=== PATIENT | female | born 1945 | race Caucasian/White ===

== ENCOUNTER 2023-06-18 11:23 | Outpatient (OUT) | payer MEDICARE, SELFPAY ==
--- NOTE | 2023-06-18 11:27 | MM_ITS ---
Patient Name: DORYS PAN MR#: [id number] : 1945 Exam Date: 06/18/2023 Ordering Doctor: DR MARIO DOUGLASS M.D. RADIOLOGY REPORT PROCEDURE: MM TOMOSYNTHESIS SCREENING BI COMPARISON: MG MAMM SCREEN 3D MIRNA CAD, 04/10/2022. MG MAMM SCREEN MIRNA W CAD, 05/05/2019. MG MAMM SCREEN MIRNA W CAD, 02/26/2018. MG MAMM MIRNA SCRN W CAD DIG, 06/15/2013. INDICATIONS: Screening Calculator Name NCI Breast Cancer Risk Assessment Tool 5 Year Breast Cancer Risk 1.90% Lifetime Breast Cancer Risk 3.90% Personal Breast Cancer No Personal Ovarian Cancer No Treatments None Family Cancers Father with lung cancer at age 71. LOCATION: [facility] BREAST COMPOSITION: Heterogeneously dense,which may obscure small masses. FINDINGS: DIAGNOSTIC CATEGORY 2--BENIGN FINDING: RIGHT BREAST: No significant suspicious finding. Scattered benign-appearing calcifications are present. No significant change has occurred. LEFT BREAST: No significant suspicious finding. Scattered benign-appearing calcifications are present. No significant change has occurred. RECOMMENDATIONS: ROUTINE MAMMOGRAM AND CLINICAL EVALUATION IN 12 MONTHS. PLEASE NOTE: A NORMAL MAMMOGRAM DOES NOT EXCLUDE THE POSSIBILITY OF BREAST CANCER. A CLINICALLY SUSPICIOUS PALPABLE LUMP SHOULD BE BIOPSIED. Dictated by: David Reynolds M.D. on 06/18/2023 at 14:39 Approved by: David Reynolds M.D. on 06/18/2023 at 14:42
== END 2023-06-18 11:24 | disposition home or self-care (01) ==
PROVIDERS: PCP Internal Medicine; Visit Provider Internal Medicine
DX: Z12.31 Encounter for screening mammogram for malignant neoplasm of breast (principal); Z80.1 Family history of malignant neoplasm of trachea, bronchus and lung
CPT/HCPCS: 77063; 77067

== ENCOUNTER 2023-11-10 13:59 | Outpatient (REF) | payer MEDICARE, SELFPAY ==
[2023-11-12 21:09] LABS: Ova + Parasite Exam Final report (.)
== END 2023-11-10 14:00 | disposition home or self-care (01) ==
LOC: LAB 13:59
PROVIDERS: PCP Internal Medicine; Visit Provider Internal Medicine
DX: R19.5 Other fecal abnormalities (principal)
CPT/HCPCS: 87177; 87209

== ENCOUNTER 2025-05-17 13:30 | Outpatient (OUT) | payer MEDICARE, SELFPAY ==
--- OUTSIDE RECORDS SUMMARY | 2025-05-12 15:10 | XMS_ITS | Encounter Summary ---
Author Organization [facility] Address [address] [place] [address] Care Team Providers Care Slide Fastener Chain Assembler Name Role Phone Prasanth Craig MD Primary Care Provider [phone] Lizzette Middleton DO Unavailable [phone] Reason for Visit * ReasonCommentsFollow-uplesions Encounter Details DateTypeDepartmentCare Team (Latest Contact Info)Murcpsmlmrz47/06/2025 3:10 PM ESTOffice Visit [facility] [address] [facility] [address] [place] [address] Justino Dooley, DPFred [address] [facility] [address] [place] [address] Verruca plantaris (Primary Dx); Foot pain, left; Diabetes mellitus due to underlying condition with diabetic polyneuropathy, unspecified whether exterminator helper insulin use (HCC) Social History Tobacco UseTypesPacks/DayYears UsedDateSmoking Tobacco: NeverSmokeless Tobacco: Never Tobacco Cessation:Counseling Given: Yes Alcohol UseStandard Drinks/WeekCommentsNever0 (1 standard drink = 0.6 oz pure alcohol)caffeine: coffee/teaAUDIT-CAnswerDate RecordedQ1: How often do you have a drink containing alcohol?Never04/15/2023Q2: How many drinks containing alcohol do you have on a typical day when you are drinking?Patient does not drink 04/15/2023Q3: How often do you have six or more drinks on one occasion?Never 10/10/2023PHQ-2AnswerDate RecordedPatient Health Questionnaire-2 Score0 03/11/2025CommentsUnknownSex and Gender InformationValueDate RecordedSex Assigned at BirthNot on fileLegal HqrKobjxp37/15/2023 6:45 PM EDTGender Identity Not on fileSexual OrientationNot on filedocumented as of this encounter Last Filed Vital Signs Vital SignReadingTime TakenCommentsBlood Pressure--Pulse--Temperature-- Respiratory Uxrm729807/12/2024 3:06 PM ESTOxygen Saturation--Inhaled Oxygen Concentration--Nabgxd26.9 kg (174 lb)05/12/2025 3:06 PM YFFTiivez255.6 cm (5' 6 )05/12/2025 3:06 PM ESTBody Mass Index28.0805/12/2025 3:06 PM ESTdocumented in this encounter Progress Notes * Justino Dooley, DPM - 05/12/2025 3:10 PM EST Patient: Laquita Dailey : 1945 PCP: Prasanth Craig MD SUBJECTIVE Patient presents today for follow up of skin lesion/neoplasm of unknown origin to the left foot Pt states that previous treatment of acid tx with some improvement Pt rates pain the pain on a 1-10 scale an intensity of 5 Pt presents today for followup. Pt is dm2 Allergies: Allergies Allergen Reactions Donald Inhibitors Other Reaction(s): Unknown Phenothiazines Swelling Other Reaction(s): Unknown, Unknown Shellfish Allergy Other Reaction(s): Unknown Sulfamethoxazole Unknown Trimethoprim Unknown Penicillins Rash Other Reaction(s): Hives / Skin Rash, Other (See Comments), Unknown Past Medical History: Past Medical History: Diagnosis Date A-fib (HCC) Angina pectoris Anxiety Anxiety state [place] esophagus BCC (basal cell carcinoma) CAD (coronary artery disease) Chest pain 10/18/2020 Depression Depressive disorder Diabetes mellitus (HCC) Edema Esophageal reflux Essential hypertension GERD (gastroesophageal reflux disease) GI bleed History of coronary artery bypass graft Hx of coronary artery bypass graft Hx of echocardiogram Hypercholesteremia Hyperlipemia Hypertension IBS (irritable bowel syndrome) LBBB (left bundle branch block) Migraine Migraine headache Osteopenia Osteoporosis (HHS-HCC) x2 Prolonged Q-T interval on ECG 06/2019 PUD (peptic ulcer disease) Pure hypercholesterolemia Medications: Current Outpatient Medications: atorvastatin (Lipitor) 10 MG tablet, Take 10 mg by mouth in the morning., Disp: , Rfl: biotin 5 MG capsule, Take 10,000 mg by mouth Daily, Disp: , Rfl: Xxjerxb-Wauqyexjxz-Jagzfsu D (CITRACAL +D3 PO), Daily., Disp: , Rfl: cholecalciferol (Vitamin D-3) 50 MCG (2000 UT) tablet, Take by mouth., Disp: , Rfl: Clobetasol Propionate E 0.05 % emollient cream, APPLY A THIN LAYER TO AFFECTED AREA TWICE DAILY FOR2 MONTHS, Disp: , Rfl: doxylamine (Sleep Aid) 25 MG tablet, Take 25 mg by mouth as needed at bedtime., Disp: , Rfl: ferrous sulfate 325 (65 Fe) MG tablet, Take 325 mg by mouth in the morning. Take with meals., Disp:, Rfl: furosemide (Lasix) 20 MG tablet, Take 1 tablet (20 mg) by mouth in the morning., Disp: 100 tablet, Rfl: 3 glucose blood (Contour Next Test) test strip, Checking bg levels 3 times a day, Disp: 100 each, Rfl: 3 Insulin Infusion Pump (T:slim X2 Ins Pump/Control-IQ) device, Basal: 12A 0.0, 5A 0.5, 11A 0.3, 5P 0.15, 10P 0.0, ICR: 12A 4, 5A 3, 11A 5., 5P 4.5, ISF: 12A 100, 5A 50, 10P 100, Target: 100-150, Disp:1 each, Rfl: 0 Insulin Lispro (HumaLOG) 100 UNIT/ML solution, Inject 1 Dose under the skin See administration instructions INJECT UP TO 100 UNITS VIA PUMP DIRECTED ONCE DAILY, Disp: 90 mL, Rfl: 3 insulin pen needle (Novofine Pen Needle) 32G x 6 mm mis, 1 (one) time each day at the same time., Disp: , Rfl: magnesium oxide (Mag-Ox) 400 MG tablet, Take 400 mg by mouth in the morning and 400 mg before bedtime., Disp: , Rfl: metoprolol succinate XL (Toprol-XL) 50 MG 24 hr tablet, Take 50 mg by mouth in the morning., Disp: , Rfl: nitroglycerin (Nitrodur) 0.2 MG/HR patch, 1 PATCH TRANSDERMALLY DAILY NEEDED FOR CHEST PAIN FOR 30 DAYS, Disp: , Rfl: nitroglycerin (Nitrostat) 0.4 MG SL tablet, Place 0.4 mg under the tongue every 5 (five) minutes ifneeded for chest pain., Disp: , Rfl: nystatin (Mycostatin) 538357 UNIT/GM powder, Apply to the affected area (underneath breasts), once daily, 30 day supply, Disp: 60 g, Rfl: 11 pantoprazole (ProtoNix) 40 MG EC tablet, TAKE 1 TABLET BY MOUTH EVERY DAY IN THE MORNING, Disp: 100tablet, Rfl: 3 potassium chloride CR (Klor-Con) 10 MEQ ER tablet, Take 1 tablet (10 mEq) by mouth Daily, Disp: 100tablet, Rfl: 3 rivaroxaban (Xarelto) 20 MG tablet, Take 1 tablet (20 mg) by mouth in the evening. Take with meals,Disp: 100 tablet, Rfl: 3 Social History: Social History Socioeconomic History Marital status: Spouse name: Not on file Number of children: Not on file Years of education: Not on file Highest education level: Not on file Occupational History Not on file Tobacco Use Smoking status: Never Smokeless tobacco: Never Vaping Use Vaping status: Never Used Substance and Sexual Activity Alcohol use: Never Comment: caffeine: coffee/tea Drug use: Never Sexual activity: Not Currently Other Topics Concern Not on file Social History Narrative Not on file Social Drivers of Health Financial Resource Strain: Not on file Food Insecurity: Not on file Transportation Needs: Not on file Physical Activity: Not on file Stress: Not on file Social Connections: Not on file Intimate Partner Violence: Not on file Housing Stability: Not on file ROS: General: denies fever, chills, fatigue, malaise Musculoskeletal: Positive history of generalized osteo arthritis, denies loss of strength, pain to hip, knees, back Cardiovascular: denies CP, palpitations, positive history of atrial fibrillation and coronary artery disease OBJECTIVE LE EXAM: DERM: Elongated thick yellow crumbly nails digits 1 through 10. Diminished hair growth with thin shiny atrophic skin bilaterally Nummular lesion measuring at the left sub 4th metatarsal measuring 0.1cm x 0.1cm. Right ankle has healed lesion VASC: Negative DP and positive PT pedal pulses NEURO: 5.07 [place] Leandro monofilament test intact to digits and forefoot bilaterally 125Hz tuning fork diminished to 1st MPJ bilaterally ORTHO: Positive pain on palpation to toenails of the left 1,2,3,4,5 toes and right 1,2,3,4,5 toes Positive pain on palpation left foot lesion ASSESSMENT 1. Verruca plantaris 2. Foot pain, left 3. Diabetes mellitus due to underlying condition with diabetic polyneuropathy, unspecified whether custodial insulin use (HCC) PLAN Application of salinocaine acid medication to lesion/lesions located at left foot Informed pt of risks and benefits of procedure including high reoccurence rate, infection, pain andconsent given. Application of DSD post procedure. Justino Dooley DPM documented in this encounter Plan of Treatment DateTypeDepartmentCare Team (Latest Contact Info)Bjbttaivjmo69/20/2025 3:20 PM ESTOffice Visit [facility] [address] [facility] [address] [place] [phone] Justino Dooley DPM [address] [facility] [address] [place] [address] 05/30/2025 1:30 PM ESTOffice Visit [facility] [address] [facility] [address] [place] [phone] Prasanth Craig MD [address] [facility] [address] [place] [address] 06/10/2025 1:30 PM ESTOffice Visit [facility] [address] [place] [address] Lizzette Middleton, [address] [place] [address] 06/23/2025 3:50 PM ESTOffice Visit [facility] [address] [place] [address] [place] [phone] Justino Dooley DPM [address] [facility] [address] [place] [address] 11/23/2025 1:00 PM EDTOffice Visit [facility] [address] [place] [address] Patito Serrano PA [address] [place] [address] documented as of this encounter Visit Diagnoses Diagnosis Verruca plantaris- Primary Plantar wart Foot pain, left Pain in soft tissues of limb Diabetes mellitus due to underlying condition with diabetic polyneuropathy, unspecified whether exterminator helper insulin use (HCC) documented in this encounter Care Teams Team MemberRelationshipSpecialtyStart DateEnd Date Prasanth Craig MD [address] [facility] [address] [place] [address] PCP - GeneralInternal Medicine12/09/22 Lizzette Middleton DO [address] [facility] [address] [place] [address] PCP - ACO Reach08/13/24documented as of this encounter
--- OUTSIDE RECORDS SUMMARY | 2025-05-17 13:35 | XMS_ITS | Clinical Summary ---
Author Organization [facility] Address [address] [place] [address] Care Team Providers Care Edi Developer Name Role Phone Unavailable Primary Care Provider Unavailabl e Social History Tobacco UseTypesPacks/DayYears UsedDateSmoking Tobacco: Never Assessed CommentsUnknownSex and Gender InformationValueDate RecordedSex Assigned at Not on fileLegal ZjrEskcuf63/02/2012 8:49 AM ESTGender IdentityNot on fileSexual OrientationNot on file Plan of Treatment Not on file Insurance
--- OUTSIDE RECORDS SUMMARY | 2025-05-17 13:35 | XMS_ITS | Encounter Summary ---
Author Organization [facility] tem Address [id number] [address] [place] [address] Care Team Providers Care Academic Computing Director Name Role Phone Prasanth Craig MD Primary Care Provider [phone] Encounter Details DateTypeDepartmentCare Team (Latest Contact Info)Mexinpsijig18/30/2025Orders Only [facility] Adult [facility], A Department of [facility] [address] [phone] External, Scanning Provider Social History Tobacco UseTypesPacks/DayYears UsedDateSmoking Tobacco: NeverSmokeless Tobacco: NeverAlcohol UseStandard Drinks/WeekCommentsNot Currently0 (1 standard drink = 0.6 oz pure alcohol)ChildcareAnswerDate RosudpxcLuoczorzbTnegwta13/12/2019 EmploymentAnswerDate AwonybrnGugvzkagdrDbrpqvs28/12/2019Purpose - LifeAnswerDate RecordedPurpose and direction in cmcmVjchbdk71/11/2021CommentsUnknownSex and Gender InformationValueDate RecordedSex Assigned at BirthNot on fileLegal TebDpjsif93/06/2015 12:01 PM EDTGender IdentityNot on fileSexual OrientationNot on filedocumented as of this encounter Plan of Treatment Not on file documented as of this encounter Procedures Procedure NamePriorityDate/TimeAssociated DiagnosisCommentsEYE EXAMRoutine 05/04/2025 9:54 AM EDTdocumented in this encounter Results * Eye exam (05/04/2025 9:54 AM EDT) Narrative Authorizing ProviderResult TypeResult StatusScanning Provider ExternalNURSING ASSESSMENTSFinal Result documented in this encounter Visit Diagnoses Not on filedocumented in this encounter Care Teams Team MemberRelationshipSpecialtyStart DateEnd Date Prasanth Craig MD [address] [facility] [address] [place] [phone] PCP - GeneralInternal Medicine03/26/22documented as of this encounter
--- OUTSIDE RECORDS SUMMARY | 2025-05-17 13:35 | XMS_ITS | Clinical Summary ---
Author Organization [facility] [facility] Address [id number] [address] [place] [address] Care Team Providers Care Land Classifier Name Role Phone Prasanth Craig MD Primary Care Provider [phone] Allergies Active AllergyReactionsCriticalityNoted DateCommentsPenicillinOther (See Comments)12/14/2020hellfish Trulkuq9604/23/2022ulfamethoxazoleOther (See Comments)12/14/2020TrimethoprimOther (See Comments)12/14/2020 Medications MedicationSigDispense QuantityRefillsLast FilledStart DateEnd DateStatus atorvastatin (LIPITOR) 10 mg tablet Take 1 tablet by mouth every evening once a dayActive biotin 5 mg tablet 1 capsule.Active metoprolol succinate XL (TOPROL XL) 50 mg 24 hr tablet Take 50 mg by mouth in the morning.01/04/2022ctive XARELTO 20 mg tablet tablet Take 20 mg by mouth daily.01/08/2022ctive furosemide (LASIX) 20 mg tablet Take 20 mg by mouth daily as needed.03/04/2022ctive potassium chloride (K-TAB,KLOR-CON) 10 MEQ CR tablet Take 10 mEq by mouth in the morning.01/05/2022ctive pantoprazole (PROTONIX) 40 mg EC tablet TAKE 1 TABLET BY MOUTH EVERY DAY FOR 90 DAYS03/06/2022ctive magnesium oxide (MAGOX) 400 mg tablet 1 tabletActive insulin lispro (HumaLOG MAX) 100 unit/mL insulin pen, half-unit per pump (max daily 60 units)Active nitroglycerin (NITROSTAT) 0.4 MG SL tablet one tablet every 5 minutes X3 if chest pain continues go directly to ERActive diphenhydrAMINE (BENADRYL) 25 mg capsule 1 tablet at bedtime as neededActive calcium carbonate-vitamin D3 (OSCAL 500 + D) 500 mg(1,250mg) -200 units per tablet Take 1 tablet by mouth in the morning and 1 tablet in the evening. Take with meals.Active aspirin 81 mg Take 81 mg by mouth in the morning.Active cholecalciferol, vitamin D3, (VITAMIN D3 ORAL) Take by mouth.Active insulin aspart U-100 (NovoLOG) 100 unit/mL injection INJECT UP TO 100 UNITS UNDER THE SKIN ONCE DAILY PER INSULIN PUMP Strength: 100 Units/mL DX:E10.69 90 mL ctive blood sugar diagnostic (CONTOUR NEXT TEST STRIPS) strip Use one strip to check blood sugar once a day in case of pump failure. DX:E10.69 100 strip ctive insulin lispro (HumaLOG U-100 Insulin) 100 unit/mL injection Indications:Type 1 diabetes mellitus with other specified complication ([facility]-H[facility]) INJECT UP TO 100 UNITS VIA PUMP DIRECTED ONCE DAILY 90 mL ctive Active Problems ProblemNoted DateDiagnosed NoliEsttuibjl85/13/2022 Overview (04/23/2022): 03/19/22: Persistent micro hematuria. Plan for CT urogram and cysto further workup. At the time of cysto will evaluate the mass she is feeling with wiping 04/23/22: CT urogram with hiatal hernia and gallbladder sludge, normal upper tract. Cysto with small rectocele. Findings all reviewed with patient Encounters DateTypeDepartmentCare AsejRiqdvhtvsng33/30/2025Orders Only [facility], A Department of [facility] [address] [address] External, Scanning Provider from Last 3 Months Family History Medical HistoryRelationNameCommentsCancerFatherlung cancerCirrhosisMother RelationNameStatusCommentsFatherDeceasedMotherDeceased Social History Tobacco UseTypesPacks/DayYears UsedDateSmoking Tobacco: NeverSmokeless Tobacco: Never Tobacco Cessation:Counseling Given: Not Answered Alcohol UseStandard Drinks/WeekCommentsNot Currently0 (1 standard drink = 0.6 oz pure alcohol)ChildcareAnswerDate CfnlwwfmDlmaqihakSvgszpk34/12/2019Employment AnswerDate QwsjrcchVqmchpntolVgfikgi99/12/2019Purpose - LifeAnswerDate Recorded Purpose and direction in wufaMxmlcqy92/11/2021CommentsUnknownSex and Gender InformationValueDate RecordedSex Assigned at BirthNot on fileLegal Sex Ongkro9502/09/2015 12:01 PM EDTGender IdentityNot on fileSexual OrientationNot on file Last Filed Vital Signs Vital SignReadingTime TakenCommentsBlood Afmfgkqn057/6009/ 2:40 PM EDT Pulse--Temperature--Respiratory Rate--Oxygen Saturation--Inhaled Oxygen Concentration--Oiyhku64.9 kg (185 lb)03/19/2022 2:40 PM MNYInmalg035.1 cm (5' 5 )03/19/2022 2:40 PM EDTBody Mass Index30.7903/19/2022 2:40 PM EDT Plan of Treatment Health MaintenanceDue DateLast DoneCommentsDepression Mmyebakqz24/15/1959Tobacco Hkxayzhtn97/15/1959Fall Risk Mdpzbpgug77/15/2012Zoster (Shingles) Vaccine (2 of 3), 06/19/2012RSV ( or age 60+ yrs) (1 - 1-dose 75+ series)2COVID-19 Vaccine ( - 2024- season)/, 08/29/2020, 08/08/2020Influenza Fhnfhjv87/07/2021, 04/06/2021, 04/06/2020, Additional history existsDTaP,Tdap and Td Vaccines (3 - Td or Tdap) , 03/03/2014 Medical Devices Not on file Procedures Procedure NamePriorityDate/TimeAssociated DiagnosisCommentsEYE EXAMRoutine 05/04/2025 9:54 AM EDTfrom Last 3 Months Results * Eye exam (05/04/2025 9:54 AM EDT) Narrative Authorizing ProviderResult TypeResult StatusScanning Provider ExternalNURSING ASSESSMENTSFinal Result from Last 3 Months Insurance MemberSubscriberPlan / Payer (Effective 2021-Present)Name:LAQUITA GOODMAN Relation to Subscriber:SelfName:Laquita Dailey Payer ID:Not on file Type:Not on file Address: [address] [facility] [address] [place] [address] Care Teams Team MemberRelationshipSpecialtyStart DateEnd Prasanth Craig MD [address] [facility] [address] [place] [phone] PCP - GeneralInternal Medicine03/26/22
--- OUTSIDE RECORDS SUMMARY | 2025-05-17 13:36 | XMS_ITS | CCD ---
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 Name Role Phone UNKNOWN, PROVIDER Unavailable Unavailable PRASANTH CRAIG Unavailable Unavailable Prasanth Craig Primary Care Provider Romain Everett Attending Provider Unavailable Unavailable Sybil Zamudio Unavailable GABY, DR MEYER Admitting Unavailable KARASIMathew, DR MEYER Attending Unavailable RAFA, DR MARTIN Primary Care Unavailable GABY, DR MEYER Consulting Unavailable GABY, DR MEYER Admitting Unavailable KARASIMathew, DR MEYER Attending Unavailable RAFA, DR MARTIN Primary Care Unavailable KARGOGO, DR MEYER Consulting Unavailable WEST, DR MARIAM Reis Consulting Unavailable ZIEBWES, DR DAYTON Mayo Consulting Unavailable RAUL, DR GARCES Admitting Unavailable RAUL, DR GARCES Attending Unavailable RAFA, DR MARTIN Primary Care Unavailable RAUL, DR GARCES Consulting Unavailable Prasanth Craig Unavailable Prasanth Craig MD Primary Care Provider PRASANTH CRAIG Primary Care Unavailable JOSHUA Craig Primary Care Provider JOSUE Pearson Emergency Provider MD Santiago Camarillo Admit Provider [phone] MD Santiago Camarillo Attending Provider [phone] MD Mercy Martin Other Provider Prasanth Craig MD Primary Care Provider [phone] Juan José Juarez MD Unavailable Eder Everett DO Unavailable Sha Bernabe Jr, MD Unavailable Unavailable MD Mitch Elder Attending Provider Mitch Elder Attending Unavailable Mitch Elder Admitting Unavailable Rafa Prasanth Primary Care Unavailable Santiago Camarillo Attending Unavailable Santiago Camarillo Admitting Unavailable Mercy Martin Consulting Unavailable Prasanth Craig MD Unavailable Prasanth Craig MD Primary Care Provider [phone] Juan José Juarez MD Unavailable [phone] Lizzette Monk DO Unavailable Juan José Juarez MD Unavailable [phone] Karlos DO Eder S Unavailable Prasanth Craig MD Primary Care Provider Juan José Juarez MD Unavailable [phone] Karlos DO Eder S Unavailable [phone] JUAN JOSÉ JUAREZ N Attending Unavailable RAFA PRASANTH B Primary Care Unavailable KARLOS, EDER S Attending Unavailable PRASANTH CRAIG B Primary Care Unavailable KARLOS, EDER S Referring Unavailable KARLOS EDER S Attending Unavailable KARLOS, EDER S Referring Unavailable RAFA PRASANTH B Primary Care Unavailable JUAREZ, JUAN JOSÉ N Attending Unavailable UJAREZ, JUAN JOSÉ N Referring Unavailable RAFA, PRASANTH B Primary Care Unavailable JUAREZ, JUAN JOSÉ N Attending Unavailable RAFA PRASANTH B Primary Care Unavailable JUAREZ, JUAN JOSÉ N Referring Unavailable ROSEMARY SILVERMAN Referring Unavailable CRAIG, PRASANTH B Primary Care Unavailable URIAH HAMILTON Referring Unavailable RAFA PRASANTH B Primary Care Unavailable JUAREZ, JUAN JOSÉ N Attending Unavailable JUAREZ, JUAN JOSÉ N Referring Unavailable PRASANTH CRAIG B Primary Care Unavailable Prasanth Craig MD Unavailable Shanna Umanzor LPN Unavailable KRYSTINA SERRANO Attending Unavailable JUSTINO POWERS Attending Unavailable LIZZETTE MONK Attending Unavailable ED SANABRIA Attending Unavailable ED SANABRIA Referring Unavailable RAFA PRASANTH B Attending Unavailable RAFA PRASANTH B Referring Unavailable JUSTINO POWERS Attending Unavailable JUSTINO POWERS Attending Unavailable LIZZETTE MONK Attending Unavailable JUSTINO POWERS Attending Unavailable JUSTINO POWERS Attending Unavailable JUSTINO POWERS Attending Unavailable LIZZETTE MONK Attending Unavailable JUSTINO POWERS Attending Unavailable KRYSTINA SERRANO Attending Unavailable PRASANTH CRAIG Attending Unavailable Corporate, Doctor Attending Unavailable Sha Bernabe Jr Attending Unavailable Sha Bernabe Jr Referring Unavailable Sha Bernabe Jr Attending Unavailable Sha Bernabe Jr Referring Unavailable Unavailable Unavailable Unavailable Allergies Allergy ClassificationReported Allergen(s)Allergy TypeDate of OnsetReaction(s) Facility (5 sources)Fish derivative; Translations: [fish derived]Propensity to adverse kfuccyujv43-74-5174KdgbhmwfCkmvwabucPremier [facility] (20 sources)Penicillins; Translations: [Penicillins]Allergy to substance 88-10-4398jkchLasgxtrylBet[facility] (20 sources)Phenothiazine; Translations: [Phenothiazines]Allergy to substance 68-38-4433VbvyckipZuzWright[facility] (5 sources)Shellfish; Translations: [shellfish derived]Propensity to adverse rbwaymdvz18-74-4992QzlgwbzcKqphschfsLake County [facility] (19 sources)Angiotensin Converting Enzyme (Ira) Inhibitors; Translations: [IRA Inhibitors]Allergy to drug (finding)05-04-2662ZPSt[facility] (16 sources)shellfish, unspecifiedAllergy to substance (finding)[facility] DO Work Phone: (20 sources)Sulfamethoxazole; Translations: [sulfamethoxazole]Drug Allergy 81-64-2243GgcqjduKeebuedkoAdena [facility]ayette [facility] (2 sources)Sulfamethoxazole / Trimethoprim; Translations: [Bactrim]Drug Allergy 08-21-7490lgnwr't rememberDayton [facility]opathic [facility] (20 sources)Trimethoprim; Translations: [TRIMETHOPRIM]Drug Nfiahoz57-97-6453 anaphylaxis, [facility] (1 source)Angiotensin Converting Enzyme (Ira) InhibitorsDrug allergy (disorder) [facility] (1 source)PenicillinDrug Fmgkjfc98-58-3244RneDayton Osteopathic Hospital [facility] (15 sources)Angiotensin-converting enzyme inhibitor agentDrug Udtjvia96-16-8182 [facility] (18 sources)Shellfish; Translations: [SHELLFISH CONTAINING PRODUCTS]Drug Allergy 39-43-9347AodebtmAihgkxgcspCincinnati VA Medical Center Work Phone: (1 source)Promazine; Translations: [PROMAZINE HCL]Drug Jffvmfu90-30-1674[facility] (1 source)TrimethoprimDrug Jupomzr52-81-6074RxiuosrioSelect Medical [facility] (20 sources)Angiotensin-converting enzyme inhibitor agentDrug Xonxycm83-40-5174 [facility] (20 sources)ShellfishAllergy to lfsrqubxk31-22-3624[facility] Medications Current Medications MedicationDrug Class(es)DatesSig (Normalized)Sig (Original)aspirin 81 mg delayed release oral tablet (20 sources)Platelet Aggregation Inhibitor, Nonsteroidal Anti-inflammatory Drug Start: 11-25-2022 End: 1946zhxt 1 tablet by mouth once dailyaspirin 81 mg EC tablet Indications: Palpitations TAKE 1 TABLET BY MOUTH EVERY DAY 90 tablet 3 12/0906/01/2024 Discontinued (Discontinued by another clinician)Start: 06-04-2019 End: 45-27-2600Uytaxiu (Farhana Low Dose Aspirin) 81 mg Tablet,Delayed Release (Dr/Ec) Discontinued 81 MG PO MOFR June 04, 2019 1:00am October 18, 2020 4:10pm friday and fridays onlyStart: 04-16-2019 End: 66-92-1074nhwz 81 mg by mouth once dailyAspirin Discontinued 81 MG PO Daily April 16, 2019 12:00am June 04, 2019 9:09amAspirin 81 Active atorvastatin 10 mg oral tablet (20 sources)HMG-CoA Reductase InhibitorStart: 04-16-2019 End: 08-08-9133xyxm 1 tablet by mouth once daily at bedtimeatorvastatin (Lipitor) 10 mg tablet Indications: Mixed hyperlipidemia Take 1 tablet (10 mg) by mouth once daily at bedtime. 90 tablet 3 11/17/2024 11/17/2025 Active Atorvastatin Calcium Activebiotin 5 mg oral tablet (20 sources)Start: 27-13-6144uesk 5000 ug by mouth once dailyBiotin Active 5000 MCG PO Daily June 04, 2019 1:00amStart: 04-16-2019 End: 01-07-0785qiku 5000 ug by mouth once dailyBiotin Discontinued 5000 MCG PO Daily April 16, 2019 12:00am June 04, 2019 9:12ambiotin 5 MG capsule Take 10,000 mg by mouth Daily Activetake 1 capsule by mouth once dailybiotin 5 mg capsule Take 1 capsule (5 mg) by mouth once daily. Activetake 1 capsule by mouth once dailyBiotin 5000 MCG Oral Capsule TAKE 1 CAPSULE Daily Quantity: 0 Refills: 0 Ordered: 03-Jun-2021 DO Activecalcium carbonate 1250 mg / cholecalciferol 200 unt oral tablet (1 source)Vitamin DStart: 01-65-5124Yzwnleq Carbonate-Vitamin D3 (Calcium 500 + D) 500 mg(1,250mg) -200 unit Tablet Active 1 TAB PO Daily April 16, 2019 5:09pmCalcium Carbonate-Vitamin D3 (Calcium 500 + D) 500 mg(1,250mg) -200 unit Tablet (3 sources)Start: 36-65-7469Suuawpx Carbonate-Vitamin D3 (Calcium 500 + D) 500 mg(1,250mg) -200 unit Tablet Active 1 TAB PO Daily April 16, 2019 12:00am calcium citrate/vitamin D3 (CALCIUM CITRATE + D ORAL) (12 sources)take 1 tablet by mouth once dailycalcium citrate/vitamin D3 (CALCIUM CITRATE + D ORAL) Take 1 tablet by mouth once daily. Activetake 1 tablet by mouth once dailycalcium citrate/vitamin D3 (CALCIUM CITRATE + D ORAL) Take 1 tablet by mouth once daily. 0 AfwpciGwgealm-Gwlgrjfjgs-Fkxdqxg D (CITRACAL +D3 PO) (20 sources)Guonlgl-Zclzfpjzai-Hkgbhbp D (CITRACAL +D3 PO) Daily. Active cholecalciferol 0.05 mg oral tablet (20 sources)Vitamin D End: 58-42-6416ltcilwkprlgproq (Vitamin D-3) 50 MCG (2000 UT) tablet Take by mouth. Activetake 1 capsule by mouth once dailyVitamin D3 50 mcg (2,000 unit) capsule take 1 capsule by oral route every day 1 capsule - ActiveVitamin D 50 MCG (2000 UT) Oral Tablet Take as directed Quantity: 0 Refills: 0 Ordered: 23-Ran-2656VL Activeemollient clobetasol propionate 0.5 mg/ml topical cream (20 sources)CorticosteroidStart: 29-36-5747Nfpymyclrh Propionate E 0.05 % emollient cream APPLY A THIN LAYER TO AFFECTED AREA TWICE DAILY FOR 2 MONTHS 01/15/2022 ActiveContinuous Blood Gluc Sensor (Dexcom G7 Sensor) misc (3 sources)Start: 03-11-2023 End: 82-20-1592Atlhzuakir Blood Gluc Sensor (Dexcom G7 Sensor) [facility] [place] Indications: 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 9 each 3 03/11/2023 03/10/2024 ActiveCoral Calcium 250 mg-200 unit-125 mg capsule (1 source)take 1 capsule by mouth once dailyCoral Calcium 250 mg-200 unit-125 mg capsule take 1 capsule daily by mouth - Activedoxylamine succinate 25 mg oral tablet (20 sources)doxylamine (Sleep Aid) 25 MG tablet Take 25 mg by mouth as needed at bedtime. Activetake 1 capsule by mouth once daily at bedtimedoxylamine succinate (NITETIME SLEEP-AID ORAL) Take 1 capsule by mouth once daily at bedtime. Active take 1 capsule by mouth once daily at bedtimedoxylamine succinate (NITETIME SLEEP-AID ORAL) Take 1 capsule by mouth once daily at bedtime. 0 Active doxylamine succinate (NITETIME SLEEP-AID ORAL) Take by mouth once daily at bedtime. 0 Activeferrous sulfate 325 mg oral tablet (20 sources)take 1 tablet by mouth at mealtimeferrous sulfate 325 (65 Fe) MG tablet Take 325 mg by mouth in the morning. Take with meals. Activetake 1 tablet by mouth once daily at mealtimeferrous sulfate 325 (65 Fe) MG EC tablet Take 65 mg by mouth once daily with a meal. Do not crush, chew, or split. Active End: 05-39-3918opsx 1 tablet by mouth once dailyferrous sulfate 325 (65 Fe) MG tablet Take 1 tablet (325 mg) by mouth once daily. 0 06/03/2023 Discontinued (Therapy completed)furosemide 20 mg oral tablet (20 sources)Loop DiureticStart: 04-16-2019 End: 21-38-9120rabg 1 tablet by mouth in the morningfurosemide (Lasix) 20 MG tablet Indications: Edema, unspecified type Take 1 tablet (20 mg) by mouthin the morning. 100 tablet 3 06/27/2023 ActiveFurosemide ActiveInsulin Infusion Pump (T:slim X2 Ins Pump/Control-IQ) device (20 sources)Start: 56-46-7177Nqmkzqh Infusion Pump (T:slim X2 Ins Pump/Control- IQ) device Basal: 12A 0.0, 5A 0.5, 11A 0.3, 5P 0.15, 10P 0.0, ICR: 12A 4, 5A 3, 11A 5., 5P 4.5, ISF: 12A 100, 5A 50, 10P 100, Target: 100-150 1 each 03/14/2025 ActiveStart: 12-27-2024 End: 80-96-5647Nangbcs Infusion Pump (T:slim X2 Ins Pump/Control-IQ) device Basal: 12A 0.0, 5A 0.5, 11A 0.3, 5P 0.15, 10P 0.0, ICR: 12A 4, 5A 3, 11A 5., 5P 4.5, ISF: 12A 25, 8A 15, Target: 100-150 1 each Discontinued (Dose adjustment)Start: 19-11-6430Islnsyc Infusion Pump (T:slim X2 Ins Pump/Control-IQ) device Basal: 12A 0.0, 5A 0.5, 11A 0.3, 5P 0.15, 10P 0.0, ICR: 12A 4, 5A 3, 11A 5., 5P 4.5, ISF: 12A 25, 8A 15, Target: 100-150 1 each 12/27/2024tiveStart: 67-25-3489Cblfpmc Infusion Pump (T:slim X2 Ins Pump/Control-IQ) device Basal: 12A 0.0, 5A 0.5, 11A 0.3, 5P 0.15, ICR: 12A 4, 5A 3, 11A 5., 5P 4.5, ISF: 12A 25, 8A 15, Target: 100-150 1 each 12/06/2024 Active End: 05-28-8820Cafnceg Infusion Pump (T:slim X2 Ins Pump/Control-IQ) device Basal: 12A 0.0, 5A 0.45, 12P 0.25, ICR: 12A 3, 11A 5.5, 5P 4.5, ISF: 12A 25, 8A 15, Target: 100-150 12/06/2024 Discontinued (Dose adjustment)Insulin Infusion Pump (T:slim X2 Ins Pump/Control-IQ) device Basal: 12A 0.0, 5A 0.45, 12P 0.25, ICR: 12A 3, 11A 5.5, 5P 4.5, ISF: 12A 25, 8A 15, Target: 100-150 Activeinsulin lispro 100 unt/ml injectable solution (20 sources)Insulin AnalogStart: 02-22-2024 End: 81-21-3701gwdzka 1 dose by subcutaneous injection once dailyInsulin Lispro (HumaLOG) 100 UNIT/ML solution Indications: 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 Insulin dosing requires individualization. 0.00 - Active End: 60-91-6952CWEUTPH LISPRO SUBQ Inject under the skin. 0 04/10/2023 Discontinued (Duplicate order)HumaLOG ActiveHumaLOG SOLN USE DIRECTED. Quantity: 0 Refills: 0 Ordered: 03-Jun-2021 DO ActiveInsulin Lispro (Humalog U- 100 Insulin) 100 unit/mL Solution (3 sources)Start: 85-81-0461Fttefat Lispro (Humalog U-100 Insulin) 100 unit/mL Solution Active 1 sliding scale dose SUBCUT Use as Directed June 08, 2019 1:00am insulin pumpmagnesium oxide 400 mg oral tablet (20 sources)Start: 60-54-8766etxu 1 tablet by mouth twice dailymagnesium oxide (Mag-Ox) 400 mg (241.3 mg elemental) tablet Indications: Paroxysmal atrial fibrillation (Multi) TAKE 1 TABLET BY MOUTH TWICE A DAY 180 tablet 3 11/22/2024 ActiveStart: 85-25-0188yzvh 800 mg by mouth twice dailyMagnesium Oxide Active 800 MG PO Twice daily June 04, 2019 8:11amStart: 06-04-2019 End: 67-85-4806dnrn 1 tablet by mouth twice dailymagnesium oxide (Mag-Ox) 400 mg (241.3 mg magnesium) tablet Indications: Paroxysmal atrial fibrillation (Multi) Take 1 tablet (400 mg) by mouth 2 times a day. 180 tablet 3 11/18/2023 11/17/2024 Activetake 1 capsule by mouth once dailymagnesium 400 mg (as magnesium oxide) capsule take 1 capsule daily by mouth - ActiveMagnesium Oxide Jtgfqa48 hr metoprolol succinate 50 mg extended release oral tablet (20 sources)beta-Adrenergic BlockerStart: 12-16-2024 End: 28-65-6333uwpb 1 tablet by mouth once dailymetoprolol succinate XL (Toprol- XL) 50 mg 24 hr tablet Indications: Paroxysmal atrial fibrillation (Multi) , Essential hypertension Take 1 tablet (50 mg) by mouth once daily. 90 tablet 3 12/16/2024 12/16/2025 ActiveStart: 19-95-5318opdr 1 tablet by mouth every twenty-four hours in the morningmetoprolol succinate XL (Toprol-XL) 50 MG 24 hr tablet Take 50 mg by mouth in the morning. 09/24/2022 ActiveStart: 12-05-2021 End: 91-49-6392qmby 1 tablet by mouth once dailymetoprolol succinate XL (Toprol- XL) 50 mg 24 hr tablet Indications: Paroxysmal atrial fibrillation (Multi) , Essential hypertension TAKE 1 TABLET BY MOUTH EVERY DAY 90 tablet 3 04/19/2024 ActiveStart: 29-23-7759fmzj 1 tablet by mouth once daily in the evening Metoprolol Succinate ER 25 MG Oral Tablet Extended Release 24 Hour TAKE 1 TABLET BY MOUTH EVERY DAYIN THE EVENING Quantity: 90 Refills: 3 Ordered: 05-Dec-2021 Juan José Juarez MD Start : 05-Dec-2021 ActiveStart: 08-11-2020 End: 06-77-3946qvjd 12.5 mg by mouth once daily at bedtimeMetoprolol Succinate Discontinued 12.5 MG PO Daily at bedtime August 11, 2020 1:00am April 21, 2023 11:00pmStart: 07-08-2019 End: 16-63-9518goqx 50 mg by mouth once dailyMetoprolol Succinate Discontinued 50 MG PO Daily July 08, 2019 1:00am August 11, 2020 12:46pmStart: 04-16-2019 End: 55-49-7506emek 100 mg by mouth twice dailyMetoprolol Succinate Discontinued 100 MG PO Twice daily April 16, 2019 12:00am June 26, 2019 10:00pm Metoprolol Succinate Rdouwr38 hr nitroglycerin 0.2 mg/hr transdermal system (20 sources)Nitrate VasodilatorStart: 55-29-3266wseou 0.2 mg transdermal route every hour as needednitroglycerin (Nitrodur) 0.2 MG/HR patch 1 PATCH TRANSDERMALLY DAILY NEEDED FOR CHEST PAIN FOR 30 DAYS 04/23/2023 ActiveStart: 06-08-2019 End: 23-76-0075rcsuixipmxfik (Nitrostat) 0.4 mg SL tablet Indications: 3-vessel coronary artery disease , Angina, class II Place 1 tablet (0.4 mg) under the tongue every 5 minutes if needed for chest pain. 90 tablet 1 06/03/2023 Active Start: 06-08-2019 End: 02-99-8012aqjcu 1 dose transdermal route once dailyNitroglycerin Active 1 PATCH TRANSDERML Daily April 22, 2023 11:25amNitroglycerin Active nystatin 100 unt/mg topical powder (20 sources)Polyene AntifungalStart: 01-38-9539yulcgivv (Mycostatin) 202240 UNIT/GM powder Indications: Intertrigo Apply to the affected area (underneath breasts), once daily, 30 day supply 60 g 11 11/22/2024 Activeondansetron 4 mg disintegrating oral tablet (1 source)Serotonin-3 Receptor AntagonistStart: 09-01-2024 End: 08-97-8435oano 1 tablet by mouth every eight hours as needed for nausea and vomiting and nausea and nauseaondansetron ODT (Zofran-ODT) 4 MG disintegrating tablet Indications: Nausea Take 1 tablet (4 mg) bymouth every 8 (eight) hours if needed for nausea or vomiting for up to 7 days 21 tablet 09/01/2024 09/01/2024 Discontinued (Patient refused)pantoprazole 40 mg delayed release oral tablet (20 sources)Proton Pump InhibitorStart: 63-86-3067ssbi 1 tablet by mouth once daily in the morningpantoprazole (ProtoNix) 40 MG EC tablet Indications: Gastroesophageal reflux disease without esophagitis TAKE 1 TABLET BY MOUTH EVERY DAY IN THE MORNING 100 tablet 3 11/16/2024 ActivePantoprazole Sodium Active potassium chloride 10 meq extended release oral tablet (20 sources)Start: 08-07-2023 End: 19-94-3426naxv 1 tablet by mouth once dailypotassium chloride CR (Klor-Con) 10 MEQ ER tablet Indications: Age-related osteoporosis without current pathological fracture Take 1 tablet (10 mEq) by mouth Daily 100 tablet 3 12/13/2024 ActiveStart: 89-35-2377dehl 1 tablet by mouth once dailyPotassium Chloride ER 10 MEQ Oral Tablet Extended Release TAKE 1 TABLET BY MOUTH EVERY DAY Quantity: 90 Refills: 3 Ordered: 12-Feb-2023 Juan José Juarez MD Start : 06-Dec-2021 ActiveStart: 07-10-2019 End: 40-75-1789ltsy 10 mEq by mouth once dailyPotassium Chloride Active 10 MEQ PO Daily July 10, 2019 1:00am Further refills per PCP. Takewith lasix. Start: 07-10-2019 End: 42-34-5374Bnobnpszv Chloride (Klor-Con M20) 20 mEq Tablet,Er Particles/Crystals Discontinued 20 MEQ PO Daily 0 July 10, 2019 1:00am August 11, 2020 12:48pmStart: 07-09-2019 End: 59-12-6031ebbm 20 mEq by mouth once dailyPotassium Chloride Discontinued 20 MEQ PO Daily July 09, 2019 1:00am July 10, 2019 3:19pmtake 1 tablet by mouth twice daily at mealtimepotassium chloride ER 10 mEq tablet,extended release take 1 tablet by oral route 2 times every day with food 10 MEQ - Active Potassium Chloride Activerivaroxaban 20 mg oral tablet (20 sources)Factor Xa InhibitorStart: 06-08-2019 End: 87-77-5912duqc 1 tablet by mouth at mealtimerivaroxaban (Xarelto) 20 MG tablet Indications: Longstanding persistent atrial fibrillation (HCC) Take 1 tablet (20 mg) by mouth in the evening. Take with meals 100 tablet 3 02/16/2025 Active Completed/Discontinued Medications MedicationDrug Class(es)DatesSig (Normalized)Sig (Original)amiodarone hydrochloride 200 mg oral tablet (4 sources)AntiarrhythmicStart: 06-26-2019 End: 53-81-8000jndw 200 mg by mouth once dailyAmiodarone Discontinued 200 MG PO Daily June 26, 2019 1:00am August 11, 2020 12:42pmCalcium (17 sources)Phosphate Binder, CalciumCalcium + D ActiveCalcium + D3 TABS one tab daily Quantity: 0 Refills: 0 Ordered: 03-Jun-2021 DO ActiveCALCIUM CARBONATE- VITAMIN D3 ORAL (4 sources) End: 30-80-3245jwjd 1 tablet by mouth once dailyCALCIUM CARBONATE-VITAMIN D3 ORAL Take 1 tablet by mouth once daily. 0 06/03/2023 Discontinued (Entered in Error)take 1 tablet by mouth once dailyCALCIUM CARBONATE-VITAMIN D3 ORAL Take 1 tablet by mouth once daily. 0 Activechondroitin sulfates 600 mg / glucosamine hydrochloride 750 mg chewable tablet (4 sources)Start: 06-04-2019 End: 64-49-4460atti 1 tablet by mouth once dailyGlucosamine-Chondroitin Discontinued 1 TAB PO Daily June 04, 2019 1:00am June 23, 2019 9 :26amclopidogrel 75 mg oral tablet (3 sources)P2Y12 Platelet InhibitorStart: 08-16-2020 End: 72-74-7478olnw 1 tablet by mouth once dailyClopidogrel (Plavix) 75 mg tablet Discontinued 75 MG PO Daily August 16, 2020 1:00am April 21, 2023 2:48pm start after completion of 1 month of Brilinta.diphenhydrAMINE hydrochloride 25 mg oral capsule (20 sources)Histamine-1 Receptor Antagonist End: 24-32-6025vcfl 1 capsule by mouth once daily at bedtimediphenhydrAMINE (BENADryl) 25 mg capsule Take 1 capsule (25 mg) by mouth once daily at bedtime. 0 06/03/2023 Discontinued (Therapy completed)Bshp-Cdoujj-Vsi#0-M-Bwqe-Buxton (Glucosamine-Chondr (Boswellia)) 771-728-67-1-3 mg Tablet (4 sources)Start: 04-16-2019 End: 77-70-1386ixjf 1 tablet by mouth once zceghHrzu-Tmmtyj-Yit#8-J-Ijuo-Buxton (Glucosamine-Chondr (Boswellia)) 028-158-03-1-3 mg Tablet Discontinued 1 TAB PO Daily April 16, 2019 5:09pm June 04, 2019 8:10amStart: 04-16-2019 End: 36-85-0640wwof 1 tablet by mouth once noiobPmmq-Ejextd-Pox#7-Z-Qayh-Buxton (Glucosamine-Chondr (Boswellia)) 222-267-97-1-3 mg Tablet Discontinued 1 TAB PO Daily April 16, 2019 12:00am June 04, 2019 9:10aminsulin aspart, human 100 unt/ml injectable solution (2 sources)Insulin AnalogStart: 04-22-2022 End: 09-62-2111oxxnji 100 [IU] by subcutaneous injection once dailyinsulin aspart (NovoLOG) 100 unit/mL injection Inject 100 Units under the skin once daily. 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 (HCC) Basal: 12A 0.0, 5A 0.45, 12P 0.25, ICR: 12A 3, 11A 5.5, 5P 4.5, ISF: 12A 25, 8A 15, Target: 100-150 1 each 05/17/2024 11/30/2024 Discontinued (Therapy completed)Start: 31-91-3457Idhxuec Infusion Pump (MINIMED INSULIN PUMP) device Indications: 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 Basal: 12A 0.0, 5A 0.45, 12P 0.25, ICR: 12A 3, 11A 5.5, 5P 4.5, ISF: 12A 25, 8A 15, Target: 100-150 1 each 05/17/2024 ActiveStart: 82-96-1636Emboxei Infusion Pump (MINIMED INSULIN PUMP) device Indications: 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) Basal: 12A 0.0, 5A 0.45, 12P 0.25, ICR: 12A 3, 11A 5.5, 5P 4.5,ISF: 12A 25, 8A 15, Target: 100-150 1 each 05/17/2024 ActiveStart: 02-22-2024 End: 45-95-7397Bmkcezd Infusion Pump (MINIMED INSULIN PUMP) device Indications: 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) Basal: 12A 0.0, 4A 0.4, 12P 0.3, 10P 0.35, ICR: 12A 3.5, 11A 5.5, 5P 4.5, ISF: 12A 25, 8A 15, Target: 100-150 1 each 02/22/2024 05/17/2024 Discontinued (Dose adjust ment)Start: 63-55-3319Oqlrrlo Infusion Pump (MINIMED INSULIN PUMP) device Indications: 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 Take asdirected per insulin instructions. 0 06/03/2023 Discontinued (Duplicate order)irbesartan 75 mg oral tablet (5 sources)Angiotensin 2 Receptor BlockerStart: 04-16-2019 End: 43-48-0268fspg 75 mg by mouth once daily in the morningIrbesartan Discontinued 75 MG PO Daily April 16, 2019 12:00am June 26, 2019 10:00pm in AMIrbesartan ActiveMagnesium (4 sources)Start: 04-16-2019 End: 81-62-8223uiyp 400 mg by mouth twice dailyMagnesium Discontinued 400 MG PO Twice daily April 16, 2019 5:09pm June 04, 2019 8:10amStart: 04-16-2019 End: 67-26-7584lpai 400 mg by mouth twice dailyMagnesium Discontinued 400 MG PO Twice daily April 16, 2019 12:00am June 04, 2019 9:10am methylPREDNISolone (1 source)CorticosteroidStart: 33-26-6314Lngz-Medrol 80 mg Feb, 120 mg methylsulfonylmethane 1000 mg oral capsule (4 sources)Start: 04-16-2019 End: 81-17-7958liaq 1 capsule by mouth once dailyMethylsulfonylmethane (Msm) 1,000 mg Capsule Discontinued 1000 MG PO Daily April 16, 2019 12:00am June 23, 2019 9:28amOmega 7-Dkq-Qss-Fish Oil ([place]-3) 350 mg-235 mg- 90 mg-597 mg Capsule,Delayed Release(Dr/Ec) (4 sources)Start: 04-16-2019 End: 11-43-3783twqp 1 tablet by mouth once dailyOmega 2-Rrz-Ibz-Fish Oil ([place]- 3) 350 mg-235 mg- 90 mg-597 mg Capsule,Delayed Release(Dr/Ec) Discontinued 1 TAB PO Daily April 16, 2019 5:09pm April 16, 2019 8:56pmStart: 04-16-2019 End: 13-50-1860ojhs 1 tablet by mouth once dailyOmega 3-Lqk-Iku-Fish Oil ([place]- 3) 350 mg-235 mg- 90 mg-597 mg Capsule,Delayed Release(Dr/Ec) Discontinued 1 TAB PO Daily April 16, 2019 12:00am April 16, 2019 9:56pmOmega-3 Fatty Acids (4 sources)Start: 06-04-2019 End: 96-39-7004ijld 1000 mg by mouth once dailyOmega-3 Fatty Acids Discontinued 1000 MG PO Daily June 04, 2019 8:11am August 11, 2020 11:47amStart: 06-04-2019 End: 16-31-5401eayh 1000 mg by mouth once dailyOmega-3 Fatty Acids Discontinued 1000 MG PO Daily June 04, 2019 1:00am August 11, 2020 12:47pmomeprazole 40 mg delayed release oral capsule (5 sources)Proton Pump InhibitorStart: 04-16-2019 End: 98-42-3641eqll 40 mg by mouth twice dailyOmeprazole Discontinued 40 MG PO Twice daily April 16, 2019 12:00am October 18, 2020 4:12pmtake 1 capsule by mouth once dailyOmeprazole 40 MG 1 capsule 30 minutes before morning meal Orally Once a day Activeregadenoson (Lexiscan) injection 0.4 mg (2 sources)Start: 04-28-2023 End: 27-25-5814bptapnhpddm (Lexiscan) injection 0.4 mgSub-Q Infusion Pump Accessory (Paradigm Infusion Set) Misc (4 sources)Start: 06-08-2019 End: 54-98-3310Jkj-Q Infusion Pump Accessory (Paradigm Infusion Set) Misc Discontinued June 08, 2019 10:33am August 11, 2020 11:50amStart: 06-08-2019 End: 78-63-8570Xan-Q Infusion Pump Accessory (Paradigm Infusion Set) Misc Discontinued June 08, 2019 1:00am August 11, 2020 12:50pmsucralfate 1000 mg oral tablet (4 sources)Aluminum ComplexStart: 07-10-2019 End: 44-41-8903twmb 1 g by mouth once before mealtimeSucralfate Discontinued 1 GM PO 3x/Day before meals & bedtime 120 30 July 10, 2019 1:00am August 11, 2020 12:51pmticagrelor 90 mg oral tablet (4 sources)Start: 08-16-2020 End: 88-12-7100xqfl 1 tablet by mouth twice dailyTicagrelor (Brilinta) 90 mg Tablet Discontinued 90 MG PO Twice daily 0 August 16, 2020 1:00am October 18, 2020 4:12pmBrilinta Active Problems Active Problems Problem ClassificationProblemDateDocumented DateEpisodic/ChronicAbdominal hernia (4 sources)Hiatal hernia; Translations: [Diaphragmatic hernia without obstruction or gangrene]08-51-6381OdueeheaJvxaioq disorders (20 sources)Anxiety state; Translations: [Generalized anxiety disorder]Onset: 095522-76-2677YdjiizqDlxgnxb dysrhythmias (20 sources)Paroxysmal atrial fibrillation; Translations: [Atrial premature complex ]Onset: 12-10-2022 Resolved: 826711-10-9422AmdbywxUpsxjkuv (11 sources)Pseudophakia; Translations: [Presence of intraocular lens]Onset: 30-07-7443DcrzlxoGgxtkfh ulcer of skin (2 sources)Ulcer of lower extremity; Translations: [Non-pressure chronic ulcer of unspecified part of right lower leg with fat layer exposed]04-12-3493Ahnfijz Conditions associated with dizziness or vertigo (4 sources)Lightheadedness; Translations: [Dizziness and giddiness]04-16-2019 EpisodicConduction disorders (20 sources)Long QT syndrome; Translations: [Left bundle branch block]Onset: 55-04-985936474837-92-4688NfdvhmaGgbcqylp atherosclerosis and other heart disease (20 sources)Atherosclerotic heart disease of [place] coronary artery without angina pectoris; Translations: [Triple vessel disease of the heart ]Onset: 624122-10-2218SecojysAotcvcop atherosclerosis and other heart disease (7 sources)History of coronary artery bypass grafting; Translations: [Presence of aortocoronary bypass graft]Onset: 435034-29-4255NildqbazFqybvojfph and other anemia (20 sources)Iron deficiency anemia due to blood loss; Translations: [Iron deficiency anemia secondary to blood loss (chronic)]Onset: ChronicDeficiency and other anemia (4 sources)Anemia; Translations: [Anemia, unspecified]15-68-5671OqznqjmfXgmfcpfk mellitus with complications (20 sources)Hyperglycemia due to type 1 diabetes mellitus; Translations: [Type 1 diabetes mellitus with hyperglycemia]Onset: 01-13-2013 Resolved: 575260-08-1265DwbwosoKbuazstjy of lipid metabolism (20 sources)Hyperlipidemia; Translations: [Other and unspecified hyperlipidemia] Onset: 472541-13-7248KjhwffuYftabunelr disorders (20 sources)[place]'s esophagus; Translations: [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]Onset: 313734-12-2339HwbsgcvScmpfmzuw hypertension (20 sources)Hypertensive disorder; Translations: [Essential hypertension]Onset: 362833-30-9335HyjhzwcSknxdzjxwdhdak ulcer (except hemorrhage) (20 sources)Gastric ulcer; Translations: [Gastric ulcer, unspecified as acute or chronic, without mention of hemorrhage or perforation, without mention of obstruction]Onset: 693592-51-7529ErtwxwnPboaqfwkmwqrvbfi hemorrhage (20 sources)Gastrointestinal hemorrhage; Translations: [Chronic or unspecified gastric ulcer with hemorrhage]Onset: 467110-94-3392YwedhqoCgspttau; including migraine (20 sources)Migraine with aura; Translations: [Migraine with aura, not intractable, without status migrainosus]Onset: hronic Hemorrhoids (1 source)Hemorrhoids; Translations: [Unspecified hemorrhoids]EpisodicMenopausal disorders (20 sources)Decreased estrogen level; Translations: [Other primary ovarian failure]Onset: 419421-44-0243FajmnurKtrn disorders (20 sources)Depressive disorder; Translations: [Depressive disorder]Onset: 922438-72-3137HcilwwiNeugscx (8 sources)Pain in toe; Translations: [Tinea unguium]00-72-0495JvcfptzkQgoqco and vomiting (1 source)Nausea; Translations: [Nausea]48-24-1099KhwbagflJetteefdpioj (20 sources)Age-related osteoporosis without current pathological fracture; Translations: [Senile osteoporosis]Onset: 760431-49-8795OmmklkqFqcgr aftercare (2 sources)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; 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)]Onset: 87-43-3868VfvxstatPbecp aftercare (2 sources)Other half-way (current) drug therapy; Translations: [Other half-way (current) drug therapy]Onset: 27-10-8970LvcbvstoVaauw circulatory disease (20 sources)Raynaud's phenomenon; Translations: [Raynaud's syndrome]Onset: 629160-12-0550AejsmkoDirqi connective tissue disease (14 sources)Pain in left foot; Translations: [Pain in left foot]05-16-2024 EpisodicOther ear and sense organ disorders (20 sources)Hearing loss; Translations: [Unspecified hearing loss, unspecified ear]Onset: 250282-33-5470GuqvnxoQkaco eye disorders (1 source)Vitreous degeneration, left eyeChronicOther gastrointestinal disorders (1 source)Constipation; Translations: [Constipation, unspecified]EpisodicOther hereditary and degenerative nervous system conditions (20 sources)Essential tremor; Translations: [Essential and other specified forms of tremor]Onset: 237205-22-2999SacpmscFxncg inflammatory condition of skin (2 sources)Intertrigo; Translations: [Erythema intertrigo]30-50-5223Ccwycycp Other lower respiratory disease (1 source)Cough; Translations: [Cough]EpisodicOther non-epithelial cancer of skin (3 sources)Basal cell carcinoma of skin of right lower limb, including hip; Translations: [History of malignant basal cell neoplasm of skin]Onset: 282509-89-5683FrudjqvjRujmi nutritional; endocrine; and metabolic disorders (8 sources)Body mass index 30+ - obesity; Translations: [Body Mass Index 30.0- 30.9, adult]71-01-6783JwatygzXirxn nutritional; endocrine; and metabolic disorders (16 sources)Obesity; Translations: [Obesity, unspecified]ChronicOther nutritional; endocrine; and metabolic disorders (20 sources)Obesity caused by energy imbalance; Translations: [Other obesity due to excess calories]Onset: 026563-65-2215BywthhiOielw nutritional; endocrine; and metabolic disorders (16 sources)H/O: endocrine disorder; Translations: [Personal history of other endocrine, metabolic, and immunity disorders]EpisodicOther nutritional; endocrine; and metabolic disorders (20 sources)H/O: obesity; Translations: [Personal history of other endocrine, metabolic, and immunity disorders] Resolved: 60-45-9644EzkospecRpxfr nutritional; endocrine; and metabolic disorders (14 sources)Overweight in adulthood with body mass index of 25 or more but less than 30; Translations: [Body mass index (BMI) 29.0-29.9, adult]Onset: 06-01-2024 00-03-2244GaxljgytUlawl nutritional; endocrine; and metabolic disorders (2 sources)Body mass index (BMI) 28.0-28.9, adult; Translations: [Body mass index (BMI) 28.0-28.9, adult]Onset: 96-96-5650EpsvhvxoFgfxw nutritional; endocrine; and metabolic disorders (2 sources)Body mass index (BMI) 29.0-29.9, adult; Translations: [Body mass index (BMI) 29.0-29.9, adult]Onset: 85-15-2262JipdhqkfIrqjy skin disorders (4 sources)Inflamed seborrheic keratosis; Translations: [Inflamed seborrheic keratosis]57-32-7377VnpbsniyQvjom skin disorders (2 sources)Seborrheic keratosis; Translations: [Other seborrheic keratosis] 81-31-7866KfxsfzaeOylbo skin disorders (2 sources)Lentigo simplex; Translations: [Other melanin hyperpigmentation] 11-07-9170VjiomsfvBggmn skin disorders (2 sources)Localized swelling of right hand; Translations: [Localized swelling, mass and lump, right upper limb]33-85-7947UnybkhvkNsunf upper respiratory disease (20 sources)Allergic rhinitis; Translations: [Allergic rhinitis, unspecified] Onset: 591681-46-6367MrjttlqVtizswvq codes; unclassified (9 sources)Non-smoker; Translations: [Other specified conditions influencing health status]EpisodicResidual codes; unclassified (16 sources)History of clinical finding in subject; Translations: [Personal history of other specified diseases]EpisodicResidual codes; unclassified (16 sources)History of syncope; Translations: [Other specified personal history presenting hazards to health]EpisodicResidual codes; unclassified (6 sources)History of palpitations; Translations: [Personal history of other diseases of circulatory system]EpisodicResidual codes; unclassified (16 sources)H/O: respiratory disease; Translations: [Other specified personal history presenting hazards to health]EpisodicResidual codes; unclassified (1 source)Asymptomatic menopausal state; Translations: [ASYMPTOMATIC MENOPAUSAL STATE]Onset: 83-96-5722BjkgvosiTqaiehre codes; unclassified (1 source)Family history of malignant neoplasm of trachea, bronchus and lung; Translations: [FAM HX MALIG NEOPLSM TRACH BRON LNG]Onset: 42-93-4883Sjkpxfmz Residual codes; unclassified (7 sources)Other specified health status; Translations: [Other drug allergy] Onset: 142696-82-4391ZgtcjvyzGpubhym detachments; defects; vascular occlusion; and retinopathy (20 sources)Epiretinal membrane; Translations: [Age related macular degeneration]Onset: 57-06-9637TnfeexbWkjiyfmdaol injury; contusion (4 sources)Contusion of right hand; Translations: [Contusion of right hand, initial encounter]42-68-3895MvpknwskOveifiw disorders (20 sources)Hyperthyroidism; Translations: [Thyrotoxicosis, unspecified without thyrotoxic crisis or storm]Onset: 622489-00-7189YppautfClhfslkhrnuy (2 sources)Athscl heart disease of [place] coronary artery w/o ang pctrs / I25.10(ICD-9)Onset: 75-32-9263Kxlfqunyychu (1 source)Other chest pain / R07.89(ICD-9)Onset: 82-53-6955Pzwla infection (14 sources)Verruca plantaris; Translations: [Plantar wart]89-03-9558Klaoaffe Past or Other Problems Problem ClassificationProblemDateDocumented DateEpisodic/ChronicCardiac dysrhythmias (20 sources)Palpitations; Translations: [Palpitations]Onset: 04-08-2023 90-23-2169AakmhnitQaxpdrqywv and other anemia (20 sources)Iron deficiency anemia; Translations: [Iron deficiency anemia, unspecified]Onset: 520667-24-6607OxjcyrhbHbvcfmweft and other anemia (20 sources)Acquired iron deficiency anemia due to decreased absorption; Translations: [Other iron deficiency anemias]Onset: 584824-91-3915Ddrvazme Diabetes mellitus without complication (20 sources)Diabetes mellitus; Translations: [Diabetes mellitus without mention of complication, type II or unspecified type, not stated as uncontrolled]Onset: 01-13-2013 Resolved: 444242-69-9671YvksiqgZcxhluwhdvhbifvf hemorrhage (20 sources)Acute gastrointestinal hemorrhage; Translations: [Gastrointestinal hemorrhage, unspecified]Onset: 330784-06-2711LitvntpuSipxohvvoivrk symptoms and ill-defined conditions (20 sources)Blood in urine; Translations: [Hematuria, unspecified]Onset: 718489-92-6136RixufbksRaemsevrcrpro and screening for infectious disease (1 source)Encounter for screening for human papillomavirus (HPV); Translations: [ENC SCREENING HUMAN PAPILLOMAVIRUS]Onset: 90-18-4371SvfrzxjnOmkgcmnjhtd chest pain (20 sources)Atypical chest pain; Translations: [Chest pain]Onset: 04-21-2023 86-13-9318KuvfgztzUemne aftercare (20 sources)Drug therapy finding; Translations: [Long-term (current) use of other medications]Onset: 07-19-2019 Resolved: 305375-72-0960AamqykxkTqlgw aftercare (20 sources)Taking high risk medication; Translations: [Other half-way (current) drug therapy]Onset: 240011-46-6529DhtvpqepFmmpf aftercare (20 sources)Long-term current use of anticoagulant; 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]Onset: 245856-53-5298GvjfhaoxTqhmr bone disease and musculoskeletal deformities (20 sources)Arrest of bone development AND/OR growth; Translations: [Other disorders of bone development and growth, unspecified site]Onset: 12-10-2022 89-75-9147YibgvcyzJbhun connective tissue disease (2 sources)Pain of toes of bilateral feet; Translations: [Pain in right toe(s)] 92-32-2523JbzugcytDqldy eye disorders (6 sources)Dry eye syndrome of bilateral lacrimal glands; Translations: [Dry Eye Syndrome OU]Onset: 02-43-2225YqqbifefLwfgf female genital disorders (20 sources)Stricture and atresia of vagina; Translations: [Stricture or atresia of vagina]Onset: 931613-76-9047WvjuzmvwEhlbw screening for suspected conditions (not mental disorders or infectious disease) (20 sources)Imaging of liver abnormal; Translations: [Nonspecific (abnormal) findings on radiological and otherexamination of gastrointestinal tract]Onset: 00-97-7689CayapoolUupnq upper respiratory infections (1 source)Acute upper respiratory infection, unspecifiedOnset: 03-18-2022 Resolved: 15-50-6068DvsxfsgeAwgznhly codes; unclassified (20 sources)Never smoked any substance; Translations: [Other specified health status]Onset: 344411-88-5086ZbmxwthtJtrjynun codes; unclassified (20 sources)Edema; Translations: [Edema, unspecified]Onset: EpisodicResidual codes; unclassified (20 sources)H/O: high risk medication; Translations: [Personal history of other drug therapy]Onset: 570276-14-6710UrwtvbxeQtimibxhkpo; intervertebral disc disorders; other back problems (5 sources)Backache; Translations: [Dorsalgia, unspecified]Onset: 04-21-2023 58-03-1717JgplqwpaFyrudmpwjqjn (7 sources)Never smoked tobacco; Translations: [Never a smoker]Unclassified (1 source)Cough R05.9Onset: 03-18-2022 Resolved: 85-69-1039Drnssoivqwad (15 sources)Onset: 04-10-2023 Resolved: 683924-07-6508Vewjmmxmaugg (2 sources)diabetic eye exam (chief complaint)Onset: 12-21-2021 Resolved: 10-71-4555Qcjbinlztclw (1 source)diabetic eye exam (chief complaint) decreased vision (chief complaint) Onset: 09-04-2010Bhzmhurkomlo (1 source)diabetic eye exam (chief complaint) denies new vision change (chief complaint)Onset: 96-39-3291Exfordujvlsi (1 source)diabetic retinopathy (chief complaint) Decreased vision (chief complaint)Onset: 68-54-4248Stqhlzrsyvse (1 source)diabetic retinopathy (chief complaint) denies new vision change (chief complaint)Onset: 62-57-2220Pfktffbddoih (1 source)diabetic retinopathy (chief complaint) mild fluctuating vision (chief complaint)Onset: 51-36-9853Kpdyfpslypua (1 source)macular degeneration (chief complaint) flucuations in vision (chief complaint)Onset: 83-00-2709Yjdpavoooepm (1 source)diabetic retinopathy (chief complaint) mild vision loss (chief complaint)Onset: 63-76-7813Sqpkqgsmucfn (1 source)diabetic retinopathy (chief complaint) floaters (chief complaint) Onset: 01-19-2014 Results Test NameValueInterpretationReference RangeFacilityECG 12 lead (Clinic Performed)on 66-44-9970QSX performed today shows sinus bradycardia left on the branch block at a rate of 47 bpm QRS ration 140 ms QT corrected 420 ms. Rhythm strip shows the same pattern.[facility] Work Phone: Un[facility] Work Phone: HbA1c (Bld) [Mass fraction]on 30-94-6595Riqevkiaayahfl and review of laboratory resultsNormalNOMS [facility] Medical CenterNOUT HealthcareLaboratory - Hematology and Cell countson 34-24-8570PaN8m (Bld) [Mass fraction]7.3 %[facility] metabolic 2000 panelon 24-19-7663Auirz gap [Moles/Vol]13 mmol/L 10 - 20 mmol/TriHealthCalcium [Mass/Vol]9.3 mg/dL8.6 - 10.3 mg/dLUnMercy Health St. Rita's Medical CenterChloride [Moles/Vol]101 mmol/L98 - 107 mmol/TriHealthCO2 [Moles/Vol]29 mmol/L21 - 32 mmol/TriHealthCreatinine [Mass/Vol]1.10 mg/dLHigh0.50 - 1.05 mg/dLUnMercy Health St. Rita's Medical CenterGFR/1.73 sq M.predicted among non- blacks MDRD (S/P/Bld) [Vol rate/Area]52 mL/min/{1.73_m2}Low- PINFUniOhioHealth Southeastern Medical Center on above:Calculations of estimated GFR are performed using the 2020 CKD-EPI Study Refit equation without therace variable for the IDMS-Traceable creatinine methods. https://jasn.asnjournals.org/content//ASN.1781796772 Glucose [Mass/Vol]242 mg/gEMolo69 - 99 mg/dLUnMercy Health St. Rita's Medical Center Interpretation and review of laboratory resultsAbnormalUHolzer HospitalPotassium [Moles/Vol]4.8 mmol/L3.5 - 5.3 mmol/[facility] on above:MILD HEMOLYSIS DETECTED. The result may be falsely elevated due to hemolysis or other interferents.Clinical correlation is recommended. Repeat testing may be considered.Sodium [Moles/Vol]138 mmol/L136 - 145 mmol/TriHealthUrea nitrogen [Mass/Vol]19 mg/dL6 - 23 mg/dLJoint Township District Memorial HospitalUnMercy Health St. Rita's Medical CenterAnion gap [Moles/Vol]13 mmol/EMmtahs23-18IqpxkwjwplMemorial Health System Comment on above:Performed By: #### [id number] #### SELVIN THOMAS (45579) [facility] (EMC) [address] [place] [address] 27312Werhwhw [Mass/Vol]9.3 mg/dLNormal8.6-10.3[facility] HospitalComment on above:Performed By: #### 13565-8 #### SELVIN THOMAS (19951) [facility] ([facility]C) [address] [place] [address] 78929Oemkokrr [Moles/Vol]101 mmol/JOjukfn47-540OhrwsludyvMemorial Health SystemComment on above:Performed By: #### 30938-8 #### LISSIBMEHDI THOMAS (19240) [facility] ([facility]) [address] [place] [address] 74907XK9 [Moles/Vol]29 mmol/TEtnlqy01-53VtslmevzjpMemorial Health SystemComment on above:Performed By: #### 55723-7 #### SELVIN THOMAS (34334) [facility] ([facility]) [address] [place] [address] 63909Hoqzjftqrq [Mass/Vol]1.10 mg/dLHigh0.50-1.05UnMemorial Health SystemComment on above:Performed By: #### 78841-4 #### SELVIN PENA RIO SELENA (72497) [facility] ([facility]C) [address] [place] [address] 03608Ebksdzsdix filtration rate52 mL/min/1.73m*2Low>60UnMemorial Health SystemComment on above:Result Comment: Calculations of estimated GFR are performed using the 2020 CKD-EPI Study Refit equation without the race variable for the IDMS-Traceable creatinine methods. https://jasn.asnjournals.org/content//ASN.4956722151Uxetaymhf By: #### 67561-1 #### LISSIBMEHDI THOMAS (45134) [facility] ([facility]) [address] [place] [address] 85941Jpniagl [Mass/Vol]242 mg/wSWuas63-82YtilwfjqawMemorial Health SystemComment on above:Performed By: #### 86844-3 #### SELVIN THOMAS (85242) [facility] (EM) [address] [place] [address] 76720Plwhzucxo [Moles/Vol]4.8 mmol/LNormal3.5-5.3[facility] Community HospitalComment on above:Result Comment: MILD HEMOLYSIS DETECTED. The result may be falsely elevated due to hemolysis or other interferents. Clinical correlation is recommended. Repeat testing may be considered.Performed By: #### 11924-8 #### SELVIN THOMAS (15245) [facility] ([facility]) [address] [place] [address] 51465Hpbstr [Moles/Vol]138 mmol/AUofzij802-318KxpozpnuubMemorial Health SystemComment on above:Performed By: #### 50765-4 #### SELVIN THOMAS (72583) [facility] ([facility]) [address] [place] [address] 88263Mrpg nitrogen [Mass/Vol]19 mg/dLNormal6-23[facility] HospitalComment on above:Performed By: #### 82804-1 #### SELVIN THOMAS (29800) [facility] ([facility]) [address] [place] [address] 26803Ywrltgqoipyox Externalon 93-18-4272Lodk surface area Derived from formula1.[address] [facility] [facility] Center Work Phone: Un[facility] Work Phone: ECG 12-LEADon 10-52-1996YEA 12-LEADVentricular Rate 68 Atrial Rate 68 P-R Interval 226 QRS Duration 142 Q-T Interval 462 QTC Calculation(Bazett) 491 P [place] 69 R [place] 16 T [place] 156 QRS Count 11 Q Onset 208 P Onset 95 P Offset 165 T Offset 439 QTC Fredericia 482 Diagnosis Sinus rhythm with 1st degree AV block Left bundle branch block Abnormal ECG When compared with ECG of 11-FEB-2025 08:37, (unconfirmed) Sinus rhythm has replaced Atrial fibrillation Confirmed by Juan José Juarez ([id number]) on 02/11/2025 3:14:47 PMNHendricks Community HospitalECG 12-LEADVentricular Rate 65 QRS Duration 144 Q-T Interval 446 QTC Calculation(Bazett) 463 R [place] 22 T [place] 175 QRS Count 11 Q Onset 208 T Offset 431 QTC Fredericia 457 Diagnosis Atrial fibrillation Left bundle branch block Abnormal ECG When compared with ECG of 14-FEB-2000 16:56, Atrial fibrillation has replaced Sinus rhythm Left bundle branch block is now Present Confirmed by Juan José Juarez ([id number]) on 02/11/2025 3:17:12 PMNHendricks Community HospitalNo Panel Informationon 02-11-2025Q Nrwlv634 [facility] Work Phone: QRS Lirpd08gcefvPrwiglysbmSelect Medical [facility] Work Phone: QRS Usqerzah837 [facility] Work Phone: QT Uujkstfs575 [facility] Work Phone: QTC Calculation(Bazett)463 [facility] Work Phone: QTC Tdutjrbxbn314 [facility] Work Phone: R Phso74hikspicVfxydxgymySelect Medical [facility] Work Phone: T Xizr755ctgvjenAowwgzrmapSelect Medical Special[facility] Work Phone: T Twroci429 [facility] Work Phone: Ventricular Pwbh95AFXGwhyzlhmjiGrant Hospital Work Phone: [phone] fibrillation Left bundle branch block Abnormal ECG When compared with ECG of 14-FEB-2000 16:56, Atrial fibrillation has replaced Sinus rhythm Left bundle branch block is now Present Confirmed by Juan José Juarez ([id number]) on 02/11/2025 3:17:12 PMJuan José Ferris MD - 02/11/2025 Atrial fibrillation Left bundle branch block Abnormal ECG When compared with ECG of 14-FEB-2000 16:56, Atrial fibrillation has replaced Sinus rhythm Left bundle branch block is now Present Confirmed by Juan José Juarez ([id number]) on 02/11/2025 3:17:12 PM [facility] Work Phone: [phone] Work Phone: [phone] Pxpa79IZRJhepsrnozqGrant Hospital Work Phone: P Mxrg91uskuqaqLvmhrlgjzzPark[facility] Work Phone: P Bgzlbx631 [facility] Work Phone: P Onset95 [facility] Work Phone: PR Dwveesqg540 [facility] [facility] Work Phone: Q [id number] [facility] Work Phone: QRS Fctiw29yetfkHrbjlqdgptIndiana University [facility] Work Phone: QRS [id number] [facility] Work Phone: QT [id number] [facility] Work Phone: QTC Calculation(Bazett)491 [facility] Work Phone: QTC Nvuxiejogg181 [facility] Work Phone: R Xpbo32qjygqmqOvlbnfaonzSelect Medical Specialty [facility] Work Phone: [phone] Txsc398vrufpleDvbitpzkdySelect Medical Specialty Hospital [facility] Work Phone: T Rkrdcu929 [facility] Work Phone: Ventricular Tjwt57LBVUqyudouizlGrant Hospital Work Phone: [phone] rhythm with 1st degree AV block Left bundle branch block Abnormal ECG When compared with ECG of 11-FEB-2025 08:37, (unconfirmed) Sinus rhythm has replaced Atrial fibrillation Confirmed by Juan José Juarez ([id number]) on 02/11/2025 3:14:47 PMJuan José Ferris MD - 02/11/2025 Sinus rhythm with 1st degree AV block Left bundle branch block Abnormal ECG When compared with ECG of 11-FEB-2025 08:37, (unconfirmed) Sinus rhythm has replaced Atrial fibrillation Confirmed by Juan José Juarez ([id number]) on 02/11/2025 3:14:47 PM [facility] Work Phone: [facility] Work Phone: PT and aPTT panel Coag (PPP)on 42-85-2086hIBK Coag (PPP) [Time]32 [facility] JacksonINR Coag (PPP) [Relative time] 1.8 {INR}High0.9 - 1.1[facility] HospitalInterpretation and review of laboratory resultsAbnoProMedica Flower HospitalPT Coag (PPP) [Time]19.9 [facility] CenterThe APTT is no longer used for monitoring Unfractionated Heparin Therapy. For monitoring Heparin Therapy, use the Heparin Assay.[facility] HospitalUnMercy Health St. Rita's Medical CenteraPTT Coag (PPP) [Time]32 aZeqcsj56-23MvbyifrrfcHarrison Community HospitalComment on above:Order Comment: The APTT is no longer used for monitoring Unfractionated Heparin Therapy. For monitoring Heparin Therapy, use the Heparin Assay.Performed By: #### [id number] #### SELVIN THOMAS ([id number]) [facility] ([facility]) [address] [place] [address] [id number] Coag (PPP) [Relative time]1.8High0.9-1.1Harrison Community HospitalComment on above:Order Comment: The APTT is no longer used for monitoring Unfractionated Heparin Therapy. For monitoring Heparin Therapy, use the Heparin Assay.Performed By: #### 68037-4 #### SELVIN THOMAS ([id number]) [facility] (EM) [address] [place] [address] [id number] Coag (PPP) [Time]19.9 sHigh9.8-12.4[facility]ulleoka Medical CenterComment on above:Order Comment: The APTT is no longer used for monitoring Unfractionated Heparin Therapy. For monitoring Heparin Therapy, use the Heparin Assay.Performed By: #### 63772-3 #### SELVIN THOMAS ([id number]) [facility] (EMC) [address] [place] [address] [id number] 12 Leadon 03-45-6979Jvdkzw fibrillation with bradycardia, left bundle branch block, abnormal ECGCPACSJoint Township District Memorial Hospital Work Phone: bASIC METABOLIC PANEL WITH ANION GAPon 02-01-2025 BUN/CREATININE RATIOSEE NOTE:Normal6-22Quest DiagnosticsComment on above:Result Comment: Not Reported: BUN and Creatinine are within reference range.Performed By: #### 69Kira, 175Yolanda, 93038 #### [facility] [place] [address] Lmsw: Norm Vanegas MDCalcium [Mass/Vol]9.1 mg/dLNormal8.6-10.4Quest DiagnosticsComment on above:Performed By: #### Randall, Em, [address] #### [facility] [place] [address] Lmsw: Norm Vanegas MDChloride [Moles/Vol]102 mmol/WLohfai11-220 Quest DiagnosticsComment on above:Performed By: #### 43Kira, 1759, 73017 #### [facility] [place] [address] Lmsw: Norm Vanegas MDCO2 [Moles/Vol]25 mmol/SNousxg86-94Eehfz DiagnosticsComment on above:Performed By: #### 47Kira, 1759, 82971 #### [facility] [place] [address] Lmsw: Norm Vanegas MDCreatinine [Mass/Vol]0.99 mg/dLNormal0.60-1.00 Quest DiagnosticsComment on above:Performed By: #### 36Kira, Ivet9, 89217 #### [facility] [place] [address] Lmsw: Norm Vanegas MDELECTROLYTE QXTMAVN69 mmol/L (calc)Normal7-17 Quest DiagnosticsComment on above:Performed By: #### 3980, 175, 14095 #### [facility] [place] [address] Lmsw: Norm Vanegas MDGFR/1.73 sq M.predicted among non-blacks MDRD (S/P/Bld) [Vol rate/Area]58 mL/min/{1.73_m2}Low> OR = 60Quest DiagnosticsComment on above:Performed By: #### Randall, 175, 42151 #### [facility] [place] [address] Lmsw: Norm Vanegas MDGlucose [Mass/Vol]161 mg/sRLzdb13-18Wgctu DiagnosticsComment on above:Result Comment: Fasting reference interval For someone without known diabetes, a glucose value >125 mg/dL indicates that they may have diabetes and this should be confirmed with a follow-up test.Performed By: #### 22Kira, 1752, 86076 #### [facility] [place] [address] Lmsw: Norm Vanegas MDPotassium [Moles/Vol]4.3 mmol/LNormal3.5-5.3 Quest DiagnosticsComment on above:Performed By: #### 37Kira, 175, 46787 #### [facility] [place] [address] Lmsw: Norm Vanegas MDSodium [Moles/Vol]139 mmol/HAzzqgh497-253Jasny DiagnosticsComment on above:Performed By: #### 77Kira, 175, 46143 #### [facility] [place] [address] Lmsw: Norm Vanegas MDUrea nitrogen [Mass/Vol]17 mg/dLNormal7-25 [facility] DiagnosticsComment on above:Performed By: #### 8847, 175, 42815 #### [facility] [place] [address] Lmsw: Norm Vanegas MDCBC (H/H, RBC, INDICES, WBC, PLT)on 02-01-2025 Erythrocyte distribution width (RBC) [Ratio]12.3 %Qcogvl49.0-15.0Quest DiagnosticsComment on above:Performed By: #### 88Kira, 175, 88167 #### [facility] [address], [address] [place] [address] Lmsw: Norm Vanegas MDHematocrit (Bld) [Volume fraction]41.7 %Normal 35.0-45.0Quest DiagnosticsComment on above:Performed By: #### 88Kira, 175, 84635 #### [facility] [address], [address] [place] [address] Lmsw: Norm Vanegas MDHemoglobin (Bld) [Mass/Vol]12.9 g/dLNormal 11.7-15.5Quest DiagnosticsComment on above:Performed By: #### 8847, 175, 09497 #### [facility] [place] [address] Lmsw: Norm Vanegas MDMCH (RBC) [Entitic mass]28.0 hqXjohhv37.0-33.0 Quest DiagnosticsComment on above:Performed By: #### 8847, 175, 65037 #### [facility] [place] [address] Lmsw: Norm Vanegas MDMCHC (RBC) [Mass/Vol]30.9 g/dLLow32.0-36.0 Quest DiagnosticsComment on above:Result Comment: For adults, a slight decrease in the calculated MCHC value (in the range of 30 to 32 g/dL) is most likely not clinically significant; however, it should be interpreted with caution in correlation with other red cell parameters and the patient's clinical condition.Performed By: #### 88Kira, 1759, 26120 #### [facility] [place] [address], [address] [place] [address] Lmsw: Norm Vanegas MDMCV (RBC) [Entitic vol]90.5 qSGiwhrp53.0-100.0 Quest DiagnosticsComment on above:Performed By: #### Randall, Ivet, 20142 #### [facility] [place] [address], [address] [place] [address] Lmsw: Norm Vanegas MDPlatelet mean volume (Bld) [Entitic vol]10.9 fLNormal7.5-12.5Quest DiagnosticsComment on above:Performed By: #### Randall, 175, 34038 #### [facility] [place] [address], [address] [place] [address] Lmsw: Norm Vanegas MDPlatelets (Bld) [#/Vol]186 10*3/uLNormal 140-400Quest DiagnosticsComment on above:Performed By: #### Randall, 175, 34855 #### [facility] [place] [address], [address] [place] [address] Lmsw: Norm Vanegas MDRBC (Bld) [#/Vol]4.61 10*6/uLNormal3.80-5.10 Quest DiagnosticsComment on above:Performed By: #### 8847, 175, 22838 #### [facility] [place] [address], [address] [place] [address] Lmsw: Norm Vanegas MDWBC (Bld) [#/Vol]6.4 10*3/uLNormal3.8-10.8 Quest DiagnosticsComment on above:Performed By: #### 88Kira, 175, 52733 #### [facility] [place] [address], [address] [place] [address] Lmsw: Norm PARSONROTHROMBIN TIME-INRon 12-79-7091COO Coag (PPP) [Relative time]1.6 {INR}HighQuest DiagnosticsComment on above:Result Comment: Reference Range 0.9-1.1 Moderate-intensity Warfarin Therapy 2.0-3.0 Higher-intensity Warfarin Therapy 3.0-4.0Performed By: #### 8847, 1759, 80366 #### [facility] [address], [address] [place] [address] Lmsw: Norm PARSONT Coag (PPP) [Time]16.4 sHigh9.0-11.5Quest DiagnosticsComment on above:Result Comment: For additional information, please refer to http://education.Frogmetrics/faq/WAQ011 (This link is being provided for informational/ educational purposes only.)Performed By: #### 8847, 1759, 92084 #### [facility] [address], [address] [place], [place] [id number] Lmsw: Norm Vanegas MDECG 12 lead (Clinic Performed)on 79-31-6310TVG performed today shows atrial fibrillation at a rate of 59 bpm QRS duration 130 ms QT corrected 427 ms. Rhythm strip shows the same pattern. [facility] Work Phone: Un[facility] Work Phone: DEXA BONE DENSITYon 87-37-5968RAOS BONE DENSITY Examination: DEXA BONE DENSITY Clinical History: Screening Technique: Bone density study was performed. T score values for the lumbar spine, right femoral neck and left femoral neck were obtained. Comparison: None Findings: Value for the lumbar spine from L1-L4 is -1.5. Value for the right femoral neck is -2.6. Value for the left femoral neck is -2.9. Findings are compatible with osteoporosis with high increased fracture risk. IMPRESSION: Impression: Findings compatible with osteoporosis with high increased fracture risk. ELECTRONICALLY SIGNED BY: Sam Nieto M.D.NormalNot AvailableXR HAND 3+ VIEWS RIGHTon 58-83-8018DX HAND 3+ VIEWS RIGHTExam: XR HAND 3+ VIEWS RIGHT Clinical History: Right third metetarcarpal joint swelling/bruising Reference Exam: No comparison FINDINGS: Soft tissue swelling of the right hand extending into the fingers. Carpal bone alignment is anatomic; no intercarpal diastases. No carpal fracture or osteonecrosis. Interphalangeal joint space narrowing. Minor joint space narrowing of the metacarpal phalangeal joints. Preservation of the right ulnar styloid. Extensive soft tissue swelling along the dorsum of the distal right hand, relative to themetacarpal heads. Background osteopenia. IMPRESSION: Swelling. Osteoarthrosis. No acute fracture or underlying bone lesion identified. Dictated on: 11/30/2024 4:40 PM This report has been electronically signed and approved by the interpreting Radiologist.NormalNot AvailableXR Hand - right 3 Viewson 35-03-3626Lhrg: XR HAND 3+ VIEWS RIGHT Clinical History: Right third metetarcarpal joint swelling/bruising Reference Exam: No comparison FINDINGS: Soft tissue swelling of the right hand extending into the fingers. Carpal bone alignment is anatomic; no intercarpal diastases. No carpal fracture or osteonecrosis. Interphalangeal joint space narrowing. Minor joint space narrowing of the metacarpal phalangeal joints. Preservation of the right ulnar styloid. Extensive soft tissue swelling along the dorsum of the distal right hand, relative to themetacarpal heads. Background osteopenia. IMPRESSION: Swelling. Osteoarthrosis. No acute fracture or underlying bone lesion identified. Dictated on: 11/30/2024 4:40 PM This report has been electronically signed and approved by the interpreting Radiologist. Ann Moran MD - 11/30/2024 Exam: XR HAND 3+ VIEWS RIGHT Clinical History: Right third metetarcarpal joint swelling/bruising Reference Exam: No comparison FINDINGS: Soft tissue swelling of the right hand extending into the fingers. Carpal bone alignment is anatomic; no intercarpal diastases. No carpal fracture or osteonecrosis. Interphalangeal joint space narrowing. Minor joint space narrowing of the metacarpal phalangeal joints. Preservation of the right ulnar styloid. Extensive soft tissue swelling along the dorsum of the distal right hand, relative to themetacarpal heads. Background osteopenia. IMPRESSION: Swelling. Osteoarthrosis. No acute fracture or underlying bone lesion identified. Dictated on: 11/30/2024 4:40 PM This report has been electronically signed and approved by the interpreting Radiologist. [facility]villeRadiology Study observation (narrative)[facility] HealthcareXR Hand - right 3 ViewsOrdered By: Ann Kruse on 63-26-9794ISHOSaint Luke's North Hospital–Smithville Work Phone: no Panel Informationon 08-34-9227WXFV HealthcareECG 12 lead (Clinic Performed)on 21-36-9144FGU performed today shows sinus bradycardia left bundle branch block at a rate of 47 bpm QRS 138 ms QT corrected 412 ms. Rhythm strip shows the same pattern.[facility] Work Phone: [facility] Work Phone: no Panel Informationon 42-58-3185INAFSaint Luke's North Hospital–SmithvilleHbA1c (Bld) [Mass fraction]on 20-29-9575Oycbjhgviqbstm and review of laboratory resultsNormalECU Health North HospitalLaboratory - Hematology and Cell countson 00-92-3281RcS0k (Bld) [Mass fraction]7.1 %[facility]–SmithvilleLon 03-31-2024 LSpecimen: [id number] Received: 03/31/24 Status: SOHAIL Toure Num: [id number] Spec Type: Surgical Subm Dr: Mitch Elder MD Tissues: A Skin-Other than Cyst, tag, debridement or plastic repair (RIGHT ANKLE) Procedures: HE/5, Gross/Micro L4 Age/ Patient Sex Location Account Attending Physician Laquita Dailey 78/F [place] [id number] Mitch Elder MD SPEC NUM: [id number] RECD: 03/31/24 STATUS: SOHAIL TOURE NUM: [id number] RIA: 03/31/[address]: Mitch Elder MD ENTERED: 03/31/[address] [facility] [address]: SPEC TYPE: Surgical DEPT: S ENTERED BY: [id number] RECV BY: [id number] ORDERED: HE/5, Gross/Micro L4 ORDERED: HE/5, Gross/Micro L4 Pathological Diagnosis Skin lesion, re-excision: - Residual basal cell carcinoma. - Dermal fibrosis and neovascular proliferation consistent with prior excision site site changes. - Resection margins negative for tumor. Clinical Information Basal cell carcinoma right lower leg nonhealing lesion reexcision biopsy Gross Description The specimen is received in formalin with the patient's name and right ankle and consists of a oriented oval-shaped skin excision measuring 2.2 cm from 12:00 to 6:00, 2.3 cm from 3:00 to 9:00 and excised to a depth of 0.2 cm. The specimen is oriented with a metallic staple designated as 12:00 per requisition. The specimen is inked 12:00 to 3:00 blue, 3:00 to 6:00 orange, 6:00 to 9:00 green, 9:00 to 12:00 red, and the deep is inked black. The skin surface is cornell-mccrary with a centrally located lesion measuring 1.3 x 1.2 cm. The lesion measures 0.4 cm to the 12:00 aspect, 0.4 cm to the 3:00 aspect, 0.5 cm to the 6:00 aspect, and 0.5 cm to the 9:00 aspect. The specimen is serially sectioned from the 12:00 to the 6:00 into 7 sections. Cut surfaces reveal cornell-brown fibrous soft tissue. The lesion measures 0.2 cm to the deep margin. The specimen is sequentially and entirely submitted from the 12:00 to the 6:00 into cassettes A1-A4. A1: 12:00 tip perpendicularly sectioned Specimen: [id number] Received: 03/31/24 Status: SOHAIL Toure Num: [id number] Spec Type: Surgical Subm Dr: Mitch Elder MD Tissues: A Skin-Other than Cyst, tag, debridement or plastic repair (RIGHT ANKLE) Procedures: HE/5, Gross/Micro L4 Patient: Laquita Dailey [id number] (Continued) Specimen: [id number] Received: 03/31/24 (Continued) Gross Description (Continued) Signed (signature on file) Joey Sellers MD 04/05/24 1556 Specimen: [id number] Received: 03/31/24 Status: SOHAIL Toure Num: [id number] Spec Type: Surgical Subm Dr: Mitch Elder MD Tissues: A Skin-Other than Cyst, tag, debridement or plastic repair (RIGHT ANKLE) Procedures: DONNIE/5, Gross/Micro L4 Patient: Laquita Dailey [id number] (Continued) Specimen: [id number] Received: 03/31/24 (Continued) Gross Description (Continued) A2-A3: mid sections A4: 6:00 tip perpendicularly sectioned Microscopic Description Microscopic examination is performed. CPT Codes 43993 Specimen: [id number] Received: 03/31/24 Status: SOHAIL Toure Num: [id number] Spec Type: Surgical Subm Dr: Mitch Elder MD Tissues: A Skin-Other than Cyst, tag, debridement or plastic repair (RIGHT ANKLE) Procedures: HE/5, Gross/Micro L4 Patient: Laquita Dailey [id number] (Continued) Signed (signature on file) Joey Sellers MD 04/05/24 1556NoFormerly [facility] TOMOSYNTHESIS SCREENING BIon 94-68-5673[place]qG[place], [place] [address] Mammography Report Signed Patient: LAQUITA DAILEY MR#: [id number] : 1945 Acct:[id number] Age/Sex: 77 / F ADM Date: 06/18/23 Loc: MAMMO Attending Dr: PRASANTH CRAIG Ordering Physician: PRASANTH CRAIG Results: Date of Service: 06/18/23 Follow Up: Procedure(s): MM tomosynthesis screening BI Accession Number(s): [id number] cc: PRASANTH CRAIG Patient Name: LAQUITA DAILEY MR#: [id number] : 1945 Exam Date: 06/18/2023 Ordering Doctor: DR PRASANTH CRAIG M.D. RADIOLOGY REPORT PROCEDURE: MM TOMOSYNTHESIS SCREENING BI COMPARISON: MG MAMM SCREEN 3D MIRNA CAD, 04/10/2022. MG MAMM SCREEN MIRNA W CAD, 05/05/2019. MG MAMM SCREEN MIRNA W CAD, 02/26/2018. MG MAMM MIRNA SCRN W CAD DIG, 06/15/2013. INDICATIONS: Screening Calculator Name NCI Breast Cancer Risk Assessment Tool 5 Year Breast Cancer Risk 1.90% Lifetime Breast Cancer Risk 3.90% Personal Breast Cancer No Personal Ovarian Cancer No Treatments None Family Cancers Father with lung cancer at age 71. LOCATION: [facility] BREAST COMPOSITION: Heterogeneously dense,which may obscure small masses. FINDINGS: DIAGNOSTIC CATEGORY 2--BENIGN FINDING: RIGHT BREAST: No significant suspicious finding. Scattered benign-appearing calcifications are present. No significant change has occurred. LEFT BREAST: No significant suspicious finding. Scattered benign-appearing calcifications are present. No significant change has occurred. RECOMMENDATIONS: ROUTINE MAMMOGRAM AND CLINICAL EVALUATION IN 12 MONTHS. PLEASE NOTE: A NORMAL MAMMOGRAM DOES NOT EXCLUDE THE POSSIBILITY OF BREAST CANCER. A CLINICALLY SUSPICIOUS PALPABLE LUMP SHOULD BE BIOPSIED. Dictated by: Dayton Edwards M.D. on 06/18/2023 at 14:39 Approved by: Dayton Edwards M.D. on 06/18/2023 at 14:42 Dictated By: Dayton Edwards M.D. Signed By: 06/18/231442 DD/ 41 TD/TT: Extension Worker:TBHRadiology, Radiologist, MD - 06/18/2023 [place] [address] Mammography Report Signed Patient: LAQUITA DAILEY MR#: [id number] : 1945 Acct:[id number] Age/Sex: 77 / F ADM Date: 06/18/23 Loc: MAMMO Attending Dr: PRASANTH CRAIG Ordering Physician: PRASANTH CRAIG Results: Date of Service: 06/18/23 Follow Up: Procedure(s): MM tomosynthesis screening BI Accession Number(s): [id number] cc: PRASANTH CRAIG Patient Name: LAQUITA DAILEY MR#: [id number] : 1945 Exam Date: 06/18/2023 Ordering Doctor: DR PRASANTH CRAIG M.D. RADIOLOGY REPORT PROCEDURE: MM TOMOSYNTHESIS SCREENING BI COMPARISON: MG MAMM SCREEN 3D MIRNA CAD, 04/10/2022. MG MAMM SCREEN MIRNA W CAD, 05/05/2019. MG MAMM SCREEN MIRNA W CAD, 02/26/2018. MG MAMM MIRNA SCRN W CAD DIG, 06/15/2013. INDICATIONS: Screening Calculator Name NCI Breast Cancer Risk Assessment Tool 5 Year Breast Cancer Risk 1.90% Lifetime Breast Cancer Risk 3.90% Personal Breast Cancer No Personal Ovarian Cancer No Treatments None Family Cancers Father with lung cancer at age 71. LOCATION: [facility] BREAST COMPOSITION: Heterogeneously dense,which may obscure small masses. FINDINGS: DIAGNOSTIC CATEGORY 2--BENIGN FINDING: RIGHT BREAST: No significant suspicious finding. Scattered benign-appearing calcifications are present. No significant change has occurred. LEFT BREAST: No significant suspicious finding. Scattered benign-appearing calcifications are present. No significant change has occurred. RECOMMENDATIONS: ROUTINE MAMMOGRAM AND CLINICAL EVALUATION IN 12 MONTHS. PLEASE NOTE: A NORMAL MAMMOGRAM DOES NOT EXCLUDE THE POSSIBILITY OF BREAST CANCER. A CLINICALLY SUSPICIOUS PALPABLE LUMP SHOULD BE BIOPSIED. Dictated by: Dayton Edwards M.D. on 06/18/2023 at 14:39 Approved by: Dayton Edwards M.D. on 06/18/2023 at 14:42 Dictated By: Dayton Edwards M.D. Signed By: 06/18/231442 DD/ 41 TD/TT: Extension Worker: TIM [facility] CenterRadiology Study observation (narrative)[facility] TOMOSYNTHESIS SCREENING BIOrdered By: Radiologist Radiology on 09-64-1480DPDVSaint Luke's [facility] Hospital–[facility]ville Work Phone: a1c with Estimated Average Gluon 78-76-5051Tbcwjxi [Mass/Vol]126 mg/dLNoECU Health North Hospital Physician GroupComment on above:Result Comment: PERFORMED BY: [facility] [address] [place] [address] PATHOLOGIST [employer] GAETANO WEINBERG M.D.Performed By: #### A1C [facility] ####[facility] Fkc[address] [facility] Medical CenterhunterNEPTUNE, [place] [address]QVPAamwoyadh blood glucose measurement by glucometer (mass/volume)Ordered By: Santiago Camarillo on 87-24-2956Vvjijfa [Mass/Vol]105 mg/dLNoLima City HospitalComment on above: Random Glucose Reference Range is dependent on time and content of last meal. Glucose of more than 200 mg/dL in a nonstressed, ambulatory subject supports the diagnosis of Diabetes Mellitus.Result Comment: Random Glucose Reference Range is dependent on time and content of last meal. Glucose of more than 200 mg/dL in a nonstressed, ambulatory subject supports the diagnosis of Diabetes Mellitus. PERFORMED BY: [facility] [address] [place] [address] PATHOLOGIST [employer] GAETANO WEINBERG M.D.Performed By: #### GLULS ####Point of Care testing,Cholesterol [Mass/volume] in Serum or PlasmaOrdered By: Kate Huizar on 26-37-7105Stcpkcmtcnt [Mass/Vol]109 mg/gARkv664-587RegvmpclpSelect Medical Ohiohealth Rehabilitation HospitalComment on above: Chol less than 200 mg/dl low riskChol 201-239 mg/dl borderline riskChol 240 mg/dl and greater high riskResult Comment: Chol less than 200 mg/dl low risk Chol 201-239 mg/dl borderline risk Chol 240 mg/dl and greater high riskPerformed By: #### LIPID ####[facility] [address] [place] [address] USACholesterol in LDL Calc [Mass/Vol]Ordered By: Kate Huizar on 58-72-9104Tinbcwrzlow in LDL [Mass/Vol]44 mg/dL0-100[facility] Rehabilitation HospitalComment on above:LDL ATP III CLASSIFICATIONLDL less than 100 mg/dL OptimalLDL 100-129 mg/dL Near or above mkeggfsCYI332-645 mg/dL Borderline highLDL 160-189 mg/dL HighLDL greater than 189 mg/dL Very highCholesterol in VLDL Calc [Mass/Vol]Ordered By: Kate Huizar on 87-16-4985Kzijgefbiiv in VLDL [Mass/Vol]20 mg/dLSelect Medical Ohiohealth Rehabilitation HospitalECG 12 lead ECGon 03-83-6903XZJ 12 lead ECGOHIOHEALTH HARDIN MEMORIAL [facility] Main [address] [address] Electrocardiograph Report Signed Patient: Laquita Dailey MR#: [id number] : 1945 Acct:[id number] Age/Sex: 77 / F ADM Date: 04/21/23 Loc: Room: [address] [place] [address] Type: ADM INOo Attending Dr: Santiago Camarillo MD Ordering Provider: Kate Huizar APRN Date of Service: 04/22/23 ECG/ECG 12 lead ECG: chest pain Copies to: Test Reason : Blood Pressure : / mmHG Vent. Rate : 053 BPM Atrial Rate : 053 BPM P-R Int : 174 ms QRS Dur : 140 ms QT Int : 462 ms P-R-T Axes : 069 001 164 degrees QTc Int : 433 ms Sinus bradycardia Left bundle branch block Abnormal ECG When compared with ECG of 21-APR-2023 15:26, (Unconfirmed) Questionable change in QRS axis T wave inversion less evident in Inferior leads Confirmed by JOSUE KEY MID-VALLEY HOSPITALBERNADETTE Mejia ([id number]) on 04/22/2023 2:43:58 PM Referred By: Electronically Signed By:BERNADETTE MARTINEZ MD [facility] Transcribed By: MUS Signed By Eder Martinez MD 04/22/[address] [place] [address] Physician [facility] CenterECH echo transthoracicon 61-76-0080OVN echo transthoracicOHIOHEALTH HARDIN MEMORIAL HOSPITAL Main [place] [address] [place] [address] Echocardiogram Signed Patient: Laquita Dailey MR#: [id number] : 1945 Acct:[id number] Age/Sex: 77 / F ADM Date: 04/21/23 Loc: Room: [address] [place] [address] Type: ADM INOo Attending Dr: Santiago Camarillo MD Ordering Provider: Kate Huizar APRN Date of Service: 04/21/23 ECH/ECH echo transthoracic: chest pain Copies to: DASH Pulido MD Weight: 183 lb Performed By: Chloe Joiner RDCS BSA: 1.9 m2 BP: 134/67 mmHg HR: 58 Reason For Study: chest pain History: CAD. DM. GERD. HTN. Afib. PCI. CABG. HLD. Family history of CAD. Interpretation Summary Ejection Fraction = 45-50%. There is left ventricular diastolic dysfunction. There is mild global hypokinesis of the left ventricle. There is trace mitral regurgitation. There is trace tricuspid regurgitation. Procedure/Quality: A two-dimensional transthoracic echocardiogram with color flow, Doppler and injection of contrast agent Definity was performed. The study was technically fair in quality. Left Ventricle: The left ventricular size is normal. Upper septal hypertrophy (sigmoid septum), normal variant. Ejection Fraction = 45-50%. There is left ventricular diastolic dysfunction. There is mild global hypokinesis of the left ventricle. No left ventricular thrombus or mass is seen. Left Atrium: The left atrium appears normal in size. The atrial septum appears normal. Right Atrium: The right atrium appears normal in size. Right Ventricle: The right ventricular size, thickness and function are normal. Aortic Valve: The aortic valve is normal in structure and function. Mitral Valve: The mitral valve is mildly sclerotic. There is trace mitral regurgitation. Tricuspid Valve: The tricuspid valve is normal. There is trace tricuspid regurgitation. Pulmonic Valve: The pulmonic valve is not well visualized. Arteries: The aortic root is normal size. The aortic arch was visualized and no abnormalities were seen. Pericardium/Pleura: No pericardial effusion seen. There is no pleural effusion. IVC/Hepatic Viens: The inferior vena cava is normal in size, with a normal collapsibility index. Measurements with Normals IVSd: 1.5 cm (0.7-1.1 cm)LVIDd: 4.4 cm (3.7-5.4 cm) LVPWd: 1.0 cm (0.7-1.1 cm)LVIDs: 3.3 cm (2.3-3.6 cm) LA dimension: 3.8 cm (2.3-4.0 cm)Ao root diam: 3.1 cm(2.0-3.6 cm) asc Aorta Diam: 2.9 cm(2.1-3.4cm) Doppler with Normals RVSP(TR): 35.7 mmHg (18-35mmHg) LV V1 max: 111.0 cm/sec (0.7-1.7m/s)MV E max akhil: 94.6 cm/sec(0.8-1.3m/s) MV A max akhil: 89.2 cm/sec(0.0-0.0m/s) MV E/A: 1.1 (<1.5) MMode/2D Measurements Calculations TAPSE: 1.6 cm FS: 25.0 % Ao root area: LVOT diam: 2.1 cm RV S Akhil: EDV(Teich): 7.5 cm2 LVOT area: 3.5 cm2 10.3 cm/sec 87.7 ml ESV(Teich): 44.1 ml EF(Teich): 49.7 % __ LVLd ap4: 7.8 cm SV(MOD-sp4): LAV(MOD-sp4): LA A2 area: 15.2 cm2 EDV(MOD-sp4): 38.9 ml 22.3 ml 80.1 ml LAV(MOD-sp2): LA A4 area: 12.0 cm2 LVLs ap4: 6.7 cm 34.9 ml LA length (vol): ESV(MOD-sp4): 5.2 cm 41.2 ml LA vol: 29.8 ml EF(MOD-sp4): 48.6 % LA vol index: 15.7 ml/m2 Doppler Measurements Calculations MV dec time: MV max PG: E/E' lat: 9.8 MV dec slope: 0.24 sec 60.0 mmHg E/E' med: 15.8 403.0 cm/sec2 __ Ao V2 max: LV V1 max PG: MR max akhil: TV max P.0 mmHg 129.0 cm/sec 4.9 mmHg 386.5 cm/sec Ao max P.7 mmHgLV V1 mean PG: MR max PG: Ao mean P.0 mmHg 60.1 mmHg 5.0 mmHg LV V1 mean: Ao V2 mean: 77.5 cm/sec 103.0 cm/sec LV V1 VTI: 24.3 cm Ao V2 VTI: 27.2 cm JOE(I,D): 3.1 cm2 JOE(V,D): 3.0 cm2 __ TR max akhil: 286.0 cm/sec TR max P.7 mmHg RAP systole: 3.0 mmHg Transcribed By: SCV Performed At: 04/22/23 0928 Signed By: Eder Martinez MD 04/22/23 1448[facility] Medical CenterGlucose Poct Glucometerson 21-10-6860Cxqzjfw6Mwo8: Cleaned MeterNormOrlando VA Medical Center Physician GroupComment on above:Result Comment: PERFORMED BY: [facility] [address] [place] [address] PATHOLOGIST [employer] GAETANO WEINBERG M.D.Performed By: #### GLULS ####Point of Care testing,Glucose [Mass/Vol]216 mg/dLNoECU Health [facility] Physician [facility] CenterComment on above:Result Comment: Random Glucose Reference Range is dependent on time and content of last meal. Glucose of more than 200 mg/dL in a nonstressed, ambulatory subject supports the diagnosis of Diabetes Mellitus.Performed By: #### GLULS ####Point of Care testing,Glucose mean value [Mass/volume] in Blood Estimated from glycated hemoglobinOrdered By: Kate Huizar on 73-59-6438Yowjbmy glucose Estimated from glycated hemoglobin (Bld) [Mass/Vol]126 mg/dLSelect Medical Ohiohealth Rehabilitation HospitalHemoglobin A1c percentageOrdered By: Kate Huizar on 02-82-3824TxE0e (Bld) [Mass fraction]6.0 % High4.3-5.6FHolzer HospitalComment on above:Increased risk for diabetes: 5.7 - 6.4diabetes: >6.4glycemic control for adults with diabetes: &l t;7.0Result Comment: Increased risk for diabetes: 5.7 - 6.4 diabetes: >6.4 glycemic control for adults with diabetes: <7.0Performed By: #### A1C WTH eA ####[address] [address]FVTUqebf Panelon 06-69-2225LHR Cholesterol,Fkdbqjohhd22 mg/dLNormal0-100The [facility] Physician GroupComment on above:Result Comment: LDL ATP III CLASSIFICATION LDL less than 100 mg/dL Optimal LDL 100-129 mg/dL Near or above optimal LDL 130-159 mg/dL Borderline high LDL 160-189 mg/dL High LDL greater than 189 mg/dL Very highPerformed By: #### LIPID ####[address] [address] USATriglyceride w/Reflex 100 mg/dLNormal0-149[facility] Physician GroupComment on above:Result Comment: TRIG ATP III CLASSIFICATION TRIG less than 150 mg/dL Normal TRIG 150-199 mg/dL Borderline high TRIG 200-500 mg/dL High TRIG greater than 500 mg/dL Very high Standard traceable to the Center for Disease Conrtrol and Prevention (CDC) test method.Performed By: #### LIPID ####[address] [place] [address] USAVLDL NAWMUBPDUZF02 mg/dLNormal [facility] Physician GroupComment on above:Performed By: #### LIPID ####[address] [address] USANo Panel InformationOrdered By: Santiago Camarillo on 65-41-1032Yrrbgll Glucose Comment Glu2: cleaned Providence Hospitalerum or plasma high density lipoprotein (HDL) cholesterol measurementOrdered By: Kate Huizar on 04-22-2023 Cholesterol in HDL [Mass/Vol]45 mg/bCRljqsd14-62XjkkdllpzSelect Medical Ohiohealth Rehabilitation HospitalComment on above:HDL CHOL ATP-III CLASSIFICATION Cardiovascular RiskHDL > or equal to 60 mg/dL LOWHDL < 40 mg/dL HIGHResult Comment: HDL CHOL ATP-III CLASSIFICATION Cardiovascular Risk HDL > or equal to 60 mg/dL LOW HDL < 40 mg/dL HIGHPerformed By: #### LIPID ####[address] [address] USASerum or plasma total cholesterol/high density lipoprotein (HDL) cholesterol mass ratOrdered By: Kate Huizar on 23-03-6947Ucfoeopdxko.total/Cholesterol in HDL [Mass ratio]2.4 {ratio}Normal<5.0 [facility] HospitalComment on above:Result Comment: PERFORMED BY: [facility] [address] [place] [address] PATHOLOGIST [employer] GAETANO WEINBERG M.D.Performed By: #### LIPID ####[address] [place] [address] USAThyrotropin [Units/volume] in Serum or Plasma Ordered By: Kate Huizar on 53-96-2265CJD Qn2.24 m[IU]/LNormal0.45-5.33[facility] Rehabilitation HospitalComment on above:Result Comment: PERFORMED BY: [address] [address] PATHOLOGIST [employer] GAETANO WEINBERG M.D.Performed By: #### TSH3 ####[facility] [address] [place] [address] USATriglyceride [Mass/volume] in Serum or Plasma Ordered By: Kate Huizar on 57-19-1614Eliicxtvrqmu [Mass/Vol]100 mg/dL0-149 [facility] HospitalComment on above:TRIG ATP III CLASSIFICATIONTRIG less than 150 mg/dL NormalTRIG 150-199 mg/dL Borderline highTRIG 200-500 mg/dL High TRIG greater than 500 mg/dL Very highStandard traceable to the Center for Disease Conrtrol and Prevention (CDC) test method. Troponin I High Sensitivityon 93-82-0454Adtthsvo I High Edkgvolyxin74.3 pg/mL Normal0.0-15.0[facility] Physician GroupComment on above:Result Comment: PERFORMED BY: [facility] [address] [place] [address] PATHOLOGIST [employer] GAETANO WEINBERG M.D.Performed By: #### HS TROP ####[facility] [address] [place] [address] USATroponin I High Roncfksjplp50.8 pg/mL Normal0.0-15.0[facility] Physician GroupComment on above:Result Comment: PERFORMED BY: [facility] [address] [place] [address] PATHOLOGIST [employer] GAETANO WEINBERG M.D.Performed By: #### HS TROP #### [facility] [address] [place] [address] USATroponin I.cardiac [Mass/volume] in Serum or Plasma by Detection limit <= 0.01 ng/Ordered By: Kate Huizar on 49-66-0748Kbjcaxhp I.cardiac DL <= 0.01 ng/mL [Mass/Vol]11.3 pg/mL0.0-15.0[facility] Rehabilitation HospitalAlanine aminotransferase [Enzymatic activity/volume] in Serum or PlasmaOrdered By: Abhi Pearson on 32-42-3739ULL [Catalytic activity/Vol]13 U/L Normal7-52[facility] HospitalComment on above:Performed By: #### CMP, HS TROP, CK, CBC, BNP, CKMB #### [facility] [address] [place] [address] USAAlbumin [Mass/volume] in Serum or Plasma by Bromocresol green (BCG) dye binding methoOrdered By: Abhi Pearson on 98-68-3703Nuijmll BCG dye [Mass/Vol]4.0 g/dL3.5-5.7FHolzer HospitalAlkaline phosphatase [Enzymatic activity/volume] in Serum or PlasmaOrdered By: Abhi Pearson on 37-66-6435PHL [Catalytic activity/Vol]71 U/MTsblgv87-606QlkwttpnaSelect Medical Ohiohealth Rehabilitation HospitalComment on above:Performed By: #### CMP, HS TROP, CK, CBC, BNP, CKMB #### [facility] [address] [place] [address] USAAspartate aminotransferase [Enzymatic activity/volume] in Serum or PlasmaOrdered By: Abhi Pearson on 59-10-8012BGH [Catalytic activity/Vol]23 U/ZJtlown44-80OzslzrarxSelect Medical Ohiohealth Rehabilitation HospitalComment on above: Performed By: #### CMP, HS TROP, CK, CBC, BNP, CKMB #### [place] [address] USAAutomated basophil %Ordered By: Abhi Pearson on 04-21-2023 Basophils/100 WBC (Bld)1.0 %Normal.[facility] HospitalComment on above:Performed By: #### CMP, HS TROP, CK, CBC, BNP, CKMB #### [facility] [address] [place] [address] USAAutomated basophil countOrdered By: Abhi Pearson on 47-68-1124Ugcmrazsd (Bld) [#/Vol]0.1 10*3/uLNormal0.0-0.2FHolzer HospitalComment on above:Result Comment: PERFORMED BY: [place] [address] PATHOLOGIST [employer] GAETANO WEINBERG M.D.Performed By: #### CMP, HS TROP, CK, CBC, BNP, CKMB #### [place] [address] USAAutomated blood monocyte countOrdered By: Abhi Pearson on 00-61-1390Tvsukczod (Bld) [#/Vol]0.6 10*3/uLNormal0.0-0.8[facility] HospitalComment on above:Performed By: #### CMP, HS TROP, CK, CBC, BNP, CKMB #### [place] [address] USAAutomated eosinophil %Ordered By: Abhi Pearson on 41-13-6952Wlczfygmtiz/100 WBC (Bld)4.2 %Normal.[facility] Comment on above:Performed By: #### CMP, HS TROP, CK, CBC, BNP, CKMB #### [place] [address] USAAutomated eosinophil countOrdered By: Abhi Pearson on 96-74-1077Gdpggfnbmme (Bld) [#/Vol]0.2 10*3/uLNormal0.0-0.45[facility] HospitalComment on above:Performed By: #### CMP, HS TROP, CK, CBC, BNP, CKMB #### [place] [address] USAAutomated monocyte %Ordered By: Abhi Pearson on 04-21-2023 Monocytes/100 WBC (Bld)10.1 %Normal.[facility] HospitalComment on above:Performed By: #### CMP, HS TROP, CK, CBC, BNP, CKMB #### [place] [address] USAAutomated neutrophil %Ordered By: Abhi Pearson on 45-27-3237Wlghxbaqgdm/100 WBC (Bld)55.8 %Normal.[facility] HospitalComment on above:Performed By: #### CMP, HS TROP, CK, CBC, BNP, CKMB #### [facility] [address] [place] [address] USABNP ser/plasOrdered By: Abhi Pearson on 04-21-2023 Natriuretic peptide B (Bld) [Mass/Vol]302.0 pg/mLHigh5-100[facility] HospitalComment on above:Result Comment: PERFORMED BY: [place] [address] PATHOLOGIST [employer] GAETANO WEINBERG M.D.Performed By: #### CMP, HS TROP, CK, CBC, BNP, CKMB #### [place] [address] USABilirubin.total [Mass/volume] in Serum or PlasmaOrdered By: Abhi Pearson on 53-44-5367Cquvzugiu [Mass/Vol]0.4 mg/dLNormal0.3-1.0 [facility] HospitalComment on above:Performed By: #### CMP, HS TROP, CK, CBC, BNP, CKMB #### [place] [address] USACalcium [Mass/volume] in Serum or PlasmaOrdered By: Abhi Pearson on 34-45-5652Wvankla [Mass/Vol]9.4 mg/dLNormal8.6-10.3FHolzer HospitalComment on above:Performed By: #### CMP, HS TROP, CK, CBC, BNP, CKMB #### [facility] [address] [place] [address] USACarbon dioxide, total [Moles/volume] in Serum or Plasma Ordered By: Abhi Pearson on 01-19-8770DA5 [Moles/Vol]31.4 mmol/LHigh21.0-31.0 [facility] HospitalComment on above:Performed By: #### CMP, HS TROP, CK, CBC, BNP, CKMB #### [facility] [address] [place] [address] USAChloride [Moles/volume] in Serum or PlasmaOrdered By: Abhi Pearson on 72-33-8779Qswthcfx [Moles/Vol]102 mmol/UYhuhgh14-509VkrkfulldSelect Medical Ohiohealth Rehabilitation HospitalComment on above:Performed By: #### CMP, HS TROP, CK, CBC, BNP, CKMB #### [place] [address] USAComplete Blood Count Auto Diffon 03-73-9311Neyy Corpuscular HGB Conc32.1 g/xICrvntd49.0-35.0[facility] Physician GroupComment on above:Performed By: #### CMP, HS TROP, CK, CBC, BNP, CKMB #### [place] [address] USAMonocytes/100 WBC (Bld)17.96 %Normal0.00-20.00[facility] Physician [facility] CenterComment on above:Performed By: #### CMP, HS TROP, CK, CBC, BNP, CKMB #### [place] [address] USANRBC%0.1 /100{WBC}Normal0-0.5[facility] Physician Group Comment on above:Performed By: #### CMP, HS TROP, CK, CBC, BNP, CKMB #### [place] [address] USAComprehensive Metabolic Panelon 59-68-4615Rywiesq [Mass/Vol]4.0 g/dLNormal3.5-5.7[facility] Physician [facility] CenterComment on above: Performed By: #### CMP, HS TROP, CK, CBC, BNP, CKMB #### [place] [address] USACreatinine Clr Calc Ygzymhik43.91NormalThe [facility], [facility] Physician GroupComment on above:Result Comment: PERFORMED BY: [place] [address] PATHOLOGIST [employer] GAETANO WEINBERG M.D.Performed By: #### CMP, HS TROP, CK, CBC, BNP, CKMB #### [place] [address] USAGFR/1.73 sq M.predicted MDRD (S/P/Bld) [Vol rate/Area] 54.444 mL/min/{1.73_m2}NormalThe [facility], [facility] Physician GroupComment on above: Performed By: #### CMP, HS TROP, CK, CBC, BNP, CKMB #### [facility] [address] [place] [address] USACreatine kinase [Enzymatic activity/volume] in Serum or PlasmaOrdered By: Abhi Pearson on 57-07-1165OH [Catalytic activity/Vol]139 U/L Aqgvjz87-440NkhhejnljSelect Medical Ohiohealth Rehabilitation HospitalComment on above:Performed By: #### CMP, HS TROP, CK, CBC, BNP, CKMB #### [facility] [address] [place] [id number] USACreatine kinase.MB [Mass/volume] in Serum or PlasmaOrdered By: Abhi Pearson on 17-15-8448CH.MB [Mass/Vol]3.0 ng/mLNormal0.6-6.3FHolzer HospitalComment on above:Performed By: #### CMP, HS TROP, CK, CBC, BNP, CKMB #### [facility] [address] [place] [address] USACreatinine Kinase MBon 98-87-4843KRAI Relative Index2.1 % Normal0.00-2.50[facility] Physician GroupComment on above:Performed By: #### CMP, HS TROP, CK, CBC, BNP, CKMB #### [facility] [address] [place] [address] USACreatinine [Mass/volume] in Serum or PlasmaOrdered By: Abhi Pearson on 14-41-1577Byibrznxid [Mass/Vol]1.06 mg/dLNormal0.60-1.20 [facility] HospitalComment on above:Performed By: #### CMP, HS TROP, CK, CBC, BNP, CKMB #### [facility] [address] [place] [id number] USAECG 12 lead ECGon 01-03-8238QGM 12 lead ECGOHIOHEALTH [facility] Main [place] [address] [place] [address] Electrocardiograph Report Signed Patient: Laquita Dailey MR#: [id number] : 1945 Acct:[id number] Age/Sex: 77 / F ADM Date: 04/21/23 Loc: Room: [address] [place] [address] Type: ADM INOo Attending Dr: Santiago Camarillo MD Ordering Provider: Abhi Pearson PA-C Date of Service: 04/21/23 ECG/ECG 12 lead ECG: Chest Pain Copies to: Test Reason : Blood Pressure : 148/065 mmHG Vent. Rate : 055 BPM Atrial Rate : 055 BPM P-R Int : 186 ms QRS Dur : 138 ms QT Int : 462 ms P-R-T Axes : 068 091 196 degrees QTc Int : 441 ms Sinus bradycardia Rightward axis Nonspecific intraventricular block T wave abnormality, consider inferolateral ischemia Abnormal ECG When compared with ECG of 21-APR-2023 13:58, No significant change was found Confirmed by EASTON ZAMAN MD ([id number]) on 04/22/2023 3:01:19 PM Referred By: Electronically Signed By:EASTON ZAMAN MD Transcribed By: MUS Signed By Easton Zaman MD 04/22/[address] [place] [address] Physician GroupEC 12 lead [facility] Main [place] [address] [place] [address] Electrocardiograph Report Signed Patient: Laquita Dailey MR#: [id number] : 1945 Acct:[id number] Age/Sex: 77 / F ADM Date: 04/21/23 Loc: ER Room: Type: [facility] ER Attending Dr: Ordering Provider: Abhi Pearson PA-C Date of Service: 04/21/23 ECG/ECG 12 lead ECG: Chest Pain Copies to: Test Reason : Blood Pressure : 196/078 mmHG Vent. Rate : 060 BPM Atrial Rate : 060 BPM P-R Int : 182 ms QRS Dur : 132 ms QT Int : 436 ms P-R-T Axes : 054 110 221 degrees QTc Int : 436 ms Normal sinus rhythm Right axis deviation Nonspecific intraventricular block T wave abnormality, consider inferolateral ischemia Abnormal ECG When compared with ECG of 18-OCT-2020 17:03, QT has shortened Confirmed by EASTON ZAMAN MD ([id number]) on 04/21/2023 3:32:54 PM Referred By: Electronically Signed By:EASTON ZAMAN MD Transcribed By: MUS Signed By Easton Zaman MD 04/21/[address] [place] [address] Physician [facility] CenterErythrocyte distribution width [Ratio] by Automated countOrdered By: Abhi Pearson on 27-96-9277Eexudfvfjhp distribution width (RBC) [Ratio]14.8 %Yxbike23.9-15.3FHolzer HospitalComment on above:Performed By: #### CMP, HS TROP, CK, CBC, BNP, CKMB #### [facility] [address] [place] [address] USAErythrocytes [#/volume] in Blood by Automated countOrdered By: Abhi Pearson on 90-00-1731MGJ (Bld) [#/Vol]3.87 10*6/uLNormal3.60-5.00 [facility] HospitalComment on above:Performed By: #### CMP, HS TROP, CK, CBC, BNP, CKMB #### [facility] [address] [place], [place] [address] USAGlucose Poct Glucometerson 43-97-3061Futwzyz [Mass/Vol]120 mg/dLJackson Memorial Hospital Physician [facility] CenterComment on above:Result Comment: Random Glucose Reference Range is dependent on time and content of last meal. Glucose of more than 200 mg/dL in a nonstressed, ambulatory subject supports the diagnosis of Diabetes Mellitus. PERFORMED BY: [place] [address] PATHOLOGIST [employer] GAETANO WEINBERG M.D.Performed By: #### GLULS #### Point of Care testing ,Glucose [Mass/volume] in Serum or PlasmaOrdered By: Abhi Pearson on 04-21-2023 Glucose [Mass/Vol]164 mg/dLPhtw42-050GrgfwhtakSelect Medical Ohiohealth Rehabilitation HospitalComment on above:ADA recommended reference rangeRandom Glucose Reference Range is dependent on time and content of last meal. Glucose of more than 200 mg/dL in a nonstressed, ambulatory subject supports the diagnosisof Diabetes Mellitus. Result Comment: Random Glucose Reference Range is dependent on time and content of last meal. Glucose of more than 200 mg/dL in a nonstressed, ambulatory subject supports the diagnosis of Diabetes Mellitus. ADA recommended reference rangePerformed By: #### CMP, HS TROP, CK, CBC, BNP, CKMB #### [facility] [address] [place] [address] USAHematocrit [Volume Fraction] of Blood by Automated count Ordered By: Abhi Pearson on 12-03-9083Gjplstnlao (Bld) [Volume fraction]34.5 % Zkvogc99.0-46.4FHolzer HospitalComment on above:Performed By: #### CMP, HS TROP, CK, CBC, BNP, CKMB #### [place] [address] USAHemoglobin [Mass/volume] in BloodOrdered By: Abhi Paerson on 29-95-0320Wdzgejepeu (Bld) [Mass/Vol]11.1 g/dLLow11.8-15.4FHolzer HospitalComment on above:Performed By: #### CMP, HS TROP, CK, CBC, BNP, CKMB #### [place] [address] USALeukocytes [#/volume] corrected for nucleated erythrocytes in Blood by Automated counOrdered By: Abhi Pearson on 41-96-7659MGR corrected for nucl RBC Auto (Bld) [#/Vol]5.5 10*3/uL3.8-11.6FHolzer HospitalLeukocytes [#/volume] in Blood by Automated countOrdered By: Abhi Pearson on 84-72-9490QZZ (Bld) [#/Vol]5.5 10*3/uLNormal3.8-11.6FHolzer HospitalComment on above:Performed By: #### CMP, HS TROP, CK, CBC, BNP, CKMB #### [place] [address] USALymphocytes [#/volume] in Blood by Automated countOrdered By: Abhi Pearson on 82-65-9305Baeldbfrspx (Bld) [#/Vol]1.6 10*3/uLNormal1.00-4.8 [facility] HospitalComment on above:Performed By: #### CMP, HS TROP, CK, CBC, BNP, CKMB #### [facility] [address] [place] [id number] USALymphocytes/100 leukocytes in Blood by Automated count Ordered By: Abhi Pearson on 79-77-7253Odshnheeoog/100 WBC (Bld)28.9 %Normal. [facility] HospitalComment on above:Performed By: #### CMP, HS TROP, CK, CBC, BNP, CKMB #### [facility] [address] [Entitic mass] by Automated countOrdered By: Abhi Pearson on 80-05-0358ZTJ (RBC) [Entitic mass]28.5 skYndnvp37.7-34.3FHolzer HospitalComment on above:Performed By: #### CMP, HS TROP, CK, CBC, BNP, CKMB #### [facility] [address]HC Auto (RBC) [Mass/Vol]Ordered By: Abhi Pearson on 05-42-5024VYHJ (RBC) [Mass/Vol]32.1 g/dL32.0-35.0[facility] HospitalMCV [Entitic volume] by Automated countOrdered By: Abhi Pearson on 43-62-6628ZVE (RBC) [Entitic vol]89.0 gVVyoqho39-857DiiutisvvSelect Medical [facility] Rehabilitation HospitalComment on above:Performed By: #### CMP, HS TROP, CK, CBC, BNP, CKMB #### [facility] [address] [place] [address] USAMonocyte distribution width [Entitic volume] in Blood by AutomatedOrdered By: Abhi Pearson on 98-77-9067Bnldcxhy distribution width Auto (Bld) [Entitic vol]17.96 %0.00-20.00[facility] HospitalNeutrophils [#/volume] in Blood by Automated countOrdered By: Abhi Pearson on 04-21-2023 Neutrophils (Bld) [#/Vol]3.1 10*3/uLNormal1.8-7.7FHolzer HospitalComment on above:Performed By: #### CMP, HS TROP, CK, CBC, BNP, CKMB #### [facility] [address] [place] [address] USANo Panel InformationOrdered By: Abhi Pearson on 04-21-2023 Estimated GFR (CKD-EPI)54.444 mL/MinSelect Medical Ohiohealth Rehabilitation HospitalPharmacy Creatinine Clearance (Chem47.91[facility] HospitalNucleated erythrocytes [Presence] in Blood by Automated countOrdered By: Abhi Pearson on 24-07-7227Hyibxedkc RBC Auto Ql (Bld)0.1 /100{WBC}0-0.5FHolzer HospitalPlatelet mean volume [Entitic volume] in Blood by Automated count Ordered By: Abhi Pearson on 49-52-0294Wnowabob mean volume (Bld) [Entitic vol] 8.6 fLNormal6.3-10.7FHolzer HospitalComment on above:Performed By: #### CMP, HS TROP, CK, CBC, BNP, CKMB #### [facility] [address] [place] [address] USAPlatelets [#/volume] in Blood by Automated countOrdered By: Abhi Pearson on 85-37-3593Yojpvmcxh (Bld) [#/Vol]224 10*3/fPOnijnp384-478 [facility] HospitalComment on above:Performed By: #### CMP, HS TROP, CK, CBC, BNP, CKMB #### [facility] [address] [place] [address] USAPotassium [Moles/volume] in Serum or PlasmaOrdered By: Abhi Pearson on 34-19-9861Xtvpbmjkp [Moles/Vol]4.3 mmol/LNormal3.5-5.1FHolzer HospitalComment on above:Performed By: #### CMP, HS TROP, CK, CBC, BNP, CKMB #### [facility] [address] [place] [address] USAProtein [Mass/volume] in Serum or PlasmaOrdered By: Abhi Pearson on 69-78-9988Jsibirk [Mass/Vol]6.7 g/dLNormal6.4-8.9[facility] HospitalComment on above:Performed By: #### CMP, HS TROP, CK, CBC, BNP, CKMB #### [facility] [address] [place] [address] USASerum globulin measurement by calculation (mass/volume) Ordered By: Abhi Pearson on 42-16-1196Iatuzcxc (S) [Mass/Vol]2.7 g/dLNormal [facility] HospitalComment on above:Performed By: #### CMP, HS TROP, CK, CBC, BNP, CKMB #### [facility] [address] [place] [address] USASerum or plasma albumin/globulin mass ratioOrdered By: Abhi Pearson on 92-14-1495Ahtogiq/Globulin [Mass ratio]1.5 {ratio}Normal [facility] HospitalComment on above:Performed By: #### CMP, HS TROP, CK, CBC, BNP, CKMB #### [place] [address] USASerum or plasma anion gap determinationOrdered By: Abhi Pearson on 27-12-6214Xyyqd gap [Moles/Vol]10.9 mmol/LNormal6.0-15.0[facility] HospitalComment on above:Performed By: #### CMP, HS TROP, CK, CBC, BNP, CKMB #### [facility] [address] [place] [address] USASerum or plasma creatine kinase MB (CKMB)/total creatine kinase (CK) ratio by calculaOrdered By: Abhi Pearson on 77-44-3529QW.MB Calc [Catalytic fraction]2.1 %0.00-2.50[facility] Hospitalodium [Moles/volume] in Serum or PlasmaOrdered By: Abhi Pearson on 90-03-1541Ytcwcx [Moles/Vol]140 mmol/EWjnbbf481-274PirguhvtaSelect Medical Ohiohealth Rehabilitation HospitalComment on above:Performed By: #### CMP, HS TROP, CK, CBC, BNP, CKMB #### [address] [place] [address] USATroponin I High Sensitivityon 72-11-3322Nvptvmds I High Sensitivity9.4 pg/mLNormal0.0-15.0The [facility], [facility] Physician [facility] Medical CenterComment on above: Result Comment: PERFORMED BY: [address] [address] PATHOLOGIST [employer] GAETANO WEINBERG M.D.Performed By: #### HS TROP ####[facility] [place] [address] USATroponin I High Sensitivity8.7 pg/mL Normal0.0-15.0The [facility] Physician GroupComment on above:Result Comment: PERFORMED BY: [place] [id number] PATHOLOGIST [employer] GAETANO WEINBERG M.D.Performed By: #### CMP, HS TROP, CK, CBC, BNP, CKMB #### [place] [id number] USATroponin I.cardiac [Mass/volume] in Serum or Plasma by Detection limit <= 0.01 ng/Ordered By: Kate Huizar on 77-80-5229Eeyhpbnb I.cardiac DL <= 0.01 ng/mL [Mass/Vol]9.4 pg/mL0.0-15.0[facility] HospitalUrea nitrogen [Mass/volume] in Serum or PlasmaOrdered By: Abhi Pearson on 15-73-2428Bpii nitrogen [Mass/Vol]16 mg/dLNormal7-25[facility] HospitalComment on above:Performed By: #### CMP, HS TROP, CK, CBC, BNP, CKMB #### [facility] [address] [place] [address] USAXR chest 2V*on 31-91-5901VS chest 2V*[facility] Main [place] [address] [place] [address] XRay Report Signed Patient: Laqiuta Dailey MR#: [id number] : 1945 Acct:[id number] Age/Sex: 77 / F ADM Date: 04/21/23 Loc: ER Room: Type: [facility] Attending Dr: Copies to: Abhi Pearson PA-C Ordering Provider: Abhi Pearson PA-C Date of Service: 04/21/23 XR/XR chest 2V*: Chest Pain PA AND LATERAL CHEST: CLINICAL HISTORY: intermittent stabbing chest pain COMPARISON: 10/18/2020 Median sternotomy wires are present. There is no developing consolidation, effusion or pneumothorax. The heart is slightly prominent. A large hiatal hernia is again seen. There is no vascular congestion. The visualized bony structures are osteopenic. XR/XR chest 2V* IMPRESSION: MILD CARDIOMEGALY AND LARGE HIATAL HERNIA. NO ACUTE PULMONARY FINDINGS. Impression dictated by: Corine Horner M.D.04/21/2023 3:41 PM Dictation Location: [place] [address] Transcribed By: [facility] 04/21/23 1541 Dictated By: Corine Horner MD 04/21/23 1538 Signed By: 04/21/23 1541[facility] Physician GroupCBC panel Auto (Bld)on 37-11-3855Xmykdslkvsh distribution width (RBC) [Ratio]15.1 %High11.5-14.5 [facility] HealthComment on above:Performed By: #### 16655-5 #### ANN Manning ([id number]) [facility] ([facility]) [address] [place] [address] 58470Hjhmtozvts (Bld) [Volume fraction]36.2 %Kvcoxr66.0-46.0 [facility] HealthComment on above:Performed By: #### 36257-1 #### ANN Manning ([id number]) [facility] ([facility]) [address] [place] [address] 00693Gevuzbxerz (Bld) [Mass/Vol]10.7 g/dLLow12.0-16.0Summa HealthComment on above:Performed By: #### 14907-2 #### ANN Manning ([id number]) [facility] ([facility]) [address] [place] [address] 94127UAB (RBC) [Entitic mass]27.9 qsKqiiuu10.0-34.0UnGreen Cross HospitalComment on above:Performed By: #### 36365-1 #### ANN Manning ([id number]) [facility] ([facility]) [address] [place] [address] 78065MAOA (RBC) [Mass/Vol]29.6 g/dLLow32.0-36.0UnGreen Cross HospitalComment on above:Performed By: #### 51320-8 #### ANN Manning ([id number]) [facility] ([facility]) [address] [place] [address] 47230BCV (RBC) [Entitic vol]94 xWJsefxa30-106ZzavvqdnjgGreen Cross HospitalComment on above:Performed By: #### 85868-3 #### ANN Manning ([id number]) [facility] ([facility]) [address] [place] [address] 26670Ifdkqtslt RBC/100 WBC (Bld) [Ratio]0.0 /100 WBCsNormal0.0-0.0 [facility]ma HealthComment on above:Performed By: #### 76147-1 #### ANN Manning ([id number]) [facility] ([facility]) [address] [place] [address] 86225Pijpahnt mean volume (Bld) [Entitic vol]10.4 fLNormal7.5-11.5 [facility] HealthComment on above:Performed By: #### 38244-6 #### ANN Manning ([id number]) [facility] ([facility]) [address] [place] [address] 73239Thjfbfxdo (Bld) [#/Vol]280 x10*3/hKGtbnvs260-102DadnmotgzzGreen Cross HospitalComment on above:Performed By: #### 64614-9 #### ANN Manning ([id number]) [facility] ([facility]) [address] [place] [address] 33763COS (Bld) [#/Vol]3.84 x10*6/uLLow4.00-5.20Summa HealthComment on above:Performed By: #### 14531-9 #### ANN Manning ([id number]) [facility] ([facility]) [address] [place] [address] 16181YGT (Bld) [#/Vol]6.6 x10*3/uLNormal4.4-11.3UnGreen Cross HospitalComment on above:Performed By: #### 01479-3 #### ANN Manning ([id number]) [facility] ([facility]) [address] [place] [address] 28133Kbsuekmuhrtkj metabolic 2000 panelon 55-12-9014Yskswwq BCP dye [Mass/Vol]4.2 g/dLNormal3.4-5.0[facility] Comment on above:Performed By: #### 79651-9 #### ANN Manning ([id number]) [facility] ([facility]) [address] [place] [address] 91281KHJ [Catalytic activity/Vol]64 U/KOblrzi73-782FlcyuudgwgSumma HealthComment on above:Performed By: #### 03954-3 #### ANN Manning ([id number]) [facility] ([facility]) [address] [place] [address] 33316QIS With P-5'-P [Catalytic activity/Vol]13 U/LNormal7-45 [facility] HealthComment on above:Result Comment: Patients treated with Sulfasalazine may generate falsely decreased results for ALT.Performed By: #### 64510-1 #### ANN Manning ([id number]) [facility] ([facility]) [address] [place] [address] 97463Pswsq gap [Moles/Vol]12 mmol/TJelipm60-88TjybaoaphtSumma HealthComment on above:Performed By: #### 03947-3 #### ANN Manning ([id number]) [facility] ([facility]) [address] [place] [address] 86846HPB With P-5'-P [Catalytic activity/Vol]23 U/LNormal9-39 [facility] HealthComment on above:Performed By: #### 36694-1 #### ANN Manning ([id number]) [facility] ([facility]) [address] [place] [address] 56058Gqonrcfnm [Mass/Vol]0.4 mg/dLNormal0.0-1.2UnGreen Cross HospitalComment on above:Performed By: #### 48642-2 #### ANN Manning ([id number]) [facility] ([facility]) [address] [place] [address] 35832Dsahogc [Mass/Vol]9.7 mg/dLNormal8.6-10.3UnGreen Cross HospitalComment on above:Performed By: #### 26984-5 #### ANN Manning ([id number]) [facility] ([facility]) [address] [place] [address] 26421Kmkcjcwe [Moles/Vol]108 mmol/KVqwd49-158QvwlhrztspGreen Cross HospitalComment on above:Performed By: #### 64931-4 #### ANN Manning ([id number]) [facility] ([facility]) [address] [place] [address] 01994GL5 [Moles/Vol]33 mmol/IUvkz42-80CgnvrsblpvGreen Cross HospitalComment on above:Performed By: #### 05744-3 #### ANN Manning ([id number]) [facility] ([facility]) [address] [place] [address] 15425Jcmmhnrnys [Mass/Vol]1.06 mg/dLHigh0.50-1.05UnGreen Cross HospitalComment on above:Performed By: #### 62368-2 #### ANN Manning ([id number]) [facility] ([facility]) [address] [place] [address] 63404AQH/1.73 sq M.predicted MDRD (S/P/Bld) [Vol rate/Area]55 mL/min/1.73m*2Low>60UnGreen Cross HospitalComment on above:Result Comment: Calculations of estimated GFR are performed using the 2020 CKD-EPI Study Refit equation without the race variable for the IDMS-Traceable creatinine methods. https://jasn.asnjournals.org/content/early//ASN.4025792824Fgoqzqfzv By: #### 87957-0 #### ANN Manning ([id number]) [facility] ([facility]) [address] [place] [address] 49266Jbeaans [Mass/Vol]119 mg/uFTirr45-62YgshuvnwubGreen Cross HospitalComment on above:Performed By: #### 70539-7 #### ANN Manning ([id number]) [facility] ([facility]) [address] [place] [address] 86955Zybxmpwkb [Moles/Vol]4.4 mmol/LNormal3.5-5.3UnGreen Cross HospitalComment on above:Performed By: #### 95815-3 #### ANN Manning ([id number]) [facility] ([facility]) [address] [place] [address] 09601Bvkboyx [Mass/Vol]7.3 g/dLNormal6.4-8.2UnGreen Cross HospitalComment on above:Performed By: #### 62899-8 #### ANN Manning ([id number]) [facility] ([facility]) [address] [place] [address] 56486Dlsdwx [Moles/Vol]149 mmol/SBhkh317-616KjngysivgrGreen Cross HospitalComment on above:Performed By: #### 87059-2 #### ANN Manning ([id number]) [facility] ([facility]) [address] [place] [address] 35861Ooeb nitrogen [Mass/Vol]16 mg/dLNormal6-23Summa HealthComment on above:Performed By: #### 85071-5 #### ANN Manning ([id number]) [facility] ([facility]) [address] [place], [place] [address]KGD 12 lead (Clinic Performed)on 58-50-0501Kxpad bradycardia left under branch block at a rate of 50 bpm.-144 ms QT corrected 437 ms. Rhythm strip shows the same pattern.[facility] Work Phone: [facility] Work Phone: Thyrotropinon 96-56-3199XQH Qn1.64 m[IU]/LNormal 0.44-3.98UnGreen Cross HospitalComment on above:Order Comment: TSH testing is performed using different testing methodology at [facility] than at other [facility]. Direct result comparisons should only be made within the same method.Performed By: #### 3016-3 #### ANN Manning ([id number]) [facility] ([facility]) [address] [place] [address] [phone] MAMM SCREEN 3D MIRNA CADon 86-44-1766YC MAMM SCREEN 3D MIRNA CAD Patient: LAQUITA DAILEY Exam Date: 04/10/2022 : 1945 Gender:F Ordering : DR MITCH GRIFFIN . Admission #: [id number] Family : Order #: [id number] CLICK HERE TO VIEW EXAM RADIOLOGY REPORT PROCEDURE: MAMMOGRAM SCREENING 3D BILATERAL CAD COMPARISON: MG MAMM SCREEN MIRNA W CAD, 05/05/2019. MG MAMM SCREEN MIRNA W CAD, 02/26/2018. INDICATIONS: Screening mammography Calculator Name NCI Breast Cancer Risk Assessment Tool 5 Year Breast Cancer Risk 1.90% Lifetime Breast Cancer Risk 4.10% Personal Breast Cancer No Personal Ovarian Cancer No Treatments None Family Cancers Father with lung cancer at age 71. LOCATION: [facility] BREAST COMPOSITION: Heterogeneously dense,which may obscure small masses. FINDINGS: DIAGNOSTIC CATEGORY 2--BENIGN FINDING. NO CHANGE FROM COMPARISON. Scattered benign-appearing calcifications are present. Scattered benign-appearing lymph nodes are present. RIGHT BREAST: No significant suspicious finding. LEFT BREAST: No significant suspicious finding. Coarse calcification likely calcified cysts lower outer quadrant anterior breast, stable RECOMMENDATIONS: ROUTINE MAMMOGRAM AND CLINICAL EVALUATION IN 12 MONTHS. PLEASE NOTE: A NORMAL MAMMOGRAM DOES NOT EXCLUDE THE POSSIBILITY OF BREAST CANCER. A CLINICALLY SUSPICIOUS PALPABLE LUMP SHOULD BE BIOPSIED. Dictated by: Maria M Land MD on 04/10/2022 at 12:44 Approved by: Maria M Land MD on 04/10/2022 at 12:49[facility] HospitalXR DEXA BONE DENSITYon 19-38-6750WS DEXA BONE DENSITYEXAMINATION: XR DEXA BONE DENSITY, 04/10/2022 10:53 AM EDT HISTORY: Menopause present COMPARISON: DEXA bone densitometry 02/26/2018 TECHNIQUE: Dual-energy X-ray absorptiometry (DEXA) bone density study performed for the axial skeleton. FINDINGS: SPINE ANALYSIS: Average bone mineral density is 1.049 g/cm2. T-score (standard deviation relative to young adult mean): -1.1 . -3.4% change since prior study. HIP ANALYSIS: Lowest bone mineral density is within the left femoral neck, 0.666 g/cm2. T-score (standard deviation relative to young adult mean): -2.7 . +0.3% change since prior study. IMPRESSION: World [employer] Organization Classification: Osteoporosis - High Fracture Risk Electronically authenticated by: DAYTON EDWARDS Date: 2022-04-10 11:29[facility] HospitalARS-[facility] (COVID-19) RNA LUIS FERNANDO+probe Ql (Resp)on 03-18-2022 SARS-CoV-2 (COVID-19) RNA LUIS FERNANDO+probe Ql (Unsp spec)NegativeNoexcelsior springs medical center [employer] Other Office Visit (Cardiology)on 65-11-2537Temcvj-up visit Diagnoses/Problems Assessed 3-vessel coronary artery disease (414.00) (I25.10) Essential hypertension (401.9) (I10) Hyperlipidemia (272.4) (E78.5) Paroxysmal atrial fibrillation (427.31) (I48.0) Diabetes mellitus (250.00) (E11.9) High risk medication use (V58.69) (Z79.899) Never a smoker Class 1 obesity with body mass index (BMI) of 30.0 to 30.9 in adult (278.00,V85.30) (E66.9,Z68.30) Orders SocHx: Never a smoker Tobacco Use Screening; Status:Complete; Done: 05Tzs3350 Patient Instructions Please bring all medicines, vitamins, and herbal supplements with you when you come to the office. Prescriptions will not be filled unless you are compliant with your follow up appointments or have a follow up appointment scheduled as per instruction of your physician. Refills should be requested at the time of your visit. Follow up in [9 ] months Chief Complaint LAQUITA DAILEY is being seen for a 6 month follow-up of. 76-year-old diabetic female returns for follow-up and is overall doing well she still has complaints of exertional intrascapular back discomfort that resolves with rest. She has no classic anginal discomfort or shortness of breath. She remains ambulatory, she and her continue to go to [place] for 6 months at a time with active lifestyle, bicycling etc. They are about to disembark for [place] after and will be back in November. She does have history of significant three-vessel ASHD, remote CABG, most recently in September 2020 underwent two-vessel PCI of the [place] PLV branch and the radial graft to the obtuse marginal branch with drug-eluting stents. She has underlying paroxysmal A. fib, history of prior ablation, remains onXarelto with no bleeding or thromboembolic events. She has underlying controlled hypertension (126/60 on my eval). She remains on appropriate guideline directed medical therapies. 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2) Raynaud phenomenon (443.0) (I73.00) Ventricular tachycardia (paroxysmal) (427.1) (I47.2) Surgical History Problems History of Cardiac catheterization with stent placement History of Cataract surgery History of Complete colonoscopy 12May2017 History of Corneal lasik History of Eye surgery History of Foot surgery Past Medical History Problems History of Atypical chest pain (786.59) (R07.89) History of fatigue (V13.89) (Z87.898) History of hypoglycemia (V12.29) (Z86.39) History of obesity (V12.29) (Z86.39) History of obesity (V12.29) (Z86.39) Resolved Date: 04 Jun 2021 History of PTCA (V45.82) (Z98.61) History of snoring (V15.89) (Z87.898) History of syncope (V15.89) (Z87.898) History of Pre-procedure lab exam (V72.63) (Z01.812) Current Meds Medication NameInstruction Aspirin EC 81 MG Oral Tablet Delayed ReleaseTAKE 1 TABLET DAILY. Atorvastatin Calcium 10 MG Oral TabletTAKE 1 TABLET Bedtime Biotin 5000 MCG Oral CapsuleTAKE 1 CAPSULE Daily Calcium + D3 TABSone tab daily Furosemide 20 MG Oral TabletTAKE 1 TABLET DAILY. HumaLOG SOLNUSE DIRECTED. Iron 325 (65 Fe) MG Oral TabletTAKE 1 TABLET DAILY. Magnesium Oxide 400 MG Oral TabletTAKE 1 TABLET TWICE DAILY. Metoprolol Succinate ER 50 MG Oral Tablet Extended Release 24 HourTAKE 1 TABLET DAILY. Nitrostat 0.4 MG Sublingual Tablet SublingualPLACE 1 TABLET UNDER THE TONGUE EVERY 5 MINUTES UP TO 3 DOSES NEEDED FOR CHEST PAIN. Pantoprazole Sodium 40 MG Oral Tablet Delayed ReleaseTAKE 1 TABLET Daily Potassium Chloride ER 10 MEQ Oral Tablet Extended ReleaseTAKE 1 TABLET BY MOUTH EVERY DAY Sleep Aid 25 MG CAPSTAKE 1 CAPSULE AT BEDTIME Vitamin D 50 MCG (1999) Oral TabletTake as directed Xarelto 20 MG Oral Tablettake one tab daily Allergies Medication Penicillins Rash; Recorded By: Mitch Lucio; 05/23/2021 9:47:45 AM Phenothiazines Swelling; Recorded By: Mitch Lucio; 05/23/2021 9:47:45 AM IRA Inhibitors Recorded By: Mitch Lucio; 05/23/2021 9:47:45 AM NonMedication Seafood Recorded By: Mitch Lucio; 05/23/2021 9:47:45 AM Family History Sister Family history of ac (more content not included)...NormalUH TouchworksTobacco Screening.on 22-92-9498Tndwr depression screening assessmentNoSt. Michaels Medical Center [employer] DO Work Phone: Fall risk assessmenta) No falls within the last year [facility] [employer] DO Work Phone: Tobacco use status CPHSb) NoMVirginia Mason Health System [employer] DO Work Phone: Office Visit (Cardiology)on 86-59-2610Jlxupk-up visit Diagnoses/Problems Assessed Longstanding persistent atrial fibrillation (427.31) (I48.11) Palpitations (785.1) (R00.2) High risk medication use (V58.69) (Z79.899) Essential hypertension (401.9) (I10) Atrial premature complexes (427.61) (I49.1) Anticoagulated (V58.61) (Z79.01) Class 1 obesity with body mass index (BMI) of 30.0 to 30.9 in adult (278.00,V85.30) (E66.9,Z68.30) Orders Class 1 obesity with body mass index (BMI) of 30.0 to 30.9 in adult Healthy Weight Tips; Status:Complete - Retrospective Authorization; Done: 04Feb2022 Some eating tips that can help you lose weight.; Status:Complete - Retrospective Authorization; Done: 04Feb2022 Health Maintenance Renew: Aspirin EC 81 MG Oral Tablet Delayed Release; TAKE 1 TABLET DAILY Please bring all medicines, vitamins, and herbal supplements with you when you come to the office.; Status:Complete - Retrospective Authorization; Done: 75Lfv1981 Longstanding persistent atrial fibrillation Start: Xarelto 20 MG Oral Tablet; take one tab daily Formulary Override Reason: Drug is not indicated for Patient condition SocHx: Never a smoker Tobacco Use Screening; Status:Complete; Done: 24Biw5447 FOLLOW UP IN SIX MONTHS. Patient Instructions EVENT MONITOR. LOOP RECORDER Contemporary Analysis. Chief Complaint testing results. History of Present Illness 76-year-old female with a past medical history of coronary artery disease with history of coronary artery bypass graft surgery x2 back in 1999. Recent cardiac catheterization in June 2019 showed POZO to LAD patent also radial to obtuse marginal patent with patent stents. Echocardiogram in April 2018 showed left ventricular ejection fraction 45 to 50% with mild mitral vegetation. History of diabetes mellitus and hyperlipidemia. She was diagnosed of atrial fibrillation back in April 2018 and she was placed on beta-blockers, Xarelto and also amiodarone. Amiodarone was discontinued due to significant tremors. She had a cardiac catheterization in August 2020 that ended with PCI of the radial graft to the obtuse marginal and PCI of the PLV B. Since the last office visit, actually she started noticing less amount of palpitations. During the last visit she was complaining of palpitations. A Holter monitor was ordered that shows underlying rhythm was sinus rhythm with a minimum heart rate of 40 bpm maximum heart rate of 83 bpm with averageheart rate of 50 bpm. There was evidence of chronotropic incompetence based on results of the study. Currently she is doing much better. Denies any chest pain. No shortness of breath. Vital signs are stable Patient is alert oriented x3 Head normocephalic HEENT normal Neck no nodules. JVD negative Lungs clear to auscultation and percussion Cardiovascular regular rate and rhythm. No murmurs or gallops. Abdomen soft, bowel sounds present. No tenderness organomegaly Extremities no edema in the lower extremities Patient is alert oriented x3 no motor or sensory deficit Skin no cyanosis no pallor Impression 1. New diagnosis atrial fibrillation since April 2018.?Persistent atrial fibrillation, plan discussed during this office visit 2. Long-term anticoagulation therapy with Xarelto., No evidence of bleeding 3. History of gastric ulcer with bleeding with hemoglobin 7.1 to require blood transfusions. Now she is back on Xarelto. Multiple episodes of bleeding described by patient during this office visit 4. Coronary artery disease, status post percutaneous core interventions and coronary bypass graft surgery in 1999. Recent cardiac catheterization as described above, recent cardiac catheterization ended with PCI of the radial graft to the obtuse marginal and PCI of the PL BV 5. High risk medication (amiodarone). Patient has been off this medication since mid February 2020, stable 6. QT prolongation with low-dose Betapace, resolved 7. Left bundle branch block, stable 8. Normal ventricular function per echocardiogram as described above, no new changes 9. Tremors 10. Fatigue, tiredness, resolved after PCI was performed Plan recommendations I had a lengthy discussion with patient regarding results of the Holter monitor. Patient states that her symptoms are much better on Holter monitor did not show any significant atrial or ventricular arrhythmias. No symptoms reported during event monitor or Holter monitor. We will continue with observation for now. Patient understood that in case palpitations reappear an event monitor for 30 days on loop recorderimplantation will be recommended. Continue with beta-demetrius therapy Continue with Xarelto therapy Follow my office in 6 months or sooner if needed. Risk factor modifications and lifestyle modifications discussed with patient. Diet , exercise and hydration discussed during this office visit, as well as avoid alcohol, smoking and excessive caffeine use. Prescriptions were refilled during this office visit I have personally review with patient (more content not included)...Normal TouchworksTobacco Screening.on [id number] depression screening assessmentNo [facility] 250 DO Work Phone: Fall risk assessmenta) No falls within the last year [facility] 250 DO Work Phone: Tobacco use status CPHSb) [facility] 250 DO Work Phone: PAP ACOG PANEL 2: 30 to 65on 01-17-2022..NormalDayton Osteopathic HospitalComcorewell [facility] on above:Performed By: #### [id number] #### [facility] [address] [place] [address] Dr. Araceli Sanford Gdln ACOG TestingCommentNoEast Ohio Regional HospitalComment on above:Result Comment: <21 or >65 or no age providedPerformed By: #### [id number] #### [place] [address] Dr. Araceli BergerDIAGNOSIS:CommentUniversity Hospitals Elyria Medical Center on above: Result Comment: NEGATIVE FOR INTRAEPITHELIAL LESION OR MALIGNANCY. CELLULAR CHANGES ASSOCIATED WITH ATROPHY ARE PRESENT.Performed By: #### [id number] #### [place] [address] Dr. Araceli BergerMethodology:CommentUniversity Hospitals Elyria Medical Center on above: Result Comment: This liquid based ThinPrep(R) pap test was screened with the use of an image guided system.Performed By: #### [id number] #### [place] [address] Dr. Araceli BergerNote:CommentUniversity Hospitals Elyria Medical Center on above:Result Comment: The Pap smear is a screening test designed to aid in the detection of premalignant and malignant conditions of the uterine cervix. It is not a diagnostic procedure and should not be used as the sole means of detecting cervical cancer. Both false-positive and false-negative reports do occur. .Performed By: #### [id number] #### [place] [address] Dr[address] Araceli BergerPerformed by:CommentUniversity Hospitals Elyria Medical Center on above: Result Comment: Dionicio Jones Restrooms Or Lounges Maid (ASCP)Performed By: #### [id number] #### [place] [address] Dr. Araceli BergerSpecimen adequacy:CommentUniversity Hospitals Elyria Medical Center on above:Result Comment: Satisfactory for evaluation. Endocervical component may not be distinguished in cases of atrophy.Performed By: #### [id number] #### [place] [address] Dr. Araceli BergerCardiovasc Arrhythmia Resultson 04-57-2616Sorxnuytzz Arrhythmia ResultsReason For Visit LAQUITA is here for the application of a 48 hour Holter monitor. Ordering Physician: Dr. Juan José Juarez MD Diagnosis: longstanding paf, palps [facility] equipment agreement signed. LAQUITA seals monitor is to be returned on: 01/10/2022 Monitor number [id number] applied. Above equipment returned today in good condition with diary. Data processed as per protocol. Monitor # [id number] Diagnosis/Problems Assessed Palpitations (785.1) (R00.2) Longstanding persistent atrial fibrillation (427.31) (I48.11) Patient Discussion/Summary This is a Holter monitor for 48 hours. The underlying rhythm was sinus bradycardia with occasional related PVCs at a rate of 51 bpm. Sinusrhythm?sinus bradycardia were the main rhythm during this study. The minimum heart rate was 40 bpm,the maximal heart rate was 83 beats minute with average heart rate of 50 bpm. There was evidence ofchronotropic incompetence based on data from this study. Looking at the rhythm strips, there was 1 episode of idioventricular rhythm around 4 PM during the first day of monitoring. There were occasional junctional rhythm appearing during daytime. Not sure if it was related duringa sleep time. No significant pauses or evidence of high-grade AV block were seen during study. There were occasionally premature ventricular contractions in a pattern of isolated beats, ventricular couplets, ventricular triplets. The morphology of PVCs varies. Patient did not report symptoms during the study Compression Underlying rhythm is sinus rhythm?sinus bradycardia with PVCs. Occasional related PVCs but no sustained atrial or ventricular arrhythmias. 1 episode of idioventricular rhythm 18 beats seen during daytime Occasionally junctional rhythms rates between 50-55 bpm seen during this study. Patient did not report symptoms during this study Future Appointments Date/TimeProviderSpecialtySite 02/04/2022 12:00 Juan José Rawls, REIykjifsr[address] [place] [address] DO 03/05/2022 10:30 Eder Aleman DOCardiology703 [facility] 2 [place] 250 DO Signatures Electronically signed by : Juan José Juarez MD; Jan 23 2022 5:47PM EST (Author) [facility] TouchworksOffice Visit (Cardiology)on 50-58-8492Vkvcbm-up visit Diagnoses/Problems Assessed Palpitations (785.1) (R00.2) Longstanding persistent atrial fibrillation (427.31) (I48.11) High risk medication use (V58.69) (Z79.899) Non-smoker (V49.89) (Z78.9) Essential hypertension (401.9) (I10) Anticoagulated (V58.61) (Z79.01) Class 1 obesity with body mass index (BMI) of 30.0 to 30.9 in adult (278.00,V85.30) (E66.9,Z68.30) Orders Class 1 obesity with body mass index (BMI) of 30.0 to 30.9 in adult Healthy Weight Tips; Status:Complete - Retrospective Authorization; Done: 03Jan2022 Essential hypertension, Longstanding persistent atrial fibrillation Renew: Metoprolol Succinate ER 50 MG Oral Tablet Extended Release 24 Hour; TAKE 1 TABLET DAILY Health Maintenance Please bring all medicines, vitamins, and herbal supplements with you when you come to the office.; Status:Complete - Retrospective Authorization; Done: 03Jan2022 Longstanding persistent atrial fibrillation, Palpitations IO Holter Monitor up to 48 Hrs; Status:Active - Perform Order,Retrospective Authorization; Requested for:03Jan2022; SocHx: Non-smoker Tobacco Use Screening; Status:Complete; Done: 03Jan2022 FOLLOW UP IN TWO TO THREE WEEKS. Patient Instructions TAKE 2 TABLETS DAILY OF THE METOPROLOL SUCCINATE TO EQUAL 50 MG DAILY. ONCE THAT IS GONE CAN TAKE METOPROLOL SUCCINATE 50 MG 1 TABLET DAILY. By signing my name below, Anjel Fairbanks MA, Scribe, attest that this documentation has been prepared under the direction and in the presence of Dr. Juan José Juarez M.D.. Chief Complaint LAQUITA DAILEY is being seen for a cardiovascular evaluation. History of Present Illness 76-year-old female with a past medical history of coronary artery disease with history of coronary artery bypass graft surgery x2 back in 1999. Recent cardiac catheterization in June 2019 showed POZO to LAD patent also radial to obtuse marginal patent with patent stents. Echocardiogram in April 2018 showed left ventricular ejection fraction 45 to 50% with mild mitral vegetation. History of diabetes mellitus and hyperlipidemia. She was diagnosed of atrial fibrillation back in April 2018 and she was placed on beta-blockers, Xarelto and also amiodarone. Amiodarone was discontinued due to significant tremors. She had a cardiac catheterization in August 2020 that ended with PCI of the radial graft to the obtuse marginal and PCI of the PLV B. Since the last office visit, she states that she was doing well but for the last 6 weeks she 1 has been noticing more frequent palpitations. She is under a lot 1 of stress at home. EKG performed today shows sinus bradycardia nonspecific interventricular block at a rate 1 of 56 bpm. QRS 142 ms. QT corrected 140 ms. Rhythm strip shows the same pattern. Vital signs are stable Patient is alert oriented x3 Head normocephalic HEENT normal Neck no nodules. JVD negative Lungs clear to auscultation and percussion Cardiovascular regular rate and rhythm. No murmurs 1 or gallops. Abdomen soft, bowel sounds present. No tenderness organomegaly Extremities no edema 1 in the lower extremities 1 Patient 1 is alert oriented x3 no motor or sensory deficit Skin no cyanosis no pallor 1 Vital signs are stable Patient is alert oriented x3 Head normocephalic HEENT normal Neck no nodules. JVD negative Lungs clear to auscultation and percussion Cardiovascular regular rate and rhythm. No murmurs or gallops. Device in the left prepectoral healing well. No signs of hematoma or infection. Abdomen soft, bowel sounds present. No tenderness organomegaly Extremities no edema in the lower extremities Patient is alert oriented x3 no motor or sensory deficit Skin no cyanosis no pallor Impression 1. New diagnosis atrial fibrillation since April 2018.?Persistent atrial fibrillation, plan discussed during this office visit 2. Long-term anticoagulation therapy with Xarelto., No evidence of bleeding 3. History of gastric ulcer with bleeding with hemoglobin 7.1 to require blood transfusions. Now she is back on Xarelto. Multiple episodes of bleeding described by patient during this office visit 4. Coronary artery disease, status post percutaneous core interventions and coronary bypass graft surgery in 1999. Recent cardiac catheterization as described above, recent cardiac catheterization ended with PCI of the radial graft to the obtuse marginal and PCI of the PL BV 5. High risk medication (amiodarone). Patient has been off this medication since mid February 2020, stable 6. QT prolongation with low-dose Betapace, resolved 7. Left bundle branch block, stable 8. Normal ventricular function per echocardiogram as described above, no new changes 9. Tremors 10. Fatigue, tiredness, resolved after PCI was performed Plan recommendations 1 We will order a Holter monitor for 48 hours. 1 Will increase the dose of metoprolol succinate to 50 mg daily 1 We will see her in our 1 office in the next 2 to 3 weeks for evaluation with (more content not included)...NormalUH TouchworksTobacco Screening.on 01-03-2022 Adult depression screening assessmentNoSt. [facility] 127 DO Work Phone: Fall risk assessmenta) No falls within the last year [facility] 127 DO Work Phone: Tobacco use status CPHSb) [facility] DO Work Phone: Q - CULTURE,URINE,ROUTINEon 25-78-7335SHHABOM, URINE, ROUTINESEE NOTENormalNoUC Medical Center SpecialistComment on above:Order Comment: [facility] Testing performed at: [facility], Host [facility], [address] [place] [address], [address] [place] [address], [id number], Anthropometrist: Norm Vanegas MD [facility] Collection Date/Time: [id number] [facility] Results Received Date/Time: [id number] [facility] Reported Date/Time: [id number] Comment: CULTURE, URINE, ROUTINE Micro Number: [id number] Test Status: Final Specimen Source: Urine Specimen Quality: Adequate Result: Mixed genital cooper isolated. These superficial bacteria are not indicative of a urinary tract infection. No further organism identification is warranted on this specimen. If clinically indicated, recollect clean-catch, mid-stream urine and transfer immediately to Urine Culture Transport Tube.Performed By: #### [id number] #### [facility] Default [address] [place], [place] [address]Xwtvachi Blood Counton 06-75-6892Rzeifhpgjuy distribution width (RBC) [Ratio]14.7 %Tyyafo33.0-15.0Ohio[facility]in Memorial HospitalComment on above:Performed By: #### LIPD, CMP, CBC, FT4, TSH #### [facility] [address] [place], [place] [id number] (Bld) [Volume fraction]39.1 %Whozcz57.0-47.0 [facility] Memorial HospitalComment on above:Performed By: #### LIPD, CMP, CBC, FT4, TSH #### [facility] [address] [place], [place] [id number] (Bld) [Mass/Vol]12.3 g/aOMayxiz62.6-15.5[facility]Ber[facility] SpecialistComment on above:Performed By: #### LIPD, CMP, CBC, FT4, TSH #### [facility] [address] [place], [place] [id number] (RBC) [Entitic mass]27.0 uiTlxuet89.0-33.0[facility] SpecialistComment on above:Performed By: #### LIPD, CMP, CBC, FT4, TSH #### [facility] [address] [place], [place] [id number] (RBC) [Mass/Vol]31.5 g/dLLow32.0-36.0NoUC Medical Center SpecialistComment on above:Performed By: #### LIPD, CMP, CBC, FT4, TSH #### [facility] [address] [place], [place] [id number] (RBC) [Entitic vol]86 sXYdexqw74-600Esgpcrnp [address] SpecialistComment on above:Performed By: #### LIPD, CMP, CBC, FT4, TSH #### [facility] [address] [place], [place] [id number] mean volume (Bld) [Entitic vol]11.50 fLNormal 7.50-12.50[facility] SpecialistComment on above:Performed By: #### LIPD, CMP, CBC, FT4, TSH #### [facility] [address] [place], [place] [id number] (Bld) [#/Vol]221 10*3/cRZyyvzb974-564Esvypvrj [facility] SpecialistComment on above:Performed By: #### LIPD, CMP, CBC, FT4, TSH #### [facility] [address] [place], [place] [id number] (Bld) [#/Vol]4.55 10*6/uLNormal3.90-5.20NoUC Medical Center SpecialistComment on above:Performed By: #### LIPD, CMP, CBC, FT4, TSH #### [facility] [address] [place], [place] [id number]-FQ79.3 wGVlhmfc77.0-50.0NoUC Medical Center Specialist Comment on above:Performed By: #### LIPD, CMP, CBC, FT4, TSH #### [facility] [address] [place], [place] [id number] (Bld) [#/Vol]5.7 10*3/uLNormal3.8-11.0NoUC Medical Center SpecialistComment on above:Performed By: #### LIPD, CMP, CBC, FT4, TSH #### [facility] [address] [place], [place] [id number] Metabolic Panelon 22-07-8139Mewuehc [Mass/Vol] 4.1 g/dLNormal3.6-5.1[facility] SpecialistComment on above:Performed By: #### LIPD, CMP, CBC, FT4, TSH #### [facility] [address] [place], [place] [id number]/Globulin [Mass ratio]1.9 {ratio}Normal1.0-2.5NoOhio Valley Surgical HospitalComment on above:Performed By: #### LIPD, CMP, CBC, FT4, TSH #### [facility] [address] [place], [place] [id number] [Catalytic activity/Vol]80 U/JFyddcs49-622Ponigamf [facility] SpecialistComment on above:Performed By: #### LIPD, CMP, CBC, FT4, TSH #### [facility] [address] [place], [place] [id number] [Catalytic activity/Vol]12 U/LNormal6-33NoUC Medical Center SpecialistComment on above:Result Comment: 06/06/2021 Female reference range changed.Performed By: #### LIPD, CMP, CBC, FT4, TSH #### [facility] [address] [place], [place] [id number] gap [Moles/Vol]15 mmol/GZunrwa67-53Rnlnifaq [facility] SpecialistComment on above:Result Comment: Effective 07/12/2019 reference range changed.Performed By: #### LIPD, CMP, CBC, FT4, TSH #### [facility] [address] [place], [place] [id number] [Catalytic activity/Vol]19 U/LNormal9-34NoUC Medical Center SpecialistComment on above:Performed By: #### LIPD, CMP, CBC, FT4, TSH #### [facility] [address] [place], [place] [id number] [Mass/Vol]0.40 mg/dLNormal0.30-1.20NoUC Medical Center SpecialistComment on above:Performed By: #### LIPD, CMP, CBC, FT4, TSH #### [facility] [address] [place], [place] [id number]/CREA18 RatioNormal6-22No[facility] Specialist Comment on above:Performed By: #### LIPD, CMP, CBC, FT4, TSH #### [facility] [address], [place] [id number] [Mass/Vol]9.5 mg/dLNormal8.6-10.2Northern [facility] SpecialistComment on above:Performed By: #### LIPD, CMP, CBC, FT4, TSH #### [facility] [address] [place], [place] [id number] [Moles/Vol]105 mmol/NSysexr33-725Jhdbrjuy [facility] SpecialistComment on above:Performed By: #### LIPD, CMP, CBC, FT4, TSH #### [facility] [address] [place], [place] [id number] [Moles/Vol]28 mmol/REcsrra71-62Qleupogj [facility] SpecialistComment on above:Performed By: #### LIPD, CMP, CBC, FT4, TSH #### [facility] [address] [place], [place] [id number] [Mass/Vol]1.0 mg/dLNormal0.6-1.4NoUC [facility] Center SpecialistComment on above:Performed By: #### LIPD, CMP, CBC, FT4, TSH #### [facility] [address] [place], [place] [id number] mL/min/1.97d9Rewrgr>60NoUC Medical Center SpecialistComment on above:Performed By: #### LIPD, CMP, CBC, FT4, TSH #### [facility] [address] [place], [place] [id number] mL/min/1.89q9Tlr>60No[facility] Specialist Comment on above:Performed By: #### LIPD, CMP, CBC, FT4, TSH #### [facility] [address] [place], [place] [id number] (S) [Mass/Vol]2.2 g/dLNormal1.9-3.7NoUC [facility] Center SpecialistComment on above:Performed By: #### LIPD, CMP, CBC, FT4, TSH #### [facility] [address] [place], [place] [id number] [Mass/Vol]152 mg/yFHujw12-70Fwycghqy [facility] SpecialistComment on above:Result Comment: For FASTING Glucose --- ADA reference ranges: Normal 65-99 mg/dl Prediabetes 100-125 Diabetes >/= 126Performed By: #### LIPD, CMP, CBC, FT4, TSH #### [facility] [address] [place], [place] [id number] [Moles/Vol]4.8 mmol/LNormal3.5-5.5NoUC Medical Center SpecialistComment on above:Performed By: #### LIPD, CMP, CBC, FT4, TSH #### [facility] [address] [place], [place] [id number] [Mass/Vol]6.3 g/dLNormal6.1-8.1[facility] SpecialistComment on above:Performed By: #### LIPD, CMP, CBC, FT4, TSH #### [facility] [address] [place], [place] [id number] [Moles/Vol]143 mmol/QDqpeoj217-296Qlipexep Dr. [facility] SpecialistComment on above:Performed By: #### LIPD, CMP, CBC, FT4, TSH #### [facility] [address] [place], [place] [id number] nitrogen [Mass/Vol]18 mg/dLNormal7-25Northern [facility] SpecialistComment on above:Performed By: #### LIPD, CMP, CBC, FT4, TSH #### [facility] [address] [place], [place] [id number] T4on 38-27-3401Rrra T4 [Mass/Vol]1.37 ng/dLNormal 0.80-1.80Nortb[facility] rehabilitation [facility]n [facility] SpecialistComment on above:Performed By: #### LIPD, CMP, CBC, FT4, TSH #### [facility] [address] [place], [place] [id number] A1Con 47-72-2855PVW175.33NormalNortBerger Hospital SpecialistComment on above:Performed By: #### A1C #### [facility] [address] [place], [place] [id number] (Bld) [Mass fraction]6.9 %High4.0-6.0Nonovant health / nhrmcn Dr[facility] SpecialistComment on above:Performed By: #### A1C #### [facility] [address] [place], [place] [id number] Panelon 72-35-6451Nnephujncsi [Mass/Vol]133 mg/dLNormal 125-200[facility] SpecialistComment on above:Result Comment: Low risk < 200mg/dL Borderline risk 201-239 mg/dl High risk > or equal to 240Performed By: #### LIPD, CMP, CBC, FT4, TSH #### [facility] [address] [place], [place] [id number] in HDL [Mass/Vol]53 mg/dLNormal>40Nortbanner rehabilitation hospital westn [facility] SpecialistComment on above:Result Comment: High Cardiovascular Risk HDL <40 mg/dL Low Cardiovascular Risk HDL > or equal to 60 mg/dlPerformed By: #### LIPD, CMP, CBC, FT4, TSH #### [facility] [address] [place], [place] [id number] in LDL [Mass/Vol]65 mg/dLNormalNoUC Medical Center SpecialistComment on above:Result Comment: LDL ATP III CLASSIFICATION LDL less than 100 mg/dl Optimal LDL 100-129 mg/dl Near or above optimal LDL 130-159 Borderline high LDL 160-189 High LDL greater than 189 mg/dl Very HighPerformed By: #### LIPD, CMP, CBC, FT4, TSH #### [facility] [address] [place], [place] [id number] in VLDL [Mass/Vol]15 mg/dLNormPomerene Hospital SpecialistComment on above:Performed By: #### LIPD, CMP, CBC, FT4, TSH #### [facility] [address] [place], [place] [id number].total/Cholesterol in HDL [Mass ratio]3 {ratio} NormalNoOhio Valley Surgical HospitalComment on above:Performed By: #### LIPD, CMP, CBC, FT4, TSH #### [facility] [address] [place], [place] [id number] [Mass/Vol]73 mg/eHNmfyhe73-423Myxrnbqs [facility] SpecialistComment on above:Result Comment: TRIG ATPIII CLASSIFICATIONS TRIG less than 150 mg/dl Normal TRIG 150-199 mg/dl Borderline High TRIG 200-500 mg/dl High TRIG greather than 500 mg/dl Very HighPerformed By: #### LIPD, CMP, CBC, FT4, TSH #### [facility] [address] [place], [place] [id number] (with Creat)on 00-47-8040iCDB<1.2LowNorthern Dr. [facility] SpecialistComment on above:Result Comment: Unable to calculate mALB/Crea ratio, mALB is <1.2 mg/dL mALB reference range not established.Performed By: #### mALBC #### [facility] [address] [place], [place] [id number] mg/mNOzdepx50-190Sheqcamn [place] Educational Manager Comment on above:Performed By: #### mALBC #### [facility] [address] [place], [place] [id number] 26-94-1135RPC0.390 uIU/mLNormal0.400-4.500Nortbanner rehabilitation hospital westn [place] [facility] SpecialistComment on above:Performed By: #### LIPD, CMP, CBC, FT4, TSH #### [facility] [address] [place], [place] [id number] Visit (Cardiology)on 65-76-2094Svkfky-up visit Diagnoses/Problems Assessed Longstanding persistent atrial fibrillation (427.31) (I48.11) Ventricular tachycardia (paroxysmal) (427.1) (I47.2) High risk medication use (V58.69) (Z79.899) 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) Anticoagulated (V58.61) (Z79.01) Left bundle branch block (426.3) (I44.7) History of obesity (V12.29) (Z86.39) Obese (278.00) (E66.9) Non-smoker (V49.89) (Z78.9) Orders Essential hypertension, Longstanding persistent atrial fibrillation Renew: Metoprolol Succinate ER 25 MG Oral Tablet Extended Release 24 Hour; TAKE 1 TABLET DAILY IN THE EVENING High risk medication use Follow-up visit in 6 months Outpatient Follow-up second week of December 2021 Status: Hold For - Scheduling,Retrospective Authorization Requested for: 04Jun2021 Please bring all medicines, vitamins, and herbal supplements with you when you come to the office.; Status:Complete - Retrospective Authorization; Done: 04Jun2021 High risk medication use, Longstanding persistent atrial fibrillation Renew: Xarelto 20 MG Oral Tablet; Take one tablet daily SocHx: Non-smoker Tobacco Use Screening; Status:Complete; Done: 04Jun2021 Patient Instructions By signing my name below, Leonel Fairbanks Scribe, attest that this documentation has been prepared under the direction and in the presence of Dr. Juan José Juarez MD, [facility]. [place] for written Xarelto prescription to take to [place], and [place] for samples per Dr. Juan José Juarez MD, [facility] Please call your medication insurance coverage and ask what else could be used/ is covered better than Xarelto. Other options may be Eliquis or Pradaxa. Chief Complaint FU History of Present Illness 75-year-old female with a past medical history of coronary artery disease with history of coronary artery bypass graft surgery x2 back in 1999. Recent cardiac catheterization in June 2019 showed POZO to LAD patent also radial to obtuse marginal patent with patent stents. Echocardiogram in April 2018 showed left ventricular ejection fraction 45 to 50% with mild mitral vegetation. History of diabetes mellitus and hyperlipidemia. She was diagnosed of atrial fibrillation back in April 2018 and she was placed on beta-blockers, Xarelto and also amiodarone. Amiodarone was discontinued due to significant tremors. Since then she has been maintained on beta-blockers. She had a cardiac catheterization in August 2020 that ended with PCI of the radial graft to the obtuse marginal and PCI of the PLV B. Patient states that so far she has been doing well but she has been noticing worsening palpitations. Palpitations almost every day especially during nighttime. She can do most of her activities with no problems. Patient has been off amiodarone therapy for over a year. Vital signs are stable Patient is alert oriented x3 Head normocephalic HEENT normal Neck no nodules. JVD negative Lungs clear to auscultation and percussion Cardiovascular regular rate and rhythm. No murmurs or gallops. Abdomen soft, bowel sounds present. No tenderness organomegaly Extremities no edema in the lower extremities Patient is alert oriented x3 no motor or sensory deficit Skin no cyanosis no pallor Impression 1. New diagnosis atrial fibrillation since April 2018.?Persistent atrial fibrillation, plan discussed during this office visit 2. Long-term anticoagulation therapy with Xarelto., No evidence of bleeding 3. History of gastric ulcer with bleeding with hemoglobin 7.1 to require blood transfusions. Now she is back on Xarelto. Multiple episodes of bleeding described by patient during this office visit 4. Coronary artery disease, status post percutaneous core interventions and coronary bypass graft surgery in 1999. Recent cardiac catheterization as described above, recent cardiac catheterization ended with PCI of the radial graft to the obtuse marginal and PCI of the PL BV 5. High risk medication (amiodarone). Patient has been off this medication since mid February 2020, stable 6. QT prolongation with low-dose Betapace, resolved 7. Left bundle branch block, stable 8. Normal ventricular function per echocardiogram as described above, no new changes 9. Tremors 10. Fatigue, tiredness, resolved after PCI was performed Plan recommendations I had a lengthy discussion with patient regarding management for atrial fibrillation. She cannot tolerate antiarrhythmic therapies. Only medication possible amiodarone but because significant tremors. We will slowly increase the dose of beta-blockers. Follow my office in 3 to 6 months or sooner needed If she has recurrence of palpitations and it is confirmed that is related with atrial fibrillation then amiodarone therapy will be try again or pulmonary isolation will be offered to her. Continue with anticoagulant therapy Patient may benefit of a monitoring at home (Holter monitor versus event monitor) if palpitations continues being present Risk factor modifications and lifes (more content not included)...NormalUH TouchworksTobacco Screening.on 97-32-0359Hekb risk assessmentb) One or more falls in the last year[facility] [employer] 127 DO Work Phone: Tobacco use status CPHSb) [facility] 127 DO Work Phone: Activated partial thromboplastin time (aPTT) in platelet poor plasma by coagulation aon 87-35-0770sJTF Coag (PPP) [Time]34.8 s 25.1-36.5FHolzer Health System CtrAutomated basophil %on 08-11-2020 Basophils/100 WBC (Bld)0.6 %[facility] CtrAutomated basophil counton 43-22-9349Xssgsyyaf (Bld) [#/Vol]0.0 10*3/uL0.0-0.2FHolzer Health System CtrAutomated blood lymphocyte count (number/volume)on 08-11-2020 Lymphocytes (Bld) [#/Vol]1.7 10*3/uL1.00-4.8[facility] Automated blood lymphocyte count as percentage of total leukocyteson 08-11-2020 Lymphocytes/100 WBC (Bld)30.7 %[facility] CtrAutomated blood monocyte counton 89-52-8491Gmqbnskec (Bld) [#/Vol]0.6 10*3/uL0.0-0.8[facility] CtrAutomated blood platelet count (count/volume)on 08-11-2020 Platelets (Bld) [#/Vol]218 10*3/uP337-611SpckrbznqWadsworth-Rittman Hospital CtrAutomated blood platelet mean volume measurementon 31-94-7750Twjtqvwt mean volume (Bld) [Entitic vol]9.0 fL6.3-10.7FHolzer Health System CtrAutomated eosinophil % on 97-02-1014Vrcevrpivpk/100 WBC (Bld)3.9 %[facility] Automated eosinophil counton 28-42-4745Bzvqoaxoubv (Bld) [#/Vol]0.2 10*3/uL 0.0-0.45[facility] CtrAutomated erythrocyte distribution width ratioon 61-59-5548Oapqtptcxzz distribution width (RBC) [Ratio]14.2 %11.9-15.3 [facility] CtrAutomated erythrocyte mean corpuscular hemoglobin (mass per erythrocyte)on 29-12-0177EXN (RBC) [Entitic mass]28.0 pg24.7-34.3 [facility] CtrAutomated erythrocyte mean corpuscular hemoglobin concentration measurement (mass/volon 89-67-2647UXRE (RBC) [Mass/Vol]32.3 g/dL 32.0-35.0[facility] CtrAutomated erythrocyte mean corpuscular volumeon 78-11-2511XOG (RBC) [Entitic vol]86.6 fL61-743QujyljdleWadsworth-Rittman Hospital CtrAutomated monocyte %on 29-79-9003Niqaqkobk/100 WBC (Bld)10.2 % [facility] CtrAutomated neutrophil %on 10-79-9794Ntjngwzaadd/100 WBC (Bld)54.6 %[facility] CtrBlood erythrocytes automated count (number/volume)on 22-95-1435JQK (Bld) [#/Vol]4.13 10*6/uL3.60-5.00[facility] CtrBlood hemoglobin measurement (mass/volume)on 08-11-2020 Hemoglobin (Bld) [Mass/Vol]11.6 g/dL11.8-15.4FHolzer Health System CtrBlood leukocytes automated count (number/volume)on 21-57-3908RKH (Bld) [#/Vol]5.6 10*3/uL3.8-11.6FHolzer Health System CtrBlood neutrophil count by automated method (number/volume)on 97-76-3153Oewyrlyzcxb (Bld) [#/Vol]3.1 10*3/uL1.8-7.7 [facility] CtrCOVID-19 Positive/Negativeon 33-41-0826GHDXM-19 Positive/NegativeNegativeNegativeWadsworth-Rittman Hospital CtrComment on above: Testing for SARS-CoV-2 by RT-PCRThis test was developed and its performance characteristics determined by [employer] and validated at the [facility]. This test has not been FDA cleared or approved. This test has been authorized by FDA under an Emergency Use Authorization (EUA). This test has been validated in accordance with the FDA's Guidance Document (Policy for Diagnostics Testing in Laboratories Certified to Perform High Complexity Testing under CLIA prior to Emergency Use Authorization for Coronavirus Disease-2019 during the Public Health Emergency) issued on October 07, 2019. This test is only authorized for the duration of time the declaration that circumstances exist justifying the authorization of the emergency use of in vitro diagnostic tests for detection of SARS-CoV-2 virus and/or diagnosis of COVID-19 infection under section 564(b)(1) of the Act, 21 U.S.C. 360bbb-3(b)(1), unless the authorization is terminated or revoked sooner.Cholesterol [Mass/volume] in Serum or Plasmaon 53-52-3215Lzvdoetfgzn [Mass/Vol]141 mg/dL 140-200[facility] CtrComment on above:Chol less than 200 mg/dl low riskChol 201-239 mg/dl borderline riskChol 240 mg/dl and greater high risk Cholesterol in LDL [Mass/volume] in Serum or Plasma by calculationon 08-11-2020 Cholesterol in LDL [Mass/Vol]73 mg/dL0-100[facility] CtrComment on above:LDL ATP III CLASSIFICATIONLDL less than 100 mg/dL OptimalLDL 100-129 mg/dL Near or above escbbxcBQC721-595 mg/dL Borderline highLDL 160-189 mg/dL HighLDL greater than 189 mg/dL Very highCholesterol in VLDL [Mass/volume] in Serum or Plasma by calculationon 16-10-3020Jclgdccmioo in VLDL [Mass/Vol]14 mg/dLWadsworth-Rittman Hospital CtrEstimated glomerular filtration rate (GFR) non- Americanon 51-67-6969FBB/1.73 sq M predicted among non-blacks MDRD (S/P/Bld) [Vol rate/Area]49 mL/min/{1.73_m2}[facility] Hematocrit [Volume Fraction] of Blood by Automated counton 83-03-6570Fpyurkzfze (Bld) [Volume fraction]35.8 %34.0-46.4FHolzer Health System CtrHematologyon 11-94-7792EX Coag (PPP) [Time]20.4 s9.0-12.9[facility] CtrOther on 67-52-5910Avezljchbac 2019 PCR Inter/[facility] Ctr GFR/1.73 sq M.predicted MDRD (S/P/Bld) [Vol rate/Area]59 mL/min/{1.73_m2} [facility] CtrComment on above:GFR estimated reference range: According to KDOQI guidelines, <60 ml/min/1.73m2 is sufficient todiagnose a patient with chronic kidney disease.Nucleated RBC/100 WBC (Bld) [Ratio]0.2 % 0-0.5FHolzer Health System CtrPharmacy Creatinine Clearance (ChemN/A [facility] CtrPlatelet poor plasma international normalized ratio (INR) by coagulation assay (relaton 82-66-2794ZOV Coag (PPP) [Relative time]1.8 {INR}[facility] CtrComment on above:INR Therapeutic Range A) Pre- and Peroperative OAT started two weeks before surgery. NOT HIP SURGERY: 1.5 - 2.5 HIP SURGERY: 2 - 3B) Primary and secondary prevention of venous THROMBOSIS: 2 - 3C) Active venous thrombosis, pulmonary embolismand prevention of recurrent venous thrombosis: 2 - 3D) Prevention of arterial thromboembolismincluding patients with mechanical heart valves: 3 - 4.5Serum or plasma chloride measurement (moles/volume)on 53-94-3996Ajfljvau [Moles/Vol]102 mmol/P26-879GojfxnfxiWadsworth-Rittman Hospital CtrSerum or plasma creatinine measurement with calculation of estimated glomerular filtron 41-30-5406Jtbjhtavsn [Mass/Vol]1.09 mg/dL0.44-1.03[facility] CtrSerum or plasma high density lipoprotein (HDL) cholesterol measurementon 62-18-8695Ezefalligit in HDL [Mass/Vol]54 mg/uE91-32FispuwsgdWadsworth-Rittman Hospital CtrComment on above:HDL CHOL ATP-III CLASSIFICATION Cardiovascular RiskHDL > or equal to 60 mg/dL LOWHDL < 40 mg/dL HIGHSerum or plasma potassium measurement (moles/volume)on 08-11-2020 Potassium [Moles/Vol]4.7 mmol/L3.5-5.1FHolzer Health System CtrSerum or plasma sodium measurement (moles/volume)on 52-69-0556Hlpijp [Moles/Vol]141 mmol/J720-707LarvjxgtpWadsworth-Rittman Hospital CtrSerum or plasma total carbon dioxide measurement (moles/volume)on 93-36-0191YG2 [Moles/Vol]29.9 mmol/L22.0-30.0 [facility] CtrSerum or plasma total cholesterol/high density lipoprotein (HDL) cholesterol mass kim 79-73-0731Gwnwissmkax.total/Cholesterol in HDL [Mass ratio]2.6 {ratio}[facility] CtrSerum or plasma urea nitrogen measurement (mass/volume)on 71-45-1661Negs nitrogen [Mass/Vol]15 mg/dL9-23[facility] CtrTriglyceride [Mass/volume] in Serum or Plasmaon 71-44-5686Qdgdxthgqtlv [Mass/Vol]70 mg/iX11-601LwdwluzoeWadsworth-Rittman Hospital CtrComment on above:TRIG ATP III CLASSIFICATIONTRIG less than 150 mg/dL NormalTRIG 150-199 mg/dL Borderline highTRIG 200-500 mg/dL High TRIG greater than 500 mg/dL Very highStandard traceable to the Center for Disease Conrtrol and Prevention (CDC) test method.CBCon 31-87-0744Semrzggbwtq distribution width (RBC) [Ratio]18.8 %High11.5 - 14.5[facility] CelebrationComment on above: Performed By: #### CBC #### [address] [address]Aixatintca (Bld) [Volume fraction]39.9 %Jgxryi13.0 - 46.0[facility] HospitalComment on above:Performed By: #### CBC #### [address] [address]Dyrunttnpe (Bld) [Mass/Vol]12.0 g/fMJkbqal33.0 - 16.0[facility] CelebrationComment on above:Performed By: #### CBC #### [address] [address]QEGI (RBC) [Mass/Vol]30.1 g/dLLow32.0 - 36.0[facility] HospitalComment on above:Performed By: #### CBC #### [address] [address]BIF (RBC) [Entitic vol]88 rTOjjjlo56 - 100UH [facility] CelebrationComment on above:Performed By: #### CBC #### [address] [address]Glpyrjzbi (Bld) [#/Vol]230 10*3/aWDctdhr555 - 450[facility] CelebrationComment on above:Performed By: #### CBC #### [address] [address]XKZ (Bld) [#/Vol]4.51 x10E12/LNormal4.00 - 5.20[facility] CelebrationComment on above:Performed By: #### CBC #### [address] [address]SOC (Bld) [#/Vol]6.7 10*3/uLNormal4.4 - 11.3[facility] CenterComment on above:Performed By: #### CBC #### [address] [address]PNQUMXARKSMVB PANELon 18-60-2248Vwafpen [Mass/Vol]4.4 g/dLNormal 3.4 - 5.0[facility] CelebrationComment on above:Performed By: #### CMP #### [address] [address]OQS [Catalytic activity/Vol]66 U/DJrdhlc17 - 136[facility] CelebrationComment on above:Performed By: #### CMP #### [address] [address]UXM [Catalytic activity/Vol]17 U/LNormal7 - 45UH [facility] CelebrationComment on above:Result Comment: Patients treated with Sulfasalazine may generate falsely decreased results for ALT.Performed By: #### CMP #### [address] [address]Cublf gap [Moles/Vol]12 mmol/AOyzkls96 - 20[facility] CelebrationComment on above:Performed By: #### CMP #### [address] [address]YUB [Catalytic activity/Vol]22 U/LNormal9 - 39[facility] CelebrationComment on above:Performed By: #### CMP #### [address] [address]Kqkattgxq [Mass/Vol]0.4 mg/dLNormal0.0 - 1.2[facility] CelebrationComment on above:Performed By: #### CMP #### [address] [address]Tpqkeel [Mass/Vol]9.7 mg/dLNormal8.6 - 10.3[facility] CelebrationComment on above:Performed By: #### CMP #### [address] [place] [address]Xmexiwqj [Moles/Vol]101 mmol/XFlongd75 - 107[facility] CelebrationComment on above:Performed By: #### CMP #### [address] [address]Zabmxreuff [Mass/Vol]1.33 mg/dLHigh0.50 - 1.05[facility] CelebrationComment on above:Performed By: #### CMP #### [address] [address]LXW-AKZJTQP AM.47 mL/min/1.31p2Kqmtymdt>60[facility] CelebrationComment on above:Result Comment: CALCULATIONS OF ESTIMATED GFR ARE PERFORMED USING THE MDRD STUDY EQUATION FOR THE IDMS-TRACEABLE CREATININE METHODS. CLIN CHEM 2007;53:766-72Performed By: #### CMP #### [address] [address]MKS-DXC AM.39 mL/min/1.29d1Ramhaonk>60[facility] HospitalComment on above:Performed By: #### CMP #### [address] [address]Zjzzrzg [Mass/Vol]59 mg/dLLow74 - 99[facility] Comment on above:Performed By: #### CMP #### [address] [address]LRX3 (Bld) [Moles/Vol]33 mmol/LHigh21 - 32[facility] CelebrationComment on above:Performed By: #### CMP #### [address] [address]Wmwepqjau [Moles/Vol]4.2 mmol/LNormal3.5 - 5.3[facility] CelebrationComment on above:Performed By: #### CMP #### [address] [address]Tcbwsau [Mass/Vol]7.0 g/dLNormal6.4 - 8.2[facility] CelebrationComment on above:Performed By: #### CMP #### [address] [address]Rinylt [Moles/Vol]142 mmol/MLtbafj082 - 145St. [facility] HospitalComment on above:Performed By: #### CMP #### [address] [address]Aoqz nitrogen [Mass/Vol]21 mg/dLNormal6 - 23St. [facility] HospitalComment on above:Performed By: #### CMP #### [address] [address]GYHUT PANEL (CORONARY RISK 2)on 69-59-5957Klabsceshaw [Mass/Vol] 156 mg/dLNormal0 - 199St. [facility] HospitalComment on above:Result Comment: . AGE DESIRABLE BORDERLINE HIGH HIGH 0-19 Y 0 - 169 170 - 199 >/= 200 20-24 Y 0 - 189 190 - 224 >/= 225 >24 Y 0 - 199 200 - 239 >/= 240 All ranges are based on fasting samples. Specific therapeutic targets will vary based on patient-specific cardiac risk. . Pediatric guidelines reference:Pediatrics 2011, 128(S5). Adult guidelines reference: NCEP ATPIII Guidelines, JOHNATHAN 2001, 258:2486-97 . Venipuncture immediately after or during the administration of Metamizole may lead to falsely low results. Testing should be performed immediately prior to Metamizole dosing.Performed By: #### LIPID #### [address] [address]Ndcymebbslr in HDL [Mass/Vol]66.0 mg/dLNormalUHca Florida Jfk North HospitalComment on above:Result Comment: . AGE VERY LOW LOW NORMAL HIGH 0-19 Y < 35 < 40 40-45 ---- 20-24 Y ---- < 40 >45 ---- >24 Y ---- < 40 40-60 >60 .Performed By: #### LIPID #### [address] [address]Ioxacfhkbto in LDL [Mass/Vol]76 mg/dLNormal0 - 99St. [facility] HospitalComment on above:Result Comment: . NEAR BORD AGE DESIRABLE OPTIMAL HIGH HIGH VERY HIGH 0-19 Y 0 - 109 --- 110-129 >/= 130 ---- 20-24 Y 0 - 119 --- 120-159 >/= 160 ---- >24 Y 0 - 99 100-129 130-159 160-189 >/=190 .Performed By: #### LIPID #### [address] [address]Lvmbaviszfy in VLDL [Mass/Vol]14 mg/dLNormal0 - 40St. [facility] HospitalComment on above:Performed By: #### LIPID #### [address] [address]Kdqsoedxuwa.total/Cholesterol in HDL [Mass ratio]2.4 {ratio} NormalSt. Francis HospitalComment on above:Result Comment: REF VALUES DESIRABLE < 3.4 HIGH RISK > 5.0Performed By: #### LIPID #### [address] [address]Ptjooifnfstb [Mass/Vol]68 mg/dLNormal0 - 149St. [facility] HospitalComment on above:Result Comment: . AGE DESIRABLE BORDERLINE HIGH HIGH VERY HIGH 0 D-90 D 19 - 174 ---- ---- ---- 91 D- 9 Y 0 - 74 75 - 99 >/= 100 ---- 10-19 Y 0 - 89 90 - 129 >/= 130 ---- 20-24 Y 0 - 114 115 - 149 >/= 150 ---- >24 Y 0 - 149 150 - 199 200- 499 >/= 500 . Venipuncture immediately after or during the administration of Metamizole may lead to falsely low results. Testing should be performed immediately prior to Metamizole dosing.Performed By: #### LIPID #### [address] [address]ANYdk 05-07-9552XAI Qn3.37 m[IU]/LNormal0.44 - 3.98[facility]. [facility] HospitalComment on above:Result Comment: Note new pediatric reference range as of 09/09/2019. TSH testing is performed using different testing methodology at [facility] than at other [facility]. Direct result comparisons should only be made within the same method.Performed By: #### CREAT #### [address] [address]QIJxx 09-79-5967Vwwqpijiwgw distribution width (RBC) [Ratio]15.6 %High11.5 - 14.5St. [facility] HospitalComment on above:Performed By: #### CBC #### [address] [address]Uhxalsicnk (Bld) [Volume fraction]24.2 %Low36.0 - 46.0[facility] HospitalComment on above:Performed By: #### CBC #### [address] [address]Gwlrttazge (Bld) [Mass/Vol]7.2 g/dLLow12.0 - 16.0[facility] HospitalComment on above:Performed By: #### CBC #### [address] [address]TFEG (RBC) [Mass/Vol]29.8 g/dLLow32.0 - 36.0[facility] HospitalComment on above:Performed By: #### CBC #### [address] [address]KQZ (RBC) [Entitic vol]78 fLLow80 - 100[facility] Comment on above:Performed By: #### CBC #### [address] [address]Bgkdvwapm (Bld) [#/Vol]345 10*3/eARfaxiz180 - 450[facility] CelebrationComment on above:Performed By: #### CBC #### [address] [address]ZIC (Bld) [#/Vol]3.11 x10E12/LLow4.00 - 5.20[facility] CelebrationComment on above:Performed By: #### CBC #### [address] [address]PQM (Bld) [#/Vol]6.1 10*3/uLNormal4.4 - 11.3[facility] CelebrationComment on above:Performed By: #### CBC #### [address] [address]XBNWKCXEWKuv 01-76-1972Qzmlqvgptr [Mass/Vol]47 mL/min/1.73m2 Abnormal>60[facility] HospitalComment on above:Result Comment: CALCULATIONS OF ESTIMATED GFR ARE PERFORMED USING THE MDRD STUDY EQUATION FOR THE IDMS-TRACEABLE CREATININE METHODS. CLIN CHEM 2007;53:766-72Performed By: #### CREAT #### [address] [address]Gtwbvfmycx [Mass/Vol]1.33 mg/dLHigh0.50 - 1.05[facility] CelebrationComment on above:Performed By: #### CREAT #### [address] [address]Ursyjpcjre [Mass/Vol]39 mL/min/1.78w3Iwpktuog>60[facility]. [facility] HospitalComment on above:Performed By: #### CREAT #### [address] [address]UGQPBFGOZCQ PANELon 44-09-5568Bfkfc gap [Moles/Vol]14 mmol/L Shkwaq64 - 20[facility] HospitalComment on above:Performed By: #### ELECT #### [address] [address]Fadcjzgg [Moles/Vol]100 mmol/FSateos41 - 107St[facility] HospitalComment on above:Performed By: #### ELECT #### [address] [address]LSV7 (Bld) [Moles/Vol]29 mmol/CSkvyvc50 - 32St. [facility] HospitalComment on above:Performed By: #### ELECT #### [address] [address]Mjbotxfhj [Moles/Vol]4.0 mmol/LNormal3.5 - 5.3[facility] CelebrationComment on above:Performed By: #### ELECT #### [address] [address]Sqtois [Moles/Vol]139 mmol/YOtvhpf268 - 145St. [facility] HospitalComment on above:Performed By: #### ELECT #### [address] [address]VNTCHFQJPPPTX RATE, ERYTHROCYTEon 72-89-4610GHTHOOEUESLUD RATE, MKWEFSZVLSA68 mm/hHigh0 - 20St. [facility] HospitalComment on above:Performed By: #### ESRWS #### [address] [address]YRJFLORPQfp 22-40-0470T9 [Mass/Vol]12.1 ug/dLHigh4.5 - 11.1[facility] HospitalComment on above:Performed By: #### T4 #### [address] [address]TZYfs 46-25-0995WRY Qn2.12 m[IU]/LNormal0.44 - 3.98St. [facility] HospitalComment on above:Result Comment: TSH testing is performed using different testing methodology at [facility] than at other [facility]. Direct result comparisons should only be made within the same method.Performed By: #### TSH2 #### [address] [address]FXAD NITROGENon 71-59-2089Smta nitrogen [Mass/Vol]22 mg/dLNormal 6 - 23[facility]. [facility] HospitalComment on above:Performed By: #### UREA #### [address] [address] Vital Signs Date TimeVital SignValuePerforming JvlyxwzkqUkvcocjv31-12-8294 15:06-0500Body ybqmgl180.6 cmJustino ROBLEDOM Work Phone: [facility]SmithvilleBqreoxjvhz89-18-0018 15:06-0500Body mass index (BMI) [Ratio]28.08 kg/r3MbxxhyawJustino ROBLEDOM Work Phone: [facility]–SmithvilleQjxwdfggwh59-52-5877 15:06-0500Body yslqrw47.93 kgNicholas Brown DPM Work Phone: [facility]SmithvilleHmcxoepwsq48-36-1750 15:06-0500Respiratory rate18 /minNicholas Brown DPM Work Phone: [facility]villePcmggszpyn81-63-8282 13:53-0400Body rypamb730.4 David Juarez MD Work Phone: [phone]10-16-2025 13:53-0400 Body mass index (BMI) [Ratio]28.38 kg/h3EipwqzuJuan José Juarez MD Work Phone: [phone] [address]10-16-2025 13:53-0400 Body ipawfk54.56 kgJuan José Juarez MD Work Phone: [phone] [address]10-16-2025 13:53-0400 Diastolic blood kzuvmjlx29 mm[Hg]Juan José Juarez MD Work Phone: [phone])42046 [address]10-16-2025 13:53-0400 Heart rate47 /minJuanJ osé Juarez MD Work Phone: [phone] [place], [place] 9223910-16-2025 13:53-0400 Systolic blood vwilnaba825 mm[Hg]Juan José Juarez MD Work Phone: [phone] [address]10-09-2025 15:54-0400 Body iyoqzh963.6 cmNicholas Brown DPM Work Phone: [facility]SmithvilleMjlkksnuip16-84-6736 15:54-0400Body mass index (BMI) [Ratio]28.08 kg/i4Dkvhlgkj Brown DPM Work Phone: [facility]SmithvillePsakvgmoki87-84-3048 15:54-0400Body jwqcou99.93 kgNicholas Brown DPM Work Phone: [facility]–SmithvilleXinahmetun18-53-6550 15:54-0400Respiratory rate18 /minNicholas Brown DPM Work Phone: [facility]SmithvilleSviijthsbh11-44-9526 11:42-0400Body atimvh544.6 cmNicholas Brown DPM Work Phone: [facility]SmithvilleQfbxcrrnyj95-02-1165 11:42-0400Body mass index (BMI) [Ratio]28.08 kg/t8JglzcgcrJustino Powers DPM Work Phone: [facility]villeOjjpvwqugx01-70-3144 11:42-0400Body pmysnw95.93 kgJustino Powers DPM Work Phone: [facility]–SmithvilleGariczklly68-55-8382 11:42-0400Respiratory rate18 /minJustino Powers DPM Work Phone: [facility]villeSzadumdvxu91-83-3817 13:12-0400Body ylorpi474.6 cmAllison Petznick DO Work Phone: [facility]–SmithvilleIpobbaeotv67-11-7778 13:12-0400Body mass index (BMI) [Ratio]28.08 kg/z3Spsvtws Petznick DO Work Phone: [facility]SmithvilleWwpygcfmjl47-86-0098 13:12-0400Body temperature 97.2 [degF]Lizzette Petznick DO Work Phone: [facility]–SmithvilleNtazxezpzi00-03-0718 13:12-0400Body grmwye94.93 kgAllison Petznick DO Work Phone: [facility]SmithvilleOoagqgdpto35-64-2758 13:12-0400Diastolic blood noosxwfc98 mm[Hg]Lizzette Petznick DO Work Phone: [facility]SmithvilleHvskemgkwo30-78-6788 13:12-0400Heart rate58 /min Lizzette Petznick DO Work Phone: [place] [address]Bkdahteorb46-81-4113 13:12-1028IaI0% (BldA) [Mass fraction]96 %Lizzette Petznick DO Work Phone: [place] [address]Scralsdzki28-31-4028 13:12-0400Systolic blood jwgufqyo903 mm[Hg]Lizzette Petznick DO Work Phone: noSaint [facility] SpringsFbehafemwz48-87-4179 14:47-0400Body grilap760.6 cmJustino Powers DPM Work Phone: [facility]SmithvilleXgsvuoijrs11-05-0667 14:47-0400Body mass index (BMI) [Ratio]28.73 kg/o9Fdtzdwqt Brown DPM Work Phone: [facility]SmithvilleBuxbeuhwdr69-64-9588 14:47-0400Body mcyfoi75.74 kgNichollexie Brown DPM Work Phone: [facility]SmithvilleWhrlolcxuy30-89-2749 14:47-0400Respiratory rate18 /minNickatie Powers DPM Work Phone: [phone] [place], [place] [address]Gdjtyeufvw88-60-3498 11:47-0400Body xyjyji584.4 cmWibrandoniajeremiah Karlos DO Work Phone: [address] [place], [place] 3423908-06-2025 11:47-0400 Body mass index (BMI) [Ratio]28.97 kg/d0Xzixzec Karlos DO Work Phone: [address] [place], [place] 3423908-06-2025 11:47-0400 Body kibzbe08.2 kgWilliam Karlos DO Work Phone: [phone] [place], [place] 9553108-06-2025 11:47-0400 Diastolic blood vwuzhobs05 mm[Hg]Eder Everett DO Work Phone: [phone] [place], [place] 9553108-06-2025 11:47-0400 Heart rate58 /minWilarissa Karlos DO Work Phone: [facility]08-06-2025 11:47-0400 Systolic blood uswxmqle915 mm[Hg]Eder Everett DO Work Phone: [phone] [place], [place] 9553107-31-2025 15:25-0400 Body sdgtyx604.6 cmJustino Powers DPM Work Phone: [facility]SmithvilleCnligevaag76-80-8632 15:25-0400Body mass index (BMI) [Ratio]28.73 kg/k3Osmcqdrf Brown DPM Work Phone: [facility]–SmithvilleIsjqgzjsim02-42-2567 15:25-0400Body lnfoyh00.74 kgNickatie Brown DPM Work Phone: [facility]villeHkfhyrtbfv29-71-0288 15:25-0400Respiratory rate18 /minJustino Powers DPM Work Phone: [facility]villeByivdlytoo52-81-1954 12:53-0400Body vilotw181.4 cmAbrian Juarez MD Work Phone: 1(519)847-[address] [place], [place] 9223907-23-2025 12:53-0400 Body mass index (BMI) [Ratio]29.5 kg/k0TyrmhgcJuan José Juarez MD Work Phone: 1(902)391-[address] [place], [place] 9223907-23-2025 12:53-0400 Body eyasjc21.65 kgJuan José Juarez MD Work Phone: 1(485)150-[address] [place], [place] 9223907-23-2025 12:53-0400 Diastolic blood mm[Hg]Juan José Juarez MD Work Phone: 1(751)704-[address] [place], [place] 9223907-23-2025 12:53-0400 Heart rate59 /minJuan José Juarez MD Work Phone: 1(524)041-[address] [place], [place] 9223907-23-2025 12:53-0400 Systolic blood rmoygwwk587 mm[Hg]Juan José Juarez MD Work Phone: 1(404)769-[address] [place], [place] 9223906-09-2025 13:38-0400 Body idnrtu233.6 cmPrasanth Craig MD Work Phone: [facility]villeHmjkjqrfqm69-06-9125 13:38-0400Body mass index (BMI) [Ratio]28.73 kg/y5AaayikPrasanth Craig MD Work Phone: [facility]villeGyicwoltcr17-41-3281 13:38-0400Body vuvkxx27.74 kgPrasanth Craig MD Work Phone: [facility]villeTplhvfnxkw26-41-4114 13:38-0400Diastolic blood kcuzooqz72 mm[Hg]Prasanth Craig MD Work Phone: [facility]villeOycqhgzliz88-10-2982 13:38-0400Heart rate77 /min Prasanth Craig MD Work Phone: [facility]villeDxyfvztdjk46-96-1387 13:38-0400Respiratory rate16 /minDsatya Craig MD Work Phone: [facility]villeFoemghnkcm57-55-2815 13:38-0138FtI4% (BldA) [Mass fraction]97 %Prasanth Craig MD Work Phone: [facility] SpringsBigmkibcbj53-05-8067 13:38-0400Systolic blood rlzjydzr810 mm[Hg]Prasanth Craig MD Work Phone: [facility] SpringsGmdujwbhbs14-26-9439 17:58-0400Body mass index (BMI) [Ratio]28.89 kg/g8YqxaszbEd Sanabria DO Work Phone: [facility]villeBbtigoupet76-78-1948 17:58-0400Body temperature 97.39 [degF]Ed Sanabria DO Work Phone: [facility]villeVpwtmyftbl35-71-8608 17:58-0400Body umxjrz55.19 kgEd Sanabria DO Work Phone: [facility]villeXdugrzuvbn93-98-8356 17:58-0400Diastolic blood pooipwcq36 mm[Hg]Ed Sanabria DO Work Phone: [facility]villeWwkavcfnqx46-14-8375 17:58-0400Heart rate62 /min Ed Sanabria DO Work Phone: [facility]villeFypojkjstp37-96-3748 17:58-2679DoU2% (BldA) [Mass fraction]96 %Ed Sanabria DO Work Phone: [facility]villeAhcbgavwvr78-09-7391 17:58-0400Systolic blood cikhkktn980 mm[Hg]Ed Sanabria DO Work Phone: [facility]villeNftquaelhz87-91-1752 13:05-0400Body ptapiz848.6 cmAlljena Monk DO Work Phone: [facility] SpringsUghhykyxgt03-79-8703 13:05-0400Body mass index (BMI) [Ratio]28.89 kg/u1NmojoavLizzette Monk DO Work Phone: [facility] SpringsXznlswjvzz11-97-0903 13:05-0400Body temperature 98.29 [degF]Lizzette Petznick DO Work Phone: 1(224)[address] [place], [place] 7872805-27-2025 13:05-0400Body gstlog97.19 kgAllison Petznick DO Work Phone: 1(104)[address] [place], [place] 7872805-27-2025 13:05-0400Diastolic blood mm[Hg]Lizzette Petznick DO Work Phone: 1(563)[address] [place], [place] 7872805-27-2025 13:05-0400Heart rate58 /min Lizzette Petznick DO Work Phone: 1(814)[address] [place], [place] 7872805-27-2025 13:05-8078FsJ7% (BldA) [Mass fraction]94 %Lizzette Petznick DO Work Phone: 1(697)[address] [place], [place] 7872805-27-2025 13:05-0400Systolic blood dxzzmiln096 mm[Hg]Lizzette Petznick DO Work Phone: 1(062)[address] [place], [place] 7872812-16-2024 10:43-0500Body crzole379.4 cmAlyong Juarez MD Work Phone: 1(462)[address]12-16-2024 10:43-0500 Body mass index (BMI) [Ratio]28.68 kg/m4EipttezJuan José Juarez MD Work Phone: 1(397)[address]12-16-2024 10:43-0500 Body hgewpz30.38 kgJuan José Juarez MD Work Phone: 1(414)[address] [place], [place] 9223912-16-2024 10:43-0500 Diastolic blood pywqbrke45 mm[Hg]Juan José Juarez MD Work Phone: 1(430)[address] [place], [place] 9223912-16-2024 10:43-0500 Heart rate59 /minJuan José Juarez MD Work Phone: 1(766)926-[address] [place], [place] 9223912-16-2024 10:43-0500 Systolic blood qfmulzep761 mm[Hg]Juan José Juarez MD Work Phone: 1(011)[address]12-09-2024 13:20-0500 Body kcxjaf383.6 cmPrasanth Craig MD Work Phone: [facility]villeNyfwdixmjw09-58-6204 13:20-0500Body mass index (BMI) [Ratio]28.25 kg/h4QzzmdnPrasanth Craig MD Work Phone: [facility]villeTiogwygcqg19-35-9277 13:20-0500Body qhwgip37.38 kgPrasanth Craig MD Work Phone: [facility]villeZarbvzvghy71-23-7907 13:20-0500Diastolic blood xubxoubo87 mm[Hg]Prasanth Craig MD Work Phone: [facility]villeMtcxfwveka52-55-0181 13:20-0500Heart rate58 /min Prasanth Craig MD Work Phone: [facility]villeAzhzhpotsq46-58-3963 13:20-7676WdK4% (BldA) [Mass fraction]99 %Prasanth Craig MD Work Phone: [facility]villeLikkjzxnex92-58-8052 13:20-0500Systolic blood afziiacg021 mm[Hg]Prasanth Craig MD Work Phone: [facility]villeNrhzbcffap94-44-6923 11:48-0500Body aouesw303.4 cmWielisabethjeremiah ResendizKarlos DO Work Phone: [facility]11-26-2024 11:48-0500 Body mass index (BMI) [Ratio]28.68 kg/g5Wxxtnqi Karlos DO Work Phone: [facility]11-26-2024 11:48-0500 Body iotoqq78.38 kgWilarissa Karlos DO Work Phone: [facility]11-26-2024 11:48-0500 Diastolic blood aamckcbw24 mm[Hg]Eder Everett DO Work Phone: [facility]11-26-2024 11:48-0500 Heart rate52 /minEder Everett DO Work Phone: [facility]11-26-2024 11:48-0500 Systolic blood mm[Hg]Eder Everett DO Work Phone: [facility]11-14-2024 15:50-0500 Body ovtknw097.6 cmKeyshalexie Powers DPM Work Phone: [facility]villeSyvgeyqaaq66-57-9760 15:50-0500Body mass index (BMI) [Ratio]28.41 kg/m5Qoxdajnn Brown DPM Work Phone: [facility]villeKwnhhzzidz98-73-0400 15:50-0500Body .83 kgKeyshalexie Powers DPM Work Phone: [facility]villeYgwlunrjtj49-58-5800 15:50-0500Diastolic blood lvhuzlxi11 mm[Hg]Justino Powers DPM Work Phone: [facility]villeZcpqqfpits98-91-6838 15:50-0500Heart rate85 /min Justino Powers DPM Work Phone: [facility]villeJijvbeekqj99-22-9979 15:50-0500Systolic blood otffpewb721 mm[Hg]Justino Powers DPM Work Phone: [facility]villeWfbioxyrkr81-02-6776 14:23-0500Body xerbkt968.6 cmAllison Petznick DO Work Phone: noSaint [facility] SpringsAdgyjbhvpv67-15-1525 14:23-0500Body mass index (BMI) [Ratio]28.41 kg/t9Yaduihc Petznick DO Work Phone: noSaint [facility] SpringsJqjtpdcmnp48-00-6660 14:23-0500Body temperature 97.81 [degF]Lizzette Petznick DO Work Phone: [place] [address]Wpjcenyeqy81-65-0342 14:23-0500Body hodnzw95.83 kgAllison Petznick DO Work Phone: [place] [address]Rdatmszwcl92-88-0520 14:23-0500Diastolic blood cfplheki12 mm[Hg]Lizzette Petznick DO Work Phone: [place] [address]Wwphekihxh84-83-0677 14:23-0500Heart rate55 /min Lizzette Petznick DO Work Phone: [address] StreetTjtzyexuxk90-17-2294 14:23-6396HvV1% (BldA) [Mass fraction]96 %Lizzette Petznick DO Work Phone: [facility]villeBpohatntrt73-11-0174 14:23-0500Systolic blood gvopcnsc545 mm[Hg]Lizzette Gustafsonick DO Work Phone: [facility]villePchjbubiqw69-13-8024 16:52-0400Body yeuknt915.6 cmJustino Powers DPM Work Phone: [facility]villeWljlkekfbt27-70-8068 16:52-0400Body mass index (BMI) [Ratio]29.21 kg/f3IwovzyudJustino Powers DPM Work Phone: [facility]villeStssmdalhf30-20-6387 16:52-0400Body uzhdap32.1 kg Justino Powers DPM Work Phone: [facility]villeVkrulikmhm11-48-2873 16:52-0400Diastolic blood jpekbenv94 mm[Hg]Justino Powers DPM Work Phone: 1(022)060-[address] [place], [place] [address]Pdyzfhvflm34-14-1655 16:52-0400Heart rate81 /min Justino Powers DPM Work Phone: [facility]villeBkomhstsll54-29-3284 16:52-0400Systolic blood izfmsbcr515 mm[Hg]Justino Powers DPM Work Phone: 1(308)899-[address] [place], [place] [address]Ltuqenvika18-59-9897 09:47-0400Diastolic blood szzeniaz53 mm[Hg]Sha Bernabe Jr [facility] CenterEagbroncbx45-30-6572 09:47-0400Heart rate50 /minSha Bernabe Jr [facility] CenterQrfeblteyc84-01-6203 09:47-0400Systolic blood tkhearim162 mm[Hg]Sha Bernabe Jr [facility] Thphscmlwp61-58-7614 11:51-0400Body .4 David Juarez MD Work Phone: [facility]06-03-2024 11:51-0400 Body mass index (BMI) [Ratio]29.2 kg/y8GifxpepJuan José Juarez MD Work Phone: 1(221)[address]06-03-2024 11:51-0400 Body dxuhua57.83 kgJuan José Juarez MD Work Phone: 1(849)[address]06-03-2024 11:51-0400 Diastolic blood mqpbvdib50 mm[Hg]Juan José Juarez MD Work Phone: 1(755)[address]06-03-2024 11:51-0400 Heart rate52 /minJuan José Juarez MD Work Phone: 1(518)[address]06-03-2024 11:51-0400 Systolic blood ewcoggaa982 mm[Hg]Juan José Juarez MD Work Phone: 1(713)[address]05-14-2024 11:37-0400 Body owgume057.4 cmWibrandoncarol Karlos DO Work Phone: 1(580)[address]05-14-2024 11:37-0400 Body mass index (BMI) [Ratio]29.33 kg/q9Cwneyvo Karlos DO Work Phone: 1(553)414[address]05-14-2024 11:37-0400 Body ntjmur18.19 kgWilarissa Karlos DO Work Phone: 1(272)[address]05-14-2024 11:37-0400 Diastolic blood osppjwro77 mm[Hg]Eder Everett DO Work Phone: 1(416)[address] [place], [place] 9553105-14-2024 11:37-0400 Heart rate48 /minGustavocarol Resendizdon DO Work Phone: 1(875)41411 [address]05-14-2024 11:37-0400 Systolic blood qbekohkl958 mm[Hg]Eder Everett DO Work Phone: 1(662)[address]12-18-2023 11:10-0500 Body ifuvup959.1 cmAbrian Juarez MD Work Phone: 1(102)[address]12-18-2023 11:10-0500 Body mass index (BMI) [Ratio]30.62 kg/f3VlyehpfJuan José Juarez MD Work Phone: 1(614)[address] [place], [place] 1059512-18-2023 11:10-0500 Body .46 kgJuan José Juarez MD Work Phone: 1(396)[address] [place], [place] 1059512-18-2023 11:10-0500 Diastolic blood uviysfcb27 mm[Hg]Juan José Juarez MD Work Phone: 1(242)[address] [place], [place] 1059512-18-2023 11:10-0500 Heart rate50 /minJuan José Juarez MD Work Phone: 1(438)[address] [place], [place] 1059512-18-2023 11:10-0500 Systolic blood cvzrwnou891 mm[Hg]Juan José Juarez MD Work Phone: 1(632)[address]11-28-2023 11:50-0500 Body cizlzn024.1 cmWillcarol Karlos DO Work Phone: 1(865)[address] [place], [place] 9553111-28-2023 11:50-0500 Body mass index (BMI) [Ratio]30.62 kg/d2Ptyqxjk Karlos DO Work Phone: 1(694)[address] [place], [place] 9553111-28-2023 11:50-0500 Body .46 kgWillcarol Karlos DO Work Phone: 1(188)[address] [place], [place] 9553111-28-2023 11:50-0500 Diastolic blood myqffucv94 mm[Hg]Eder Everett DO Work Phone: 1(131)[address] [place], [place] 9553111-28-2023 11:50-0500 Heart rate48 /minWilarissa Resendizdon DO Work Phone: 1(611)[address] [place], [place] 9553111-28-2023 11:50-0500 Systolic blood jovhvwcf777 mm[Hg]Eder Everett DO Work Phone: 1(046)[address] [place], [place] 9553110-23-2023 12:04-0400 Body enkxko555.[address] [place], [place] 0649810-23-2023 12:04-0400 Body mass index (BMI) [Ratio]30.29 kg/m2Ely [address] [place] [address] 04-28-2023 12:04-0400Body guhixa32.[address] [place] [address] 04-28-2023 12:04-0400Diastolic blood ihzgdvby39 mm[Hg]Marcella [address] [place], [place] 0649810-23-2023 12:04-0400Heart rate55 /minEly [address] [place], [place] 0649810-23-2023 12:04-0400Systolic blood zgpuqjhc433 mm[Hg]Marcella [address] [place], [place] 0649810-17-2023 16:29-0400Body muxpkcyhgcc22.8 [degF]II Prasanth Craig Work Phone: 1(879)[address]10-17-2023 16:29-0400 Diastolic blood mm[Hg]II Prasanth Craig Work Phone: 1(112)[address]10 [address]10-17-2023 16:29-0400 Heart rate62 /DebbieI Prasanth Craig Work Phone: 1(731)[address]110 [address]10-17-2023 16:29-0400 Respiratory rate16 /Oscar Craig Work Phone: 1(527)[address]310 [address]10-17-2023 16:29-0400 SaO2% (BldA) [Mass fraction]96 %II Prasanth Rafa Work Phone: 1(414)[address]10-17-2023 16:29-0400 Systolic blood yiunmwgf165 mm[Hg]II Prasanth Craig Work Phone: 1(693)963-[address] [place], [place] 2916810-17-2023 06:00-0400 Body eejbla79.8 kgII Prasanth Craig Work Phone: 1(927)[address]10-16-2023 20:30-0400 Diastolic blood mwlzztiy74 mm[Hg]II Prasanth Craig Work Phone: 1(343)[address]10-16-2023 20:30-0400 Heart rate53 /DebbieI Prasanth Craig Work Phone: 1(857)9[address]10 [address]10-16-2023 20:30-0400 Respiratory rate18 /minII Prasanth Craig Work Phone: [facility]10-16-2023 20:30-0400 SaO2% (BldA) [Mass fraction]96 %II Prasanth Craig Work Phone: [facility]10-16-2023 20:30-0400 Systolic blood wwlokpto399 mm[Hg]II Prasanth Craig Work Phone: 1(470)869-[address] [place], [place] 5280210-16-2023 18:30-0400 Body jjgpac166.1 cmII Prasanth Craig Work Phone: 1(661)039-[address] [place], [place] 5280210-16-2023 18:30-0400 Body aicyiyshxpv82 [degF]II Prasanth Craig Work Phone: 1(394)195-[address] [place], [place] 5280210-16-2023 18:30-0400 Body .5 kgII Prasanth Craig Work Phone: 1(615)408-[address] [place], [place] 2916810-05-2023 12:53-0400 Body mass index (BMI) [Ratio]30.45 kg/z9JyyohtvJuan José Juarez MD Work Phone: 1(251)239-[address] [place], [place] 1059510-05-2023 12:53-0400 Body .01 kgJuan José Juarez MD Work Phone: 1(420)551-[address] [place], [place] 1059510-05-2023 12:53-0400 Diastolic blood igvzlxcc41 mm[Hg]Juan José Juarez MD Work Phone: 1(163)680-[address] [place], [place] 1059510-05-2023 12:53-0400 Heart rate50 /minJuan José Juarez MD Work Phone: 1(657)308-[address] [place], [place] 1059510-05-2023 12:53-0400 Systolic blood osdlyfjn079 mm[Hg]Juan José Juarez MD Work Phone: 1(137)762-[address] [place], [place] 1059509-12-2022 12:45-0400 Body urweyx757.1 Viviana Zamudio Other [employer] Other 09-12-2022 12:45-0400Body mass index (BMI) [Ratio] 29.95 kg/s3NzprslSybil Zamudio Other [employer] Other 09-12-2022 12:45-0400Body tlcnmnesaob54.1 [degF]Sybil Zamudio Other [employer] Other 09-12-2022 12:45-0400Body .65 kgSybil Zamudio Other [employer] Other 09-12-2022 12:45-0400Respiratory rate18 /minSybil Zamudio Other [employer] Other 09-12-2022 12:45-9493FeO7% (BldA) [Mass fraction]97 % Sybil Zamudio Other [employer] Other 08-30-2022 11:18-0400Diastolic blood mm[Hg] Eder Everett DO Work Phone: [phone]-Fkstu [employer] 250 DO Work Phone: 1(455) 505-912208-30-2022 11:18-0400Systolic blood ewcttojg965 mm[Hg] Eder Everett DO Work Phone: mp686-5230SU-Gkmpn [employer] 250 DO Work Phone: 1(785) 899-445708-30-2022 10:31-0400Body eszvoe315.1 cmWielisabethjeremiah Everett DO Work Phone: mp-[facility] [employer] 250 DO Work Phone: 1(748) 913-223908-30-2022 10:31-0400Body mass index (BMI) [Ratio] 30.62 kg/s6Tcasiibcarol Everett DO Work Phone: mp188-7979GG-Eavxe [employer] 250 DO Work Phone: 1(440) 10:31-0400Body surface area Derived from formula1.91 z2Ooyxaxrlarissa Everett DO Work Phone: 1(943)392-648[address]-0488AU-Phzfj [facility] 250 DO Work Phone: 1(671)006-456-224233-77 10:31-0400Body uqmriq59.46 kgWilarissa Everett DO Work Phone: VA-Jsznf [facility] 250 DO Work Phone: 1(187)191-308-222186-14 10:31-0400Diastolic blood jqbnjtov10 mm[Hg] Eder Everett DO Work Phone: TJ-Sxywg [facility] 250 DO Work Phone: 1(321)609-780-571183-08 10:31-0400Heart rate56 /minWilarissa Everett DO Work Phone: 1(684)241-010-7681MN-Tspsx [facility] 250 DO Work Phone: 1(539)973-800-017472-83 10:31-0400Systolic blood jfagnkzo878 mm[Hg] Eder Everett DO Work Phone: 1(373)008-833-4936NQ-Vzxad [facility] DO Work Phone: 1(894)805-534-731080-04 14:01-0400Diastolic blood qpepskcd56 mm[Hg] Eder Everett DO Work Phone: 1(604)[phone]-Xkvzq [facility] 250 DO Work Phone: 1(509)517-543-587512-53 14:01-0400Systolic blood grjekomh759 mm[Hg] Eder Everett DO Work Phone: YQ-Ygjqf [facility] 250 DO Work Phone: 1(436)553-71717-466586-02402417-96-6500 11:59-0400Body rhyjrq506.1 cmWilarissa Everett DO Work Phone: MK-Elpgf [facility] 250 DO Work Phone: 1(839)555-41023-168470-63235781-02-4987 11:59-0400Body mass index (BMI) [Ratio] 30.29 kg/k7KfighdyEder Everett DO Work Phone: CV-Noyzb [facility] 250 DO Work Phone: 1(710) 262-621008-01-2022 11:59-0400Body surface area Derived from formula1.9 q5YhahrukEder Everett DO Work Phone: VY-Ohrcy [facility] 250 DO Work Phone: 1(758) 162-823708-01-2022 11:59-0400Body dwlomo75.56 kgWilarissa Everett DO Work Phone: DP-Rksxi [facility] 250 DO Work Phone: 1(558) 557-669308-01-2022 11:59-0400Diastolic blood zsdykqbx28 mm[Hg] Eder Everett DO Work Phone: CG-Dwaxm [facility] 250 DO Work Phone: 1(786) 359-803408-01-2022 11:59-0400Heart rate55 /minWilarissa Everett DO Work Phone: ED-Xsnlz [facility] 250 DO Work Phone: 1(788) 752-339808-01-2022 11:59-0400Systolic blood mm[Hg] Eder Everett DO Work Phone: XB-Eawyf [facility] 250 DO Work Phone: 1(304)922-37693-875703-03675138-88-3079 17:15-0400Diastolic blood mpgbtefb18 mm[Hg] Juan José Juarez MD Work Phone: mp482-9526JZ-Ndrie [facility] DO Work Phone: 1(060)104-52551-209278-88803739-64-1028 17:15-0400Systolic blood qvkfeolx160 mm[Hg] Juan José Juarez MD Work Phone: 1(469)131-27447-8133AS-Snksm [facility] DO Work Phone: 1(330) 739-713206-30-2022 14:21-0400Body quyyop051.1 David Juarez MD Work Phone: 1(219) 294-8018608-4920SG-Etwcz [facility] DO Work Phone: 1(999) 508-557806-30-2022 14:21-0400Body mass index (BMI) [Ratio] 30.12 kg/h3LjzffhjJuan José Juarez MD Work Phone: mp090-7481YJ-Hbwuz [facility] DO Work Phone: 1(096)864-052-725513-17 14:21-0400Body surface area Derived from formula1.9 l8XhjcrmhJuan José Juarez MD Work Phone: 1(727)806-44578-0746DK-Tjiku [facility] DO Work Phone: 1(732)672-678-424408-77 14:21-0400Body syxtpl82.1 kgJuan José Juarez MD Work Phone: 1(476)521-50198-0328WP-Ekxni [facility] DO Work Phone: 1(101)692-390-463407-45 14:21-0400Diastolic blood xyntubfn48 mm[Hg] Juan José Juarez MD Work Phone: 1(714)329-21054-3054PW-Jhjuc [facility] DO Work Phone: 1(787)080-122-328806-02 14:21-0400Heart rate61 /minJuan José Juarez MD Work Phone: 1(487)848-91657-7788VH-Gsumn [facility] DO Work Phone: 1(996)278-300-922141-41 14:21-0400Systolic blood ltaiidpw823 mm[Hg] Juan José Juarez MD Work Phone: mp888-3365ND-Wjmwk [facility] DO Work Phone: 1(136)558-887-665681-48 13:41-0500Body yykomi553.1 cmAlyong Juarez MD Work Phone: mp624-0627ZU-Iijqw [facility] DO Work Phone: 1(883)[phone] 13:41-0500Body mass index (BMI) [Ratio] 30.12 kg/g9YfynncjJuan José Juarez MD Work Phone: mp612-3294CO-Vyobh [facility] DO Work Phone: 1(453)[phone]-6101 13:41-0500Body surface area Derived from formula1.9 Kandi Juarez MD Work Phone: mp030-3356EO-Zxgfc [facility] DO Work Phone: 1(642) 259-525611-29-2021 13:41-0500Body iauoby72.1 kgJuan José Juarez MD Work Phone: mp823-6195CQ-Mqrcc [facility] DO Work Phone: 1(864) 444-267511-29-2021 13:41-0500Diastolic blood xyjzzqfm39 mm[Hg] Juan José Juarez MD Work Phone: mp434-5869MN-Jtnwt [facility] DO Work Phone: 1(438) 419-351611-29-2021 13:41-0500Heart rate60 /minJuan José Juarez MD Work Phone: mp553-8957MY-Ghzcy [facility] DO Work Phone: 1(300) 677-838811-29-2021 13:41-0500Systolic blood espibbcq980 mm[Hg] Juan José Juarez MD Work Phone: mp429-6814AK-Camun [facility] DO Work Phone: Encounters Encounter DateEncounter TypeCare ProviderFacilityStart: 05-12-2025 End: 95-91-6544Qdcwaec encounter procedureNickatie Powers DPM Work Phone: noMS CI PODIATRYComment on above:Verruca plantaris (Primary Dx); Foot pain, left; Diabetes mellitus due to underlying condition with diabetic polyneuropathy, 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 (HCC)Start: 05-12-2025 End: 01-07-5423ityvyixndpXQLQQSIA A BROWNNot AvailableStart: 05-12-2025 End: 62-85-0981Cssuzh flowsheetJustino Powers DPM Work Phone: noms CI PODIATRYStart: 05-12-2025 End: 19-34-3784Ofhadk Mirella Powers DPM Work Phone: noms CI PODIATRYStart: 43-57-8611Bzbihd outpatient visit 25 minutesDoctSt. Luke's Hospitaltart: 05-04-2025 ambulatoryPhilip Jayla Bernabe [facility] Eye InstituteStart: 79-48-9859qgcaugeyzl Doctor [facility]Lu[facility] Eye InstituteStart: 04-21-2025 End: 10-36-7274mxajbsrmfiKLSERAJ N DIAZDelaware County Hospital AmbulatoryStart: 04-21-2025 End: 30-64-2648Nxueyp outpatient visit 40 minutesJuan José Juarez MD Work Phone: [facility] CenterComment on above:Paroxysmal atrial fibrillation (Multi) (Primary Dx); Palpitations; High risk medication use; History of coronary artery bypass graft; Type 2 diabetes mellitus without complication, with long-term current use of insulin (Multi); Never smoked any substance; BMI 28.0-28.9,adultStart: 04-14-2025 End: 66-53-2608ekfroaoetiOEVZVTUK A BROWNNot AvailableStart: 04-14-2025 End: 21-92-7414Cjwvnws encounter procedureJustino Powers DPM Work Phone: [facility] PODIATRYComment on above:Verruca plantaris (Primary Dx); Foot pain, left; Diabetes mellitus due to underlying condition with diabetic polyneuropathy, unspecified whether half-way insulin use (HCC); Pain due to onychomycosis of toenails of both feetStart: 04-14-2025 End: 95-61-3036Ferulv Mirella Powers DPM Work Phone: [facility] PODIATRYStart: 04-14-2025 End: 37-17-1968Qacryc Mirella Powers DPM Work Phone: [facility] PODIATRYStart: 03-31-2025 End: 76-79-9836Bzcxel Mirella Powers DPM Work Phone: [facility] PODIATRYStart: 03-31-2025 End: 30-64-2569Tzpcgg Mirella Powers DPM Work Phone: [facility] PODIATRYStart: 03-31-2025 End: 19-95-6254Zojneyr encounter procedureJustino Powers DPM Work Phone: no[facility] CI PODIATRYComment on above:Verruca plantaris (Primary Dx); Foot pain, left; Diabetes mellitus due to underlying condition with diabetic polyneuropathy, 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 (HCC)Start: 03-31-2025 End: 47-01-7416loyuolsijaYAAMXVWO A BROWNNot AvailableStart: 03-11-2025 End: 78-60-5318Unkmsw outpatient visit 25 minutesAlljena Monk DO Work Phone: no[facility] 230Comment on above: Hypoglycemia due to type 1 diabetes mellitus (HCC) (Primary Dx); 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 (HCC); 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 (HCC); 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)Start: 03-11-2025 End: 46-69-8574qcsdwyjzqsKVPSJIV M PETZNICKNot AvailableStart: 03-10-2025 End: 51-25-3109Inyexav encounter procedureJustino Powers DPM Work Phone: [facility] CI PODIATRYComment on above:Verruca plantaris (Primary Dx); Foot pain, left; Diabetes mellitus due to underlying condition with diabetic polyneuropathy, unspecified whether half-way insulin use (HCC)Start: 03-10-2025 End: 42-71-0486zvgxqixspsLOGEUAKN A BROWNNot AvailableStart: 03-10-2025 End: 30-36-1444Sahedc flowsheetJustino Powers DPM Work Phone: NOMS CI PODIATRYStart: 03-10-2025 End: 88-95-6125Nwvtuh flowsDonovan Powers DPM Work Phone: noMS CI PODIATRYStart: 02-11-2025 End: 91-31-5567Lnawnhsbqr hospital visit by physicianMarcella Fuller [facility]: 02-11-2025 End: 98-47-6311qtwuxuieenKEBGrand Lake [facility] Start: 02-11-2025 End: 59-60-8501Ggjjlknwzz hospital visit by physicianMarcella Neal Non1 Ecg [facility] HospitalComment on above:Paroxysmal atrial fibrillation (Multi) Start: 02-11-2025 End: 78-09-2824rwwxhlztjcLAOP [facility] Start: 02-09-2025 End: 94-07-1525Sneydo outpatient visit 25 [facility]La[facility] Alma Everett Work Phone: uh [facility] Orthopedic HospitalComment on above:ASHD (arteriosclerotic heart disease); High risk medication use; History of coronary artery bypass graft; History of PTCA; Type 2 diabetes mellitus without complication, with long-term current use of insulin; Paroxysmal atrial fibrillation (Multi); Mixed hyperlipidemia; BMI 28.0-28.9,adult; Never smoked any substanceStart: 02-09-2025 End: 55-32-1806jhvdzevgmfFLVKQRPHabersham Medical Center AmbulatoryStart: 02-03-2025 End: 87-39-3708Vrwyzer encounter procedureJustino ROBLEDOM Work Phone: noms PODIATRYComment on above:Verruca plantaris (Primary Dx); Foot pain, left; Diabetes mellitus due to underlying condition with diabetic polyneuropathy, 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 (HCC); Pain due to onychomycosis of toenails of both feetStart: 02-03-2025 End: 44-77-8038rkhpabavozQXQSONZC A BROWNNot AvailableStart: 01-26-2025 End: 31-63-3406sqnmdxhsoeXRSIUHT N [facility] AmbulatoryStart: 01-26-2025 End: 43-65-0171Haqfat outpatient visit 40 minutesJuan José Juarez MD Work Phone: uh [facility] HospitalComment on above:Paroxysmal atrial fibrillation (Multi) (Primary Dx); Palpitations; Never smoked any substance; High risk medication use; Left bundle branch block; BMI 29.0-29.9,adultStart: 12-27-2024 End: 65-94-8365eecadbzqiyGPUWZY B BERRYNot AvailableStart: 12-13-2024 End: 63-36-1735Fsckwe flowsBarbi Craig MD Work Phone: NOMS CI FMStart: 12-13-2024 End: 33-90-9892Dnqjjp flowsBarbi Craig MD Work Phone: NOMS CI FMStart: 12-13-2024 End: 91-22-1176Qfcsy of hemosiderin, quantPrasanth Craig MD Work Phone: [facility] Work Phone: Start: 12-13-2024 End: 69-58-2197Opiljzp encounter procedurePrasanth Craig MD Work Phone: NOMS CI FMComment on above:Routine general medical examination at health care facility (Primary Dx); Essential hypertension (CMS/HCC); 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; Coronary artery disease involving [place] coronary artery of [place] heart without angina pectoris (CMS/HCC); Longstanding persistent atrial fibrillation (CMS/HCC); 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; Gastroesophageal reflux disease without esophagitis; Age-related osteoporosis without current pathological fracture (CMS/HCC); 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 (CMS/HCC); Mixed hyperlipidemia (CMS/HCC); Estrogen deficiencyStart: 12-13-2024 End: 77-55-5880ulklooaxauLIWCOE B BERRYNot AvailableStart: 12-06-2024 End: 93-28-2616Wpodoupbq encounterAlljena Monk DO Work Phone: NOMS SWS FM 230Comment on above:Blood Sugar Problem Start: 11-30-2024 End: 69-37-5480muxgkpbrplBVLCVGD G TESMONDNot AvailableStart: 11-30-2024 End: 21-92-7602Sderwv outpatient visit 25 minutesEd Sanabria DO Work Phone: NOMS SWS UCComment on above:Contusion of right hand, initial encounter; Hematoma of right hand; Localized swelling on right handStart: 11-30-2024 End: 66-62-4783Kxoemf outpatient visit 25 minutesAllison M Petznick DO Work Phone: NOUD SWS FM 230Comment on above: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 (HCC) (Primary Dx); 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 (HCC); 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)Start: 11-30-2024 End: 77-00-0523hbyetqisfvJCWHVKD Jeremiah MONKNot AvailableStart: 11-25-2024 End: 69-94-8941wzkzwjtwenDCRVJWFS Zohreh POWERSNot AvailableStart: 11-22-2024 End: 23-14-8219Eetssh [facility] PA Work Phone: NOMS SWS DERMStart: 11-22-2024 End: 94-90-5789Nsxrys [facility] PA Work Phone: NOMS SWS DERMStart: 11-22-2024 End: 68-12-6884Nhufbh outpatient visit 25 minutes[facility] Work Phone: NOMS [facility] DERMComment on above:Intertrigo (Primary Dx); Seborrheic keratosis; Lentigo simplex; Inflamed seborrheic keratosis; History of basal cell carcinoma (BCC)Start: 11-22-2024 End: 32-58-7412anytqlhmkjADMLG NORTHEIMNot AvailableStart: 08-30-2024 End: 61-76-0305Vadsmcgfa Zandra Craig MD Work Phone: noms FMStart: 06-21-2024 End: 55-91-4005Jkmbzi outpatient visit 25 minutesJuan José Juarez MD Work Phone: uh [facility] BuildingComment on above:BMI 28.0-28.9,adult (Primary Dx); Palpitations; Paroxysmal atrial fibrillation (Multi); Essential hypertension; Left bundle branch block; High risk medication use; Never smoked any substanceStart: 06-21-2024 End: 65-50-3299igwztvgbfmYYMPJCD N DIAZDelaware [facility] Hospital AmbulatoryStart: 06-14-2024 End: 69-96-5367Yxtesa Rodrigo Craig MD Work Phone: noms CI FMStart: 06-14-2024 End: 32-51-9670Qicspwhowie Craig MD Work Phone: NOMS CI FMStart: 06-14-2024 End: 93-39-6412Wcpnxi outpatient visit 25 minutesPrasanth Craig MD Work Phone: NOTX CI FMComment on above:Paroxysmal atrial fibrillation (CMS/HCC) (Primary Dx); Coronary artery disease involving [place] coronary artery of [place] heart without angina pectoris (CMS/HCC); Hx of CABG; Essential hypertension (CMS/HCC); Mixed hyperlipidemia (CMS/HCC)Start: 06-14-2024 End: 96-38-8367ninyigkoeuYGRPKD B BERRYNot AvailableStart: 11-70-8419Rtobgi outpatient visit 15 minutesLos [facility] Eye InstituteStart: 75-46-0961gpqyqjppjfGdfbro Jayla Bernabe [facility] Eye InstituteStart: 06-01-2024 End: 02-18-0469Ivounr outpatient visit 15 minutesW[facility] Work Phone: uh [place]landsComment on above:ASHD (arteriosclerotic heart disease); Paroxysmal atrial fibrillation (Multi); History of coronary artery bypass graft; Type 2 diabetes mellitus without complication, with long-term current use of insulin (Multi); Never smoked any substance; Body mass index (BMI) 28.0-28.9, adult; High risk medication useStart: 06-01-2024 End: 92-38-2775pbzvtovqdmIJUOTPSHabersham Medical Center AmbulatoryStart: 05-26-2024 End: 55-46-6080Tbtcpe flowsAdventHealth [facility] Work Phone: NOMS [facility] DERMStart: 05-26-2024 End: 09-56-2865Mmgryc flowsAdventHealth Water[facility] PA Work Phone: noms [facility] DERMStart: 05-26-2024 End: 09-93-6959Tpeqxof encounter procedureSouth Pittsburg Hospital PA Work Phone: noms SWS DERMComment on above:Inflamed seborrheic keratosisStart: 05-26-2024 End: 23-97-9519iebjmtquxpGIPRX HERMESJenaro AvailableStart: 05-20-2024 End: 11-07-2168Msmrlhr encounter procedureJustino Powers DPM Work Phone: noMS CI PODIATRYComment on above:Verruca plantaris (Primary Dx); Foot pain, left; Diabetes mellitus due to underlying condition with diabetic polyneuropathy, unspecified whether half-way insulin use ([facility]); Pain due to onychomycosis of toenails of both feet; Ulcer of lower limb, right, with fat layer exposed ([facility])Start: 05-20-2024 End: 46-86-7540evskohaadtYIWZLFQG A BROWNNot AvailableStart: 05-20-2024 End: 84-07-7712Opmahs flowsDonovan Powers DPM Work Phone: noms CI PODIATRYStart: 05-20-2024 End: 84-56-0161Hfoylp Mirella Powers DPM Work Phone: noms CI PODIATRYStart: 05-17-2024 End: 04-97-6005Dsrpfv outpatient visit 25 minutesAlljena Monk DO Work Phone: noms SWS FM 230Comment on above: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 ([facility]); 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 ([facility]); 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 Work Phone: [facility] [place] Work Phone: Start: 03-04-2024 End: 63-18-9420Nnytgja encounter procedureKeyshalexie Bruner Miah DPM Work Phone: noms CI PODIATRYComment on above:Verruca plantaris (Primary Dx); Foot pain, left; Diabetes mellitus due to underlying condition with diabetic polyneuropathy, 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 ([facility]); Onychomycosis; Toe pain, bilateralStart: 03-04-2024 End: 47-53-3042Morewb flowsnaderJustino Zohreh Miah DPM Work Phone: noms CI PODIATRYStart: 03-04-2024 End: 22-19-1721Pycfas gracielaJustino Zohreh Miah DPM Work Phone: noms CI PODIATRYStart: 02-06-2024 End: 99-02-0580Frzjvn T Nelsen Jr Work Phone: [facility] [place]layStart: 12-08-2023 End: 95-82-3636Mhyfme outpatient visit 25 minutesJuan José Juarez MD Work Phone: [facility] HospitalComment on above:BMI 29.0- 29.9,adult (Primary Dx); Palpitations; Paroxysmal atrial fibrillation (Multi); Essential hypertension; Left bundle branch block; High risk medication use; Never smoked any substanceStart: 11-18-2023 End: 06-93-3390Mmerot outpatient visit 25 minutesEder Everett DO Work Phone: [facility] HospitalComment on above:3-vessel coronary artery disease; Paroxysmal atrial fibrillation (Multi); ASHD (arteriosclerotic heart disease); History of coronary artery bypass graft; Type 2 diabetes mellitus without complication, with long-term current use of insulin (Multi); High risk medication use; History of PTCA; Class 1 obesity due to excess calories with body mass index (BMI) of 30.0 to 30.9 in adult, unspecified whether serious comorbidity present; Never smoked any substance; Mixed hyperlipidemia; Essential hypertensionStart: 06-23-2023 End: 85-65-8400Kcpqnc outpatient visit 40 minutesJuan José Juarez MD Work Phone: uh [facility] CenterComment on above:Palpitations (Primary Dx); Paroxysmal atrial fibrillation (CMS/HCC); High risk medication use; Left bundle branch block; BMI 30.0-30.9,adult; Never smoked any substanceStart: 06-18-2023 End: 52-10-2358Vrrbbreac Result EncounterPrasanth Craig MD Work Phone: noms External Department UnsolicitedStart: 06-18-2023 End: 70-23-6825Ilnkfzuum Result EncounterDadanny Craig MD Work Phone: noms External Department UnsolicitedStart: 06-03-2023 End: 99-09-2063Qokopt outpatient visit 25 minutesEder Everett DO Work Phone: uh [facility] HospitalComment on above:3-vessel coronary artery disease; Paroxysmal atrial fibrillation (CMS/HCC); High risk medication use; History of coronary artery bypass graft; History of PTCA; Mixed hyperlipidemia; Essential hypertension; Angina, class II (CMS/HCC); Type 2 diabetes mellitus without complication, with long-term current use of insulin (CMS/HCC)Start: 04-28-2023 End: 78-67-7717Ftrwqtmeus hospital visit by Marion Luna [facility] 1 [facility] HospitalStart: 04-21-2023 End: 88-61-8988rtmltddkvdYdmwjk BerryFacility:[facility] Start: 04-21-2023 End: 31-60-0152Gfobqeuoeb and management of inpatientII Prasanth Craig Work Phone: [facility] [place] [facility] Work Phone: Start: 04-21-2023 End: 24-78-4426asktpswqrir encounterII Prasanth Craig Work Phone: [facility] Work Phone: Start: 04-10-2023 End: 65-47-7065yqnflisvqoXKEUXO B BERRYRiverview Health Institutetart: 04-10-2023 End: 46-07-5004Jvoftc outpatient visit 40 minutesJuan José Juarez MD Work Phone: [facility] CenterComment on above:Palpitations (Primary Dx); Paroxysmal atrial fibrillation (CMS/HCC); Essential hypertension; Left bundle branch blockStart: 60-56-6405Rc RenewalPrasanth Craig Work Phone: [phone]-Gkasy [facility] DO Work Phone: Start: 01-17-2023 End: 27-85-1164Lmthjd T Nelsen Jr Work Phone: [facility] [place]layStart: 05-40-6966Xalnjiyag Rebecca Juarez MD Work Phone: [phone]-Vninm [facility] [place] Work Phone: Start: 10-07-5192Ns Power Juarez MD Work Phone: [phone]-Leitj [facility] DO Work Phone: Start: 54-56-8906Xc RenewalEder Everett DO Work Phone: [phone]-Qtbuk [facility] DO Work Phone: Start: 05-08-2022 End: 00-97-1982dloblnnvngQX MILI CARTERFacility:U4Dldgi: 04-10-2022 End: 50-54-7097nmzzmerxglOD MITCH GRIFFINFacility:B8Idfkq: 03-18-2022 End: 92-25-4960hiejrtvvcfDzaoxc Dymond Other [employer] Other Start: 29-14-5960Phmane outpatient visit 15 minutes [facility] ClydeStart: 89-23-2053Rvbqpj outpatient visit 15 minutesEder Everett DO Work Phone: mp-[facility] [address] DO Work Phone: Start: 01-14-2022 End: 00-02-0629oaygogsgntUV MITCH GRIFFINFacility:M1Qpfxh: 16-48-8293Gpgnayx encounter procedureJuan José Juarez MD Work Phone: [phone]-Iozrz [facility] [place] Work Phone: Start: 63-83-4620Hixycx outpatient visit 40 minutes Juan José Juarez MD Work Phone: [phone]-Rsqjy [facility] DO Work Phone: Start: 12-21-2021 End: 49-68-1657Exdrmf T Nelsen Jr Work Phone: [facility] [place]layStart: 14-88-3235UPYEVKngft [place] RUBBER BLOCK LAYER-DIRECTOR OF HEALTH CARE MARKETING Work Phone: [phone]-Vdrbq [facility] DO Work Phone: Start: 37-05-1281Gb Power Juarez MD Work Phone: [phone]-Bdfay [facility] DO Work Phone: Start: 02-08-7940Cx Power Juarez MD Work Phone: [phone]-Dkmbv [facility] DO Work Phone: Start: 47-47-9532Vm RenewalEder Everett DO Work Phone: CK-Ugark [facility] DO Work Phone: Start: 78-38-1087Ht Kilo Zaman RUBBER BLOCK LAYER-DIRECTOR OF HEALTH CARE MARKETING Work Phone: [phone]-Ghqmf [facility] DO Work Phone: Start: 86-88-3763Vlzxar outpatient visit 25 minutes Juan José Juarez MD Work Phone: [phone]-Hjals [facility] DO Work Phone: Start: 03-09-2021 End: 68-82-7451Iylgke T Nelsen Jr Work Phone: [facility] [place]Start: 08-11-2020 End: 85-58-0965Ymgvqtm encounter procedureDablaynealexandr Slesb-Bvn-Eguojlzg Testing Start: 01-12-2020 End: 18-63-2723IkpuqnSha Bernabe Jr Work Phone: [facility] [place]Start: 01-27-2019 End: 02-77-6070LoxouwSha Bernabe Jr Work Phone: [facility] [place]ontStart: 01-28-2018 End: 18-15-6019TjfsqzSha Bernabe Jr Work Phone: [facility] [place]ontStart: 83-78-4239MziifymhvoJZKNOZMK UNKNOWN Facility:1532Start: 01-29-2017 End: 62-20-2628Eeogkq T Nelsen Jr Work Phone: [facility] [place]ontStart: 01-31-2016 End: 67-64-1467Acibgx T Nelsen Jr Work Phone: [facility] [place]ontStart: 01-25-2015 End: 83-08-1236IzwguuSha Bernabe Jr Work Phone: [facility] [place]ontStart: 01-19-2014 End: 78-12-4011EudvljSha Bernabe Jr Work Phone: [facility] [place]ontStart: 01-13-2013 End: 56-66-2021SdduefSha Bernabe Jr Work Phone: [facility] [place]ontStart: 01-12-2013 End: 85-67-4137HbpqxnSha Bernabe Jr Work Phone: [facility] Hillary ShresthaPatient encounter Itzel Juarez MD Work Phone: [phone]-Cfixa [facility] DO Work Phone: Procedures DateProcedureProcedure DetailPerforming ClinicianStart: 35-00-8120Luccjkfkkim injectionDoctor CorporateStart: 10-23-1586Rufgcozzrqwr ophthalmic imaging retina Doctor CorporateStart: 91-12-1541Ooydlvpnpemg njx pharmacologic agt spxDoctor CorporateStart: 54-51-7564Ewp routine ecg w/least 12 lds w/i&rAlyong Juarez MD Work Phone: Start: 37-33-2600Ohnmfkbihc glycosylated s6eGfizhjz Jeremiah Monk DO Work Phone: Start: 02-43-5622Oqw routine ecg w/least 12 lds trcg only w/o i&Eros M [facility] CENTERCollegeBrainBELLEVUE HOSPITAL Work Phone: Start: 07-28-1661Ryxtdcobcgfsm elective arrhythmia externalAlyong Juarez MD Work Phone: Start: 70-39-3566Xbhrn metabolic panel calcium total Rosemary Jeremiah Jasbir [facility] CENTERCollegeBrainBELLEVUE HOSPITAL Work Phone: Start: 72-47-2591Hyq routine ecg w/least 12 lds trcg only w/o i&rLisa Jeremiah Hamilton RUBBER BLOCK LAYERBRIGHAM AND W[facility] Work Phone: Start: 66-81-6600Wtw routine ecg w/least 12 lds w/i&r Eder Everett DO Work Phone: Start: 66-07-1545Uda routine ecg w/least 12 lds w/i&r Juan José Juarez MD Work Phone: Start: 72-63-7345Mdmoh hand minimum 3 viewsAnthony Darío Sanabria DO Work Phone: Start: 38-15-4029WMWUWRRLKXO SKIN LESIONRye [facility] MELANIE Work Phone: Start: 52-34-7739Ibh routine ecg w/least 12 lds w/i&r Juan José Juarez MD Work Phone: Start: 69-40-5166Bqciswfywhqo ophthalmic imaging retinaDoctor CorporateStart: 48-60-1430STYIYIFQTGO SKIN LESIONRye [facility] Work Phone: Start: 38-14-6800Vboekxdvwr glycosylated s3cUvjykxpLizzette Monk DO Work Phone: Start: 02-06-2024 End: 54-23-0907Cscibkokceme ophthalmic imaging retinaPhilip Florecita Neumann MDStart: 88-09-9586Celag 1996 panel - Serum or PlasmaWilliam Karlos DO Work Phone: Start: 08-93-9869LT TOMOSYNTHESIS SCREENING Tammy Craig MD Work Phone: Start: 70-08-3281Ax strs tst xers&/or rx cont ecg trcg onlyWilliam S Karlos DO Work Phone: Start: 80-72-2630Geroc chest X-rayII Prasanth Craig Work Phone: Start: 86-92-1339QFR panel - Blood by Automated count PRASANTH CRAIGStart: 23-43-8946Szznbhpctsaet metabolic 2000 panel - Serum or PlasmaDANIEL RAFAStart: 49-60-0097Vlr routine ecg w/least 12 lds w/i&Gladis Juarez MD Work Phone: Start: 21-87-6451Lfpessdcnix [Units/volume] in Serum or PlasmaDANIEL RAFAStart: 30-71-5313Dqovsai of coronary artery bypass grafting History of coronary artery bypass graftJuanJ osé Juarez MD Work Phone: Start: 04-24-6232Tazpcvf of percutaneous transluminal coronary angioplastyHistory of PTCAAlyong Juarez MD Work Phone: Start: 01-17-2023 End: 36-81-3232Vijgzwvhtgzr ophthalmic imaging retinaPhilip Florecita Neumann MDStart: 44-79-9559Agfmjiv of coronary artery bypass graftingHx of Melo Powers DPM Work Phone: Start: 12-21-2021 End: 70-50-8228Zklyxfrlkfxc ophthalmic imaging retinaPhilip Florecita Neumann MDStart: 03-09-2021 End: 83-13-5451Rjsuvphlfezt ophthalmic imaging retinaPhilip Florecita Neumann MDStart: 01-12-2020 End: 42-24-8903Fkjnqqvnxgdh ophthalmic imaging retinaPhilip Florecita Neumann MDStart: 23-97-7842Wfvgr 1996 panel - Serum or PlasmaJuan José Juarez MD Work Phone: Start: 01-27-2019 End: 62-56-5603Jgvpu medical xm&eval comprhnsv estab pt 1/>Sha Bernabe Jr, MD Start: 01-28-2018 End: 37-75-0327Ebyfqmmhtdzt ophthalmic imaging retinaPhilip Florecita Neumann MDStart: 01-29-2017 End: 26-58-4957Ykopsplqrokv ophthalmic imaging retinaPhilip Florecita Neumann MDStart: 23-45-1542Zrnjzlc of coronary artery bypass graftingHistory of coronary artery bypass surgeryJustino ROBLEDO Work Phone: Start: 01-31-2016 End: 78-15-7770Uxbktnyhgjhg ophthalmic imaging retinaPhilip Florecita Neumann MDStart: 01-25-2015 End: 09-78-8988Oqvka medical xm&eval comprhnsv estab pt 1/>Sha Bernabe Jr, MD Start: 01-19-2014 End: 00-12-7417Ywwnnecj Dilated ExamPhilip Florecita Neumann MDStart: 01-19-2014 End: 87-33-3445Mwpqfeji Ret, SeverityPhilip Florecita Neumann MDStart: 01-19-2014 End: 61-01-6731Xbyzj medical xm&eval comprhnsv estab pt 1/>Sha Bernabe Jr, MD Start: 01-13-2013 End: 06-04-5595Pvuduewx Dilated ExamPhilip Florecita Neumann MDStart: 01-13-2013 End: 54-58-1681Mhxhnjfu Ret, SeverityPhilip Florecita Neumann MDStart: 01-13-2013 End: 90-27-9951Nggqh medical xm&eval intermediate estab ptPhironen Bernabe Jr, MD Cardiac catheterizationJuan José Juarez MD Work Phone: Cataract surgeryJuan José Juarez MD Work Phone: History of coronary artery bypass graftingHistory of coronary artery bypass graftJuan José Juarez MD Work Phone: [phone] of coronary artery bypass graftingHistory of four vessel coronary artery bypass graftII Prasanth Craig Work Phone: History of coronary artery bypass graftingHistory of coronary artery bypass graftWilliam S Karlos DO Work Phone: History of coronary artery bypass graftingHistory of coronary artery bypass graftWilliam S Karlos DO Work Phone: [phone] of coronary artery bypass graftingHistory of coronary artery bypass graftWilliam S Karlos DO Work Phone: [phone] of coronary artery bypass graftingHx of CABG Prasanth Craig MD Work Phone: History of coronary artery bypass graftingHistory of coronary artery bypass graftWilliam S Karlos DO Work Phone: [phone] of coronary artery bypass graftingHistory of coronary artery bypass graftJuan José Juarez MD Work Phone: [phone] of percutaneous transluminal coronary angioplastyHistory of PTCLaila Juarez MD Work Phone: [phone] of percutaneous transluminal coronary angioplastyHistory of PTCAWilliam S Karlos DO Work Phone: [phone] of percutaneous transluminal coronary angioplastyHistory of PTCAWilliam S Karlos DO Work Phone: [phone] of percutaneous transluminal coronary angioplastyHistory of PTCAWilliam S Karlos DO Work Phone: [phone] assisted in situ keratomileusisAlyong Juarez MD Work Phone: [phone] procedure on footJuan José Juarez MD Work Phone: [phone] procedure on eye properJuan José Juarez MD Work Phone: [phone] colonoscopyJuan José Juarez MD Work Phone: Comment on above:12May2017; Plan of Treatment DateCare ActivityDetailAuthorStart: 33-93-9196IGdB/Tdap/Td Vaccines (3 - Td or Tdap)DTaP/Tdap/Td Vaccines (3 - Td or Tdap)[facility] Start: 11-13-9223Odiabrzjb for osteoporosisBone Density [facility] CenterStart: 06-09-2026Medicare Annual Wellness (AWV)Medicare Annual Wellness (AWV)[facility] HealthcareStart: 11-23-2025 End: 01-03-1696Dhhkija encounter procedureNOUT SWS DERMStart: 11-16-2025 End: 06-51-7473Gjlzjtt encounter ycowstxdc13/13/2026 2:45 PM EDT Office Visit [facility] [address] [place] [address] Juan José Juarez MD [address] [facility] [address] [place] [address] [facility] Wellnesstart: 11-09-2025 End: 11-74-0683Hhqckid encounter vospdsmdo38/06/2026 11:30 AM EDT Office Visit [facility] [address] [facility] [address] [place] [address] Eder Everett DO [address] [facility] [place] [address] [facility] HospitalStart: 87-15-1582Qafqn screening for proteinDiabetes: Urine Protein ScreeningMOAB REGIONAL [facility]ITAL HealthcareStart: 08-12-2025 End: 31-61-6948Dqbdgqj aminotransferase [Enzymatic activity/volume] in Serum or Plasma by With P-5'-PAlanine Aminotransferase Lab Routine ASHD (arteriosclerotic heart disease) Mixed hyperlipidemia Expected: 08/12/2025, Expires: 11/10/2025 [facility] Work Phone: Comment on above:Expected: 08/12/2025, Expires: 11/10/2025Start: 08-12-2025 End: 83-08-1308Jfqhjvkzk aminotransferase [Enzymatic activity/volume] in Serum or Plasma by With P-5'-PAspartate Aminotransferase Lab Routine ASHD (arteriosclerotic heart disease) Mixed hyperlipidemia Expected: 08/12/2025, Expires: 11/10/2025[facility] Work Phone: Comment on above:Expected: 08/12/2025, Expires: 11/10/2025Start: 08-12-2025 End: 80-17-1978Ijbkk 1996 panel - Serum or PlasmaLipid Panel Lab Routine ASHD (arteriosclerotic heart disease) Mixed hyperlipidemia Expected: 08/12/2025, Expires: 11/10/2025[facility] Service [facility] Work Phone: Comment on above:Expected: 08/12/2025, Expires: 11/10/2025Start: 06-23-2025 End: 54-10-3423Nmdlktz encounter hbsbzaeha98/18/2025 3:50 PM EST Office Visit [facility] [address] [facility] [address] [place] [address] Justino Powers DPM [address] [facility] 5 [place] [address] [facility]ODIATRYStart: 05-43-3725Bqgcozlzsh A1c measurementDiabetes: Hemoglobin C9LWSKT HealthcareStart: 06-10-2025 End: 97-78-3105Fkxcsks encounter uoywbyuiz97/05/2025 1:30 PM EST Office Visit [facility] [address] [place] [address] Lizzette Monk DO [address] [place] [address] [facility] 230 Start: 05-30-2025 End: 16-93-3585Sgufcqb encounter procedureNOMS CI FMStart: 05-12-2025 End: 76-82-2704Ghlpgae encounter procedureNOMS CI PODIATRYComment on above: Verruca plantaris (Primary Dx); Foot pain, left; Diabetes mellitus due to underlying condition with diabetic polyneuropathy, unspecified whether half-way insulin use (HCC)Start: 04-21-2025 End: 01-75-9184Pythkd monitor study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 Cardiac Services Routine Palpitations Paroxysmal atrial fibrillation (Multi) Expected: 04/21/2025 (Approximate), Expires: 04/21/2027[facility] Service Area Work Phone: Comment on above:Expected: 04/21/2025 (Approximate), Expires: 04/21/2027Start: 04-21-2025 End: 48-90-8153Rlixnbd encounter ipjnhkcji38/16/2025 1:30 PM EDT Office Visit [facility] [address] [facility] [address] [place] [phone] Juan José Juarez MD [address] [facility] [address] [place] [address] [facility] Wellnesstart: 04-14-2025 End: 99-24-3925Fjxhonv encounter kbhpdaumw93/09/2025 3:50 PM EDT Office Visit [facility] [address] [facility] 120 [place] [address] Justino Powers DPM [address] [facility] 5 [place] [address] [facility]ODIATRYStart: 03-31-2025 End: 45-93-3805Sjdrrbd encounter baqtnqkkg85/25/2025 11:50 AM EDT Office Visit [facility] [address] [facility] 120 [place] [address] Justino Powers DPM [address] [address] Verruca plantaris (Primary Dx); Foot pain, left; Diabetes mellitus due to underlying condition with diabetic polyneuropathy, 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 (HCC)[facility] CI PODIATRYComment on above: Verruca plantaris (Primary Dx); Foot pain, left; Diabetes mellitus due to underlying condition with diabetic polyneuropathy, 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 (HCC)Start: 03-24-2025 End: 36-16-2012Qkhbqxe encounter pmodtgtkb94/18/2025 1:50 PM EDT Office Visit [facility] [address] [place] [address] Justino Powers DPM [address] [address] [facility] PODIATRYStart: 03-11-2025 End: 23-86-3988Oxeivyv encounter procedureNOMS SWS FM 230Start: 03-10-2025 End: 70-09-4391Dyxcfdg encounter tdgmomseq23/04/2025 2:50 PM EDT Office Visit [facility] [address] [facility] 120 [place] [address] Justino Powers DPM [address] [address] Verruca plantaris (Primary Dx); Foot pain, left; Diabetes mellitus due to underlying condition with diabetic polyneuropathy, unspecified whether half-way insulin use (HCC)[facility] CI PODIATRYComment on above: Verruca plantaris (Primary Dx); Foot pain, left; Diabetes mellitus due to underlying condition with diabetic polyneuropathy, 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 (HCC)Start: 07-27-9940YQNEU-19 Vaccine ( season)COVID-19 Vaccine ( season)[facility] HospitalStart: 33-89-8936TIBHT-19 Vaccine ( season)COVID-19 Vaccine ( season)[facility] HealthcareStart: 61-14-2442Dqmxxwrgc vaccinationNOUT HealthcareStart: 02-17-2025 End: 53-44-2232Metvihs encounter guplnyzxu85/14/2025 3:20 PM EDT Office Visit [facility] [address] [facility] [address] [place] [address] Justino Powers DPM [address] [address] [facility]ODIATRYStart: 02-11-2025 End: 41-19-3269Avlwafm encounter gpcpwcyei95/08/2025 8:[address] [facility] [address] [place] [facility] [address] Juan José Juarez MD [address] [facility] [address] [place] [address] [facility]-09-2025 End: 57-50-8630Fvowyphdctq peptide B [Mass/volume] in BloodB-Type Natriuretic Peptide Lab Routine ASHD (arteriosclerotic heart disease) High risk medication use History of coronary artery bypass graft Expected: 02/09/2025 (Approximate), Expires: 02/09/2026UnMer[facility] Work Phone: Comment on above:Expected: 02/09/2025 (Approximate), Expires: 02/09/2026Start: 02-09-2025 End: 07-47-4971Lexdazt encounter sasqukjgr48/06/2025 11:30 AM EDT Office Visit [facility] 703 [facility] 250 [place] [address] Eder Everett DO 703 [facility], [address] [place] [address] [facility] HospitalStart: 19-22-9331Cmpygeox screening Diabetes: Retinopathy ScreeningSaint Luke's North Hospital–SmithvilleStart: 64-91-4167Htxvuvzpu vaccinationInfluenza Vaccine (#1)[facility] HospitalStart: 02-03-2025 End: 43-73-6267Xjstqfg encounter gcskyvpga41/31/2025 3:30 PM EDT Office Visit [facility] 112 [facility] 120 [place] [address] Justino Powers DPM [address] [facility] 5 [place] [address] [facility]OD[facility]ATRYStart: 01-26-2025 End: 69-39-0942Afjpw metabolic 2000 panel - Serum or PlasmaBasic Metabolic Panel Lab Routine Paroxysmal atrial fibrillation (Multi) Expected: 01/26/2025 (Appro ximate), Expires: 01/26/2026[facility] Service Area Work Phone: Comment on above:Expected: 01/26/2025 (Approximate), Expires: 01/26/2026Start: 01-26-2025 End: 45-75-3773Tgkfkrwihjafa ExternalCardioversion External Cardiac Services Routine Paroxysmal atrial fibrillation (Multi) Expected: 01/26/2025 (Approximate), Expires: 01/26/2027[facility] Work Phone: Comment on above:Expected: 01/26/2025 (Approximate), Expires: 01/26/2027Start: 01-26-2025 End: 92-59-9737UVQ panel - Blood by Automated countCBC Lab Routine Paroxysmal atrial fibrillation (Multi) Expected: 01/26/2025 (Approximate), Expires: 01/26/2026UnMercy Health St[facility] Work Phone: Comment on above:Expected: 01/26/2025 (Approximate), Expires: 01/26/2026Start: 01-26-2025 End: 93-61-1052Dlwiycyigmh time (PT)Protime-INR Lab Routine Paroxysmal atrial fibrillation (Multi) Expected: 01/26/2025 (Approximate), Expires: 01/26/2026 [facility] Work Phone: Comment on above:Expected: 01/26/2025 (Approximate), Expires: 01/26/2026Start: 12-20-2024 End: 20-81-8799Gksrfjb encounter mauoorhly86/16/2025 11:00 AM EDT Office Visit [facility] [address] [phone] Juan José Juarez MD [address] [address] [facility] Medical Office BuildingStart: 39-88-1779WHANT-19 Vaccine ( season)COVID-19 Vaccine ( season)[facility]art: 12-13-2024 End: 58-02-2306DEN Skeletal system Views for bone densityDEXA bone density Imaging Routine Routine general medical examination at health care facility Age-related osteoporosis without current pathological fracture (CMS/HCC) Estrogen deficiency Expected: 12/13/2024 (Approximate), Expires: 12/13/2025[facility] Work Phone: Comment on above:Expected: 12/13/2024 (Approximate), Expires: 12/13/2025Start: 12-13-2024 End: 88-22-0693Rzvcxns encounter procedureNOMS CI FMComment on above:Arrived Start: 06-07-2025Medicare Annual Wellness (AWV)Medicare Annual Wellness (AWV) [facility] HealthcareStart: 11-26-2024 End: 95-25-1620Tnapukd encounter hupowiynf90/23/2025 1:00 PM EDT Office Visit [facility] [address] [place] [phone] Lizzette Monk DO [address] [place] [address] [facility] 230Start: 11-25-2024 End: 69-61-8413Juglvsp encounter dnalqrojq56/22/2025 4:40 PM EDT Office Visit [facility] [address] [place] [address] Justino Powers DPM [address]006 [facility] [address] [place] [address] [facility] PODIATRYStart: 11-22-2024 End: 34-93-1827Lpnjezy encounter procedureNOMS SWS DERMComment on above:Arrived Start: 73-26-3977Oahvv panelLipid PanelUnMemorial Health System [facility]: 82-97-6374Wzsya screening for proteinDiabetes: Urine Protein ScreeningJoint Township District Memorial HospitalStart: 24-31-3569Wvirezwkfu A1c measurementDiabetes: Hemoglobin A9QXDLOSaint Luke's North Hospital–SmithvilleStart: 36-42-6167Spzilv, Shirley/ Late Dec FU OCT [facility] Work Phone: Start: 06-21-2024 End: 86-75-7051Bnvwlwr encounter procedureDelaware County HospitalStart: 06-14-2024 End: 75-76-4572Nwrzmbb encounter procedureNOMS CI FMComment on above:Arrived Start: 05-66-1023Vicmik, Shirley 5 Mo Apr FuCVP Physicians Work Phone: Start: 06-08-2024 End: 61-44-9828Fugrdc monitor study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 Cardiac Services Routine Palpitations Paroxysmal atrial fibrillation (Multi) Essential hypertension Left bundle branch block High risk medication use Never smoked any substance BMI 29.0-29.9,adult Expected: 06/08/2024 (Approximate), Expires: 12/07/2025[facility] Service Area Work Phone: Comment on above:Expected: 06/08/2024 (Approximate), Expires: 12/07/2025Start: 06-01-2024 End: 24-96-0800Aavqhso encounter yqaolimeo74/26/2024 11:00 AM EST Office Visit [facility] 703 [facility] [address] [place] [address] Eder Everett, 703 [facility], [address] [place] [address] [facility] HospitalStart: 05-27-2024 End: 61-90-1698Izrtvwz encounter xjkimkufr21/21/2024 10:30 AM EST Office Visit [facility] [address] [place] [address] Justino Powers DPM [address] [facility] [address] [place] [address] [facility] PODIATRYStart: 05-26-2024 End: 75-00-1548Waibnhy encounter procedureNOMS [facility] DERMComment on above:Arrived Start: 05-24-2024 End: 32-48-5814Baihbdfhxwko / ancillary services ocgvarmuwf88/18/2024 11:00 AM EST Ancillary Procedure [facility] [address] [place] [address] OQ FirelandsStart: 73-04-2255Vfvjvxsmue A1c measurementDiabetes: Hemoglobin F7JKSIZSaint Mary's Hospital of Blue SpringsStart: 05-20-2024 End: 32-23-5584Ivkoblg encounter bvoolcyph94/14/2024 4:00 PM EST Office Visit [facility] [address] [facility] [address] [place] [address] Justino Powers, DPM [address] [place] [address] [facility] PODIATRYStart: 05-17-2024 End: 03-50-9354Xehzquy encounter zzyxniubn12/11/2024 2:15 PM EST Office Visit [facility] [address] [place] [phone] Lizzette Monk DO [address] [place] [address] [facility] FM 230Start: 58-72-0517Mnbjti Vaccines (3 of 3) Zoster Vaccines (3 of 3)[facility] Memorial HospitalStauburn: 04-10-2024 Screening for osteoporosisBone Density [facility] Start: 60-38-3071Qqdvjtd stimulating hormone measurementTSCancer Treatment Centers of America – TulsaStauburn: 04-01-2024 End: 74-29-5327Dwybbsg encounter qkkookvou04/26/2024 10:00 AM EDT Office Visit [facility] [address] [place] [address] Krystina Serrano PA [address] [place] [address] [facility] DERMStart: 84-03-4022VTACW-19 Vaccine ( season)COVID-19 Vaccine ( season)[facility]: 94-17-4022Nqzgsngzl vaccinationJoint Township District Memorial Hospital Start: 03-04-2024 End: 46-92-9714Wncfomv encounter pvspfyllh35/29/2024 4:50 PM EDT Office Visit [facility] 112 [facility] [address] [place] [address] Justino Powers DPM 3006 [facility] 5 [place] [address] Verruca plantaris (Primary Dx); Foot pain, left; Diabetes mellitus due to underlying condition with diabetic polyneuropathy, unspecified whether half-way insulin use (CMS/HCC); Onychomycosis; Toe pain, bilateralNOMS CI PODIATRYComment on above:Verruca plantaris (Primary Dx); Foot pain, left; Diabetes mellitus due to underlying condition with diabetic polyneuropathy, 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 (CMS/HCC); Onychomycosis; Toe pain, bilateralStart: 81-53-3734Pruccbgk screeningDiabetes: Retinopathy ScreeningHarrison Community Hospital: 12-29-2023 End: 66-41-1596Lwjzidu encounter thqburcik03/24/2024 10:45 AM EDT Office Visit [address] [place], [place] Juan José Juarez MD [address] [facility] Medical Office [facility], [address] [place], [place] [address] [facility] Milwaukeetart: 06-09-2024Medicare Annual Wellness VisitMedicare Annual Wellness Visit (AWV)[facility]: 07-39-4778Wztecs Adult PhysicalYearly Adult PhysicalUnMemorial Health System [facility]etta Memorial Hospital: 12-08-2023 End: 40-61-3814Eujrsdm encounter procedureAurora St. Luke's Medical Center– Milwaukeetart: 11-18-2023 End: 56-77-2644Xcrmwjv encounter zxfvnbeaz14/14/2024 11:20 AM EDT Office Visit [address] [place] [address] Eder Everett, DO 703 [facility], [address] [place] [address] [facility]: 32-16-5279TMWTB-19 Vaccine (2022- season)COVID-19 Vaccine ( season)[facility]: 09-37-5913HHCBR-19 Vaccine (5 - Pfizer series)COVID-19 Vaccine (5 - Pfizer series)[facility]: 45-36-5570XCK, Provider: Juan José Juarez, Status: Pen, Time: 10:45 AMFUV, Provider: Juan José Juarez, Status: Pen, Time: 10:45 [facility] 250 DO Work Phone: Start: 06-23-2023 End: 92-13-4235Sntbysq encounter bdueeqnft39/18/2023 10:45 AM EST Office Visit [address] [place], [place] Juan José Juarez MD [address] [facility] Medical Office [facility], [address] [place] [address] [facility] Milwaukeetart: 77-51-8782YRO, Provider: Eder Everett, Status: Pen, Time: 11:00 AMFUV, Provider: Eder Everett, Status: Pen, Time: 11:00 AMPipestone [facility] Center 250 DO Work Phone: Start: 06-03-2023 End: 98-48-7766Zipvkro encounter eweckshhp52/28/2023 11:00 AM EST Office Visit [address] [place] [address] Eder Everett S, DO 703 [facility] [address], [address] [place] [address] [facility]: 19-04-7943Ydnazsjf screening Diabetes: Retinopathy ScreeningHarrison Community Hospital: 94-03-9547Llwwe panelAvita Health System Galion Hospitaltart: 04-22-2023 End: 48-21-2506WfqemphwzAvita Health System Galion Hospitaltart: 80-82-1235ItfmgmzzgAvita Health System Galion Hospitaltart: 35-04-9846Irzulfzp to cardiologistAvita Health System Galion Hospitaltart: 11-74-2306Nkiuhpuf admissionAvita Health System Galion Hospitaltart: 43-01-6490ZsmftdhenAvita Health System Galion Hospitaltart: 04-10-2023 End: 21-57-1020GPB panel - Blood by Automated countJoint Township District Memorial Hospital Work Phone: Comment on above:Expected: 04/10/2023 (Approximate), Expires: 04/10/2024Start: 04-10-2023 End: 21-17-8135Uumxusiscdcop metabolic 2000 panel - Serum or PlasmaSIERRA VISTA HOSPITAL Service Area Work Phone: Comment on above:Expected: 04/10/2023 (Approximate), Expires: 04/10/2024Start: 23-41-6794Ldrhrxtgg for osteoporosisBone Density Scan [facility]: 04-10-2023 End: 63-76-2004Wiijkqoerro [Units/volume] in Serum or PlasmaJoint Township District Memorial Hospital Work Phone: Comment on above:Expected: 04/10/2023 (Approximate), Expires: 04/10/2024Start: 48-25-6833Lgwqissfg vaccinationInfluenza Vaccine (#1) [facility]: 73-00-8450AWA, Provider: Eder Everett, Status: Pen, Time: 11:10 AMFUV, Provider: Eder Everett, Status: Pen, Time: 11:10 AM-[facility] 250 DO Work Phone: Start: 86-37-8929DPG, Provider: Juan José Juarez, Status: Pen, Time: 10:45 AMFUV, Provider: Juan José Juarez, Status: Pen, Time: 10:45 AM- [facility] 250 DO Work Phone: Start: 00-11-5412AYGUZ-19 Vaccine (5 - Pfizer series) COVID-19 Vaccine (5 - Pfizer series)[facility] HospitalStart: 59-88-8271UEE, Provider: Eder Everett, Status: Pen, Time: 10:30 AMFUV, Provider: Eder Everett, Status: Pen, Time: 10:30 AM-[facility] [place] 250 DO Work Phone: Start: 79-21-7843HOF, Provider: Juan José Juarez, Status: Pen, Time: 12:00 PMFUV, Provider: Juan José Juarez, Status: Pen, Time: 12:00 PM[facility] 127 DO Work Phone: Start: 50-54-7002YEBIEN 48, Provider: MAU FLYNN CAMP BOSS 1,[id number], Status: Pen, Time: 2:00 PMHOLTER 48, Provider: MAU FLYNN CAMP BOSS 1,[id number], Status: Pen, Time: 2:00 PMSt[address] [facility] 127 DO Work Phone: Start: 92-00-5056GMC, Provider: Juan José Juarez, Status: Pen, Time: 2:00 PMFUV, Provider: Juan José Juarez, Status: Pen, Time: 2:00 PMFair[facility] 250 DO Work Phone: Start: 52-29-9557BIK, Provider: Eder Everett, Status: Pen, Time: 1:40 PMFUV, Provider: Eder Everett, Status: Pen, Time: 1:40 PMMP-[facility] 250 DO Work Phone: Start: 46-44-8259JHC, Provider: Juan José Juarez, Status: Pen, Time: 10:00 AMFUV, Provider: Juan José Juarez, Status: Pen, Time: 10:00 AM[facility] 127 DO Work Phone: Start: 83-62-1767XLI High Risk: (Elderly (60+) or Population) (1 - 1-dose 75+ series)RSV High Risk: (Elderly (60+) or Population) (1 - 1-dose 75+ series)[facility] Start: 55-72-8897BVsR/Tdap/Td Vaccines (3 - Td or Tdap)DTaP/Tdap/Td Vaccines (3 - Td or Tdap)[facility]–SmithvilleStart: 46-23-5261XCF, Provider: Eder Everett, Status: Pen, Time: 11:00 AMFUV, Provider: Eder Everett, Status: Pen, Time: 11:00 AM[facility] 127 DO Work Phone: Start: 37-80-5451LFjV/Tdap/Td Vaccines (1 - Tdap) DTaP/Tdap/Td Vaccines (1 - Tdap)[facility]: 40-55-9548Lfzcb panelLipid PanelUnMemorial Health System [facility] Memorial Hospital: 87-40-0406Axkuyq Vaccines (2 of 3)Zoster Vaccines (2 of 3)[facility]: 28-82-4015PRD patients and/or patients aged 60+ years (1 - 1-dose 60+ series)RSV patients and/or patients aged 60+ years (1 - 1-dose 60+ series)[facility]: 1964 Urine screening for proteinDiabetes: Urine Protein ScreeningUnMemorial Health System [facility] Hospital: 94-01-8136Quresgzlt C screeningHepatitis C Screening [facility]: 70-78-7235Zrckgiym foot examination Diabetes: Foot ExamUnMemorial Health System [facility] Memorial Hospital: 1945 Cyanocobalamin vitamin b-12Vitamin B-12UnMemorial Health System [facility] Hospital: 69-40-0073Tehtztmq: Celiac Disease ScreeningDiabetes: Celiac Disease Screening [facility]: 25-97-9563Xmqtwcbwme A1c measurement Diabetes: Hemoglobin N3KEneliyupbcMemorial Health System Marietta Memorial Hospital: 1945 Medicare Annual Wellness VisitMedicare Annual Wellness Visit (AWV)[facility]: 41-38-1103Emkwog Adult PhysicalYearly Adult PhysicalUnMercy Health St. Rita's Medical CenterPatient [facility] Work Phone: Immunizations Immunization DateImmunizationNotesCare ShjheutpDvdhesql70-51-0836inbpezrfwcg syncytial virus monoclonal antibody (palivizumab), intramuscularJuan José Juarez MD Work Phone: [facility] Work Phone: [phone]tvp vaccine recombinantAllison Sjick DO Work Phone: NOSaint Mary's Hospital of Blue SpringsEjsilhnamv67-13-0540Oqkvjda COVID-19 Vaccine 100 MCG/0.5ML Intramuscular SuspensionDaniel B Craig Work Phone: [phone]-TytuxGlacial Ridge Hospital 250 DO Work Phone: [phone], high dose seasonal, preservative-freeDaniel B Craig Work Phone: [phone]-VhfbpGlacial Ridge Hospital 250 DO Work Phone: [phone] virus vaccine, unspecified formulationJuan José Juarez MD Work Phone: UnMercy Health St. [facility]'s Medical Center Work Phone: [phone]-SzaZKzxz COVID-19 Vacc 30 MCG/0.3ML Intramuscular SuspensionJuan José Juarez MD Work Phone: [phone]-SzgyxSt. [facility] Hospital 127 DO Work Phone: [phone], live, intranasal, quadrivalent Juan José Juarez MD Work Phone: [phone]-PtfwrSt. Gabriel Hospital 127 DO Work Phone: Comment on above:Series:05-34-9186lyoagecgw, high dose seasonal, preservative-freeJuan José Juarez MD Work Phone: [facility] Work Phone: [phone] toxoid, reduced diphtheria toxoid, and acellular pertussis vaccine, adsorbedPamela Lizz Other [employer] Other [id number] and diphtheria toxoids, adsorbed, preservative free, for adult use (5 Lf of tetanus toxoid and 2 Lf of diphtheria toxoid)Juan José Juarez MD Work Phone: mpMatthew [place] [address] DO Work Phone: [phone]-93 mRNA, Comirnaty (Pfizer)II Prasanth Rafa Work Phone: [facility]02-22-2021Pfizer- BioNTech COVID-19 Vacc 30 MCG/0.3ML Intramuscular SuspensionJuan José Juarez MD Work Phone: [place] [address] DO Work Phone: Comment on above:Series:64-76-1155FAAAE-19 mRNA, Comirnaty (Pfizer)JOSHUA Craig Work Phone: [facility]02-02-2021Pfizer- BioNTech COVID-19 Vacc 30 MCG/0.3ML Intramuscular SuspensionJuan José Juarez MD Work Phone: mp-[place] [address] DO Work Phone: Comment on above:Series:28-04-1306wdefxuwkg, seasonal, injectableJuan José Juarez MD Work Phone: mpR[facility] 127 DO Work Phone: [phone] virus vaccine, unspecified formulationJuan José Juarez MD Work Phone: mp-[facility] Work Phone: [phone] influenza, intradermal, preservative freeNichollexie Brown DPM Work Phone: [facility]–SmithvilleUwgikfyamo30-96-1135yqadtugxx virus vaccine, unspecified formulationJuan José Juraez MD Work Phone: [phone]-KtzukRed Lake Indian Health Services Hospital Work Phone: [phone], seasonal, injectablePhilip Florecita [facility] PhysiciansComment on above:Source: Source Mftbritktbw08-17-0316 influenza, high dose seasonal, preservative-freeJuan José Juarez MD Work Phone: [phone]-EhcedMatthew [place] [address] DO Work Phone: [phone]f, High-dose Seasonal, Quadrivalent, Preservative FreeNicholas Brown DPM Work Phone: [facility]–SmithvilleTjrpauczgm70-78-7698swnuzpzneyzb polysaccharide vaccine, 23 valentNicholas Miah DPM Work Phone: [facility]–SmithvilleTlwpbndnlo90-66-3317ywxyciteq, injectable, quadrivalent, preservative freeNicholas Brown DPM Work Phone: [facility]–SmithvilleLalrswryip12-25-1989fxrglw vaccine, liveJuan José Juarez MD Work Phone: [phone]-IadcbMatthew Ville [address] DO Work Phone: [phone]rahmuhb conjugate vaccine, 13 iker Juarez MD Work Phone: [phone]-EtekyMatthew Ville [address] DO Work Phone: Comment on above:Series:28-32-1842szdtzhfyb virus vaccine, unspecified formulationJuan José Juarez MD Work Phone: [phone]-MqxcsRed Lake Indian Health Services Hospital Work Phone: [phone] conjugate vaccine, 13 iker Juarez MD Work Phone: [phone]-PnpsnMatthew V[place] [address] DO Work Phone: [phone]xzu, injectable, quadrivalent, preservative freeNicholas Brown DPM Work Phone: [facility]–SmithvilleFttoiccifn71-86-2479itbplimru virus vaccine, unspecified formulationJuan José Juarez MD Work Phone: ZU-MevatRed Lake Indian Health Services Hospital Work Phone: [phone] virus vaccine, unspecified formulationJuan José Juarez MD Work Phone: [phone]-JmitrRed [facility] Work Phone: [phone], seasonal, injectableNickatie Brown DPM Work Phone: [facility]SmithvilleZvodfkfmcb56-53-1076zlnsbchlnvdy polysaccharide vaccine, 23 valPriscilla Juarez MD Work Phone: [phone]-[place]nxeBen[place] [address] [place] Work Phone: Comment on above:Series:00-93-4660olmbfss toxoid, adsorbedJuan José Juarez MD Work Phone: [phone]-XeveuM [facility] Work Phone: [phone]qof polysaccharide vaccine, 23 valentNicholas Brown DPM Work Phone: [facility]villePvhqmmahjw47-89-8897yqedjlq toxoid, reduced diphtheria toxoid, and acellular pertussis vaccine, adsorbedNicholas Brown DPM Work Phone: [facility]SmithvilleGnylkxdlqr12-05-2300onyzxixwf virus vaccine, unspecified formulationJuan José Juarez MD Work Phone: [phone]-DljxxRed Lake [facility] Work Phone: [phone] vaccine, liveNicholas Brown DPM Work Phone: [facility]SmithvilleCumxficjfa73-16-4051llkqxcjyr, seasonal, injectableJuan José Juarez MD Work Phone: [phone]-SapwrSt. [facility] 127 DO Work Phone: [phone] etfjlfzrk-E9O6-80, preservative-free, Za Juarez MD Work Phone: [facility]10-01-2009influenza, seasonal, Za Juarez MD Work Phone: [phone]-QtvzpSt. [facility] Hospital 127 DO Work Phone: [phone] influenza, intradermal, preservative freeJustino Powers [facility] Work Phone: [facility]SmithvilleTldczdphjq34-72-8840lhrwwdidxvhd polysaccharide vaccine, 23 Fely Juarez MD Work Phone: [phone]-ZloizLaura [place] [address] DO Work Phone: Payers DatePayer CategoryPayerPolicy [id number] supplemental policy (as second payer)GENERIC MEDICARE SUPPLEMENT [id number]-mgm [id number] OTHER [id number].56811-25-1788Xtezfbg Health InsuranceGENERIC COMMERCIAL [id number] [id number] [id number] [id number] Hovk-[id number] 2..1.765276.3.579.[id number] 2..1.947214.3.57[id number] 2..1.981519.3.57[id number] 2.16.840.1.791773.3.57[id number] 2.16.840.1.207358.3.57[id number] 2.16.840.1.083720.3.579.[id number] 2.16.840.1.743902.3.579.2.023[id number] 2.16.840.1.019562.3.579.2.124806-13-8806Dlckgoj66453170 2.16840.1.990423.3.579.2.463332-93-8438Eejrxya62275499 2.840.1.148920.3.579.2.364412-23-7067Ccbfdqz98383663 2.840.1.873262.3.579.2.416957-88-4824Aghjfgj09138739 2..840.1.009113.3.579.2.362317-96-2176Hdbjajp77582552 2.16.840.1.222327.3.579.2.586362-61-7303Ubyxvtv17706010 2.840.1.397026.3.579.2.6[id number] 2.16.840.1.587901.3.579.2.048676-91-7405Esezlwf80357873 2.16.840.1.761466.3.579.2.942076-42-4279Vkwkrvj46870405 2.16.840.1.063706.3.579.2.582[id number] 2.16840.1.416703.3.579.2.687982-44-8706Xrcjizr10454636 2.16.840.1.217453.3.579.2.203697-78-8383Kagdair2155773 2.16.840.1.999091.3.579.2.825391-98-5795Sjjxhbt3003739 2.16.840.1.384448.3.579.2.786477-92-9953Dkpxfbm0272239 2.16.840.1.813613.3.579.2.454526-74-1404Wfevrvh9363179 2.16.840.1.186805.3.579.2.868479-19-7320Scxhdws6332833 2.16840.1.714515.3.579.2.020211-07-6417Oaavbmm6819085 2.840.1.112432.3.579.2.114538-86-0511Zjndyey0429995 2.16840.1.957710.3.579.2.443848-04-3107Gkhvvob0288337 2.16.840.1.317457.3.579.2.439481-64-1906Nqygtzf2424375 2.840.1.880570.3.579.2.823473-36-4685Xzhpzif1398669 2.16840.1.232216.3.579.2.586181-61-7052Pjierac4016990 2.16840.1.429645.3.579.2.429035-63-8970Igiflhr7113314 2.16.840.1.33481[id number] 2.16.840.1.5287[id number] 2.16.840.1.113695.3.579.2.531 [id number] 2.16.840.1.517849.3.579.2.531 Social History DateTypeDetailFacilityStart: 08-11-2020 End: 89-79-1773Sypfwzk smoking status NHISNever smoked tobacco (finding) [facility] CtrStart: 02-65-7483Jhw Assigned At [facility] CenterStart: 04-10-2023 End: 03-80-1987Pmxje caffeine consumption, 2-3 servings a dayDaily caffeine consumption, 2-3 servings a daySt. [facility] DO Work Phone: Start: 04-10-2023 End: 76-14-0971Fww Assigned At [facility] [employer] Other Start: 12-10-2022 End: 70-08-9786Nzvxcem use and exposureSmokeless tobacco non-userUnMercy Health St. [facility]'s Medical [facility] Work Phone: Start: 04-10-2023 End: 52-97-9404Spvqhlr intakeLifetime non-drinker (finding)[facility] Work Phone: Start: 85-24-7958Xrz Assigned At [facility] HealthNot on file [facility] Work Phone: Start: 03-31-2023 End: 23-32-8274Neprugih to SARS-CoV-2 (event)Not sureUnMercy Health St. Rita's Medical CenterStart: 72-12-6532Crllps-related BehaviorCaffeine Use DetailsCVP PhysiciansStart: 76-02-8292Cltkuqm use and exposureNon-Smoking Tobacco Use DetailsCVP PhysiciansHow often to you have a drink containing alcohol?NeverNOMS HealthcareStart: 06-01-2022 End: 66-44-0292Tzq many standard drinks containing alcohol do you have on a typical day?Patient does not drinkNOMS HealthcareStart: 44-83-7923Bdxsmwp Commentcaffeine: coffee/teaNOMS HealthcareStart: 90-88-9478KvvDfyroe (finding) [facility] HospitalNEGATED: Highlighted rowStart: 02-06-2024 Tobacco smoking status NHISUnknown if ever smokedCVP PhysiciansNEGATED: Highlighted rowAlcohol intakeAlcohol Use DetailsCVP PhysiciansNEGATED: Highlighted rowStart: 69-80-6107Aiotbsk of tobacco useCurrent non-smokerCVP Physicians Medical Equipment Procedure CodeEquipment CodeEquipment Original TextEquipment IdentifierDates ()[id number] FDAStart: [id number]: 09-04-2022 End: [id number]: 59-58-7416Vmjq-eluting coronary artery stent, zzw-irbscywttherf-bhivizj-coated()[id number] FDA Start: 00-08-6188Zwzfjou artery closure plug/patch, synthetic polymer ()[id number] FDAStart: [id number]: [id number]: 50-67-1304Oadtobks bg levels 3 times a day 90808724Smuml: 12-27-2024 Goals DatePatient GoalDesired Activity/State Functional Status KkvvCgqpurddziMkamzfJswqcfir59-49-2629Nqexnqglog lvqzbe699/62UnMercy Health St. [facility] Work Phone: [phone] signs47 04/21/2025 1:53 PM EDT Sharyn Claudio, NUnMercy Health St. Rita's Medical Center Work Phone: [phone]mMercy Health St. [facility]'s Medical Center Work Phone: [phone] Health Questionnaire 2 item (PHQ-2) [Reported][facility]villeZgzzwttvsk96-45-8473Dsylcxdw - suicide severity rating scale screener - recent [C-SSRS][facility] Work Phone: [phone]uppo Health Questionnaire 2 item (PHQ-2) [Reported][facility]SmithvilleKqknfdoaxa09-74-5302Mgksxbq Health Questionnaire 2 item (PHQ-2) [Reported][facility]SmithvillePkbfkiozzk54-73-4620Eljhmiw Health Questionnaire 2 item (PHQ-2) [Reported][facility]SmithvilleNmkaodqxfy09-37-4299Uccwnebspc statusPatient at BaselineOhio[facility] Work Phone: [phone]ifvywqt statusPatient at Baseline [facility] Work Phone: Mental Status DjbxPtrzvvieyuPhgileQurrbzog56-03-6468Ueeihhlai functionCognitive Status Patient at [facility]Ohio[facility] Work Phone: [phone] functionCognitive Status Patient at BaselineOhio[facility] Work Phone: Clinical Notes 06-06-2019 to 05-12-2025 Note Date & BjlpAjvsMwbeleut37-87-2491 History of Present illness Narrative* Justino Powers, KAYY - 05/12/2025 3:10 PM EST Patient: Laquita [...] Pt is dm2 Allergies: Allergies Allergen Reactions Ira Inhibitors Other Reaction(s): Unknown Phenothiazines Swelling Other [...] branch block) Migraine Migraine headache Osteopenia Osteoporosis ([facility]) x2 Prolonged Q-T interval on ECG 06/2019 PUD (peptic ulcer disease) Pure hypercholesterolemia Medications: Current Outpatient Medications: atorvastatin (Lipitor) 10 MG tablet, Take 10 mg by mouth in the morning., Disp: , Rfl: biotin 5 MG capsule, Take 10,000 mg by mouth Daily, Disp: , Rfl: Qyflhrh-Afpvwjnmhb-Kykbmyf D (CITRACAL +D3 PO), Daily., Disp: , Rfl: cholecalciferol (Vitamin D-3) 50 MCG (1999) tablet, Take by mouth., Disp: , Rfl: [...] chest pain., Disp: , Rfl: nystatin (Mycostatin) 879493 UNIT/GM powder, Apply to the affected area [...] and positive PT pedal pulses NEURO: 5.07 [place] monofilament test intact to digits and forefoot bilaterally 125Hz tuning fork diminished to 1st MPJ bilaterally ORTHO: Positive pain on palpation to toenails of the left 1,2,3,4,5 toes and right 1,2,3,4,5 toes Positive pain on palpation left foot lesion ASSESSMENT 1. Verruca plantaris 2. Foot pain, left 3. Diabetes mellitus due to underlying condition with diabetic polyneuropathy, unspecified whether half-way insulin use (HCC) PLAN Application of salinocaine acid medication to lesion/lesions located at left foot Informed pt of risks and benefits of procedure including high reoccurence rate, infection, pain andconsent given. Application of DSD post procedure. Justino Powers DPM documented in this encounterSaint Luke's North Hospital–SmithvilleKzettwjjfl11-52-7767 History of Present illness Narrative* Juan José Juarez MD - 04/21/2025 1:30 PM EDT CARDIOLOGY OFFICE VISIT CHIEF COMPLAINT Chief Complaint Patient presents with Hospital Follow-up 02/11/25 discharge post cardioversion HISTORY OF PRESENT ILLNESS HPI 79-year-old female with a past medical history of coronary artery disease with history of coronary artery bypass graft surgery x2 back in 1999. Recent cardiac catheterization in June 2019 showed POZO to LAD patent also radial to obtuse marginal patent with patent stents. Echocardiogram in April 2018 showed left ventricular ejection fraction 45 to 50% with mild mitral vegetation. History of diabetes mellitus and hyperlipidemia. She was diagnosed of atrial fibrillation back in April 2018 and she was placed on beta-blockers, Xarelto and also amiodarone. Amiodarone was discontinued due to significant tremors. She had a cardiac catheterization in August 2020 that ended with PCI of the radial graft to the obtuse marginal and PCI of the PLV B. A Holter monitor was ordered that shows underlying rhythm was sinus rhythm with a minimum heart rate of 40 bpm maximum heart rate of 83 bpm with average heart rate of 50 bpm. There was evidence of chronotropic incompetence based on results of the study. Lately she is doing well. She has occasional palpitations but no limiting cardial activities. She was recently admitted to [facility] in April 21 to 2022. Apparently she was admitted for palpitations. On arrival to emergency department her symptoms disappear Patient was seen my office in June 2024. Patient states that [place] She started noticing palpitations due to significant one of his stress. Patient states that since then she has been having on and off palpitations. EKG performed 01/2025 shows atrial fibrillation at a rate of 59 bpm QRS duration 130 ms QT corrected 427 ms. Rhythm strip shows the same pattern. Patient underwent cardioversion February 2025 with no complications. Since then patient states that she has been doing well. She had maybe few episodes of palpitations lasting for few seconds of duration. No sustained episodes. EKG performed today shows sinus bradycardia left on the branch block at a rate of 47 bpm QRS yhupld255 ms QT corrected 420 ms. Rhythm strip shows the same pattern. Past Medical History Medical History[1] Social History Social History[2] Family History Family History[3] Allergies: RX Allergies[4] Outpatient Medications: Current Outpatient Medications Medication Instructions atorvastatin (LIPITOR) 10 mg, oral, Nightly biotin 5 mg capsule 1 capsule, Daily calcium citrate/vitamin D3 (CALCIUM CITRATE + D ORAL) 1 tablet, Daily doxylamine succinate (NITETIME SLEEP-AID ORAL) 1 capsule, Nightly ferrous sulfate 65 mg, Daily with breakfast furosemide (LASIX) 20 mg, oral, Daily insulin lispro (HumaLOG) 100 UNIT/ML patient supplied pump Daily RT magnesium oxide (Mag-Ox) 400 mg (241.3 mg elemental) tablet 1 tablet, oral, 2 times daily metoprolol succinate XL (TOPROL-XL) 50 mg, oral, Daily nitroglycerin (Nitrodur) 0.2 mg/hr patch 1 patch, Every other day nitroglycerin (NITROSTAT) 0.4 mg, sublingual, Every 5 min PRN pantoprazole (ProtoNix) 40 mg EC tablet 1 tablet, Daily potassium chloride CR 10 mEq ER tablet 10 mEq, oral, Daily rivaroxaban (XARELTO) 20 mg, oral, Daily REVIEW OF SYSTEMS Review of Systems Cardiovascular: Negative for chest pain, dyspnea on exertion and palpitations. All other systems reviewed and are negative. VITALS Vitals: 04/21/25 1353 BP: 156/62 Pulse: (!) 47 PHYSICAL EXAM Constitutional: General: Awake. Appearance: Normal and healthy appearance. Well-developed and not in distress. Neck: Vascular: No JVR. JVD normal. Pulmonary: Effort: Pulmonary effort is normal. Breath sounds: Normal breath sounds. No wheezing. No rhonchi. No rales. Chest: Chest wall: Not tender to palpatation. Cardiovascular: PMI at left midclavicular line. Bradycardia present. Regular rhythm. Normal S1. Normal S2. Murmurs: There is no murmur. No gallop. No click. No rub. Pulses: Intact distal pulses. Edema: Peripheral edema absent. Abdominal: Tenderness: There is no abdominal tenderness. Musculoskeletal: Normal range of motion. General: No tenderness. Skin: General: Skin is warm and dry. Neurological: General: No focal deficit present. Mental Status: Alert and oriented to person, place and time. ASSESSMENT AND PLAN Impression 1. New diagnosis atrial fibrillation since April 2018.-Persistent atrial fibrillation, plan discussed during this office visit. Now recurrence of atrial fibrillation. Status post cardioversion February 2025 with no complications 2. Long-term anticoagulation therapy with Xarelto., No evidence of bleeding 3. History of gastric ulcer with bleeding with hemoglobin 7.1 to require blood transfusions. Now she is back on Xarelto. Multiple episodes of bleeding described by patient during this office visit 4. Coronary artery disease, status post percutaneous core interventions and coronary bypass graft surgery in 1999. Recent cardiac catheterization as described above, recent cardiac catheterization ended with PCI of the radial graft to the obtuse marginal and PCI of the PL BV 5. High risk medication (amiodarone). Patient has been off this medication since mid February 2020, stable 6. QT prolongation with low-dose Betapace, resolved 7. Left bundle branch block, stable 8. Normal ventricular function per echocardiogram as described above, no new changes 9. Tremors 10. Fatigue, tiredness, resolved after PCI was performed Plan recommendation From the electrophysical standpoint she is doing well. She is maintaining sinus rhythm. Continue with current medical therapy that includes beta-blockers. Continue with Xarelto therapy. Get a Holter monitor for 24 hours prior to next office visit. If she has recurrence of atrial fibrillation we will consider antiarrhythmic therapy. Risk factor modification and lifestyle modification discussed with patient. Diet , exercise and hydration discussed with patient. I have personally review with patient during this office visit, laboratory data, echocardiogram results, stress test results, Holter-event monitor results prior and after the last electrophysiology visit. All questions has been answered. Please excuse any errors in grammar or translation related to this dictation. Voice recognition software was utilized to prepare this document. I, Dr. Juarez, personally performed the services described in the documentation as scribed by the nurse in my presence, and confirm it is both accurate and complete. [1] Past Medical History: Diagnosis Date Arrhythmia Coronary angioplasty status 05/23/2021 History of PTCA Coronary artery disease Diabetes mellitus (Multi) Encounter for preprocedural laboratory examination Pre-procedure lab exam Hyperlipidemia Other chest pain Atypical chest pain Personal history of other endocrine, nutritional and metabolic disease History of obesity Personal history of other endocrine, nutritional and metabolic disease History of hypoglycemia Personal history of other endocrine, nutritional and metabolic disease 06/04/2021 History of obesity Personal history of other specified conditions History of fatigue Personal history of other specified conditions History of syncope Personal history of other specified conditions History of snoring [2] Social History Tobacco Use Smoking status: Never Smokeless tobacco: Never Vaping Use Vaping status: Never Used Substance Use Topics Alcohol use: Never Drug use: Never [3] Family History Problem Relation Name Age of Onset Other (acute myocardial infarction) Sister Other (acute myocardial infarction) Brother [4] Allergies Allergen Reactions Trimethoprim Anaphylaxis Ira Inhibitors Unknown Phenothiazines Swelling Shellfish Containing Products Unknown Penicillins Rash documented in this encounterJoint [facility] Work Phone: 1([phone]) 706-996810-16-2025 Instructions* Patient Instructions* Fariha Casanova RN - 04/21/2025 1:30 PM EDT Continue same medications/treatment. Patient educated on proper medication use. Patient educated on risk factor modification. Please bring any lab results from other providers/physicians to your next appointment. Please bring all medicines, vitamins, and herbal supplements with you when you come to the office. Prescriptions will not be filled unless you are compliant with your follow up appointments or have a follow up appointment scheduled as per instruction of your physician. Refills should be requested at the time of your visit. SCHEDULE 48 hour holter Follow up with Dr. Juarez in 6 months IFariha RN, AM SCRIBING FOR, AND IN THE PRESENCE OF DR. JUAN JOSÉ JUAREZ MD documented in this [facility] Work Phone: [phone] 516-155310-09-2025 History of Present illness Narrative* Justinoalma Powers, DPM - 04/14/2025 3:50 PM EDT Patient: Laquita Dailey : 1945 PCP: Prasanth Craig MD SUBJECTIVE Patient presents today for follow up of skin lesion/neoplasm of unknown origin to the left foot Pt states that previous treatment of acid tx with some improvement Pt rates pain the pain on a 1-10 scale an intensity of 4 Pt presents today for followup. Patient presents today with a CC of elongated, thick nails. Pt states nails have been elongated and thick for many years and cause pain with ambulation in shoegear. Pt has tried previous treatment with minimal relief. Pt presents today for nail care and treatment. Pt is dm2 Allergies: Allergies Allergen Reactions Ira Inhibitors Other Reaction(s): Unknown Phenothiazines Swelling Other [...] mg by mouth Daily, Disp: , Rfl: Xliufhj-Iefrfndykj-Jeyqder D (CITRACAL +D3 PO), Daily., Disp: , [...] (Novofine Pen Needle) 32G x 6 mm misc, 1 (one) time each day at the [...] chest pain., Disp: , Rfl: nystatin (Mycostatin) 722565 UNIT/GM powder, Apply to the affected area [...] left sub 4th metatarsal measuring 0.1cm x 0.2cm. Right ankle has healed lesion VASC: Negative DP and positive PT pedal pulses NEURO: 5.07 [place] monofilament test intact to digits and forefoot bilaterally 125Hz tuning fork diminished to 1st MPJ bilaterally ORTHO: Positive pain on palpation to toenails of the left 1,2,3,4,5 toes and right 1,2,3,4,5 toes Positive pain on palpation left foot lesion ASSESSMENT 1. Verruca plantaris 2. Foot pain, left 3. Diabetes mellitus due to underlying condition with diabetic polyneuropathy, unspecified whether half-way insulin use (HCC) 4. Pain due to onychomycosis of toenails of both feet PLAN Application of salinocaine acid medication to lesion/lesions located at left foot Informed pt of risks and benefits of procedure including high reoccurence rate, infection, pain andconsent given. Application of DSD post procedure. Debrided nails in length and thickness digits 1-10 Justino Powers DPM documented in this encounterSaint Luke's [facility] Hospital–SmithvilleZmbxhbnzuy96-35-8705 History of Present illness Narrative* Justino Powers DPM - 03/31/2025 11:50 AM EDT Patient: Laquita Dailey : 1945 PCP: Prasanth Craig MD SUBJECTIVE Patient presents today for follow up of skin lesion/neoplasm of unknown origin to the left foot Pt states that previous treatment of acid tx with some improvement Pt rates pain the pain on a 1-10 scale an intensity of 5 Pt presents today for followup. Allergies: Allergies Allergen Reactions Ira Inhibitors Other Reaction(s): Unknown Phenothiazines Swelling Other Reaction(s): Unknown, Unknown Shellfish Allergy Other Reaction(s): Unknown Sulfamethoxazole Unknown Trimethoprim Unknown Penicillins Rash Other Reaction(s): Hives / Skin Rash, Other (See Comments), Unknown Past Medical History: Past Medical History: Diagnosis Date A-fib ([facility]) Angina pectoris Anxiety Anxiety state [place] esophagus [...] branch block) Migraine Migraine headache Osteopenia Osteoporosis ([facility]) x2 Prolonged Q-T interval on ECG 06/2019 PUD (peptic ulcer disease) Pure hypercholesterolemia Medications: Current Outpatient Medications: atorvastatin (Lipitor) 10 MG tablet, Take 10 mg by mouth in the morning., Disp: , Rfl: biotin 5 MG capsule, Take 10,000 mg by mouth Daily, Disp: , Rfl: Emspuyf-Xqauuwxzta-Xxpcwiv D (CITRACAL +D3 PO), Daily., Disp: , [...] (Novofine Pen Needle) 32G x 6 mm [facility], 1 (one) time each day at the [...] chest pain., Disp: , Rfl: nystatin (Mycostatin) 253569 UNIT/GM powder, Apply to the affected area [...] at the left sub 4th metatarsal measuring 0.2 cm x 0.2cm. Right ankle has healed lesion VASC: Negative DP and positive PT pedal pulses NEURO: 5.07 [place] monofilament test intact to digits and forefoot bilaterally 125Hz tuning fork diminished to 1st MPJ bilaterally ORTHO: Positive pain on palpation to toenails of the left 1,2,3,4,5 toes and right 1,2,3,4,5 toes Positive pain on palpation left foot lesion ASSESSMENT 1. Verruca plantaris 2. Foot pain, left 3. 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 Application of DSD post procedure. 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 Encouraged to check blood glucose throughout the day with some fasting and some PP readings. They are to bring their glucose meter/cgm in to all appointments. All of the patients questions, treatment options, and current care plan and goals were discussed. Acopy of this along with pertinent instructions were given to the patient at the end of the appointment. The patient voices understanding of all of this and is to call in between appointments if they have any problems or questions. Laquita Dailey control is stable overall. , The patient is wearing their cgm on a daily basis andmaking decisions in regards to adjusting insulin daily as well for at least the last 60 days , Instructions given today include: Hypoglycemia management and Pump instructions. Will loosen sensitivityto see if this helps to prevent the low bg * Lizzette Monk DO - 03/11/2025 1:15 PM EDT Images from the original note were not included. Laquita Dailey is a 79 y.o. female presents with chief complaint of Diabetes HPI: Diabetes Mellitus Follow-up: Laquita Dailey is here for follow-up evaluation of diabetes mellitus. The initial diagnosis of diabetes was made at 19 years old Diabetes complications: heart disease, renal failure Hx of diabetes medications tried: none She has been checking her blood glucose with Tandem pump - not linked- Dexcom G7- READER- on a daily basis. Bg are dropping overnight and after correction doses through the pump. Last A1c: 6.7 on 10/26/2024 Last eye exam: 2023- retina specialist Current concerns include: Last ov 11/30/2024 Asking if you have a G7 sample she had to take it off for a cardioversion February 11. She is behinda sensor now due to that and the company will not replace it. 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 Benign essential hypertension Coronary artery disease involving [place] coronary artery of [place] heart without angina pectoris Depressive disorder Edema Esophageal reflux Essential tremor Estrogen deficiency Gastrointestinal hemorrhage associated with gastric ulcer Hearing loss Hx of CABG Hyperthyroidism Acquired iron deficiency anemia due to decreased absorption Iron deficiency anemia due to chronic blood loss Left bundle branch block Longstanding persistent atrial fibrillation (HCC) Migraine with aura Hypoglycemia due to type 1 diabetes mellitus (HCC) Paroxysmal atrial fibrillation (HCC) 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) 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 (HCC) H/O high risk medication treatment Epiretinal membrane Chronic gastric ulcer with hemorrhage but without obstruction Anticoagulated On amiodarone therapy Atherosclerosis of coronary artery without angina pectoris 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 Mixed hyperlipidemia 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) Age related osteoporosis Essential hypertension Decreased estrogen level History of coronary artery bypass surgery Thyrotoxicosis Iron deficiency anemia Atrial premature complexes 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[facility]) Class 1 obesity due to excess calories with body mass index (BMI) of 30.0 to 30.9 in adult Gastric ulcer High risk medication use 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 Never smoked any substance Palpitations Raynaud phenomenon Ventricular tachycardia (paroxysmal) (HCC) Social History Tobacco Use Smoking status: Never Smokeless tobacco: Never Vaping Use Vaping status: Never Used Substance Use Topics Alcohol use: Never Comment: caffeine: coffee/tea Drug use: Never Allergies Allergen Reactions Ira Inhibitors Other Reaction(s): Unknown Phenothiazines Swelling Other Reaction(s): Unknown, Unknown Shellfish Allergy Other Reaction(s): Unknown Sulfamethoxazole Unknown Trimethoprim Unknown Penicillins Rash Other Reaction(s): Hives / Skin Rash, Other (See Comments), Unknown Synopsis SmartLink Latest Ref Rng & Units 03/11/2025 13:26 02/11/2025 09:07 01/31/2025 11:22 Antidiabetic medications Insulin Lispro 1 Dose See admin instructions INJECT UP TO 100 UNITS VIA PUMP DIRECTED ONCE DAILYSC (100 UNIT/ML SOLN) 1 Dose See admin instructions INJECT UP TO 100 UNITS VIA PUMP DIRECTED ONCE DAILY SC (100 UNIT/ML SOLN) 1 Dose See admin instructions INJECT UP TO 100 UNITS VIA PUMP DIRECTED ONCE DAILY SC (100 UNIT/ML SOLN) Labs [facility]EMO[place] A1C/HEMOGLOBIN.TOTAL:MFR:PT:BLD:QN: 7.3 Creatinine 0.50 - 1.05 mg/dL 1.10 0.99 Outpatient prescription Medication marked as long-term The ASCVD Risk score (Rupali DK, et al., 2019) failed to calculate for the following reasons: The valid total cholesterol range is 130 to 320 mg/dL REVIEW OF SYMPTOMS: Review of Systems Constitutional: Negative for appetite change, fatigue and unexpected weight change. Eyes: Negative for visual disturbance. Respiratory: Negative for cough, shortness of breath and wheezing. Cardiovascular: Negative for chest pain, palpitations and leg swelling. Neurological: Negative for numbness. Endocrine: Negative for polydipsia, polyphagia and polyuria. OBJECTIVE: 03/11/2025 1:12 PM 03/10/2025 2:47 PM 02/03/2025 3:25 PM Vitals BMI 28.08 kg/m2 28.73 kg/m2 28.73 kg/m2 Systolic 136 Diastolic 62 Heart Rate 58 Temp 97.2 F Resp 18 18 Height (in) 5' 6 5' 6 5' 6 Weight (lb) 174 178 178 Visit Report Report Report Report Physical Exam Constitutional: General: She is not in acute distress. Appearance: Normal appearance. Cardiovascular: Rate and Rhythm: Normal rate and regular rhythm. Heart sounds: No murmur heard. No friction rub. No gallop. Pulmonary: Breath sounds: Normal breath sounds. No wheezing, rhonchi or rales. Musculoskeletal: General: No swelling. Neurological: Mental Status: She is alert. 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 Encouraged to check blood glucose throughout the day with some fasting and some PP readings. They are to bring their glucose meter/cgm in to all appointments. All of the patients questions, treatment options, and current care plan and goals were discussed. Acopy of this along with pertinent instructions were given to the patient at the end of the appointment. The patient voices understanding of all of this and is to call in between appointments if they have any problems or questions. Laquita Dailey control is stable overall. , The patient is wearing their cgm on a daily basis andmaking decisions in regards to adjusting insulin daily as well for at least the last 60 days , Instructions given today include: Hypoglycemia management and Pump instructions. Will loosen sensitivityto see if this helps to prevent the low bg 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 (HCC) Relevant Orders POCT glycosylated hemoglobin (Hb A1C) docked device (Completed) 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) Follow up in about 3 months (around 06/10/2025) for Recheck. Patient's Medications New Prescriptions No medications on file Previous Medications ATORVASTATIN (LIPITOR) 10 MG TABLET Take 10 mg by mouth in the morning. BIOTIN 5 MG CAPSULE Take 10,000 mg by mouth Daily RQIOTIP-ULZROVGCDW-QGGOSCO D (CITRACAL +D3 PO) Daily. CHOLECALCIFEROL (VITAMIN D-3) 50 MCG (1999 UT) TABLET Take by mouth. CLOBETASOL PROPIONATE E 0.05 % EMOLLIENT CREAM APPLY A THIN LAYER TO AFFECTED AREA TWICE DAILY FOR 2 MONTHS DOXYLAMINE (SLEEP AID) 25 MG TABLET Take 25 mg by mouth as needed at bedtime. FERROUS SULFATE 325 (65 FE) MG TABLET Take 325 mg by mouth in the morning. Take with meals. FUROSEMIDE (LASIX) 20 MG TABLET Take 1 tablet (20 mg) by mouth in the morning. GLUCOSE BLOOD (CONTOUR NEXT TEST) TEST STRIP Checking bg levels 3 times a day INSULIN LISPRO (HUMALOG) 100 UNIT/ML SOLUTION Inject 1 Dose under the skin See administration instructions INJECT UP TO 100 UNITS VIA PUMP DIRECTED ONCE DAILY INSULIN PEN NEEDLE (NOVOFINE PEN NEEDLE) 32G X 6 MM MISC 1 (one) time each day at the same time. MAGNESIUM OXIDE (MAG-OX) 400 MG TABLET Take 400 mg by mouth in the morning and 400 mg before bedtime. METOPROLOL SUCCINATE XL (TOPROL-XL) 50 MG 24 HR TABLET Take 50 mg by mouth in the morning. NITROGLYCERIN (NITRODUR) 0.2 MG/HR PATCH 1 PATCH TRANSDERMALLY DAILY NEEDED FOR CHEST PAIN FOR 30 DAYS NITROGLYCERIN (NITROSTAT) 0.[address] 0.4 mg under the tongue every 5 (five) minutes if needed for chest pain. NYSTATIN (MYCOSTATIN) 224691 UNIT/GM POWDER Apply to the affected area (underneath breasts), once daily, 30 day supply PANTOPRAZOLE (PROTONIX) 40 MG EC TABLET TAKE 1 TABLET BY MOUTH EVERY DAY IN THE MORNING POTASSIUM CHLORIDE CR (KLOR-CON) 10 MEQ ER TABLET Take 1 tablet (10 mEq) by mouth Daily RIVAROXABAN (XARELTO) 20 MG TABLET Take 1 tablet (20 mg) by mouth in the evening. Take with meals Modified Medications Modified Medication Previous Medication INSULIN INFUSION PUMP (T:SLIM X2 INS PUMP/CONTROL-IQ) DEVICE Insulin Infusion Pump (T:slim X2 Ins Pump/Control-IQ) device Basal: 12A 0.0, 5A 0.5, 11A 0.3, 5P 0.15, 10P 0.0, ICR: 12A 4, 5A 3, 11A 5., 5P 4.5, ISF: 12A 100, 5A 50, 10P 100, Target: 100-150 Basal: 12A 0.0, 5A 0.5, 11A 0.3, 5P 0.15, 10P 0.0, ICR: 12A 4, 5A 3,11A 5., 5P 4.5, ISF: 12A 25, 8A 15, Target: 100-150 Discontinued Medications No medications on file I have reviewed and reconciled the history and medication list with the patient today. documented in this [id number] History of Present illness Narrative* Justino Powers, DPM - 03/10/2025 2:50 PM EDT Patient: Laquita Dailey : 1945 PCP: Prasanth Craig MD SUBJECTIVE Patient presents today for follow up of skin lesion/neoplasm of unknown origin to the left foot Pt states that previous treatment of acid tx with some improvement Pt rates pain the pain on a 1-10 scale an intensity of 3 Pt presents today for followup. Allergies: Allergies Allergen Reactions Ira Inhibitors Other Reaction(s): Unknown Phenothiazines Swelling Other Reaction(s): Unknown, Unknown Shellfish Allergy Other Reaction(s): Unknown Sulfamethoxazole Unknown Trimethoprim Unknown Penicillins Rash Other Reaction(s): Hives / Skin Rash, Other (See Comments), Unknown Past Medical History: Past Medical History: Diagnosis Date A-fib ([facility]) Angina pectoris Anxiety Anxiety state [place] esophagus [...] branch block) Migraine Migraine headache Osteopenia Osteoporosis ([facility]) x2 Prolonged Q-T interval on ECG 06/2019 PUD (peptic ulcer disease) Pure hypercholesterolemia Medications: Current Outpatient Medications: atorvastatin (Lipitor) 10 MG tablet, Take 10 mg by mouth in the morning., Disp: , Rfl: biotin 5 MG capsule, Take 10,000 mg by mouth Daily, Disp: , Rfl: Kysxtqp-Qzihulvwqj-Djrpcbx D (CITRACAL +D3 PO), Daily., Disp: , Rfl: cholecalciferol (Vitamin D-3) 50 MCG (1999 UT) tablet, Take by mouth., Disp: , [...] 3, 11A 5., 5P 4.5, ISF: 12A 25, 8A 15, Target: 100-150, Disp: 1 each, Rfl: 0 Insulin Lispro (HumaLOG) 100 UNIT/ML solution, Inject 1 Dose under the skin See administration instructions INJECT UP TO 100 UNITS VIA PUMP DIRECTED ONCE DAILY, Disp: 90 mL, Rfl: 3 insulin pen needle (Novofine Pen Needle) 32G x 6 mm misc, 1 (one) time each day at the [...] chest pain., Disp: , Rfl: nystatin (Mycostatin) 749734 UNIT/GM powder, Apply to the affected area [...] at the left sub 4th metatarsal measuring 0.2 cm x 0.2 cm. Right ankle has healed lesion VASC: Negative DP and positive PT pedal pulses NEURO: 5.07 [place] monofilament test intact to digits and forefoot bilaterally 125Hz tuning fork diminished to 1st MPJ bilaterally ORTHO: Positive pain on palpation to toenails of the left 1,2,3,4,5 toes and right 1,2,3,4,5 toes Positive pain on palpation left foot lesion ASSESSMENT 1. Verruca plantaris 2. Foot pain, left 3. 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 Application of DSD post procedure. Justino Powers DPM documented in this encounterSaint [id number] Nurse Note* Rani Sapp RN - 02/11/2025 12:05 PM EDT Discharge instructions were given by teach back method. Instructions included restrictions, discharge medications and follow-up appointments. Patient verbally stated understanding and all follow-up questions were answered correctly. Patient will be discharged to car by wheelchair once she is dressed and ready to go. [facility] Work Phone: [phone]) 292-557908-08-2025 Nurse Note* Rani Sapp RN - 02/11/2025 12:05 PM EDT Discharge instructions were given by teach back method. Instructions included restrictions, discharge medications and follow-up appointments. Patient verbally stated understanding and all follow-up questions were answered correctly. Patient will be discharged to car by wheelchair once she is dressed and ready to go. * Rani Sapp RN - 02/11/2025 11:05 AM EDT [facility] Post cardioversion, focused assessment completed and WDL. Patient provided with coffee but did not want anything to eat at this time. Patient's is out in the waiting room but was told he could come back at any time. documented in [facility] Work Phone: [phone]) 914-143508-08-2025 Nurse Note* Rani Sapp RN - 02/11/2025 11:05 AM EDT Patient cardioverted bedside in [facility] by Dr. Juarez. Post cardioversion, focused assessment completed and WDL. Patient provided with coffee but did not want anything to eat at this time. Patient's is out in the waiting room but was told he could come back at any time. [facility] Work Phone: [phone] 710-191208-08-2025 NoteTable formatting from the original result was not included. Procedure Details: Procedure Details: Cardioversion Summary: External electric cardioversion of atrial fibrillation to normal sinus rhythm was achieved using 200 J sync biphasic. Recommendations: 1. A 12 lead ECG should be performed prior to discharge from the hospital. 2. The patient should continue with the present medications. Discharge: 1. The patient recovered uneventfully from the effects of conscious sedation. The patient left the EP laboratory hemodynamically stable and without neurological deficits. Follow up: 1. The patient will be discharged on the day of the procedure, following bed rest and subsequent ambulation, provided the recovery parameters are appropriate. The patient should call the park keeper immediately if symptoms recur, or for any problems. The patient has been instructed accordingly. Procedures: Cardioversion. Patient history: Please refer to the detailed history and physical on the patient's medical chart. Palpitations associated with recurrence of atrial fibrillation, scheduled for electrical cardioversion Procedure narrative: The risks, benefits, and alternatives to the procedure and sedation were explained to the patient, and informed consent was obtained. The patient was in the fasting state. A grounding pad was placed. Self-adhesive anterior-posterior defibrillation pads were applied. A ZOLL defibrillator was used for monitoring and the defibrillator waveform was set to biphasic. The patient was set up for continuous monitoring of surface 12 lead ECG and pulse oximetry. Blood pressure was monitored with automatic cuff measurements. The procedure was performed under IV conscious sedation performed by anesthesiology service. 1. External electric cardioversion of atrial fibrillation to normal sinus rhythm was achieved using 200 J sync biphasic. Complications: The patient tolerated the procedure without any complications or incident. Prepared and signed by Tolerance: good Complications: None [id number] Hospital Discharge instructions* Discharge Instructions* Rani Sapp RN - 02/11/2025 10:59 AM EDT Images from the original note were not included. CARDIOVERSION DISCHARGE INSTRUCTIONS FOR SUDDEN AND SEVERE CHEST PAIN, SHORTNESS OF BREATH, SIGNS OF STROKE OR CHANGES IN MENTAL STATUS YOU SHOULD CALL [phone] IMMEDIATELY. FOR NEXT 24 HOURS due to the SEDATION - Upon discharge, you should return home and rest for the remainder of the day and evening. You do not have to stay on bed rest but should not be very active. It is recommended a responsible adult be with you for the first 24 hours after the procedure. - No driving for 24 hours after procedure. Please arrange for someone to drive you home from the hospital today. No driving until your follow-up appointment with your provider if you have had a passing out spell in the recent past or previously restricted from driving. - Do not operate machinery or use power tools for 24 hours after your procedure. - Do not make any legal decisions for 24 hours after your procedure. - Do not drink alcoholic beverages for 24 hours after your procedure. documented in this [facility] Work Phone: [phone]) 201-915508-08-2025 Attending History and physical note* Juan José Juarez MD - 02/11/2025 10:30 AM EDT H&P reviewed. The patient was examined and there are no changes to the H&P. Source Note - Juan José Juarez MD - 01/26/2025 11:45 AM EDT CARDIOLOGY OFFICE VISIT CHIEF COMPLAINT Chief Complaint Patient presents with Follow-up Pt. Present today for 6 month follow up for Palpitations HISTORY OF PRESENT ILLNESS HPI 79-year-old female with a past medical history of coronary artery disease with history of coronary artery bypass graft surgery x2 back in 1999. Recent cardiac catheterization in June 2019 showed POZO to LAD patent also radial to obtuse marginal patent with patent stents. Echocardiogram in April 2018 showed left ventricular ejection fraction 45 to 50% with mild mitral vegetation. History of diabetes mellitus and hyperlipidemia. She was diagnosed of atrial fibrillation back in April 2018 and she was placed on beta-blockers, Xarelto and also amiodarone. Amiodarone was discontinued due to significant tremors. She had a cardiac catheterization in August 2020 that ended with PCI of the radial graft to the obtuse marginal and PCI of the PLV B. A Holter monitor was ordered that shows underlying rhythm was sinus rhythm with a minimum heart rate of 40 bpm maximum heart rate of 83 bpm with average heart rate of 50 bpm. There was evidence of chronotropic incompetence based on results of the study. Lately she is doing well. She has occasional palpitations but no limiting cardial activities. She was recently admitted to [facility] in April 21 to 2022. Apparently she was admitted for palpitations. On arrival to emergency department her symptoms disappear Patient was seen my office in June 2024. Patient [place] She started noticing palpitations due to significant one of his stress. Patient states that since then she has been having on and off palpitations. EKG performed today shows atrial fibrillation at a rate of 59 bpm QRS duration 130 ms QT corrected 427 ms. Rhythm strip shows the same pattern. Patient is still on Xarelto therapy. Beta-demetrius therapy. Past Medical History Medical History[1] Social History Social History[2] Family History Family History[3] Allergies: RX Allergies[4] Outpatient Medications: Current Outpatient Medications Medication Instructions atorvastatin (LIPITOR) 10 mg, oral, Nightly biotin 5 mg capsule 1 capsule, Daily calcium citrate/vitamin D3 (CALCIUM CITRATE + D ORAL) 1 tablet, Daily doxylamine succinate (NITETIME SLEEP-AID ORAL) 1 capsule, Nightly ferrous sulfate 65 mg, Daily with breakfast furosemide (LASIX) 20 mg, oral, Daily insulin lispro (HumaLOG) 100 UNIT/ML patient supplied pump Daily RT magnesium oxide (Mag-Ox) 400 mg (241.3 mg elemental) tablet 1 tablet, oral, 2 times daily metoprolol succinate XL (TOPROL-XL) 50 mg, oral, Daily nitroglycerin (Nitrodur) 0.2 mg/hr patch 1 patch, Every other day nitroglycerin (NITROSTAT) 0.4 mg, sublingual, Every 5 min PRN pantoprazole (ProtoNix) 40 mg EC tablet 1 tablet, Daily potassium chloride CR 10 mEq ER tablet 10 mEq, oral, Daily rivaroxaban (XARELTO) 20 mg, oral, Daily REVIEW OF SYSTEMS Review of Systems Cardiovascular: Negative for chest pain, dyspnea on exertion and palpitations. All other systems reviewed and are negative. VITALS Vitals: 01/26/25 1253 BP: 122/64 Pulse: 59 PHYSICAL EXAM Constitutional: General: Awake. Appearance: Normal and healthy appearance. Well-developed and not in distress. Neck: Vascular: No JVR. JVD normal. Pulmonary: Effort: Pulmonary effort is normal. Breath sounds: Normal breath sounds. No wheezing. No rhonchi. No rales. Chest: Chest wall: Not tender to palpatation. Cardiovascular: PMI at left midclavicular line. Bradycardia present. Irregularly irregular rhythm. Normal S1. Normal S2. Murmurs: There is no murmur. No gallop. No click. No rub. Comments: Atrial fibrillation Pulses: Intact distal pulses. Edema: Peripheral edema absent. Abdominal: Tenderness: There is no abdominal tenderness. Musculoskeletal: Normal range of motion. General: No tenderness. Skin: General: Skin is warm and dry. Neurological: General: No focal deficit present. Mental Status: Alert and oriented to person, place and time. ASSESSMENT AND PLAN Impression 1. New diagnosis atrial fibrillation since April 2018.-Persistent atrial fibrillation, plan discussed during this office visit. Now recurrence of atrial fibrillation 2. Long-term anticoagulation therapy with Xarelto., No evidence of bleeding 3. History of gastric ulcer with bleeding with hemoglobin 7.1 to require blood transfusions. Now she is back on Xarelto. Multiple episodes of bleeding described by patient during this office visit 4. Coronary artery disease, status post percutaneous core interventions and coronary bypass graft surgery in 1999. Recent cardiac catheterization as described above, recent cardiac catheterization ended with PCI of the radial graft to the obtuse marginal and PCI of the PL BV 5. High risk medication (amiodarone). Patient has been off this medication since mid February 2020, stable 6. QT prolongation with low-dose Betapace, resolved 7. Left bundle branch block, stable 8. Normal ventricular function per echocardiogram as described above, no new changes 9. Tremors 10. Fatigue, tiredness, resolved after PCI was performed Plan recommendations I had a lengthy discussion with patient regarding management for recurrence of atrial fibrillation.Will offer her a cardioversion in the next few days. Procedure, risk, benefits and possible complications were explained to patient. All questions were answered. Patient agrees with plan. Informed consent was signed. Continue with anticoagulant therapy. Continue beta-demetrius therapy. If patient has recurrence of atrial fibrillation post cardioversion, we can offer her antiarrhythmic therapy. Follow my office 4 to 6 weeks post cardioversion or sooner if needed. Risk factor modification and lifestyle modification discussed with patient. Diet , exercise and hydration discussed with patient. I have personally review with patient during this office visit, laboratory data, echocardiogram results, stress test results, Holter-event monitor results prior and after the last electrophysiology visit. All questions has been answered. Please excuse any errors in grammar or translation related to this dictation. Voice recognition software was utilized to prepare this document. I, Dr. Juarez, personally performed the services described in the documentation as scribed by the nurse in my presence, and confirm it is both accurate and complete. [1] Past Medical History: Diagnosis Date Coronary angioplasty status 05/23/2021 History of PTCA Encounter for preprocedural laboratory examination Pre-procedure lab exam Other chest pain Atypical chest pain Personal history of other endocrine, nutritional and metabolic disease History of obesity Personal history of other endocrine, nutritional and metabolic disease History of hypoglycemia Personal history of other endocrine, nutritional and metabolic disease 06/04/2021 History of obesity Personal history of other specified conditions History of fatigue Personal history of other specified conditions History of syncope Personal history of other specified conditions History of snoring [2] Social History Tobacco Use Smoking status: Never Smokeless tobacco: Never Substance Use Topics Alcohol use: Never Drug use: Never [3] Family History Problem Relation Name Age of Onset Other (acute myocardial infarction) Sister Other (acute myocardial infarction) Brother [4] Allergies Allergen Reactions Trimethoprim Anaphylaxis Ira Inhibitors Unknown Phenothiazines Swelling Shellfish Containing Products Unknown Penicillins Rash [facility] Work Phone: [phone]) 862-476308-08-2025 History and physical note* Juan José Juarez MD - 02/11/2025 10:30 AM EDT H&P reviewed. The patient was examined and there are no changes to the H&P. Source Note - Juan José Juarez MD - 01/26/2025 11:45 AM EDT CARDIOLOGY OFFICE VISIT CHIEF COMPLAINT Chief Complaint Patient presents with Follow-up Pt. Present today for 6 month follow up for Palpitations HISTORY OF PRESENT ILLNESS HPI 79-year-old female with a past medical history of coronary artery disease with history of coronary artery bypass graft surgery x2 back in 1999. Recent cardiac catheterization in June 2019 showed POZO to LAD patent also radial to obtuse marginal patent with patent stents. Echocardiogram in April 2018 showed left ventricular ejection fraction 45 to 50% with mild mitral vegetation. History of diabetes mellitus and hyperlipidemia. She was diagnosed of atrial fibrillation back in April 2018 and she was placed on beta-blockers, Xarelto and also amiodarone. Amiodarone was discontinued due to significant tremors. She had a cardiac catheterization in August 2020 that ended with PCI of the radial graft to the obtuse marginal and PCI of the PLV B. A Holter monitor was ordered that shows underlying rhythm was sinus rhythm with a minimum heart rate of 40 bpm maximum heart rate of 83 bpm with average heart rate of 50 bpm. There was evidence of chronotropic incompetence based on results of the study. Lately she is doing well. She has occasional palpitations but no limiting cardial activities. She was recently admitted to [facility] in April 21 to 2022. Apparently she was admitted for palpitations. On arrival to emergency department her symptoms disappear Patient was seen my office in June 2024. Patient [place] She started noticing palpitations due to significant one of his stress. Patient states that since then she has been having on and off palpitations. EKG performed today shows atrial fibrillation at a rate of 59 bpm QRS duration 130 ms QT corrected 427 ms. Rhythm strip shows the same pattern. Patient is still on Xarelto therapy. Beta-demetrius therapy. Past Medical History Medical History[1] Social History Social History[2] Family History Family History[3] Allergies: RX Allergies[4] Outpatient Medications: Current Outpatient Medications Medication Instructions atorvastatin (LIPITOR) 10 mg, oral, Nightly biotin 5 mg capsule 1 capsule, Daily calcium citrate/vitamin D3 (CALCIUM CITRATE + D ORAL) 1 tablet, Daily doxylamine succinate (NITETIME SLEEP-AID ORAL) 1 capsule, Nightly ferrous sulfate 65 mg, Daily with breakfast furosemide (LASIX) 20 mg, oral, Daily insulin lispro (HumaLOG) 100 UNIT/ML patient supplied pump Daily RT magnesium oxide (Mag-Ox) 400 mg (241.3 mg elemental) tablet 1 tablet, oral, 2 times daily metoprolol succinate XL (TOPROL-XL) 50 mg, oral, Daily nitroglycerin (Nitrodur) 0.2 mg/hr patch 1 patch, Every other day nitroglycerin (NITROSTAT) 0.4 mg, sublingual, Every 5 min PRN pantoprazole (ProtoNix) 40 mg EC tablet 1 tablet, Daily potassium chloride CR 10 mEq ER tablet 10 mEq, oral, Daily rivaroxaban (XARELTO) 20 mg, oral, Daily REVIEW OF SYSTEMS Review of Systems Cardiovascular: Negative for chest pain, dyspnea on exertion and palpitations. All other systems reviewed and are negative. VITALS Vitals: 01/26/25 1253 BP: 122/64 Pulse: 59 PHYSICAL EXAM Constitutional: General: Awake. Appearance: Normal and healthy appearance. Well-developed and not in distress. Neck: Vascular: No JVR. JVD normal. Pulmonary: Effort: Pulmonary effort is normal. Breath sounds: Normal breath sounds. No wheezing. No rhonchi. No rales. Chest: Chest wall: Not tender to palpatation. Cardiovascular: PMI at left midclavicular line. Bradycardia present. Irregularly irregular rhythm. Normal S1. Normal S2. Murmurs: There is no murmur. No gallop. No click. No rub. Comments: Atrial fibrillation Pulses: Intact distal pulses. Edema: Peripheral edema absent. Abdominal: Tenderness: There is no abdominal tenderness. Musculoskeletal: Normal range of motion. General: No tenderness. Skin: General: Skin is warm and dry. Neurological: General: No focal deficit present. Mental Status: Alert and oriented to person, place and time. ASSESSMENT AND PLAN Impression 1. New diagnosis atrial fibrillation since April 2018.-Persistent atrial fibrillation, plan discussed during this office visit. Now recurrence of atrial fibrillation 2. Long-term anticoagulation therapy with Xarelto., No evidence of bleeding 3. History of gastric ulcer with bleeding with hemoglobin 7.1 to require blood transfusions. Now she is back on Xarelto. Multiple episodes of bleeding described by patient during this office visit 4. Coronary artery disease, status post percutaneous core interventions and coronary bypass graft surgery in 1999. Recent cardiac catheterization as described above, recent cardiac catheterization ended with PCI of the radial graft to the obtuse marginal and PCI of the PL BV 5. High risk medication (amiodarone). Patient has been off this medication since mid February 2020, stable 6. QT prolongation with low-dose Betapace, resolved 7. Left bundle branch block, stable 8. Normal ventricular function per echocardiogram as described above, no new changes 9. Tremors 10. Fatigue, tiredness, resolved after PCI was performed Plan recommendations I had a lengthy discussion with patient regarding management for recurrence of atrial fibrillation.Will offer her a cardioversion in the next few days. Procedure, risk, benefits and possible complications were explained to patient. All questions were answered. Patient agrees with plan. Informed consent was signed. Continue with anticoagulant therapy. Continue beta-demetrius therapy. If patient has recurrence of atrial fibrillation post cardioversion, we can offer her antiarrhythmic therapy. Follow my office 4 to 6 weeks post cardioversion or sooner if needed. Risk factor modification and lifestyle modification discussed with patient. Diet , exercise and hydration discussed with patient. I have personally review with patient during this office visit, laboratory data, echocardiogram results, stress test results, Holter-event monitor results prior and after the last electrophysiology visit. All questions has been answered. Please excuse any errors in grammar or translation related to this dictation. Voice recognition software was utilized to prepare this document. I, Dr. Juarez, personally performed the services described in the documentation as scribed by the nurse in my presence, and confirm it is both accurate and complete. [1] Past Medical History: Diagnosis Date Coronary angioplasty status 05/23/2021 History of PTCA Encounter for preprocedural laboratory examination Pre-procedure lab exam Other chest pain Atypical chest pain Personal history of other endocrine, nutritional and metabolic disease History of obesity Personal history of other endocrine, nutritional and metabolic disease History of hypoglycemia Personal history of other endocrine, nutritional and metabolic disease 06/04/2021 History of obesity Personal history of other specified conditions History of fatigue Personal history of other specified conditions History of syncope Personal history of other specified conditions History of snoring [2] Social History Tobacco Use Smoking status: Never Smokeless tobacco: Never Substance Use Topics Alcohol use: Never Drug use: Never [3] Family History Problem Relation Name Age of Onset Other (acute myocardial infarction) Sister Other (acute myocardial infarction) Brother [4] Allergies Allergen Reactions Trimethoprim Anaphylaxis Ira Inhibitors Unknown Phenothiazines Swelling Shellfish Containing Products Unknown Penicillins Rash [facility] Work Phone: 1([phone]) 360-431908-08-2025 Miscellaneous Notes* Pre-Sedation Documentation - Juan José Juarez MD - 02/11/2025 10:30 AM EDT Sedation Plan ASA 2 Mallampati class: II. Risks, benefits, and alternatives discussed with patient. [facility] Work Phone: 1(245) 875-562908-08-2025 Nurse procedure note* Pre-Sedation Documentation - Juan José Juarez MD - 02/11/2025 10:30 AM EDT Sedation Plan ASA 2 Mallampati class: II. Risks, benefits, and alternatives discussed with patient. [facility] Work Phone: [phone]) [phone] History of Present illness Narrative* Eder Everett, DO - 02/09/2025 11:30 AM EDT Chief Complaint Patient presents with Follow-up 8 month, coronary artery disease Subjective Laquita Dailey is a 79 y.o. female 79-year-old female well-known to me, returns for 8-month cardiovascular follow- up, recently saw in electrophysiology office with recurrence of A-fib. Today's exam and ECG again confirms persistent atrial fibrillation with bradycardic response at 56 bpm with under lying left bundle branch block configuration. She has extensive cardiovascular history with prior CABG, prior PR, prior PCI's, see below: She has an extensive past medical history of coronary artery disease with history of coronary artery bypass graft surgery x2 back in 1999. Recent cardiac catheterization in June 2019 showed POZO to LAD patent also radial to obtuse marginal patent with patent stents. Echocardiogram in April 2018 showed left ventricular ejection fraction 45 to 50% with mild mitral regurgitation. History of diabetes mellitus and hyperlipidemia. She was diagnosed of atrial fibrillation back in April 2018 and she was placed on beta-blockers, Xarelto and also amiodarone. Amiodarone was discontinued due to significant tremors. She had a cardiac catheterization in August 2020 that ended with PCI of the radial graft to the obtuse marginal and PCI of the PLV B. She is now in a controlled atrial fibrillation as described, she denies any shortness of breath or angina or edema, nitrate usage or hospitalizations At this time Dr. Juarez plans to proceed with elective cardioversion, with possible reinstitution of antiarrhythmic therapy. Will follow-up in 6-month Review of Systems All other systems reviewed and are negative. EKG done in office today Vitals: 02/09/25 1147 BP: 138/78 BP Location: Left arm Patient Position: Sitting Pulse: 58 Weight: 80.2 kg (176 lb 12.8 oz) Height: 1.664 m (5' 5.5 ) Objective Physical Exam Constitutional: Appearance: Normal appearance. HENT: Nose: Nose normal. Neck: Vascular: No carotid bruit. Cardiovascular: Rate and Rhythm: Normal rate. Rhythm irregular. Pulses: Normal pulses. Heart sounds: Normal heart sounds. Pulmonary: Effort: Pulmonary effort is normal. Abdominal: General: Bowel sounds are normal. Palpations: Abdomen is soft. Musculoskeletal: General: Normal range of motion. Cervical back: Normal range of motion. Right lower leg: No edema. Left lower leg: No edema. Skin: General: Skin is warm and dry. Neurological: General: No focal deficit present. Mental Status: She is alert. Psychiatric: Mood and Affect: Mood normal. Behavior: Behavior normal. Thought Content: Thought content normal. Judgment: Judgment normal. Allergies Trimethoprim, Ira inhibitors, Phenothiazines, Shellfish containing products, and Penicillins Current Medications Current Outpatient Medications Medication Instructions atorvastatin (LIPITOR) 10 mg, oral, Nightly biotin 5 mg capsule 1 capsule, Daily calcium citrate/vitamin D3 (CALCIUM CITRATE + D ORAL) 1 tablet, Daily doxylamine succinate (NITETIME SLEEP-AID ORAL) 1 capsule, Nightly ferrous sulfate 65 mg, Daily with breakfast furosemide (LASIX) 20 mg, oral, Daily insulin lispro (HumaLOG) 100 UNIT/ML patient supplied pump Daily RT magnesium oxide (Mag-Ox) 400 mg (241.3 mg elemental) tablet 1 tablet, oral, 2 times daily metoprolol succinate XL (TOPROL-XL) 50 mg, oral, Daily nitroglycerin (Nitrodur) 0.2 mg/hr patch 1 patch, Every other day nitroglycerin (NITROSTAT) 0.4 mg, sublingual, Every 5 min PRN pantoprazole (ProtoNix) 40 mg EC tablet 1 tablet, Daily potassium chloride CR 10 mEq ER tablet 10 mEq, oral, Daily rivaroxaban (XARELTO) 20 mg, oral, Daily Assessment/Plan 1. ASHD (arteriosclerotic heart disease) Follow Up In Cardiology 2. High risk medication use 3. History of coronary artery bypass graft 4. History of PTCA 5. Type 2 diabetes mellitus without complication, with long-term current use of insulin 6. Paroxysmal atrial fibrillation (Multi) 7. Mixed hyperlipidemia 8. BMI 28.0-28.9,adult 9. Never smoked any substance Scribe Attestation By signing my name below, Sammie Fairbanks LPN, Scribe attest that this documentation has been prepared under the direction and in the presence of Lizzie Everett DO. Provider Attestation - Scribe documentation All medical record entries made by the Scribe were at my direction and personally dictated by me. Ihkarla reviewed the chart and agree that the record accurately reflects my personal performance of the history, physical exam, discussion and plan. documented in [facility] Work Phone: 1([phone]) 521-507508-06-2025 Instructions* Patient Instructions* Sammie Dempsey LPN - 02/09/2025 11:30 AM EDT Please bring all medicines, vitamins, and herbal supplements with you when you come to the office. Prescriptions will not be filled unless you are compliant with your follow up appointments or have a follow up appointment scheduled as per instruction of your physician. Refills should be requested at the time of your visit. BMI was above normal measurement. Current weight: 80.2 kg (176 lb 12.8 oz) Weight change since last visit (-) denotes wt loss -3.2 lbs Weight loss needed to achieve BMI 25: 24.6 Lbs Weight loss needed to achieve BMI 30: -5.9 Lbs Provided instructions on dietary changes. * Attachments The following attachments cannot be sent through Care Everywhere. * Heart Healthy Diet (Serbian) documented in this encounterJoint [facility] Work Phone: [phone]) [phone] History of Present illness Narrative* Justino Powers DPM - 02/03/2025 3:30 PM EDT Patient: Laquita Dailey : 1945 PCP: Prasanth Craig MD SUBJECTIVE Patient presents today for follow up of skin lesion/neoplasm of unknown origin to the left foot Pt states that previous treatment of acid tx with some improvement Pt rates pain the pain on a 1-10 scale an intensity of 8 Pt presents today for followup. Patient presents today with a CC of elongated, thick nails. Pt states nails have been elongated and thick for many years and cause pain with ambulation in shoegear. Pt has tried previous treatment with minimal relief. Pt presents today for nail care and treatment. Patient is DM2 Patient had prior history of right ankle wound post excision of basal cell carcinoma by Dermatologyin 2023. Patient states lesion has healed Allergies: Allergies Allergen Reactions Ira Inhibitors Other Reaction(s): Unknown Phenothiazines Swelling Other [...] mg by mouth Daily, Disp: , Rfl: Idfindh-Iwuafrhmqm-Gtnvjcx D (CITRACAL +D3 PO), Daily., Disp: , Rfl: cholecalciferol (Vitamin D-3) 50 MCG (1999 UT) tablet, Take by mouth., Disp: , [...] 3, 11A 5., 5P 4.5, ISF: 12A 25, 8A 15, Target: 100-150, Disp: 1 each, Rfl: 0 Insulin Lispro (HumaLOG) 100 UNIT/ML solution, Inject 1 Dose under the skin See administration instructions INJECT UP TO 100 UNITS VIA PUMP DIRECTED ONCE DAILY, Disp: 90 mL, Rfl: 3 insulin pen needle (Novofine Pen Needle) 32G x 6 mm misc, 1 (one) time each day at the [...] chest pain., Disp: , Rfl: nystatin (Mycostatin) 197617 UNIT/GM powder, Apply to the affected area (underneath breasts), once daily, 30 day supply, Disp: 60 g, Rfl: 11 pantoprazole (ProtoNix) 40 MG EC tablet, TAKE 1 TABLET BY MOUTH EVERY DAY IN THE MORNING, Disp: 100tablet, Rfl: 3 potassium chloride CR (Klor-Con) 10 MEQ ER tablet, Take 1 tablet (10 mEq) by mouth Daily, Disp: 100tablet, Rfl: 3 Xarelto 20 MG tablet, Take 20 mg by mouth in the evening. Take with meals., Disp: , Rfl: Social History: Social History Socioeconomic History Marital [...] at the left sub 4th metatarsal measuring 0.2 cm x 0.3 cm. Right ankle has healed lesion VASC: Negative DP and positive PT pedal pulses NEURO: 5.07 [place] monofilament test intact to digits and forefoot bilaterally 125Hz tuning fork diminished to 1st MPJ bilaterally ORTHO: Positive pain on palpation to toenails of the left 1,2,3,4,5 toes and right 1,2,3,4,5 toes Positive pain on palpation left foot lesion ASSESSMENT 1. Verruca plantaris 2. Foot pain, left 3. 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 Pain due to onychomycosis of toenails of both feet PLAN Application of salinocaine acid medication to lesion/lesions located at left foot Informed pt of risks and benefits of procedure including high reoccurence rate, infection, pain andconsent given. Application of DSD post procedure. Discussed proper foot care with patient today. Debride nails in length and thickness digits 1 through 10 Patient educated today on proper diabetic foot care including monitoring feet daily for any signs of infection openings in the skin or irregularities to both feet. Patient had a diabetic neurologicalexam today to both their feet and discussed proper shoe gear. Justino Powers DPM documented in this encounterSaint [facility]–[id number] History of Present illness Narrative* Juan José Juarez MD - 01/26/2025 11:45 AM EDT CARDIOLOGY OFFICE VISIT CHIEF COMPLAINT Chief Complaint Patient presents with Follow-up Pt. Present today for 6 month follow up for Palpitations HISTORY OF PRESENT ILLNESS HPI 79-year-old female with a past medical history of coronary artery disease with history of coronary artery bypass graft surgery x2 back in 1999. Recent cardiac catheterization in June 2019 showed POZO to LAD patent also radial to obtuse marginal patent with patent stents. Echocardiogram in April 2018 showed left ventricular ejection fraction 45 to 50% with mild mitral vegetation. History of diabetes mellitus and hyperlipidemia. She was diagnosed of atrial fibrillation back in April 2018 and she was placed on beta-blockers, Xarelto and also amiodarone. Amiodarone was discontinued due to significant tremors. She had a cardiac catheterization in August 2020 that ended with PCI of the radial graft to the obtuse marginal and PCI of the PLV B. A Holter monitor was ordered that shows underlying rhythm was sinus rhythm with a minimum heart rate of 40 bpm maximum heart rate of 83 bpm with average heart rate of 50 bpm. There was evidence of chronotropic incompetence based on results of the study. Lately she is doing well. She has occasional palpitations but no limiting cardial activities. She was recently admitted to [facility] in April 21 to 2022. Apparently she was admitted for palpitations. On arrival to emergency department her symptoms disappear Patient was seen my office in June 2024. Patient states [place] She started noticing palpitations due to significant one of his stress. Patient states that since then she has been having on and off palpitations. EKG performed today shows atrial fibrillation at a rate of 59 bpm QRS duration 130 ms QT corrected 427 ms. Rhythm strip shows the same pattern. Patient is still on Xarelto therapy. Beta-demetrius therapy. Past Medical History Medical History[1] Social History Social History[2] Family History Family History[3] Allergies: RX Allergies[4] Outpatient Medications: Current Outpatient Medications Medication Instructions atorvastatin (LIPITOR) 10 mg, oral, Nightly biotin 5 mg capsule 1 capsule, Daily calcium citrate/vitamin D3 (CALCIUM CITRATE + D ORAL) 1 tablet, Daily doxylamine succinate (NITETIME SLEEP-AID ORAL) 1 capsule, Nightly ferrous sulfate 65 mg, Daily with breakfast furosemide (LASIX) 20 mg, oral, Daily insulin lispro (HumaLOG) 100 UNIT/ML patient supplied pump Daily RT magnesium oxide (Mag-Ox) 400 mg (241.3 mg elemental) tablet 1 tablet, oral, 2 times daily metoprolol succinate XL (TOPROL-XL) 50 mg, oral, Daily nitroglycerin (Nitrodur) 0.2 mg/hr patch 1 patch, Every other day nitroglycerin (NITROSTAT) 0.4 mg, sublingual, Every 5 min PRN pantoprazole (ProtoNix) 40 mg EC tablet 1 tablet, Daily potassium chloride CR 10 mEq ER tablet 10 mEq, oral, Daily rivaroxaban (XARELTO) 20 mg, oral, Daily REVIEW OF SYSTEMS Review of Systems Cardiovascular: Negative for chest pain, dyspnea on exertion and palpitations. All other systems reviewed and are negative. VITALS Vitals: 01/26/25 1253 BP: 122/64 Pulse: 59 PHYSICAL EXAM Constitutional: General: Awake. Appearance: Normal and healthy appearance. Well-developed and not in distress. Neck: Vascular: No JVR. JVD normal. Pulmonary: Effort: Pulmonary effort is normal. Breath sounds: Normal breath sounds. No wheezing. No rhonchi. No rales. Chest: Chest wall: Not tender to palpatation. Cardiovascular: PMI at left midclavicular line. Bradycardia present. Irregularly irregular rhythm. Normal S1. Normal S2. Murmurs: There is no murmur. No gallop. No click. No rub. Comments: Atrial fibrillation Pulses: Intact distal pulses. Edema: Peripheral edema absent. Abdominal: Tenderness: There is no abdominal tenderness. Musculoskeletal: Normal range of motion. General: No tenderness. Skin: General: Skin is warm and dry. Neurological: General: No focal deficit present. Mental Status: Alert and oriented to person, place and time. ASSESSMENT AND PLAN Impression 1. New diagnosis atrial fibrillation since April 2018.-Persistent atrial fibrillation, plan discussed during this office visit. Now recurrence of atrial fibrillation 2. Long-term anticoagulation therapy with Xarelto., No evidence of bleeding 3. History of gastric ulcer with bleeding with hemoglobin 7.1 to require blood transfusions. Now she is back on Xarelto. Multiple episodes of bleeding described by patient during this office visit 4. Coronary artery disease, status post percutaneous core interventions and coronary bypass graft surgery in 1999. Recent cardiac catheterization as described above, recent cardiac catheterization ended with PCI of the radial graft to the obtuse marginal and PCI of the PL BV 5. High risk medication (amiodarone). Patient has been off this medication since mid February 2020, stable 6. QT prolongation with low-dose Betapace, resolved 7. Left bundle branch block, stable 8. Normal ventricular function per echocardiogram as described above, no new changes 9. Tremors 10. Fatigue, tiredness, resolved after PCI was performed Plan recommendations I had a lengthy discussion with patient regarding management for recurrence of atrial fibrillation.Will offer her a cardioversion in the next few days. Procedure, risk, benefits and possible complications were explained to patient. All questions were answered. Patient agrees with plan. Informed consent was signed. Continue with anticoagulant therapy. Continue beta-demetrius therapy. If patient has recurrence of atrial fibrillation post cardioversion, we can offer her antiarrhythmic therapy. Follow my office 4 to 6 weeks post cardioversion or sooner if needed. Risk factor modification and lifestyle modification discussed with patient. Diet , exercise and hydration discussed with patient. I have personally review with patient during this office visit, laboratory data, echocardiogram results, stress test results, Holter-event monitor results prior and after the last electrophysiology visit. All questions has been answered. Please excuse any errors in grammar or translation related to this dictation. Voice recognition software was utilized to prepare this document. I, Dr. Juaerz, personally performed the services described in the documentation as scribed by the nurse in my presence, and confirm it is both accurate and complete. [1] Past Medical History: Diagnosis Date Coronary angioplasty status 05/23/2021 History of PTCA Encounter for preprocedural laboratory examination Pre-procedure lab exam Other chest pain Atypical chest pain Personal history of other endocrine, nutritional and metabolic disease History of obesity Personal history of other endocrine, nutritional and metabolic disease History of hypoglycemia Personal history of other endocrine, nutritional and metabolic disease 06/04/2021 History of obesity Personal history of other specified conditions History of fatigue Personal history of other specified conditions History of syncope Personal history of other specified conditions History of snoring [2] Social History Tobacco Use Smoking status: Never Smokeless tobacco: Never Substance Use Topics Alcohol use: Never Drug use: Never [3] Family History Problem Relation Name Age of Onset Other (acute myocardial infarction) Sister Other (acute myocardial infarction) Brother [4] Allergies Allergen Reactions Trimethoprim Anaphylaxis Ira Inhibitors Unknown Phenothiazines Swelling Shellfish Containing Products Unknown Penicillins Rash documented in this [facility] Work Phone: 1(446) 202-178607-23-2025 Instructions* Patient Instructions* Fariha Casanova RN - 01/26/2025 11:45 AM EDT Images from the original note were not included. Pre-Procedure Patient Information You have been scheduled for: cardioversion At: [facility] With: Dr. Juarez Date of procedure: 1. Please have transportation to and from the hospital. While you should plan for same-day discharge there is a possibility you will need to stay overnight. 2. You will receive a call from the hospital 24 - 72 hours before your procedure providing you withfasting instructions, procedure location detail, and time of arrival. If you have not received a call from the hospital by 6 pm the day before your scheduled procedure, please call [phone]. 3. Please bring a current list of medications with you to the hospital. 4. Medications to hold: - If you are diabetic on insulin: take half dose of your long acting insulin the night before and hold your short acting insulin and oral diabetes medications on the morning of. - Otherwise, you may continue your medications in the morning with sips of water. 5. Nothing to eat after midnight before the procedure. OK to take morning medications, with above exceptions, the day of the procedure with a small sip of water. 6. Please bring to our attention if you have any contrast, latex or metal allergies. 7. Please have your blood work as instructed completed at least a day before your procedure. 8. If you have any questions, please contact the office at [phone]. Continue same medications/treatment. Patient educated on proper medication use. Patient educated on risk factor modification. Please bring any lab results from other providers/physicians to your next appointment. Please bring all medicines, vitamins, and herbal supplements with you when you come to the office. Prescriptions will not be filled unless you are compliant with your follow up appointments or have a follow up appointment scheduled as per instruction of your physician. Refills should be requested at the time of your visit. SCHEDULE cardioversion. Obtain labs today. Orders are in the system. Follow up with Dr. Juarez 4-6 weeks after cardioversion Fariha Fairbanks RN, AM SCRIBING FOR, AND IN THE PRESENCE OF DR. 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 Encouraged to check blood glucose throughout the day with some fasting and some PP readings. They are to bring their glucose meter/cgm in to all appointments. All of the patients questions, treatment options, and current care plan and goals were discussed. Acopy of this along with pertinent instructions were given to the patient at the end of the appointment. The patient voices understanding of all of this and is to call in between appointments if they have any problems or questions. Laquita Dailey control is stable overall. , The patient is wearing their cgm on a daily basis andmaking decisions in regards to adjusting insulin daily as well for at least the last 60 days , Instructions given today include: Pump instructions. Will adjust insulin accordingly. * Lizzette Monk DO - 11/30/2024 1:15 PM EDT Images from the original note were not included. Laquita Dailey is a 79 y.o. female presents with chief complaint of Diabetes HPI: Diabetes Mellitus Follow-up: Laquita Dailey is here for follow-up evaluation of diabetes mellitus. The initial diagnosis of diabetes was made at 19 years old Diabetes complications: heart disease, renal failure Hx of diabetes medications tried: none She has been checking her blood glucose with Tandem pump - LINKED in T- Source- Dexcom G7- READER- on a daily basis. Last A1c: 6.7 on 10/26/2024 and 7.1 at her last ov on 05/17/24 Last eye exam: 2023- retina specialist Current concerns include: Switched to the tandem pump a week ago. Doesn't feel like her settings are correct. She corrects her carbs the pump is telling her she needs BG levels: similar to last visit Diet: count carbs Drinks: water, black coffee and diet pop Exercise: walking daily Hypoglycemia: sometimes before a meal Gets IV 3000 through [employer] for pump sites SUBJECTIVE: PROBLEM LIST SOCIAL ALLERGIES: Patient Active Problem List Diagnosis Acquired atresia of vagina Acute gastric ulcer with hemorrhage Age-related osteoporosis without current pathological fracture Allergic rhinitis Anxiety state Arrest of bone development or growth Spain's esophagus Benign essential hypertension Coronary artery disease involving [place] coronary artery of [place] heart without angina pectoris Depressive disorder Edema Esophageal reflux Essential tremor Estrogen deficiency Gastrointestinal hemorrhage associated with gastric ulcer Hearing loss Hx of CABG Hyperthyroidism Acquired iron deficiency anemia due to decreased absorption Iron deficiency anemia due to chronic blood loss Left bundle branch block Longstanding persistent atrial fibrillation (HCC) Migraine with aura Hypoglycemia due to type 1 diabetes mellitus (HCC) Paroxysmal atrial fibrillation (HCC) 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) 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 (HCC) H/O high risk medication treatment Epiretinal membrane Chronic gastric ulcer with hemorrhage but without obstruction Anticoagulated On amiodarone therapy Atherosclerosis of coronary artery without angina pectoris Hematuria prison current use of anticoagulant therapy Mixed hyperlipidemia 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) Age related osteoporosis Essential hypertension Decreased estrogen level History of coronary artery bypass surgery Thyrotoxicosis Iron deficiency anemia Atrial premature complexes 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HCC) Class 1 obesity due to excess calories with body mass index (BMI) of 30.0 to 30.9 in adult Gastric ulcer High risk medication use 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 Never smoked any substance Palpitations Raynaud phenomenon Ventricular tachycardia (paroxysmal) (HCC) Social History Tobacco Use Smoking status: Never Smokeless tobacco: Never Vaping Use Vaping status: Never Used Substance Use Topics Alcohol use: Never Comment: caffeine: coffee/tea Drug use: Never Allergies Allergen Reactions Ira Inhibitors Other Reaction(s): Unknown Phenothiazines Swelling Other Reaction(s): Unknown, Unknown Shellfish Allergy Other Reaction(s): Unknown Sulfamethoxazole Unknown Trimethoprim Unknown Penicillins Rash Other Reaction(s): Hives / Skin Rash, Other (See Comments), Unknown Synopsis SmartLink 01/21/2025 Antidiabetic medications Insulin Lispro 1 Dose See admin instructions INJECT UP TO 100 UNITS VIA PUMP DIRECTED ONCE DAILYSC (100 UNIT/ML SOLN) Outpatient prescription Medication marked as long-term The ASCVD Risk score (Rupali DK, et al., 2019) failed to calculate for the following reasons: The valid total cholesterol range is 130 to 320 mg/dL REVIEW OF SYMPTOMS: Review of Systems Constitutional: Negative for appetite change, fatigue and unexpected weight change. Eyes: Negative for visual disturbance. Respiratory: Negative for cough, shortness of breath and wheezing. Cardiovascular: Negative for chest pain, palpitations and leg swelling. Neurological: Negative for numbness. Endocrine: Negative for polydipsia, polyphagia and polyuria. OBJECTIVE: 12/13/2024 1:38 PM 11/30/2024 5:58 PM 11/30/2024 1:05 PM Vitals BMI 28.73 kg/m2 28.89 kg/m2 28.89 kg/m2 Systolic 118 130 120 Diastolic 78 82 64 Heart Rate 77 62 58 Temp 97.4 F 98.3 F Resp 16 Height (in) 5' 6 5' 6 Weight (lb) 178 179 179 Visit Report Report Report Report Report Report Physical Exam Constitutional: General: She is not in acute distress. Appearance: Normal appearance. Cardiovascular: Rate and Rhythm: Normal rate and regular rhythm. Heart sounds: No murmur heard. No friction rub. No gallop. Pulmonary: Breath sounds: Normal breath sounds. No wheezing, rhonchi or rales. Musculoskeletal: General: No swelling. Neurological: Mental Status: She is alert. 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 Encouraged to check blood glucose throughout the day with some fasting and some PP readings. They are to bring their glucose meter/cgm in to all appointments. All of the patients questions, treatment options, and current care plan and goals were discussed. Acopy of this along with pertinent instructions were given to the patient at the end of the appointment. The patient voices understanding of all of this and is to call in between appointments if they have any problems or questions. Laquita Dailey control is stable overall. , The patient is wearing their cgm on a daily basis andmaking decisions in regards to adjusting insulin daily as well for at least the last 60 days , Instructions given today include: Pump instructions. Will adjust insulin accordingly. 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 Patient's Medications New Prescriptions No medications on file Previous Medications ATORVASTATIN (LIPITOR) 10 MG TABLET Take 10 mg by mouth in the morning. BIOTIN 5 MG CAPSULE Take 10,000 mg by mouth Daily [id number] D (CITRACAL +D3 PO) Daily. CHOLECALCIFEROL (VITAMIN D-3) 50 MCG (1999 UT) TABLET Take by mouth. CLOBETASOL PROPIONATE E 0.05 % EMOLLIENT CREAM APPLY A THIN LAYER TO AFFECTED AREA TWICE DAILY FOR 2 MONTHS DOXYLAMINE (SLEEP AID) 25 MG TABLET Take 25 mg by mouth as needed at bedtime. FERROUS SULFATE 325 (65 FE) MG TABLET Take 325 mg by mouth in the morning. Take with meals. FUROSEMIDE (LASIX) 20 MG TABLET Take 1 tablet (20 mg) by mouth in the morning. INSULIN PEN NEEDLE (NOVOFINE PEN NEEDLE) 32G X 6 MM MISC 1 (one) time each day at the same time. MAGNESIUM OXIDE (MAG-OX) 400 MG TABLET Take 400 mg by mouth in the morning and 400 mg before bedtime. METOPROLOL SUCCINATE XL (TOPROL-XL) 50 MG 24 HR TABLET Take 50 mg by mouth in the morning. NITROGLYCERIN (NITRODUR) 0.2 MG/HR PATCH 1 PATCH TRANSDERMALLY DAILY NEEDED FOR CHEST PAIN FOR 30 DAYS NITROGLYCERIN (NITROSTAT) 0.[address] 0.4 mg under the tongue every 5 (five) minutes if needed for chest pain. NYSTATIN (MYCOSTATIN) 101031 UNIT/GM POWDER Apply to the affected area (underneath breasts), once daily, 30 day supply PANTOPRAZOLE (PROTONIX) 40 MG EC TABLET TAKE 1 TABLET BY MOUTH EVERY DAY IN THE MORNING XARELTO 20 MG TABLET Take 20 mg by mouth in the evening. Take with meals. Modified Medications Modified Medication Previous Medication GLUCOSE BLOOD (CONTOUR NEXT TEST) TEST STRIP Contour Next Test test strip Checking bg levels 3 times a day 1 each by Other route in the morning. INSULIN INFUSION PUMP (T:SLIM X2 INS PUMP/CONTROL-IQ) DEVICE Insulin Infusion Pump (T:slim X2 Ins Pump/Control-IQ) device Basal: 12A 0.0, 5A 0.5, 11A 0.3, 5P 0.15, 10P 0.0, ICR: 12A 4, 5A 3, 11A 5., 5P 4.5, ISF: 12A 25, 8A 15, Target: 100-150 Basal: 12A 0.0, 5A 0.5, 11A 0.3, 5P 0.15, ICR: 12A 4, 5A 3, 11A 5., 5P 4.5, ISF: 12A 25, 8A 15, Target: 100-150 INSULIN LISPRO (HUMALOG) 100 UNIT/ML SOLUTION Insulin Lispro (HumaLOG) 100 UNIT/ML solution Inject 1 Dose under the skin See administration instructions INJECT UP TO 100 UNITS VIA PUMP DIRECTED ONCE DAILY Inject 1 Dose under the skin See administration instructions INJECT UP TO 100 UNITSVIA PUMP DIRECTED ONCE DAILY POTASSIUM CHLORIDE CR (KLOR-CON) 10 MEQ ER TABLET potassium chloride CR (Klor- Con) 10 MEQ ER tablet Take 1 tablet (10 mEq) by mouth Daily Take 10 mEq by mouth Daily Discontinued Medications INSULIN INFUSION PUMP (MINIMED INSULIN PUMP) DEVICE Basal: 12A 0.0, 5A 0.45, 12P 0.25, ICR: 12A 3, 11A 5.5, 5P 4.5, ISF: 12A 25, 8A 15, Target: 100-150 INSULIN INFUSION PUMP (T:SLIM X2 INS PUMP/CONTROL-IQ) DEVICE Basal: 12A 0.0, 5A 0.45, 12P 0.25, ICR: 12A 3, 11A 5.5, 5P 4.5, ISF: 12A 25, 8A 15, Target: 100-150 I have reviewed and reconciled the history and medication list with the patient today. documented in this encounterNOMS [id number] History of Present illness Narrative* Prasanth Craig MD - 12/13/2024 1:30 PM EDT Images from the original note were not included. Subjective : Chief Complaint: Laquita Dailey is an 79 y.o. female here for an annual wellness visit. I have reviewed and reconciled the history and medication list with the patient today. Current Outpatient Medications Medication Sig Dispense Refill atorvastatin (Lipitor) 10 MG tablet Take 10 mg by mouth in the morning. biotin 5 MG capsule Take 10,000 mg by mouth Daily Jauixvi-Mmkuuylgvf-Wlgmkxc D (CITRACAL +D3 PO) Daily. cholecalciferol (Vitamin D-3) 50 MCG (1999 UT) tablet Take by mouth. Clobetasol Propionate E 0.05 % emollient cream APPLY A THIN LAYER TO AFFECTED AREA TWICE DAILY FOR 2 MONTHS Contour Next Test test strip 1 each by Other route in the morning. doxylamine (Sleep Aid) 25 MG tablet Take 25 mg by mouth as needed at bedtime. ferrous sulfate 325 (65 Fe) MG tablet Take 325 mg by mouth in the morning. Take with meals. furosemide (Lasix) 20 MG tablet Take 1 tablet (20 mg) by mouth in the morning. 100 tablet 3 Insulin Infusion Pump (T:slim X2 Ins Pump/Control-IQ) device Basal: 12A 0.0, 5A 0.5, 11A 0.3, 5P 0.15, ICR: 12A 4, 5A 3, 11A 5., 5P 4.5, ISF: 12A 25, 8A 15, Target: 100-150 1 each 0 Insulin Lispro (HumaLOG) 100 UNIT/ML solution Inject 1 Dose under the skin See administration instructions INJECT UP TO 100 UNITS VIA PUMP DIRECTED ONCE DAILY 90 mL 3 insulin pen needle (Novofine Pen Needle) 32G x 6 mm misc 1 (one) time each day at the same time. magnesium oxide (Mag-Ox) 400 MG tablet Take 400 mg by mouth in the morning and 400 mg before bedtime. metoprolol succinate XL (Toprol-XL) 50 MG 24 hr tablet Take 50 mg by mouth in the morning. nitroglycerin (Nitrodur) 0.2 MG/HR patch 1 PATCH TRANSDERMALLY DAILY NEEDED FOR CHEST PAIN FOR 30 DAYS nitroglycerin (Nitrostat) 0.[address] 0.4 mg under the tongue every 5 (five) minutes if needed for chest pain. nystatin (Mycostatin) 120547 UNIT/GM powder Apply to the affected area (underneath breasts), once daily, 30 day supply 60 g 11 pantoprazole (ProtoNix) 40 MG EC tablet TAKE 1 TABLET BY MOUTH EVERY DAY IN THE MORNING 100 tablet 3 potassium chloride CR (Klor-Con) 10 MEQ ER tablet Take 10 mEq by mouth Daily Xarelto 20 MG tablet Take 20 mg by mouth in the evening. Take with meals. No current facility-administered medications for this visit. Review of Systems List of current healthcare providers: Patient Care Team: Prasanth Craig MD as PCP - General (Internal Medicine) Lizzette Monk DO as PCP - ACO [employer] Annual Visit Over the past 2 weeks, how often have you been bothered by any of the following problems? Little interest or pleasure in doing things: Not at all Feeling down, depressed, or hopeless: Not at all Patient Health Questionnaire-2 Score: 0 Watters Fall Risk History of Falling, Immediate or Within 3 Months: No Health Risk Assessment Form Do you need help eating, bathing, using the toilet, dressing, or getting around your home?: No Can you prepare your own meals?: Yes Can you do your own housework without help?: Yes Can you shop for groceries or clothes without help?: Yes Do you exercise for about 20 minutes 3 or more days a week?: Yes How confident are you that you can control and manage most of your health problems?: Very confident Can you mange your money, credit cards and accounts, pay bills and taxes?: Yes Cognitive Screening Three Word Registration: Banana, Valera, Chair Clock Drawing: Normal Clock - 2 Three Word Recall: All 3 words correct - 3 Total Score (0-5 Points): 5 Pain Assessment Pain Score: 2 Advance Care Planning Do you have a living will?: Yes Do you have a medical power of [place] attorney?: No Objective : BP 118/78 Pulse 77 Resp 16 Ht 5' 6 Wt 178 lb SpO2 97% BMI 28.73 kg/m No results found. Physical Exam Constitutional: General: She is not in acute distress. Appearance: Normal appearance. She is well-developed. HENT: Head: Normocephalic and atraumatic. Eyes: General: No scleral icterus. Conjunctiva/sclera: Conjunctivae normal. Cardiovascular: Rate and Rhythm: Normal rate and regular rhythm. Heart sounds: Normal heart sounds. No murmur heard. Pulmonary: Effort: Pulmonary effort is normal. No respiratory distress. Breath sounds: Normal breath sounds. No wheezing, rhonchi or rales. Skin: General: Skin is warm and dry. Neurological: General: No focal deficit present. Mental Status: She is alert and oriented to person, place, and time. Psychiatric: Mood and Affect: Mood normal. Behavior: Behavior normal. Assessment/Plan : The following health maintenance schedule was reviewed with the patient and provided in printed form in the after visit summary: Health Maintenance Topic Date Due Diabetes: Retinopathy Screening 05/13/2023 Diabetes: Hemoglobin A1C 08/17/2024 Diabetes: Urine Protein Screening 11/13/2024 Medicare Annual Wellness (AWV) 12/11/2024 Influenza Vaccine (Season Ended) 2025 Pneumococcal Vaccine: 65+ Years Completed Advance Care Planning Assessment/Plan Diagnoses and all orders for this visit: Routine general medical examination at health care facility - DEXA bone density; Future Essential hypertension (CMS/HCC) 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 Coronary artery disease involving [place] coronary artery of [place] heart without angina pectoris (CMS/HCC) Longstanding persistent atrial fibrillation (CMS/HCC) 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 Electronically signed by Prasanth Craig MD on December 13, 2024 documented in this encounterSaint [facility]–[id number] Telephone encounter Note* Telephone Encounter - Vanessa Reyes - 12/06/2024 11:20 AM EDT Yes, my name is Laqutia Dailey. I am a patient of Dr Lizzette Tucker. My birthday is 1946I would like to have Dr. Crocker look at my pump readings and get back with me. I have had a pretty bad 2 days, so I think I need some changes. So please have her get back. With me and I would appreciate it. Thank you. Claudette. [facility][id number] Miscellaneous Notes* Telephone Encounter - Vanessa Reyes - 12/06/2024 11:20 AM EDT Yes, my name is Laquita Dailey. I am a patient of Dr Lizzette Tucker. My birthday is 1945I would like to have Dr. Crocker look at my pump readings and get back with me. I have had a pretty bad 2 days, so I think I need some changes. So please have her get back. With me and I would appreciate it. Thank you. Claudette. documented in this encounterSaint Luke[facility]–[id number] History of Present illness Narrative* Ed Sanabria DO - 11/30/2024 5:45 PM EDT Images from the original note were not included. [address], [address] [facility], [address] P: [phone] F: [phone] HPI Historian of [facility]: patient Laquita Dailey is a 79 y.o. female who presents today to the Urgent Care with the following complaints and denials which have been present for 2 hour(s) C/O Denies Symptom Comments [] [x] Lesion [] [x] Rash [x] [] Lump [x] [] Bump [] [x] Depression [] [x] abscess [] [x] cellulitis [] [x] itching [x] [] pain [] [x] burning [] [x] Sensation of insects crawling Additional Comments: pt has not taken any OTC medications Pt stated she hung her coat up, walked back to her room and felt like her rings were uncomfortable,looked and saw the swelling. ROS A complete system ROS was performed and negative aside from the pertinent positives noted in the HPI and PE. PHYSICAL EXAM Examination General Examination: General Examination: Alert, oriented, normal affect, well appearing, in no acute distress, well developed, well nourished Head: normocephalic, atraumatic Eyes: sclera non-icteric Neck/Thyroid: neck supple, FROM Skin: normal Heart: no murmurs, regular rate and rhythm, S1, S2 normal Lungs: clear to auscultation bilaterally Musculoskeletal: right Hand: large area of swelling and early ecchymosis with tenderness, dorsal aspect third MCP joint Regulator Operator intact: decreased due to pain, FROM Opposition of thumb and small finger intact. 2 pt pinch intact Finklesteins neg Ab- and Adduction of fingers intact. Extremities: no cyanosis Peripheral pulses: 2+ radial, 2+ ulnar, nail sania intact Neurologic: sensory exam intact Psych: alert, oriented, cognitive function intact, cooperative with exam HPI, ROS, and PE reviewed and amended by Dr. Ed Sanabria as necessary. Written by marcio Caro MA Xray Prelim no fractures TREATMENT PLAN 1. Contusion of right hand, initial encounter DX and TX reviewed, take tylenol as needed for pain, ice 20 mins two times a day, follow up with PCP 2. Hematoma of right hand DX reviewed 3. Localized swelling on right hand Dx reviewed - XR hand 3+ views right documented in this encounterSaint Luke's [facility] Hospital–[id number] History of Present illness Narrative* MELANIE Talamantes - 11/22/2024 1:00 PM EDT Images from the original note were not included. Skin Check Location: Patient requests a full body skin examination Dermatologic history: history of Basal Cell Carcinoma, no history of atypical moles, no family history of melanoma Last visit: 05/26/2024-ISK Established patient Rash Location: underneath breast Duration: months Severity: moderate Quality: itchy Modifying Factors: better with calamine lotion Associated symptoms: redness Treatments tried: Calamine Current treatments: OTC hydrocortisone Lesions: Location: right cheek Duration: year Quality: itchy Modifying factors: aggravated by picking Associated symptoms: rough, scaly Treatments: none All pertinent medical history, medications, and allergies were reviewed. General Exam: alert, oriented to person, place, and time, normal affect, well appearing Unaccompanied Scalp, Examined , exam limited by hair Right leg Examined Head, Face Examined Left leg Examined Neck Examined Right foot Examined Chest Examined Patient kept bra on Left foot Examined Back Examined Buttocks Examined Patient kept underwear on Abdomen Examined Digits,nails: Examined Right arm Examined Patient wearing nail greenlandic, Denies dark streaks under finger nails Left arm Examined Lymphatics: Not examined Hands Examined Skin Exam 1. SEBORRHEIC KERATOSIS Generalized Stuck on verrucous, cornell-brown papules and plaques. Patient was counseled regarding these benign growths. Removal is normally not necessary, but they may be removed if they are symptomatic or for cosmetic reasons. Recommended using OTC Urea cream to help soften the areas. 2. LENTIGO SIMPLEX Generalized Scattered cornell macules in sun-exposed areas. The patient was informed that lentigines are benign pigmented lesions that occur on sun-exposed andsun-damaged skin. No treatment is necessary. Recommended regular use of broad spectrum sunscreen SPF 30 or higher 3. INFLAMED SEBORRHEIC KERATOSIS Right Zygomatic Area [place] and brown stuck on verrucous scaly papule with surrounding erythema The patient was informed that symptomatic seborrheic keratoses are benign growths that become inflamed, itchy, tender, traumatized, caught on clothing, or bleed. Symptomatic lesions can be treated with cryotherapy or curretage. Thicker lesions treated with cryotherapy may require more than one treatment. The patient was instructed to notify the office if abnormal redness or tenderness develops atthe treatment site. Cryotherapy today, see procedure note. Diagnosis: Inflamed seborrheic keratosis Indication: Inflamed Consent: Verbal consent was obtained and risks were discussed, including, but not limited to risks of scarring, darker or chief media officer pigmentary changes, recurrence, incomplete removal and infection. Method: Liquid nitrogen was used to treat the lesion(s) with two 5-10 second freeze-thaw cycles Number of lesions treated: 1 Post-procedure instructions: Instructions were given orally and in writing. The office will be contacted if the lesion fails to resolve despite treatment, or if a side effect develops such as abnormal crusting, scabbing, redness or tenderness Cryotherapy, skin lesion - Right Zygomatic Area 4. INTERTRIGO Left Inframammary Fold, Right Inframammary Fold [place] moist plaques. Flaring today Discussed that intertrigo is a chronic condition that can be controlled but not cured. Recommend keeping areas as dry as possible to avoid flares. Start Nystatin powder daily under the breasts. Suggested changing towels often and blow drying on low heat to keep the area as dry as possible. Related Medications nystatin (Mycostatin) 940892 UNIT/GM powder Apply to the affected area (underneath breasts), once daily, 30 day supply 5. HISTORY OF BASAL CELL CARCINOMA (BCC) Right Ankle - Anterior February 2024. No evidence of recurrence at BCC scar. The patient was counseled that scars from excisional sites of nonmelanoma skin cancers should be monitored closely for recurrence. The patient was instructed to contact the office for any new, changing, or symptomatic moles. The patient was also instructed to contact the office for any new lesions that develop within or around the previous surgery scar. Next Visit: 1 year documented in this encounterSaint Luke's North Hospital–Sm[id number] Telephone encounter Note* Telephone Encounter - Argelia Carroll - 09/01/2024 1:31 PM EST Spoke with pt she said she will call back if she wants to go ahead with televisit [facility]villeXcgmtjjrbn42-24-2016 Miscellaneous Notes* Telephone Encounter - Argelia Carroll - 09/01/2024 1:31 PM EST Spoke with pt she said she will call back if she wants to go ahead with televisit * Telephone Encounter - MELANIE Brady - 09/01/2024 12:59 PM EST At this point I am unclear as to what illness the patient is actually dealing with. I know she is in [place], so please ask if she would be able to do a Telemedicine appointment so a provider can speak with her and see what medications really need to be prescribed. * Telephone Encounter - Argelia Carroll - 09/01/2024 11:32 AM EST Patient called back stating that she does not have nauseas so she does not think the zofran would help. She is asking for an antibiotic if at all possible. She said she just doesn't have an apatite but she is not nauseas. * Telephone Encounter - Megha Cronin MA - 09/01/2024 11:17 AM EST Attempted to call and not able to lm on her vm * Telephone Encounter - MELANIE Brady - 09/01/2024 11:09 AM EST Zofran sent in to help with pt's nausea. Encourage her to stay hydrated. Sipping clear fluids frequently throughout the day. Can try yogurt with active cultures or an OTC probiotic to help with the diarrhea. * Telephone Encounter - Rose Marie Del Angel - 08/31/2024 9:35 AM EST Pt called back again asking for something for the flu. She states the wait times are to long to go * Telephone Encounter - NIRMALA CARY - 08/30/2024 11:31 AM EST Patient called asking for something to be called in for her flu like symptoms. She has had diarrheaand nausea but no vomiting. This has been going on for 3-4 days. She would like something sent to the [facility] in [facility]. documented in this encounterSaint Luke's North Hospital–[id number] Telephone encounter Note* Telephone Encounter - MELANIE Brady - 09/01/2024 12:59 PM EST At this point I am unclear as to what illness the patient is actually dealing with. I know she is in [place], so please ask if she would be able to do a Telemedicine appointment so a provider can speak with her and see what medications really need to be prescribed. [facility]OMMineral [facility] [id number] Telephone encounter Note* Telephone Encounter - Argelia Carroll - 09/01/2024 11:32 AM EST Patient called back stating that she does not have nauseas so she does not think the zofran would help. She is asking for an antibiotic if at all possible. She said she just doesn't have an apatite but she is not nauseas. NOMMineral [facility] Medical [id number] Telephone encounter Note* Telephone Encounter - Megha Cronin MA - 09/01/2024 11:17 AM EST Attempted to call and not able to lm on her vm [facility]–Sm[id number] Telephone encounter Note* Telephone Encounter - MELANIE Brady - 09/01/2024 11:09 AM EST Zofran sent in to help with pt's nausea. Encourage her to stay hydrated. Sipping clear fluids frequently throughout the day. Can try yogurt with active cultures or an OTC probiotic to help with the diarrhea. [facility] [id number] Telephone encounter Note* Telephone Encounter - Rose Marie Del Angel - 08/31/2024 9:35 AM EST Pt called back again asking for something for the flu. She states the wait times are to long to go [facility] [id number] Telephone encounter Note* Telephone Encounter - NIRMALA CARY - 08/30/2024 11:31 AM EST Patient called asking for something to be called in for her flu like symptoms. She has had diarrheaand nausea but no vomiting. This has been going on for 3-4 days. She would like something sent to the [facility] in [facility]. [facility] [id number] History of Present illness Narrative* Juan José Juarez MD - 06/21/2024 10:45 AM EST CARDIOLOGY OFFICE VISIT CHIEF COMPLAINT No chief complaint on file. HISTORY OF PRESENT ILLNESS HPI 78-year-old female with a past medical history of coronary artery disease with history of coronary artery bypass graft surgery x2 back in 1999. Recent cardiac catheterization in June 2019 showed POZO to LAD patent also radial to obtuse marginal patent with patent stents. Echocardiogram in April 2018 showed left ventricular ejection fraction 45 to 50% with mild mitral vegetation. History of diabetes mellitus and hyperlipidemia. She was diagnosed of atrial fibrillation back in April 2018 and she was placed on beta-blockers, Xarelto and also amiodarone. Amiodarone was discontinued due to significant tremors. She had a cardiac catheterization in August 2020 that ended with PCI of the radial graft to the obtuse marginal and PCI of the PLV B. A Holter monitor was ordered that shows underlying rhythm was sinus rhythm with a minimum heart rate of 40 bpm maximum heart rate of 83 bpm with average heart rate of 50 bpm. There was evidence of chronotropic incompetence based on results of the study. Lately she is doing well. She has occasional palpitations but no limiting cardial activities. She was recently admitted to [facility] in April 21 to 2022. Apparently she was admitted for palpitations. On arrival to emergency department her symptoms disappear. Patient states that so far she has been doing well. Denies any symptoms like chest pain or shortness breath or palpitations. Patient had a surgery in the right ankle in March 2024. She is feeling well. EKG performed today shows sinus bradycardia left bundle branch block at a rateof 47 bpm QRS 138 ms QT corrected 412 ms. Rhythm strip shows the same pattern. Past Medical History Past Medical History: Diagnosis Date Coronary angioplasty status 05/23/2021 History of PTCA Encounter for preprocedural laboratory examination Pre-procedure lab exam Other chest pain Atypical chest pain Personal history of other endocrine, nutritional and metabolic disease History of obesity Personal history of other endocrine, nutritional and metabolic disease History of hypoglycemia Personal history of other endocrine, nutritional and metabolic disease 06/04/2021 History of obesity Personal history of other specified conditions History of fatigue Personal history of other specified conditions History of syncope Personal history of other specified conditions History of snoring Social History Social History Tobacco Use Smoking status: Never Smokeless tobacco: Never Substance Use Topics Alcohol use: Never Drug use: Never Family History Family History Problem Relation Name Age of Onset Other (acute myocardial infarction) Sister Other (acute myocardial infarction) Brother Allergies: Allergies Allergen Reactions Ira Inhibitors Unknown Phenothiazines Swelling Shellfish Containing Products Unknown Penicillins Rash Outpatient Medications: Current Outpatient Medications Medication Instructions atorvastatin (LIPITOR) 10 mg, oral, Nightly biotin 5 mg capsule 1 capsule, Daily calcium citrate/vitamin D3 (CALCIUM CITRATE + D ORAL) 1 tablet, Daily doxylamine succinate (NITETIME SLEEP-AID ORAL) 1 capsule, Nightly ferrous sulfate 65 mg, Daily with breakfast furosemide (LASIX) 20 mg, oral, Daily insulin lispro (HumaLOG) 100 UNIT/ML patient supplied pump Daily RT magnesium oxide (MAG-OX) 400 mg, oral, 2 times daily metoprolol succinate XL (TOPROL-XL) 50 mg, oral, Daily nitroglycerin (Nitrodur) 0.2 mg/hr patch 1 patch, Every other day nitroglycerin (NITROSTAT) 0.4 mg, sublingual, Every 5 min PRN pantoprazole (ProtoNix) 40 mg EC tablet 1 tablet, Daily potassium chloride CR 10 mEq ER tablet 10 mEq, oral, Daily Xarelto 20 mg, oral, Daily REVIEW OF SYSTEMS Review of Systems All other systems reviewed and are negative. VITALS Vitals: 06/21/24 1043 BP: 142/60 Pulse: 59 PHYSICAL EXAM Constitutional: Appearance: Healthy appearance. Not in distress. Neck: Vascular: No JVR. JVD normal. Pulmonary: Effort: Pulmonary effort is normal. Breath sounds: Normal breath sounds. No wheezing. No rhonchi. No rales. Chest: Chest wall: Not tender to palpatation. Cardiovascular: PMI at left midclavicular line. Normal rate. Regular rhythm. Normal S1. Normal S2. Murmurs: There is no murmur. No gallop. No click. No rub. Pulses: Intact distal pulses. Edema: Peripheral edema absent. Abdominal: General: Bowel sounds are normal. Palpations: Abdomen is soft. Tenderness: There is no abdominal tenderness. Musculoskeletal: Normal range of motion. General: No tenderness. Skin: General: Skin is warm and dry. Neurological: General: No focal deficit present. Mental Status: Alert and oriented to person, place and time. ASSESSMENT AND PLAN Impression 1. New diagnosis atrial fibrillation since April 2018.-Persistent atrial fibrillation, plan discussed during this office visit 2. Long-term anticoagulation therapy with Xarelto., No evidence of bleeding 3. History of gastric ulcer with bleeding with hemoglobin 7.1 to require blood transfusions. Now she is back on Xarelto. Multiple episodes of bleeding described by patient during this office visit 4. Coronary artery disease, status post percutaneous core interventions and coronary bypass graft surgery in 1999. Recent cardiac catheterization as described above, recent cardiac catheterization ended with PCI of the radial graft to the obtuse marginal and PCI of the PL BV 5. High risk medication (amiodarone). Patient has been off this medication since mid February 2020, stable 6. QT prolongation with low-dose Betapace, resolved 7. Left bundle branch block, stable 8. Normal ventricular function per echocardiogram as described above, no new changes 9. Tremors 10. Fatigue, tiredness, resolved after PCI was performed Plan recommendations Patient is doing well from the electrophysiology standpoint we will continue with current medical therapy. Continue beta-demetrius therapy. Follow my office every 6 months or sooner needed. Patient was encouraged to follow-up with orthopedic surgery regarding right ankle procedure that was performed March 2024. Risk factor modification and lifestyle modification discussed with patient. Diet , exercise and hydration discussed with patient. I have personally review with patient during this office visit, laboratory data, echocardiogram results, stress test results, Holter-event monitor results prior and after the last electrophysiology visit. All questions has been answered. Please excuse any errors in grammar or translation related to this dictation. Voice recognition software was utilized to prepare this document. documented in [facility] encounterJoint [facility] Work Phone: [phone] 227-538412-16-2024 Instructions* Patient Instructions* Alexandre Gutiérrez LPN - 06/21/2024 10:45 AM EST Continue same medications and treatments. Please bring any lab results from other providers / physicians to your next appointment. Please bring all medicines, vitamins, and herbal supplements with you when you come to the office. Prescriptions will not be filled unless you are compliant with your follow up appointments or have a follow up appointment scheduled as per instruction of your physician. Refills should be requested at the time of your visit. DID YOU KNOW: We have a pharmacy here in the [facility]. They can fill all prescriptions, not just cardiac medications. Prescriptions from other pharmacies can easily be transferred to the pharmacy by the pharmacist on site. pharmacies offer FREE HOME DELIVERY on medications to anywherein [place]. They can sync your medications. Typically prescriptions can be ready in 10 - 15 minutes. If pharmacy is unable to fill your prescription or if cost is more than your paying now the Pharmacist can easily transfer back to your Pharmacy of choice. Pharmacy phone # [phone]. Scribe Attestation By signing my name below, I Kylee DA SILVA , Scribkervin attest that this documentation has been prepared under the direction and in the presence of Asaf Juarez MD. documented in this encounterJoint [facility] Hospital Work Phone: [phone] 115-979912-09-2024 History of Present illness Narrative* Prasanth Craig MD - 06/14/2024 1:30 PM EST Images from the original note were not included. Subjective Patient ID: Laquita Dailey is a 78 y.o. female who presents for Hypertension. Hypertension Patient is here for follow-up of elevated blood pressure. Blood pressure is well controlled at home. Cardiac symptoms: none. Patient denies chest pain, chest pressure/discomfort, claudication, fatigue, irregular heart beat, lower extremity edema, near-syncope, orthopnea, palpitations, paroxysmal nocturnal dyspnea, syncope, and tachypnea. Cardiovascular risk factors: advanced age (older than 55 for men, 65 for women), diabetes mellitus, and hypertension. Hypertension Current Outpatient Medications on File Prior to Visit Medication Sig Dispense Refill atorvastatin (Lipitor) 10 MG tablet Take 10 mg by mouth in the morning. biotin 5 MG capsule Take 10,000 mg by mouth Daily Uytinzu-Aaididjfaw-Xrekjpr D (CITRACAL +D3 PO) Daily. cholecalciferol (Vitamin D-3) 50 MCG (1999 UT) tablet Take by mouth. Clobetasol Propionate E 0.05 % emollient cream APPLY A THIN LAYER TO AFFECTED AREA TWICE DAILY FOR 2 MONTHS Contour Next Test test strip 1 each by Other route in the morning. doxylamine (Sleep Aid) 25 MG tablet Take 25 mg by mouth as needed at bedtime. ferrous sulfate 325 (65 Fe) MG tablet Take 325 mg by mouth in the morning. Take with meals. furosemide (Lasix) 20 MG tablet Take 1 tablet (20 mg) by mouth in the morning. 100 tablet 3 Insulin Infusion Pump (MINIMED INSULIN PUMP) device Basal: 12A 0.0, 5A 0.45, 12P 0.25, ICR: 12A 3, 11A 5.5, 5P 4.5, ISF: 12A 25, 8A 15, Target: 100-150 1 each 0 Insulin Lispro (HumaLOG) 100 UNIT/ML solution Inject 1 Dose under the skin See administration instructions INJECT UP TO 100 UNITS VIA PUMP DIRECTED ONCE DAILY 90 mL 3 insulin pen needle (Novofine Pen Needle) 32G x 6 mm misc 1 (one) time each day at the same time. magnesium oxide (Mag-Ox) 400 MG tablet Take 400 mg by mouth in the morning and 400 mg before bedtime. metoprolol succinate XL (Toprol-XL) 50 MG 24 hr tablet Take 50 mg by mouth in the morning. nitroglycerin (Nitrodur) 0.2 MG/HR patch 1 PATCH TRANSDERMALLY DAILY NEEDED FOR CHEST PAIN FOR 30 DAYS nitroglycerin (Nitrostat) 0.[address] 0.4 mg under the tongue every 5 (five) minutes if needed for chest pain. pantoprazole (ProtoNix) 40 MG EC tablet Take 1 tablet (40 mg) by mouth in the morning. 90 tablet 3 potassium chloride CR (Klor-Con) 10 MEQ ER tablet Take 10 mEq by mouth Daily Xarelto 20 MG tablet Take 20 mg by mouth in the evening. Take with meals. No current facility-administered medications on file prior to visit. I have reviewed and reconciled the history and medication list with the patient today. Allergies Allergen Reactions Ira Inhibitors Other Reaction(s): Unknown Phenothiazines Swelling Other Reaction(s): Unknown, Unknown Shellfish Allergy Other Reaction(s): Unknown Sulfamethoxazole Unknown Trimethoprim Unknown Penicillins Rash Other Reaction(s): Hives / Skin Rash, Other (See Comments), Unknown Social History Tobacco Use Smoking status: Never Smokeless tobacco: Never Vaping Use Vaping status: Unknown Substance Use Topics Alcohol use: Never Comment: caffeine: coffee/tea Drug use: Never Family History Problem Relation Name Age of Onset Cirrhosis Mother Lung cancer Father Hypertension Other siblings Past Medical History: Diagnosis Date A-fib (CMS/HCC) Angina pectoris (CMS/HCC) Anxiety Anxiety state (CMS/HCC) [place] esophagus BCC (basal cell carcinoma) CAD (coronary artery disease) (CMS/HCC) Chest pain 10/18/2020 Depression (CMS/HCC) Depressive disorder (CMS/HCC) Diabetes mellitus (CMS/HCC) Edema Esophageal reflux Essential hypertension (CMS/HCC) GERD (gastroesophageal reflux disease) GI bleed History of coronary artery bypass graft Hx of coronary artery bypass graft Hx of echocardiogram Hypercholesteremia (CMS/HCC) Hyperlipemia (CMS/HCC) Hypertension (CMS/HCC) IBS (irritable bowel syndrome) LBBB (left bundle branch block) Migraine (CMS/HCC) Migraine headache (CMS/HCC) Osteopenia Osteoporosis (CMS/HCC) x2 Prolonged Q-T interval on ECG 06/2019 PUD (peptic ulcer disease) Pure hypercholesterolemia (CMS/HCC) Past Surgical History: Procedure Laterality Date ANKLE SURGERY 03/31/2024 cancer removed BASAL CELL CARCINOMA EXCISION 2017 inner knee BREAST SURGERY 1998 biopsy CARDIAC CATHETERIZATION 06/2019 CATARACT EXTRACTION 2006 CORONARY ANGIOPLASTY 2000 with stent CYSTOSCOPY 04/23/2022 EGD 2010 with biospy EGD 07/2019 PERCUTANEOUS CORONARY INTERVENTION 08/16/2020 SKIN CANCER EXCISION 2017 excision BCC right inner knee Visit Vitals Ht 5' 6 BMI 28.41 kg/m Smoking Status Never BSA 1.93 m Review of Systems Objective Physical Exam Constitutional: General: She is not in acute distress. Appearance: Normal appearance. She is well-developed. HENT: Head: Normocephalic and atraumatic. Eyes: General: No scleral icterus. Conjunctiva/sclera: Conjunctivae normal. Cardiovascular: Rate and Rhythm: Normal rate and regular rhythm. Heart sounds: Murmur heard. Gallop present. Pulmonary: Effort: Pulmonary effort is normal. No respiratory distress. Breath sounds: Normal breath sounds. No wheezing, rhonchi or rales. Skin: General: Skin is warm and dry. Neurological: General: No focal deficit present. Mental Status: She is alert and oriented to person, place, and time. Psychiatric: Mood and Affect: Mood normal. Behavior: Behavior normal. Assessment/Plan Diagnoses and all orders for this visit: Paroxysmal atrial fibrillation (CMS/HCC) - The patient is seeing a medical artist for this condition, treatment is deferred to that specialist. Correspondence from that specialist and any available testing were reviewed during today's visit. Coronary artery disease involving [place] coronary artery of [place] heart without angina pectoris (CMS/HCC) - Asymptomatic Hx of CABG Essential hypertension (CMS/HCC) - Well controlled Mixed hyperlipidemia (CMS/HCC) - Labs in the spring. No follow-ups on file. documented in this encounterSaint [facility]'s [facility]–Sm[id number] History of Present illness Narrative* Eder Everett, - 06/01/2024 11:00 AM EST Subjective Laquita Dailey is a 78 y.o. female Chief Complaint Follow-up 78-year-old female returns for 6-month follow-up she is doing well she has no cardiovascular complaints or events or nitrate usage or repeat hospitalizations. She has an extensive past medical history of coronary artery disease with history of coronary artery bypass graft surgery x2 back in 1999. Recent cardiac catheterization in June 2019 showed POZO to LAD patent also radial to obtuse marginal patent with patent stents. Echocardiogram in April 2018 showed left ventricular ejection fraction 45 to 50% with mild mitral regurgitation. History of diabetes mellitus and hyperlipidemia. She was diagnosed of atrial fibrillation back in April 2018 and she was placed on beta-blockers, Xarelto and also amiodarone. Amiodarone was discontinued due to significant tremors. She had a cardiac catheterization in August 2020 that ended with PCI of the radial graft to the obtuse marginal and PCI of the PLV B. She has had no clinical recurrence of A-fib, remains in a regular rhythm on today's exam, is scheduled to travel to [place] for [place] and return in the spring. NYHA class II/C. Recommendations, follow-up again in 6 to 8 months, will perform rhythm surveillance either before or after she returns from [place]. Review of Systems All other systems reviewed and are negative. Vitals: 06/01/24 1148 BP: 142/62 BP Location: Left arm Patient Position: Sitting Pulse: 52 Weight: 79.4 kg (175 lb) Height: 1.664 m (5' 5.5 ) Objective Physical Exam Constitutional: Appearance: Normal appearance. HENT: Nose: Nose normal. Neck: Vascular: No carotid bruit. Cardiovascular: Rate and Rhythm: Normal rate. Pulses: Normal pulses. Heart sounds: Normal heart sounds. Pulmonary: Effort: Pulmonary effort is normal. Abdominal: General: Bowel sounds are normal. Palpations: Abdomen is soft. Musculoskeletal: General: Normal range of motion. Cervical back: Normal range of motion. Right lower leg: No edema. Left lower leg: No edema. Skin: General: Skin is warm and dry. Neurological: General: No focal deficit present. Mental Status: She is alert. Psychiatric: Mood and Affect: Mood normal. Behavior: Behavior normal. Thought Content: Thought content normal. Judgment: Judgment normal. Allergies Ira inhibitors, Phenothiazines, Shellfish containing products, and Penicillins Current Medications Current Outpatient Medications: atorvastatin (Lipitor) 10 mg tablet, Take 1 tablet (10 mg) by mouth once daily at bedtime., Disp: 90 tablet, Rfl: 3 biotin 5 mg capsule, Take 1 capsule (5 mg) by mouth once daily., Disp: , Rfl: calcium citrate/vitamin D3 (CALCIUM CITRATE + D ORAL), Take 1 tablet by mouth once daily., Disp: , Rfl: doxylamine succinate (NITETIME SLEEP-AID ORAL), Take 1 capsule by mouth once daily at bedtime., Disp: , Rfl: ferrous sulfate 325 (65 Fe) MG EC tablet, Take 65 mg by mouth once daily with a meal. Do not crush,chew, or split., Disp: , Rfl: furosemide (Lasix) 20 mg tablet, Take 1 tablet (20 mg) by mouth once daily., Disp: 90 tablet, Rfl: 3 insulin lispro (HumaLOG) 100 UNIT/ML patient supplied pump, Inject under the skin once daily., Disp: , Rfl: magnesium oxide (Mag-Ox) 400 mg (241.3 mg magnesium) tablet, Take 1 tablet (400 mg) by mouth 2 times a day., Disp: 180 tablet, Rfl: 3 metoprolol succinate XL (Toprol-XL) 50 mg 24 hr tablet, TAKE 1 TABLET BY MOUTH EVERY DAY, Disp: 90 tablet, Rfl: 3 nitroglycerin (Nitrodur) 0.2 mg/hr patch, Place 1 patch on the skin every other day., Disp: , Rfl: nitroglycerin (Nitrostat) 0.4 mg SL tablet, Place 1 tablet (0.4 mg) under the tongue every 5 minutes if needed for chest pain., Disp: 90 tablet, Rfl: 1 pantoprazole (ProtoNix) 40 mg EC tablet, Take 1 tablet (40 mg) by mouth once daily., Disp: , Rfl: potassium chloride CR 10 mEq ER tablet, Take 1 tablet (10 mEq) by mouth once daily., Disp: 90 tablet, Rfl: 3 Xarelto 20 mg tablet, Take 1 tablet (20 mg) by mouth once daily., Disp: 90 tablet, Rfl: 3 Assessment/Plan 1. ASHD (arteriosclerotic heart disease) Follow Up In Cardiology 2. Paroxysmal atrial fibrillation (Multi) 3. History of coronary artery bypass graft 4. Type 2 diabetes mellitus without complication, with long-term current use of insulin (Multi) 5. Never smoked any substance 6. Body mass index (BMI) 28.0-28.9, adult 7. High risk medication use Scribe Attestation By signing my name below, Drea Fairbanks LPN, Scribe attest that this documentation has been prepared under the direction and in the presence of Lizzie Everett DO. Provider Attestation - Scribe documentation All medical record entries made by the Scribe were at my direction and personally dictated by me. Ihave reviewed the chart and agree that the record accurately reflects my personal performance of the history, physical exam, discussion and plan. [facility] Work Phone: [phone] 183-660811-26-2024 Instructions* Patient Instructions* Drea Chavira LPN - 06/01/2024 11:00 AM EST Please bring all medicines, vitamins, and herbal supplements with you when you come to the office. Prescriptions will not be filled unless you are compliant with your follow up appointments or have a follow up appointment scheduled as per instruction of your physician. Refills should be requested at the time of your visit. BMI was above normal measurement. Current weight: 79.4 kg (175 lb) Weight change since last visit (-) denotes wt loss -3.2 lbs Weight loss needed to achieve BMI 25: 22.8 Lbs Weight loss needed to achieve BMI 30: -7.7 Lbs Provided instructions on dietary changes Provided instructions on exercise. [facility] Work Phone: [phone] 803-121211-20-2024 History of Present illness Narrative* MELANIE Talamantes - 05/26/2024 1:10 PM EST Follow up Diagnosis: Seborrheic Keratosis Location: generalized Last visit: 02/13/2024 Symptoms: itchy at times and rough Status: getting smaller Procedure performed: Cryotherapy Date of procedure: 02/13/2024 Number of treatments to date: 1 Patient is here today for Cryotherapy. All pertinent medical history, medications, and allergies were reviewed. General Exam: alert, oriented to person, place, and time, normal affect, well appearing Unaccompanied A focused exam completed based on patient reported problems, see below: 1. Inflamed seborrheic keratosis (8) Left Abdomen (side) - Lower, Left Buccal Cheek, Right Abdomen (side) - Lower (2), Right Abdomen (side) - Upper (2), Right Buccal Cheek, Right Zygomatic Area [place] and brown stuck on verrucous scaly papule with surrounding erythema The patient was informed that symptomatic seborrheic keratoses are benign growths that become inflamed, itchy, tender, traumatized, caught on clothing, or bleed. Symptomatic lesions can be treated with cryotherapy or curretage. Thicker lesions treated with cryotherapy may require more than one treatment. The patient was instructed to notify the office if abnormal redness or tenderness develops atthe treatment site. Cryotherapy today, see procedure note. Diagnosis: Inflamed seborrheic keratosis Indication: Inflamed Consent: Verbal consent was obtained and risks were discussed, including, but not limited to risks of scarring, darker or chief media officer pigmentary changes, recurrence, incomplete removal and infection. Method: Liquid nitrogen was used to treat the lesion(s) with two 5-10 second freeze-thaw cycles Number of lesions treated: 8 Post-procedure instructions: Instructions were given orally and in writing. The office will be contacted if the lesion fails to resolve despite treatment, or if a side effect develops such as abnormal crusting, scabbing, redness or tenderness Cryotherapy, skin lesion - Left Abdomen (side) - Lower, Left Buccal Cheek, Right Abdomen (side) - Lower (2), Right Abdomen (side) - Upper (2), Right Buccal Cheek, Right Zygomatic Area Next Visit: 6 months, skin check documented in this encounterSaint [id number] History of Present illness Narrative* Justino Powers, [facility] - 05/20/2024 4:00 PM EST Patient: Laquita Ibarra Ashlie : 1945 PCP: Prasanth Craig MD SUBJECTIVE Patient presents today for follow up of skin lesion/neoplasm of unknown origin to the left foot Pt states that previous treatment of acid tx with some improvement Pt rates pain the pain on a 1-10 scale an intensity of 5 Pt presents today for followup. Patient presents today with a CC of elongated, thick nails. Pt states nails have been elongated and thick for many years and cause pain with ambulation in shoegear. Pt has tried previous treatment with minimal relief. Pt presents today for nail care and treatment. Patient is DM2 Patient also presents today with complaints of right ankle wound since having removal of a basal cell carcinoma proximally 2 months ago with split-thickness skin graft from Plastic surgery. She states she had been applying Xeroform dressing with dry sterile dressing and has since been released fromcare. States he still has some drainage from the area with nonhealing wound Patient denies n/f/v/c. Allergies: Allergies Allergen Reactions Ira Inhibitors Other Reaction(s): Unknown Phenothiazines Swelling Other Reaction(s): Unknown, Unknown Shellfish Allergy Other Reaction(s): Unknown Sulfamethoxazole Unknown Trimethoprim Unknown Penicillins Rash Other Reaction(s): Hives / Skin Rash, Other (See Comments), Unknown Past Medical History: Past Medical History: Diagnosis Date A-fib ([facility]) Angina pectoris ([facility]/HCC) Anxiety Anxiety state ([facility]) [place] esophagus BCC (basal cell carcinoma) CAD (coronary artery disease) ([facility]) Chest pain 10/18/2020 Depression ([facility]/HCC) Depressive disorder ([facility]/HCC) Diabetes mellitus ([facility]/HCC) Edema Esophageal reflux Essential hypertension ([facility]) GERD (gastroesophageal reflux disease) GI bleed History of coronary artery bypass graft Hx of coronary artery bypass graft Hx of echocardiogram Hypercholesteremia ([facility]/HCC) Hyperlipemia ([facility]/HCC) Hypertension ([facility]/HCC) IBS (irritable bowel syndrome) LBBB (left bundle branch block) Migraine ([facility]/HCC) Migraine headache ([facility]/HCC) Osteopenia Osteoporosis ([facility]/HCC) x2 Prolonged Q-T interval on ECG 06/2019 PUD (peptic ulcer disease) Pure hypercholesterolemia ([facility]/HCC) Medications: Current Outpatient Medications: Aspirin Low Dose 81 MG EC tablet, Take 81 mg by mouth in the morning., Disp: , Rfl: atorvastatin (Lipitor) 10 MG tablet, Take 10 mg by mouth in the morning., Disp: , Rfl: biotin 5 MG capsule, Take 10,000 mg by mouth Daily, Disp: , Rfl: Vvmhmdy-Oqltbxivbo-Igppzig D (CITRACAL +D3 PO), Daily., Disp: , Rfl: cholecalciferol (Vitamin D-3) 50 MCG (1999) tablet, Take by mouth., Disp: , Rfl: Clobetasol Propionate E 0.05 % emollient cream, APPLY A THIN LAYER TO AFFECTED AREA TWICE DAILY FOR2 MONTHS, Disp: , Rfl: Contour Next Test test strip, 1 each by Other route in the morning., Disp: , Rfl: doxylamine (Sleep Aid) 25 MG tablet, Take 25 mg by mouth as needed at bedtime., Disp: , Rfl: ferrous sulfate 325 (65 Fe) MG tablet, Take 325 mg by mouth in the morning and 325 mg in the evening. Take with meals., Disp: , Rfl: furosemide (Lasix) 20 MG tablet, Take 1 tablet (20 mg) by mouth in the morning., Disp: 100 tablet, Rfl: 3 Insulin Infusion Pump (MINIMTUK[employer] Undergarments INSULIN PUMP) device, Basal: 12A 0.0, 4A 0.4, 12P 0.3, 10P 0.35, ICR: 12A 3.5, 11A 5.5, 5P 4.5, ISF: 12A 25, 8A 15, Target: 100- 150, Disp: 1 each, Rfl: 0 Insulin Lispro (HumaLOG) 100 UNIT/ML solution, Inject 1 Dose under the skin See administration instructions INJECT UP TO 100 UNITS VIA PUMP DIRECTED ONCE DAILY, Disp: 90 mL, Rfl: 3 insulin pen needle (Novofine Pen Needle) 32G x 6 mm misc, 1 (one) time each day at the [...] ifneeded for chest pain., Disp: , Rfl: pantoprazole (ProtoNix) 40 MG EC tablet, Take 1 tablet (40 mg) by mouth in the morning., Disp: 90 tablet, Rfl: 3 potassium chloride ER (Micro-K) 10 MEQ ER capsule, Take 10 mEq by mouth in the morning., Disp: , Rfl: Xarelto 20 MG tablet, Take 20 mg by mouth in the evening. Take with meals., Disp: , Rfl: Social History: Social History Socioeconomic History Marital status: Spouse name: Not on file Number of children: Not on file Years of education: Not on file Highest education level: Not on file Occupational History Not on file Tobacco Use Smoking status: Never Smokeless tobacco: Never Vaping Use Vaping status: Unknown Substance and Sexual Activity Alcohol use: Never Comment: caffeine: coffee/tea Drug use: Never Sexual activity: Not on file Other Topics Concern Not on file Social [...] at the left sub 4th metatarsal measuring 0.2 cm x 0.2 cm. Anterior right ankle has area of healed skin graft with notable 0.2 cm x 0.3 cm 0.2 cm subcutaneousthickness depth ulceration with slight fibrous slough and slight serous drainage with negative erythema or probe to bone VASC: Negative DP and positive PT pedal pulses NEURO: 5.07 [place] monofilament test intact to digits and forefoot bilaterally 125Hz tuning fork diminished to 1st MPJ bilaterally ORTHO: Positive pain on palpation to nails 1 through 10 Positive pain on palpation left foot lesion ASSESSMENT 1. Verruca plantaris 2. Foot pain, left 3. 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 Pain due to onychomycosis of toenails of both feet 5. Ulcer of lower limb, right, with fat layer exposed ([facility]) PLAN Application of salinocaine acid medication to lesion/lesions located at left foot Informed pt of risks and benefits of procedure including high reoccurence rate, infection, pain andconsent given. Application of DSD post procedure. Discussed proper foot care with patient today. Debride nails in length and thickness digits 1 through 10 Patient educated today on proper diabetic foot care including monitoring feet daily for any signs of infection openings in the skin or irregularities to both feet. Patient had a diabetic neurologicalexam today to both their feet and discussed proper shoe gear. Sharp debridement with 15 blade of subcutaneous ulceration to left foot with active bleeding noted and removal and excision of fibrotic and necrotic tissue to wound and DSD applied with neosporin. 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 Encouraged to check blood glucose throughout the day with some fasting and some PP readings. They are to bring their glucose meter/cgm in to all appointments. All of the patients questions, treatment options, and current care plan and goals were discussed. Acopy of this along with pertinent instructions were given to the patient at the end of the appointment. The patient voices understanding of all of this and is to call in between appointments if they have any problems or questions. Laquita Dailey control is stable overall. , The patient is wearing their cgm on a daily basis andmaking decisions in regards to adjusting insulin daily as well for at least the last 60 days , Discussed dietary changes at length. Encouraged to limit simple carbs and focus more on healthy protein/fat with all meals and snacks. They should also avoid any sugary drinks. , Instructions given today include: Pump instructions and Dietary education. Will increase basal rate at 5A slightly and decrease at 12pm and 10 pm. Tighten carb ratio for breakfast. * Lizzette Monk DO - 05/17/2024 2:15 PM EST Images from the original note were not included. Laquita Dailey is a 78 y.o. female presents with chief complaint of Diabetes HPI: Diabetes Mellitus Follow-up: Laquita Dailey is here for follow-up evaluation of diabetes mellitus. The initial diagnosis of diabetes was made at 19 years old Diabetes complications: heart disease, renal failure She has been checking her blood glucose with Dexcom G7- READER- on a daily basis. Bg tend to drop some overnight and then rise in the morning and with breakfast, will sometimes dropin the late afternoon as well. Last A1c: 6.5 (02/19/24) Last eye exam: 2023- retina specialist Current concerns include: The last box of dexcom sensors that she received fro [employer] would not pair. She contacted [employer] they replaced her sensor which worked. States bg levels are similar to last visit. Yesterday they were high due to her sister falling and being at the hospital with her. Diet: count carbs Drinks: water, black coffee and diet pop Exercise: walking daily Hypoglycemia: couple times a week overnight around 2-4am She gets an overlay for the dexcom from [employer]. She likes the brand tracy and nephefraín. They only sent her a box of 10 the last time it was ordered she normally get a a box of 30 SUBJECTIVE: PROBLEM LIST SOCIAL ALLERGIES: Patient Active Problem List Diagnosis Acquired atresia of vagina Acute gastric ulcer with hemorrhage Age-related osteoporosis without current pathological fracture (CMS/HCC) Allergic rhinitis Anxiety state (CMS/HCC) Arrest of bone development or growth [place]'s esophagus Benign essential hypertension (CMS/HCC) Coronary artery disease involving [place] coronary artery of [place] heart without angina pectoris (CMS/HCC) Depressive disorder (CMS/HCC) Edema Esophageal reflux Essential tremor Estrogen deficiency Gastrointestinal hemorrhage associated with gastric ulcer Hearing loss Hx of CABG Hyperthyroidism (CMS/HCC) Acquired iron deficiency anemia due to decreased absorption Iron deficiency anemia due to chronic blood loss Left bundle branch block Longstanding persistent atrial fibrillation (CMS/HCC) Migraine with aura (CMS/HCC) Hypoglycemia due to type 1 diabetes mellitus (CMS/HCC) Paroxysmal atrial fibrillation (CMS/HCC) Type 1 diabetes mellitus with circulatory complication (CMS/HCC) 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 (CMS/HCC) H/O high risk medication treatment Epiretinal membrane Chronic gastric ulcer with hemorrhage but without obstruction Anticoagulated On amiodarone therapy Atherosclerosis of coronary artery without angina pectoris (CMS/HCC) 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 Mixed hyperlipidemia (CMS/HCC) 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/HCC) Age related osteoporosis (CMS/HCC) Essential hypertension (CMS/HCC) Decreased estrogen level History of coronary artery bypass surgery Thyrotoxicosis (CMS/HCC) Iron deficiency anemia Atrial premature complexes 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CMS/HCC) Class 1 obesity due to excess calories with body mass index (BMI) of 30.0 to 30.9 in adult Gastric ulcer High risk medication use 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 Never smoked any substance Palpitations Raynaud phenomenon Ventricular tachycardia (paroxysmal) (CMS/HCC) Social History Tobacco Use Smoking status: Never Smokeless tobacco: Never Vaping Use Vaping status: Unknown Substance Use Topics Alcohol use: Never Comment: caffeine: coffee/tea Drug use: Never Allergies Allergen Reactions Ira Inhibitors Other Reaction(s): Unknown Phenothiazines Swelling Other Reaction(s): Unknown, Unknown Shellfish Allergy Other Reaction(s): Unknown Sulfamethoxazole Unknown Trimethoprim Unknown Penicillins Rash Other Reaction(s): Hives / Skin Rash, Other (See Comments), Unknown Synopsis [employer] 05/17/2024 14:39 02/22/2024 00:00 02/19/2024 Antidiabetic medications Insulin Lispro 1 Dose See admin instructions INJECT UP TO 100 UNITS VIA PUMP DIRECTED ONCE DAILYSC (100 UNIT/ML SOLN) -Discontinued (Reorder) Insulin Lispro 1 Dose See admin instructions INJECT UP TO 100 UNITS VIA PUMP DIRECTED ONCE DAILYSC (100 UNIT/ML SOLN) 1 Dose See admin instructions INJECT UP TO 100 UNITS VIA PUMP DIRECTED ONCE DAILY SC (100 UNIT/ML SOLN) Labs MHPT A1C 7.1 6.5 Outpatient prescription Medication marked as long-term REVIEW OF SYMPTOMS: Review of Systems Constitutional: Negative for appetite change, fatigue and unexpected weight change. Eyes: Negative for visual disturbance. Respiratory: Negative for cough, shortness of breath and wheezing. Cardiovascular: Negative for chest pain, palpitations and leg swelling. Neurological: Negative for numbness. Endocrine: Negative for polydipsia, polyphagia and polyuria. OBJECTIVE: 05/17/2024 2:23 PM 03/04/2024 4:52 PM 02/19/2024 3:52 PM Vitals BMI 28.41 kg/m2 29.21 kg/m2 29.21 kg/m2 Systolic 140 130 132 Diastolic 72 80 68 Heart Rate 55 81 50 Temp 97.8 F 96.9 F Height (in) 5' 6 5' 6 5' 6 Weight (lb) 176 181 181 Visit Report Report Report Report Physical Exam Constitutional: General: She is not in acute distress. Appearance: Normal appearance. Cardiovascular: Rate and Rhythm: Normal rate and regular rhythm. Heart sounds: No murmur heard. No friction rub. No gallop. Pulmonary: Breath sounds: Normal breath sounds. No wheezing, rhonchi or rales. Musculoskeletal: General: No swelling. Neurological: Mental Status: She is alert. ASSESSMENT AND PLAN: Problem List Items Addressed This Visit Type 1 diabetes mellitus with circulatory complication (CMS/HCC) During the appointment today all pertinent labs, imaging, health maintenance, and glucose readings were reviewed. Encouraged to check blood glucose throughout the day with some fasting and some PP readings. They are to bring their glucose meter/cgm in to all appointments. All of the patients questions, treatment options, and current care plan and goals were discussed. Acopy of this along with pertinent instructions were given to the patient at the end of the appointment. The patient voices understanding of all of this and is to call in between appointments if they have any problems or questions. Laquita Dailey control is stable overall. , The patient is wearing their cgm on a daily basis andmaking decisions in regards to adjusting insulin daily as well for at least the last 60 days , Discussed dietary changes at length. Encouraged to limit simple carbs and focus more on healthy protein/fat with all meals and snacks. They should also avoid any sugary drinks. , Instructions given today include: Pump instructions and Dietary education. Will increase basal rate at 5A slightly and decrease at 12pm and 10 pm. Tighten carb ratio for breakfast. Relevant Medications Insulin Infusion Pump (MINIMED INSULIN PUMP) device Other Relevant Orders POCT glycosylated hemoglobin (Hb A1C) docked device (Completed) 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 ([facility]) 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 ([facility]) Follow up in about 6 months (around 11/14/2024) for Recheck. Patient's Medications New Prescriptions No medications on file Previous Medications ATORVASTATIN (LIPITOR) 10 MG TABLET Take 10 mg by mouth in the morning. BIOTIN 5 MG CAPSULE Take 10,000 mg by mouth Daily [id number] D (CITRACAL +D3 PO) Daily. CHOLECALCIFEROL (VITAMIN D-3) 50 MCG (2000 UT) TABLET Take by mouth. CLOBETASOL PROPIONATE E 0.05 % EMOLLIENT CREAM APPLY A THIN LAYER TO AFFECTED AREA TWICE DAILY FOR 2 MONTHS CONTOUR NEXT TEST TEST STRIP 1 each by Other route in the morning. DOXYLAMINE (SLEEP AID) 25 MG TABLET Take 25 mg by mouth as needed at bedtime. FERROUS SULFATE 325 (65 FE) MG TABLET Take 325 mg by mouth in the morning. Take with meals. FUROSEMIDE (LASIX) 20 MG TABLET Take 1 tablet (20 mg) by mouth in the morning. INSULIN LISPRO (HUMALOG) 100 UNIT/ML SOLUTION Inject 1 Dose under the skin See administration instructions INJECT UP TO 100 UNITS VIA PUMP DIRECTED ONCE DAILY INSULIN PEN NEEDLE (NOVOFINE PEN NEEDLE) 32G X 6 MM MISC 1 (one) time each day at the same time. MAGNESIUM OXIDE (MAG-OX) 400 MG TABLET Take 400 mg by mouth in the morning and 400 mg before bedtime. METOPROLOL SUCCINATE XL (TOPROL-XL) 50 MG 24 HR TABLET Take 50 mg by mouth in the morning. NITROGLYCERIN (NITRODUR) 0.2 MG/HR PATCH 1 PATCH TRANSDERMALLY DAILY NEEDED FOR CHEST PAIN FOR 30 DAYS NITROGLYCERIN (NITROSTAT) 0.[address] 0.4 mg under the tongue every 5 (five) minutes if needed for chest pain. PANTOPRAZOLE (PROTONIX) 40 MG EC TABLET Take 1 tablet (40 mg) by mouth in the morning. POTASSIUM CHLORIDE CR (KLOR-CON) 10 MEQ ER TABLET Take 10 mEq by mouth Daily XARELTO 20 MG TABLET Take 20 mg by mouth in the evening. Take with meals. Modified Medications Modified Medication Previous Medication INSULIN INFUSION PUMP (MINIMED INSULIN PUMP) DEVICE Insulin Infusion Pump (MINIMED INSULIN PUMP) device Basal: 12A 0.0, 5A 0.45, 12P 0.25, ICR: 12A 3, 11A 5.5, 5P 4.5, ISF: 12A 25, 8A 15, Target: 100-150Basal: 12A 0.0, 4A 0.4, 12P 0.3, 10P 0.35, ICR: 12A 3.5, 11A 5.5, 5P 4.5, ISF: 12A 25, 8A 15, Target: 100-150 Discontinued Medications ASPIRIN LOW DOSE 81 MG EC TABLET Take 81 mg by mouth in the morning. POTASSIUM CHLORIDE ER (MICRO-K) 10 MEQ ER CAPSULE Take 10 mEq by mouth in the morning. I have reviewed and reconciled the history and medication list with the patient today. documented in this [id number] History of Present illness Narrative* Justino Powers, KAYY - 03/04/2024 4:50 PM EDT Patient: Laquita Dailey : 1945 PCP: Prasanth Craig MD SUBJECTIVE Patient presents today for follow up of skin lesion/neoplasm of unknown origin to the left foot Pt states that previous treatment of acid tx with some improvement Pt rates pain the pain on a 1-10 scale an intensity of 5 Pt presents today for followup. Patient presents today with a CC of elongated, thick nails. Pt states nails have been elongated and thick for many years and cause pain with ambulation in shoegear. Pt has tried previous treatment with minimal relief. Pt presents today for nail care and treatment. Patient is DM2 Allergies: Allergies Allergen Reactions Ira Inhibitors Other Reaction(s): Unknown Phenothiazines Swelling Other Reaction(s): Unknown, Unknown Shellfish Allergy Other Reaction(s): Unknown Sulfamethoxazole Unknown Trimethoprim Unknown Penicillins Rash Other Reaction(s): Hives / Skin Rash, Other (See Comments), Unknown Past Medical History: Past Medical History: Diagnosis Date A-fib ([facility]) Angina pectoris ([facility]/HCC) Anxiety Anxiety state ([facility]) [place] esophagus BCC (basal cell carcinoma) CAD (coronary artery disease) (CMS/[facility]) Chest pain 10/18/2020 Depression (CMS/HCC) Depressive disorder (CMS/HCC) Diabetes mellitus (CMS/HCC) Edema Esophageal reflux Essential hypertension (CMS/HCC) GERD (gastroesophageal reflux disease) GI bleed History of coronary artery bypass graft Hx of coronary artery bypass graft Hx of echocardiogram Hypercholesteremia (CMS/HCC) Hyperlipemia (CMS/HCC) Hypertension (CMS/HCC) IBS (irritable bowel syndrome) LBBB (left bundle branch block) Migraine (CMS/HCC) Migraine headache (CMS/HCC) Osteopenia Osteoporosis (CMS/HCC) x2 Prolonged Q-T interval on ECG 06/2019 PUD (peptic ulcer disease) Pure hypercholesterolemia (CMS/HCC) Medications: Current Outpatient Medications: Aspirin Low Dose 81 MG EC tablet, Take 81 mg by mouth in the morning., Disp: , Rfl: atorvastatin (Lipitor) 10 MG tablet, Take 10 mg by mouth in the morning., Disp: , Rfl: biotin 5 MG capsule, Take 10,000 mg by mouth Daily, Disp: , Rfl: Ylwkhfv-Corkixbpty-Dgouyqz D (CITRACAL +D3 PO), Daily., Disp: , Rfl: cholecalciferol (Vitamin D-3) 50 MCG (1999) tablet, Take by mouth., Disp: , Rfl: Clobetasol Propionate E 0.05 % emollient cream, APPLY A THIN LAYER TO AFFECTED AREA TWICE DAILY FOR2 MONTHS, Disp: , Rfl: Continuous Blood Gluc Sensor (Dexcom G7 Sensor) misc, 1 Device Every 10 (ten) days., Disp: 9 each, Rfl: 3 Contour Next Test test strip, 1 each by Other route in the morning., Disp: , Rfl: doxylamine (Sleep Aid) 25 MG tablet, Take 25 mg by mouth as needed at bedtime., Disp: , Rfl: ferrous sulfate 325 (65 Fe) MG tablet, Take 325 mg by mouth in the morning and 325 mg in the evening. Take with meals., Disp: , Rfl: furosemide (Lasix) 20 MG tablet, Take 1 tablet (20 mg) by mouth in the morning., Disp: 100 tablet, Rfl: 3 Insulin Infusion Pump (MINIMED INSULIN PUMP) device, Basal: 12A 0.0, 4A 0.4, 12P 0.3, 10P 0.35, ICR: 12A 3.5, 11A 5.5, 5P 4.5, ISF: 12A 25, 8A 15, Target: 100- 150, Disp: 1 each, Rfl: 0 Insulin Lispro (HumaLOG) 100 UNIT/ML solution, Inject 1 Dose under the skin See administration instructions INJECT UP TO 100 UNITS VIA PUMP DIRECTED ONCE DAILY, Disp: 90 mL, Rfl: 3 insulin pen needle (Novofine Pen Needle) 32G x 6 mm misc, 1 (one) time each day at the [...] ifneeded for chest pain., Disp: , Rfl: pantoprazole (ProtoNix) 40 MG EC tablet, Take 1 tablet (40 mg) by mouth in the morning., Disp: 90 tablet, Rfl: 3 potassium chloride ER (Micro-K) 10 MEQ ER capsule, Take 10 mEq by mouth in the morning., Disp: , Rfl: Xarelto 20 MG tablet, Take 20 mg by mouth in the evening. Take with meals., Disp: , Rfl: Social History: Social History Socioeconomic History Marital status: Spouse name: Not on file Number of children: Not on file Years of education: Not on file Highest education level: Not on file Occupational History Not on file Tobacco Use Smoking status: Never Smokeless tobacco: Never Vaping Use Vaping status: Unknown Substance and Sexual Activity Alcohol use: Never Comment: caffeine: coffee/tea Drug use: Never Sexual activity: Not on file Other Topics Concern Not on file Social History Narrative Not on file Social Determinants of Health Financial Resource Strain: Not on [...] at the left sub 4th metatarsal measuring 0.2 cm x 0.2 cm. Right medial ankle region has area of resolved lesion VASC: Negative DP and positive PT pedal pulses NEURO: 5.07 [place] monofilament test intact to digits and forefoot bilaterally 125Hz tuning fork diminished to 1st MPJ bilaterally ORTHO: Positive pain on palpation to nails 1 through 10 Positive pain on palpation left foot lesion ASSESSMENT 1. Verruca plantaris 2. Foot pain, left 3. 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 Onychomycosis 5. Toe pain, bilateral PLAN Application of salinocaine acid medication to lesion/lesions located at left foot Informed pt of risks and benefits of procedure including high reoccurence rate, infection, pain andconsent given. Application of DSD post procedure. Discussed proper foot care with patient today. Debride nails in length and thickness digits 1 through 10 Patient educated today on proper diabetic foot care including monitoring feet daily for any signs of infection openings in the skin or irregularities to both feet. Patient had a diabetic neurologicalexam today to both their feet and discussed proper shoe gear. Justino Powers DPM documented in this encounterSaint [id number] Evaluation note* Type Assessment Date assessment Type 2 diabetes travis itus with proliferative diabetic retinopathy without macular edema, bilateral impression Type 2 diabetes travis itus with proliferative diabetic retinopathy without macular edema, bilateral: E11.3593. OU. Condition: established, inactive assessment Dry Eye Syndrome OU impression Dry Eye Syndrome OU: H04.123. Co ndition: chronic [facility] Work Phone: 1([phone] History of Present illness Narrative* Encounter Date Complaint History Of Prese nt Illness diabetic eye exam The 78 year ol d patient presents for evaluation of diabetic eye exam in the right and left eyes. C/O mild decreased vision OU x 1 year gradually macular degeneration The 77 year old female presents for evaluation of PDR in the right and left eyes. The patient denies new vision change in either eye since her last exam about 12 months ago. diabetic eye exam The 76 year ol d female presents for evaluation of diabetic eye exam in the right and left eyes. C/O decreased vision OS x 2 months noted after a bad headache. decreased vision The patient is present for evaluation of decreased vision in the right and left eyes. It started about 1 year(s) ago. It occurs frequently. The onset was gradual. It affects decrease in near vision. The symptom is intermittently. The condition is mild. The condition is described as fuzzy vision. diabetic eye exam The 75 year ol d female presents for evaluation of diabetic eye exam in the right and left eyes. diabetic eye exam The 74 year ol d female presents for a diabetic eye exam in the right and left eye. denies new vision change The pat ient denies new vision change in the right and left eye since her last exam about 1 year(s) ago. It occurs constantly. It affects both near and distance vision. The condition is stable. Decreased vision The patient is present for evaluation of Decreased vision in the left eye. It started about 4 months ago. It occurs all the time. The onset was gradual. The condition is mild. The condition is described as blurring. diabetic retinopathy The 73 year old female presents for evaluation of diabetic retinopathy in the right eye and left eye. denies new vision change The pat ient denies new vision change in the right eye and left eye since her last exam about 1 year ago . It affects both near and far vision. The symptom is constant. The condition is stable. diabetic retinopathy The 72 year old female presents for evaluation of diabetic retinopathy in the right eye and left eye. mild fluctuating vision The khari ent complains of mild fluctuating vision in the right eye and left eye x 1 year ago . The onset was gradual. The symptom is infrequent. The patient denies eye pain. diabetic retinopathy The 71 year old female presents for evaluation of diabetic retinopathy in the right eye and left eye and ERM, OD. flucuations in vision The patien t complains of flucuations in vision in the right eye and left eye. since 1 year ago . It affects both near and far vision. The symptom is intermittent. It occurs when blood sugar fluctuates. The condition is mild. macular degeneration The 70 year old female presents for evaluation of macular degeneration in the right eye and left eye. mild vision loss The patient com plains of mild vision loss in the left eye. It started years ago. It affects both near and far vision. The symptom is constant. The condition is stable. diabetic retinopathy The 69 year old female presents for evaluation of diabetic retinopathy in the right eye and left eye. floaters The patient comp lains of floaters in the right eye and left eye. It started about 1 year(s) ago . The onset was gradual. It affects both near and far vision. The symptom is occasional. It occurs when focusing. The condition is mild. The condition is described as round black spots. In addition, the condition is associated with daily activity and chores. diabetic retinopathy The 68 year old female presents for evaluation of diabetic retinopathy in the right eye and left eye. [facility] Work Phone: [phone]) [phone] Instructions* Date Instruction Additional Infor luis 5 months FU/OCT Related to Type 2 diabetes mellitus with proliferative diabetic retinopathy without macular edema, bilateral Impression/Plan Related to Type 2 diabetes mellitus with proliferative diabetic retinopathy without macular edema, bilateral Impression/Plan Related to Dry E ye Syndrome OU 12 mth fu oct ou Related to Type 2 diabetes mellitus with proliferative diabetic retinopathy without macular edema, bilateral Impression/Plan Related to Type 2 diabetes mellitus with proliferative diabetic retinopathy without macular edema, bilateral Impression/Plan Related to Vitre ous degeneration, left eye Impression/Plan Related to Dry E ye Syndrome OU Impression/Plan Related to Type 2 diabetes mellitus with proliferative diabetic retinopathy without macular edema, bilateral Impression/Plan Related to Type 2 diabetes mellitus with proliferative diabetic retinopathy without macular edema, bilateral Impression/Plan Related to Dry E ye Syndrome OU Return in 1 year for FU/OCT OU R elated to Type 2 diabetes mellitus with proliferative diabetic retinopathy without macular edema, bilateral Impression/Plan Related to Dry E ye Syndrome OU Impression/Plan Related to Prese nce of intraocular lens Impression/Plan Related to Type 2 diabetes mellitus with proliferative diabetic retinopathy without macular edema, bilateral Impression/Plan Related to Dry E ye Syndrome OU Impression/Plan Related to Prese nce of intraocular lens Impression/Plan Related to Type 2 diabetes mellitus with proliferative diabetic retinopathy without macular edema, bilateral Return in [address] Bernabe for follow up exam and OCT Related to Type 2 diabetes mellitus with proliferative diabetic retinopathy without macular edema, bilateral Follow up - Return i n [address] Bernabe for follow up exam and OCT Related to Type 2 diabetes mellitus with proliferative diabetic retinopathy without macular edema, bilateral Impression/Plan - -P roliferative Diabetic Retinopathy is present, but atrophic and inactive.- No Treatment is necessary at this time.- The importance of good blood pressure and blood sugar control was emphasized. -Diabetic letter sent to PCP 01/28/18 Related to Type 2 diabetes mellitus with proliferative diabetic retinopathy without macular edema, bilateral Impression/Plan - -M ild ERM, not causing any significant vision change- Observation. Related to Macular Pucker OU Impression/Plan Related to Prese nce of intraocular lens Return in 1 year Related to Type 2 diabetes mellitus with proliferative diabetic retinopathy without macular edema, bilateral Impression/Plan Related to Prese nce of intraocular lens Impression/Plan - Mi ld ERM, OU. Observation. Related to Macular Pucker OU Impression/Plan - Pr oliferative Diabetic Retinopathy is present, but atrophic and inactive. No Treatment is necessary at this time. The importance of good blood pressure and blood sugar control was emphasized. Diabetic letter sent to PCP. Related to Type 2 diabetes mellitus with proliferative diabetic retinopathy without macular edema, bilateral Follow up - Return in 1 year Rel ated to Type 2 diabetes mellitus with proliferative diabetic retinopathy without macular edema, bilateral Type 2 diabetes travis itus with proliferative diabetic retinopathy without macular edema, bilateral - Blood sugar control discussed. Related to Type 2 diabetes mellitus with proliferative diabetic retinopathy without macular edema, bilateral - Proliferative Diab etic Retinopathy is present, but atrophic and inactive. No Treatment is necessary at this time. Patient understands they should notify us if any vision change occurs. Related to Type 2 diabetes mellitus with unspecified diabetic retinopathy without macular edema - 1 Year. Related to Type 2 diabetes mellitus with unspecified diabetic retinopathy without macular edema - Epiretinal Membran e is present, but very mild. It causes minimal symptoms and should remain stable. Observation Related to Puckering of macula, right eye - Patient is aware o f the improtance of good control and compliance. Related to Diabetes, Type 2, with Retinopathy - PRP in place. Related to PDR - Background Diabeti c Retinopathy is present. The importance of blood glucose and blood pressure control was emphasized. Related to Background Diabetic Retinopathy - Mild - 6 months Related to Backg round Diabetic Retinopathy - Mild - Observation. Call if any changes or problems. Related to Background Diabetic Retinopathy - Mild - Return in 1 year Related to Ba ckground Diabetic Retinopathy - Mild - Stable. No treatme nt necessary. Will continue to observe. Related to PDR - Emphasized blood sugar control . Related to Diabetes, Type 2, with Retinopathy Diabetes, Type 2, wi th Retinopathy Condition: chronic. - Emphasized blood sugar control. Related to Diabetes, Type 2, with Retinopathy Pseudophakia OU Related to Pseud ophakia Macular Pucker OU Co ndition: mild, chronic, stable. - No treatment is indicated as these are mild. Observation. Related to Macular Pucker PDR OU Condition: in active. - Stable. No treatment necessary. Will continue to observe. Related to PDR - Return in 1 year Related to PD R [facility] Work Phone: [phone]) [phone] History of Present illness Narrative* Juan José Juarez MD - 12/08/2023 11:00 AM EDT CARDIOLOGY OFFICE VISIT CHIEF COMPLAINT Chief Complaint Patient presents with Follow-up HISTORY OF PRESENT ILLNESS HPI 78-year-old female with a past medical history of coronary artery disease with history of coronary artery bypass graft surgery x2 back in 1999. Recent cardiac catheterization in June 2019 showed POZO to LAD patent also radial to obtuse marginal patent with patent stents. Echocardiogram in April 2018 showed left ventricular ejection fraction 45 to 50% with mild mitral vegetation. History of diabetes mellitus and hyperlipidemia. She was diagnosed of atrial fibrillation back in April 2018 and she was placed on beta-blockers, Xarelto and also amiodarone. Amiodarone was discontinued due to significant tremors. She had a cardiac catheterization in August 2020 that ended with PCI of the radial graft to the obtuse marginal and PCI of the PLV B. A Holter monitor was ordered that shows underlying rhythm was sinus rhythm with a minimum heart rate of 40 bpm maximum heart rate of 83 bpm with average heart rate of 50 bpm. There was evidence of chronotropic incompetence based on results of the study. Lately she is doing well. She has occasional palpitations but no limiting cardial activities. She was recently admitted to [facility] in April 21 to 2022. Apparently she was admitted for palpitations. On arrival to emergency department her symptoms disappear. So far she has been doing well. She denies any symptoms of chest pain or shortness of breath or palpitations. Patient is still on beta-demetrius therapy and also with Xarelto. Past Medical History Past Medical History: Diagnosis Date Coronary angioplasty status 05/23/2021 History of PTCA Encounter for preprocedural laboratory examination Pre-procedure lab exam Other chest pain Atypical chest pain Personal history of other endocrine, nutritional and metabolic disease History of obesity Personal history of other endocrine, nutritional and metabolic disease History of hypoglycemia Personal history of other endocrine, nutritional and metabolic disease 06/04/2021 History of obesity Personal history of other specified conditions History of fatigue Personal history of other specified conditions History of syncope Personal history of other specified conditions History of snoring Social History Social History Tobacco Use Smoking status: Never Smokeless tobacco: Never Substance Use Topics Alcohol use: Never Drug use: Never Family History Family History Problem Relation Name Age of Onset Other (acute myocardial infarction) Sister Other (acute myocardial infarction) Brother Allergies: Allergies Allergen Reactions Ira Inhibitors Unknown Phenothiazines Swelling Shellfish Containing Products Unknown Penicillins Rash Outpatient Medications: Current Outpatient Medications Medication Instructions aspirin 81 mg EC tablet 1 tablet, oral, Daily atorvastatin (LIPITOR) 10 mg, oral, Nightly biotin 5 mg capsule 1 capsule, oral, Daily calcium citrate/vitamin D3 (CALCIUM CITRATE + D ORAL) 1 tablet, oral, Daily doxylamine succinate (NITETIME SLEEP-AID ORAL) 1 capsule, oral, Nightly ferrous sulfate 65 mg, oral, Daily with breakfast, Do not crush, chew, or split. furosemide (LASIX) 20 mg, oral, Daily insulin lispro (HumaLOG) 100 UNIT/ML patient supplied pump subcutaneous, Daily RT magnesium oxide (MAG-OX) 400 mg, oral, 2 times daily metoprolol succinate XL (TOPROL-XL) 50 mg, oral, Daily nitroglycerin (Nitrodur) 0.2 mg/hr patch 1 patch, transdermal, Every other day nitroglycerin (NITROSTAT) 0.4 mg, sublingual, Every 5 min PRN pantoprazole (ProtoNix) 40 mg EC tablet 1 tablet, oral, Daily potassium chloride CR 10 mEq ER tablet 10 mEq, oral, Daily Xarelto 20 mg, oral, Daily REVIEW OF SYSTEMS Review of Systems All other systems reviewed and are negative. VITALS Vitals: 12/08/23 1151 BP: 138/66 Pulse: 52 PHYSICAL EXAM Constitutional: Appearance: Healthy appearance. Not in distress. Neck: Vascular: No JVR. JVD normal. Pulmonary: Effort: Pulmonary effort is normal. Breath sounds: Normal breath sounds. No wheezing. No rhonchi. No rales. Chest: Chest wall: Not tender to palpatation. Cardiovascular: PMI at left midclavicular line. Normal rate. Regular rhythm. Normal S1. Normal S2. Murmurs: There is no murmur. No gallop. No click. No rub. Pulses: Intact distal pulses. Edema: Peripheral edema absent. Abdominal: General: Bowel sounds are normal. Palpations: Abdomen is soft. Tenderness: There is no abdominal tenderness. Musculoskeletal: Normal range of motion. General: No tenderness. Skin: General: Skin is warm and dry. Neurological: General: No focal deficit present. Mental Status: Alert and oriented to person, place and time. ASSESSMENT AND PLAN Impression 1. New diagnosis atrial fibrillation since April 2018.-Persistent atrial fibrillation, plan discussed during this office visit 2. Long-term anticoagulation therapy with Xarelto., No evidence of bleeding 3. History of gastric ulcer with bleeding with hemoglobin 7.1 to require blood transfusions. Now she is back on Xarelto. Multiple episodes of bleeding described by patient during this office visit 4. Coronary artery disease, status post percutaneous core interventions and coronary bypass graft surgery in 1999. Recent cardiac catheterization as described above, recent cardiac catheterization ended with PCI of the radial graft to the obtuse marginal and PCI of the PL BV 5. High risk medication (amiodarone). Patient has been off this medication since mid February 2020, stable 6. QT prolongation with low-dose Betapace, resolved 7. Left bundle branch block, stable 8. Normal ventricular function per echocardiogram as described above, no new changes 9. Tremors 10. Fatigue, tiredness, resolved after PCI was performed Plan recommendations Patient is doing well from the electrophysiology standpoint. No recurrence of atrial fibrillation. Continue with beta-demetrius therapy. Patient has been off amiodarone therapy for short amount of time. Continue with Xarelto therapy. Follow my office every 6 months or sooner if needed. Get a Holter monitor for 48 hours prior to next office visit. Risk factor modification and lifestyle modification discussed with patient. Diet , exercise and hydration discussed with patient. I have personally review with patient during this office visit, laboratory data, echocardiogram results, stress test results, Holter-event monitor results prior and after the last electrophysiology visit. All questions has been answered. Please excuse any errors in grammar or translation related to this dictation. Voice recognition software was utilized to prepare this document. documented in this [facility] Work Phone: [phone]) [phone] Instructions* Patient Instructions* Alexandre Gutiérrez MA - 12/08/2023 11:00 AM EDT Continue same medications and treatments. Please bring any lab results from other providers / physicians to your next appointment. Please bring all medicines, vitamins, and herbal supplements with you when you come to the office. Prescriptions will not be filled unless you are compliant with your follow up appointments or have a follow up appointment scheduled as per instruction of your physician. Refills should be requested at the time of your visit. Scribe Attestation By signing my name below, Devon Fairbanks Scribe attest that this documentation has been prepared under the direction and in the presence of Asaf Juarez MD. documented in this The [facility] Work Phone: [phone]) 279-551305-14-2024 History of Present illness Narrative* Eder Everett, DO - 11/18/2023 11:20 AM EDT Subjective Laquita Dailey is a 78 y.o. female Chief Complaint Follow-up 78-year-old female returns for follow-up and she is doing extremely well. 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 She does not complain any of any palpitations or angina, heart failure or hospitalizations She has a history of coronary artery disease with history of coronary artery bypass graft surgery x2 back in 1999. Recent cardiac catheterization in June 2019 showed POZO to LAD patent also radial to obtuse marginal patent with patent stents. Echocardiogram in April 2018 showed left ventricular ejection fraction 45 to 50% with mild mitral vegetation. History of diabetes mellitus and hyperlipidemia. She was diagnosed of atrial fibrillation back in April 2018 and she was placed on beta-blockers, Xarelto and also amiodarone. Amiodarone was discontinued due to significant tremors. She had a cardiac catheterization in August 2020 that ended with PCI of the radial graft to the obtuse marginal and PCI of the PLV B. 2022 stress imaging was performed revealing a small very distal anteroseptal ischemic area with preserved left ventricular function. We have been treating this conservatively given her lack of symptoms. She remains on appropriate GDMT, Xarelto with no bleeding or thromboembolic events, metoprolol, furosemide Nitro-Dur patch and atorvastatin Recommendations, continue current therapies obtain appropriate laboratories, follow-up in 6 months prior to departure back to [place] Review of Systems All other systems reviewed and are negative. Vitals: 11/18/23 1137 BP: 122/70 BP Location: Left arm Patient Position: Sitting Pulse: (!) 48 Weight: 81.2 kg (179 lb) Height: 1.664 m (5' 5.5 ) Objective Physical Exam Constitutional: Appearance: Normal appearance. HENT: Nose: Nose normal. Neck: Vascular: No carotid bruit. Cardiovascular: Rate and Rhythm: Normal rate. Pulses: Normal pulses. Heart sounds: Normal heart sounds. Pulmonary: Effort: Pulmonary effort is normal. Abdominal: General: Bowel sounds are normal. Palpations: Abdomen is soft. Musculoskeletal: General: Normal range of motion. Cervical back: Normal range of motion. Right lower leg: No edema. Left lower leg: No edema. Skin: General: Skin is warm and dry. Neurological: General: No focal deficit present. Mental Status: She is alert. Psychiatric: Mood and Affect: Mood normal. Behavior: Behavior normal. Thought Content: Thought content normal. Judgment: Judgment normal. Allergies Ira inhibitors, Phenothiazines, Shellfish containing products, and Penicillins Current Medications Current Outpatient Medications: aspirin 81 mg EC tablet, Take 1 tablet (81 mg) by mouth once daily., Disp: , Rfl: atorvastatin (Lipitor) 10 mg tablet, Take 1 tablet (10 mg) by mouth once daily at bedtime., Disp: ,Rfl: biotin 5 mg capsule, Take 1 capsule (5 mg) by mouth once daily., Disp: , Rfl: calcium citrate/vitamin D3 (CALCIUM CITRATE + D ORAL), Take 1 tablet by mouth once daily., Disp: , Rfl: doxylamine succinate (NITETIME SLEEP-AID ORAL), Take 1 capsule by mouth once daily at bedtime., Disp: , Rfl: ferrous sulfate 325 (65 Fe) MG EC tablet, Take 65 mg by mouth once daily with a meal. Do not crush,chew, or split., Disp: , Rfl: furosemide (Lasix) 20 mg tablet, Take 1 tablet (20 mg) by mouth once daily., Disp: , Rfl: insulin lispro (HumaLOG) 100 UNIT/ML patient supplied pump, Inject under the skin once daily., Disp: , Rfl: magnesium oxide (Mag-Ox) 400 mg (241.3 mg magnesium) tablet, Take 1 tablet (400 mg) by mouth 2 times a day., Disp: , Rfl: metoprolol succinate XL (Toprol-XL) 50 mg 24 hr tablet, Take 1 tablet (50 mg) by mouth once daily.,Disp: , Rfl: nitroglycerin (Nitrodur) 0.2 mg/hr patch, Place 1 patch on the skin every other day., Disp: , Rfl: nitroglycerin (Nitrostat) 0.4 mg SL tablet, Place 1 tablet (0.4 mg) under the tongue every 5 minutes if needed for chest pain., Disp: 90 tablet, Rfl: 1 pantoprazole (ProtoNix) 40 mg EC tablet, Take 1 tablet (40 mg) by mouth once daily., Disp: , Rfl: potassium chloride CR 10 mEq ER tablet, TAKE 1 TABLET BY MOUTH EVERY DAY, Disp: 90 tablet, Rfl: 2 Xarelto 20 mg tablet, Take 1 tablet (20 mg) by mouth once daily., Disp: 35 tablet, Rfl: 0 Assessment/Plan 1. 3-vessel coronary artery disease Follow Up In Cardiology 2. Paroxysmal atrial fibrillation (Multi) 3. ASHD (arteriosclerotic heart disease) 4. History of coronary artery bypass graft 5. Type 2 diabetes mellitus without complication, with long-term current use of insulin (Multi) 6. High risk medication use 7. History of PTCA 8. Class 1 obesity due to excess calories with body mass index (BMI) of 30.0 to 30.9 in adult, unspecified whether serious comorbidity present 9. Never smoked any substance Scribe Attestation By signing my name below, ISara LPN Scribe attest that this documentation has been prepared under the direction and in the presence of Lizzie Everett DO. Provider Attestation - Scribe documentation All medical record entries made by the Scribe were at my direction and personally dictated by me. Ihave reviewed the chart and agree that the record accurately reflects my personal performance of the history, physical exam, discussion and plan. documented in this encounterJoint [facility] Work Phone: [phone]) 947-287005-14-2024 Instructions* Patient Instructions* Herman Moreno MA - 11/18/2023 11:20 AM EDT Please bring all medicines, vitamins, and herbal supplements with you when you come to the office. Prescriptions will not be filled unless you are compliant with your follow up appointments or have a follow up appointment scheduled as per instruction of your physician. Refills should be requested at the time of your visit. documented in this encounterJoint [facility] Work Phone: [phone]) 672-349612-18-2023 History of Present illness Narrative* Juan José Juarez MD - 06/23/2023 10:45 AM EST CARDIOLOGY OFFICE VISIT CHIEF COMPLAINT Chief Complaint Patient presents with Follow-up 6 MONTH HISTORY OF PRESENT ILLNESS HPI 77-year-old female with a past medical history of coronary artery disease with history of coronary artery bypass graft surgery x2 back in 1999. Recent cardiac catheterization in June 2019 showed POZO to LAD patent also radial to obtuse marginal patent with patent stents. Echocardiogram in April 2018 showed left ventricular ejection fraction 45 to 50% with mild mitral vegetation. History of diabetes mellitus and hyperlipidemia. She was diagnosed of atrial fibrillation back in April 2018 and she was placed on beta-blockers, Xarelto and also amiodarone. Amiodarone was discontinued due to significant tremors. She had a cardiac catheterization in August 2020 that ended with PCI of the radial graft to the obtuse marginal and PCI of the PLV B. A Holter monitor was ordered that shows underlying rhythm was sinus rhythm with a minimum heart rate of 40 bpm maximum heart rate of 83 bpm with average heart rate of 50 bpm. There was evidence of chronotropic incompetence based on results of the study. Lately she is doing well. She has occasional palpitations but no limiting cardial activities. Patient states that she continues having episodes of palpitations on and off. She was recently admitted to [facility] in April 21 to 2022. Apparently she was admitted for palpitations. On arrival to emergency department her symptoms disappear. She states she has feeling well. Past Medical History Past Medical History: Diagnosis Date Coronary angioplasty status 05/23/2021 History of PTCA Encounter for preprocedural laboratory examination Pre-procedure lab exam Other chest pain Atypical chest pain Personal history of other endocrine, nutritional and metabolic disease History of obesity Personal history of other endocrine, nutritional and metabolic disease History of hypoglycemia Personal history of other endocrine, nutritional and metabolic disease 06/04/2021 History of obesity Personal history of other specified conditions History of fatigue Personal history of other specified conditions History of syncope Personal history of other specified conditions History of snoring Social History Social History Tobacco Use Smoking status: Never Smokeless tobacco: Never Substance Use Topics Alcohol use: Never Drug use: Never Family History Family History Problem Relation Name Age of Onset Other (acute myocardial infarction) Sister Other (acute myocardial infarction) Brother Allergies: Allergies Allergen Reactions Ira Inhibitors Unknown Phenothiazines Swelling Shellfish Containing Products Unknown Penicillins Rash Outpatient Medications: Current Outpatient Medications Medication Instructions aspirin 81 mg EC tablet 1 tablet, oral, Daily atorvastatin (Lipitor) 10 mg tablet 1 tablet, oral, Nightly biotin 5 mg capsule 1 capsule, oral, Daily calcium citrate/vitamin D3 (CALCIUM CITRATE + D ORAL) 1 tablet, oral, Daily doxylamine succinate (NITETIME SLEEP-AID ORAL) 1 capsule, oral, Nightly ferrous sulfate 65 mg, oral, Daily with breakfast, Do not crush, chew, or split. furosemide (Lasix) 20 mg tablet 1 tablet, oral, Daily insulin lispro (HumaLOG) 100 UNIT/ML patient supplied pump subcutaneous, Daily RT magnesium oxide (Mag-Ox) 400 mg (241.3 mg magnesium) tablet 1 tablet, oral, 2 times daily metoprolol succinate XL (Toprol-XL) 50 mg 24 hr tablet 1 tablet, oral, Daily nitroglycerin (Nitrodur) 0.2 mg/hr patch 1 patch, transdermal, Every other day nitroglycerin (NITROSTAT) 0.4 mg, sublingual, Every 5 min PRN pantoprazole (ProtoNix) 40 mg EC tablet 1 tablet, oral, Daily potassium chloride CR 10 mEq ER tablet 1 tablet, oral, Daily Xarelto 20 mg tablet 1 tablet, oral, Daily REVIEW OF SYSTEMS Review of Systems All other systems reviewed and are negative. VITALS Vitals: 06/23/23 1110 BP: 158/57 Pulse: 50 PHYSICAL EXAM Constitutional: Appearance: Healthy appearance. Not in distress. Neck: Vascular: No JVR. JVD normal. Pulmonary: Effort: Pulmonary effort is normal. Breath sounds: Normal breath sounds. No wheezing. No rhonchi. No rales. Chest: Chest wall: Not tender to palpatation. Cardiovascular: PMI at left midclavicular line. Normal rate. Regular rhythm. Normal S1. Normal S2. Murmurs: There is no murmur. No gallop. No click. No rub. Pulses: Intact distal pulses. Edema: Peripheral edema absent. Abdominal: General: Bowel sounds are normal. Palpations: Abdomen is soft. Tenderness: There is no abdominal tenderness. Musculoskeletal: Normal range of motion. General: No tenderness. Skin: General: Skin is warm and dry. Neurological: General: No focal deficit present. Mental Status: Alert and oriented to person, place and time. ASSESSMENT AND PLAN Impression 1. New diagnosis atrial fibrillation since April 2018.-Persistent atrial fibrillation, plan discussed during this office visit 2. Long-term anticoagulation therapy with Xarelto., No evidence of bleeding 3. History of gastric ulcer with bleeding with hemoglobin 7.1 to require blood transfusions. Now she is back on Xarelto. Multiple episodes of bleeding described by patient during this office visit 4. Coronary artery disease, status post percutaneous core interventions and coronary bypass graft surgery in 1999. Recent cardiac catheterization as described above, recent cardiac catheterization ended with PCI of the radial graft to the obtuse marginal and PCI of the PL BV 5. High risk medication (amiodarone). Patient has been off this medication since mid February 2020, stable 6. QT prolongation with low-dose Betapace, resolved 7. Left bundle branch block, stable 8. Normal ventricular function per echocardiogram as described above, no new changes 9. Tremors 10. Fatigue, tiredness, resolved after PCI was performed Plan-recommendations. I had a lengthy discussion with patient regarding palpitations. Most like she got recurrence of atrial fibrillation but we need documentation of these. We discussed the option for loop recorder implantation. Procedure, risk, benefits and possible complications were explained to patient. All questions were answered. Patient agrees with plan. Patient states that she would like to avoid procedure for now. She would like to think about this. Also we discussed the option of Watchman device implantation. She has not had any significant GI bleed or brain bleed or falling episodes. She will continue with current dose of Xarelto. Follow-up my office in 6 months or sooner needed. Risk factor modification and lifestyle modification discussed with patient. Diet , exercise and hydration discussed with patient. If she has augmentation with recurrence of atrial fibrillation, an atrial fibrillation ablation will be discussed with her. I have personally review with patient during this office visit, laboratory data, echocardiogram results, stress test results, Holter-event monitor results prior and after the last electrophysiology visit. All questions has been answered. Please excuse any errors in grammar or translation related to this dictation. Voice recognition software was utilized to prepare this document. Scribe Attestation By signing my name below, IIvon LPN , Scrofelia attest that this documentation has been prepared under the direction and in the presence of Asaf Juarez MD. documented in this encounterJoint [facility] Work Phone: [phone]) 221-569212-18-2023 Instructions* Patient Instructions* Ivon Terry LPN - 06/23/2023 10:45 AM EST Ok to take an extra half tablet of Metoprolol if needed for palpitations lasting greater than 20 minutes. documented in this encounterUnMer[facility] Work Phone: [phone] History of Present illness Narrative* Eder Everett, - 06/03/2023 11:00 AM EST Subjective Laquita Dailey is a 77 y.o. female Chief Complaint Follow-up 77-year-old female returns for follow-up following recent hospitalization x 2 days in May 22 and and is otherwise doing well. Stress perfusion imaging was mildly abnormal for apical perfusiondefect consistent with ischemia unchanged from the past with normal left ventricular function. 14-day event monitor is also performed revealing sinus rhythm with no A-fib or arrhythmias. She has a history of ASHD, remote CABG, remote PCI's and more recently two- vessel PCI of the nativePLV branch and the radial graft to obtuse marginal branch with drug-eluting stents in September 2020 with preserved left ventricular function. She has underlying history of paroxysmal A-fib, prior A-fib ablation, remains on Xarelto without bleeding or thromboembolic events. She has underlying controlled hypertension, diabetes mellitus, hyperlipidemia. She remains on appropriate therapies as reviewed including Xarelto. She does have symptomatic intrathoracic scapular discomfort that is consistent with her typical angina with exertion only she does not take nitrates, she just continues to wear Nitropatch. Her anginaclassification is class II. She is otherwise stable without resting symptomatology Recommendations, continue current therapies follow-up again in 6 months Review of Systems All other systems reviewed and are negative. Visit Vitals BP 118/66 (BP Location: Right arm, Patient Position: Sitting) Pulse (!) 48 Ht 1.651 m (5' 5 ) Wt 83.5 kg (184 lb) BMI 30.62 kg/m Smoking Status Never BSA 1.96 m Objective Physical Exam Constitutional: Appearance: Normal appearance. She is normal weight. HENT: Nose: Nose normal. Neck: Vascular: No carotid bruit. Cardiovascular: Rate and Rhythm: Normal rate. Pulses: Normal pulses. Heart sounds: Normal heart sounds. Pulmonary: Effort: Pulmonary effort is normal. Abdominal: General: Bowel sounds are normal. Palpations: Abdomen is soft. Genitourinary: Rectum: Normal. Musculoskeletal: General: Normal range of motion. Cervical back: Normal range of motion. Right lower leg: No edema. Left lower leg: No edema. Skin: General: Skin is warm and dry. Neurological: General: No focal deficit present. Mental Status: She is alert. Psychiatric: Mood and Affect: Mood normal. Behavior: Behavior normal. Thought Content: Thought content normal. Judgment: Judgment normal. Current Medications Current Outpatient Medications: aspirin 81 mg EC tablet, Take 1 tablet (81 mg) by mouth once daily., Disp: , Rfl: atorvastatin (Lipitor) 10 mg tablet, Take 1 tablet (10 mg) by mouth once daily at bedtime., Disp: ,Rfl: biotin 5 mg capsule, Take 1 capsule (5 mg) by mouth once daily., Disp: , Rfl: calcium citrate/vitamin D3 (CALCIUM CITRATE + D ORAL), Take 1 tablet by mouth once daily., Disp: , Rfl: doxylamine succinate (NITETIME SLEEP-AID ORAL), Take by mouth once daily at bedtime., Disp: , Rfl: furosemide (Lasix) 20 mg tablet, Take 1 tablet (20 mg) by mouth once daily., Disp: , Rfl: insulin lispro (HumaLOG) 100 UNIT/ML patient supplied pump, Inject under the skin once daily., Disp: , Rfl: magnesium oxide (Mag-Ox) 400 mg (241.3 mg magnesium) tablet, Take 1 tablet (400 mg) by mouth 2 times a day., Disp: , Rfl: metoprolol succinate XL (Toprol-XL) 50 mg 24 hr tablet, Take 1 tablet (50 mg) by mouth once daily.,Disp: , Rfl: nitroglycerin (Nitrodur) 0.2 mg/hr patch, Place 1 patch on the skin every other day., Disp: , Rfl: pantoprazole (ProtoNix) 40 mg EC tablet, Take 1 tablet (40 mg) by mouth once daily., Disp: , Rfl: potassium chloride CR 10 mEq ER tablet, Take 1 tablet (10 mEq) by mouth once daily., Disp: , Rfl: Xarelto 20 mg tablet, Take 1 tablet (20 mg) by mouth once daily., Disp: , Rfl: Assessment/Plan 1. 3-vessel coronary artery disease 2. Paroxysmal atrial fibrillation (CMS/HCC) 3. High risk medication use 4. History of coronary artery bypass graft 5. History of PTCA 6. Mixed hyperlipidemia 7. Essential hypertension 8. Angina, class II (CMS/HCC) 9. Type 2 diabetes mellitus without complication, with long-term current use of insulin ([facility]) documented in this encounterJoint [facility] Hospital Work Phone: [phone] Instructions* Patient Instructions* Jamilah Oreilly CMA - 06/03/2023 11:00 AM EST Please bring all medicines, vitamins, and herbal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 normal. NEURO/PSHCY: Alert and oriented x3; appropriate behavior and responses and responses, grossly normal cerebellar function with normal balance and coordination LUNGS: Clear to auscultation bilaterally; normal respiratory effort. HEART: Rate and rhythm regular with no evident murmur; no gallop appreciated. There are no rubs, clicks or heaves. PMI nondisplaced. ABDOMEN: Soft, nontender, no palpable hepatosplenomegaly, no mases, no bruits. Abdominal aorta not noted to be enlarged. MUSCULOSKELETAL: Ambulatory with normal tandem gait. EXTREMITIES: Warm with good color, no clubbing or cyanois. There is no edema noted. PERIPHERAL VASCULAR: Pulses present and equally palpable; 2+ throughout. No femoral bruits. ASSESSMENT AND PLAN Impression 1. New diagnosis atrial fibrillation since April 2018.-Persistent atrial fibrillation, plan discussed during this office visit 2. Long-term anticoagulation therapy with Xarelto., No evidence of bleeding 3. History of gastric ulcer with bleeding with hemoglobin 7.1 to require blood transfusions. Now she is back on Xarelto. Multiple episodes of bleeding described by patient during this office visit 4. Coronary artery disease, status post percutaneous core interventions and coronary bypass graft surgery in 1999. Recent cardiac catheterization as described above, recent cardiac catheterization ended with PCI of the radial graft to the obtuse marginal and PCI of the PL BV 5. High risk medication (amiodarone). Patient has been off this medication since mid February 2020, stable 6. QT prolongation with low-dose Betapace, resolved 7. Left bundle branch block, stable 8. Normal ventricular function per echocardiogram as described above, no new changes 9. Tremors 10. Fatigue, tiredness, resolved after PCI was performed Plan-recommendations I had a discussion with patient regarding management of atrial fibrillation and palpitations. Not sure the rhythms that she was feeling with symptoms last week. This could be recurrence of atrial fibrillation but also could be PACs. We discussed the option of an event monitor for 30 days for long-term monitoring with a loop recorder implantation. Procedure, risk, benefits and possible complications were explained to patient. All questions were answered. Patient agrees with plan. Patient states that she would like to be in observation for now. If she has recurrence of palpitations we will offer her at least an event monitor for 30 days. Get another thyroid today including CBC, CMP and TSH. My office in 3 months or as needed. Risk factor modification and lifestyle modification discussed with patient. Diet , exercise and hydration discussed with patient. I have personally review with patient during this office visit, laboratory data, echocardiogram results, stress test results, Holter-event monitor results prior and after the last electrophysiology visit. All questions has been answered. Please excuse any errors in grammar or translation related to this dictation. Voice recognition software was utilized to prepare this document. [facility] Work Phone: 1(274) 387-575809-12-2022 Evaluation note* Encounter Date Diagnosis Assessment Notes Treatment Notes Treatment Clinical Notes Mar, Cough (ICD-10 - R05.9) Mar,Viral upper respiratory infection (ICD-10 - J06.9)Viral upper respiratory infection: adult home care material was printed Drink plenty fluids, get plenty of rest. Continue home medications as prescribed. Take Tylenol or Motrin as needed for aches pains or fevers. Follow- up with your family physician for any further concern [email or web address] Other 12-01-2019 History of Present illness Narrative* 75-year-old female with a past medical history of coronary artery disease with history of coronary artery bypass graft surgery x2 back in 1999. Recent cardiac catheterization in June 2019 showed POZO to LAD patent also radial to obtuse marginal patent with patent stents. Echocardiogram in April 2018 showed left ventricular ejection fraction 45 to 50% with mild mitral vegetation. History of diabetes mellitus and hyperlipidemia. * She was diagnosed of atrial fibrillation back in April 2018 and she was placed on beta-blockers, Xarelto and also amiodarone. Amiodarone was discontinued due to significant tremors. Since then she has been maintained on beta-blockers. She had a cardiac catheterization in August 2020 that ended w ith PCI of the radial graft to the obtuse marginal and PCI of the PLV B. * Patient states that so far she has been doing well but she has been noticing worsening palpitations. Palpitations almost every day especially during nighttime. She can do most of her activities with no problems. * Patient has been off amiodarone therapy for over a year. * Vital signs are stable * Patient is alert oriented x3 * Head normocephalic * HEENT normal * Neck no nodules. JVD negative * Lungs clear to auscultation and percussion * Cardiovascular regular rate and rhythm. No murmurs or gallops. * Abdomen soft, bowel sounds present. No tenderness organomegaly * Extremities no edema in the lower extremities * Patient is alert oriented x3 no motor or sensory deficit * Skin no cyanosis no pallor * Impression * 1. New diagnosis atrial fibrillation since April 2018. Persistent atrial fibrillation, plan discussed during this office visit * 2. Long-term anticoagulation therapy with Xarelto., No evidence of bleeding * 3. History of gastric ulcer with bleeding with hemoglobin 7.1 to require blood transfusions. Now she is back on Xarelto. Multiple episodes of bleeding described by patient during this office visit * 4. Coronary artery disease, status post percutaneous core interventions and coronary bypass graft surgery in 1999. Recent cardiac catheterization as described above, recent cardiac catheterization ended with PCI of the radial graft to the obtuse marginal and PCI of the PL BV * 5. High risk medication (amiodarone). Patient has been off this medication since mid February 2020, stable * 6. QT prolongation with low-dose Betapace, resolved * 7. Left bundle branch block, stable * 8. Normal ventricular function per echocardiogram as described above, no new changes * 9. Tremors * 10. Fatigue, tiredness, resolved after PCI was performed * Plan recommendations * I had a lengthy discussion with patient regarding management for atrial fibrillation. She cannot tolerate antiarrhythmic therapies. Only medication possible amiodarone but because significant tremors. We will slowly increase the dose of beta-blockers. * Follow my office in 3 to 6 months or sooner needed * If she has recurrence of palpitations and it is confirmed that is related with atrial fibrillation then amiodarone therapy will be try again or pulmonary isolation will be offered to her. * Continue with anticoagulant therapy * Patient may benefit of a monitoring at home (Holter monitor versus event monitor) if palpitations continues being present * Risk factor modifications and lifestyle modifications discussed with patient. Diet , exercise and hydration discussed during this office visit, as well as avoid alcohol, smoking and excessive caffeine use. * Prescriptions were refilled during this office visit * I have personally review with patient during this office visit, laboratory data, echocardiogram results, stress test results, Holter event monitor results prior and after the last electrophysiology visit. All questions has been answered. * Please excuse any errors in grammar or translation related to this dictation. Voice recognition software was utilized to prepare this document. [facility] DO Work Phone: [phone] 194-241112-01-2019 History of Present illness Narrative* 76-year-old female with a past medical history of coronary artery disease with history of coronary artery bypass graft surgery x2 back in 1999. Recent cardiac catheterization in June 2019 showed POZO to LAD patent also radial to obtuse marginal patent with patent stents. Echocardiogram in April 2018 showed left ventricular ejection fraction 45 to 50% with mild mitral vegetation. History of diabetes mellitus and hyperlipidemia. * She was diagnosed of atrial fibrillation back in April 2018 and she was placed on beta-blockers, Xarelto and also amiodarone. Amiodarone was discontinued due to significant tremors. She had a cardiac catheterization in August 2020 that ended with PCI of the radial graft to the obtuse marginal and PCI of the PLV B. * Since the last office visit, she states that she was doing well but for the last 6 weeks she has been noticing more frequent palpitations. She is under a lot of stress at home. * EKG performed today shows sinus bradycardia nonspecific interventricular block at a rate of 56 bpm.QRS 142 ms. QT corrected 140 ms. Rhythm strip shows the same pattern. * Vital signs are stable * Patient is alert oriented x3 * Head normocephalic * HEENT normal * Neck no nodules. JVD negative * Lungs clear to auscultation and percussion * Cardiovascular regular rate and rhythm. No murmurs or gallops. * Abdomen soft, bowel sounds present. No tenderness organomegaly * Extremities no edema in the lower extremities * Patient is alert oriented x3 no motor or sensory deficit * Skin no cyanosis no pallor * Vital signs are stable * Patient is alert oriented x3 * Head normocephalic * HEENT normal * Neck no nodules. JVD negative * Lungs clear to auscultation and percussion * Cardiovascular regular rate and rhythm. No murmurs or gallops. Device in the left prepectoral healing well. No signs of hematoma or infection. * Abdomen soft, bowel sounds present. No tenderness organomegaly * Extremities no edema in the lower extremities * Patient is alert oriented x3 no motor or sensory deficit * Skin no cyanosis no pallor * Impression * 1. New diagnosis atrial fibrillation since April 2018. Persistent atrial fibrillation, plan discussed during this office visit * 2. Long-term anticoagulation therapy with Xarelto., No evidence of bleeding * 3. History of gastric ulcer with bleeding with hemoglobin 7.1 to require blood transfusions. Now she is back on Xarelto. Multiple episodes of bleeding described by patient during this office visit * 4. Coronary artery disease, status post percutaneous core interventions and coronary bypass graft surgery in 1999. Recent cardiac catheterization as described above, recent cardiac catheterization ended with PCI of the radial graft to the obtuse marginal and PCI of the PL BV * 5. High risk medication (amiodarone). Patient has been off this medication since mid February 2020, stable * 6. QT prolongation with low-dose Betapace, resolved * 7. Left bundle branch block, stable * 8. Normal ventricular function per echocardiogram as described above, no new changes * 9. Tremors * 10. Fatigue, tiredness, resolved after PCI was performed * Plan recommendations * We will order a Holter monitor for 48 hours. * Will increase the dose of metoprolol succinate to 50 mg daily * We will see her in our office in the next 2 to 3 weeks for evaluation with results of the Holter monitor. * Risk factor modifications and lifestyle modifications discussed with patient. Diet , exercise and hydration discussed during this office visit, as well as avoid alcohol, smoking and excessive caffeine use. * Prescriptions were refilled during this office visit * I have personally review with patient during this office visit, laboratory data, echocardiogram results, stress test results, Holter event monitor results prior and after the last electrophysiology visit. All questions has been answered. * Please excuse any errors in grammar or translation related to this dictation. Voice recognition software was utilized to prepare this document. [facility] 127 DO Work Phone: [phone] History of Present illness Narrative* 76-year-old female with a past medical history of coronary artery disease with history of coronary artery bypass graft surgery x2 back in 1999. Recent cardiac catheterization in June 2019 showed POZO to LAD patent also radial to obtuse marginal patent with patent stents. Echocardiogram in April 2018 showed left ventricular ejection fraction 45 to 50% with mild mitral vegetation. History of diabetes mellitus and hyperlipidemia. * She was diagnosed of atrial fibrillation back in April 2018 and she was placed on beta-blockers, Xarelto and also amiodarone. Amiodarone was discontinued due to significant tremors. She had a cardiac catheterization in August 2020 that ended with PCI of the radial graft to the obtuse marginal and PCI of the PLV B. * Since the last office visit, she states that she was doing well but for the last 6 weeks she has been noticing more frequent palpitations. She is under a lot of stress at home. * EKG performed today shows sinus bradycardia nonspecific interventricular block at a rate of 56 bpm.QRS 142 ms. QT corrected 140 ms. Rhythm strip shows the same pattern. * Vital signs are stable * Patient is alert oriented x3 * Head normocephalic * HEENT normal * Neck no nodules. JVD negative * Lungs clear to auscultation and percussion * Cardiovascular regular rate and rhythm. No murmurs or gallops. * Abdomen soft, bowel sounds present. No tenderness organomegaly * Extremities no edema in the lower extremities * Patient is alert oriented x3 no motor or sensory deficit * Skin no cyanosis no pallor * Vital signs are stable * Patient is alert oriented x3 * Head normocephalic * HEENT normal * Neck no nodules. JVD negative * Lungs clear to auscultation and percussion * Cardiovascular regular rate and rhythm. No murmurs or gallops. Device in the left prepectoral healing well. No signs of hematoma or infection. * Abdomen soft, bowel sounds present. No tenderness organomegaly * Extremities no edema in the lower extremities * Patient is alert oriented x3 no motor or sensory deficit * Skin no cyanosis no pallor * Impression * 1. New diagnosis atrial fibrillation since April 2018. Persistent atrial fibrillation, plan discussed during this office visit * 2. Long-term anticoagulation therapy with Xarelto., No evidence of bleeding * 3. History of gastric ulcer with bleeding with hemoglobin 7.1 to require blood transfusions. Now she is back on Xarelto. Multiple episodes of bleeding described by patient during this office visit * 4. Coronary artery disease, status post percutaneous core interventions and coronary bypass graft surgery in 1999. Recent cardiac catheterization as described above, recent cardiac catheterization ended with PCI of the radial graft to the obtuse marginal and PCI of the PL BV * 5. High risk medication (amiodarone). Patient has been off this medication since mid February 2020, stable * 6. QT prolongation with low-dose Betapace, resolved * 7. Left bundle branch block, stable * 8. Normal ventricular function per echocardiogram as described above, no new changes * 9. Tremors * 10. Fatigue, tiredness, resolved after PCI was performed * Plan recommendations * We will order a Holter monitor for 48 hours. * Will increase the dose of metoprolol succinate to 50 mg daily * We will see her in our office in the next 2 to 3 weeks for evaluation with results of the Holter monitor. * Risk factor modifications and lifestyle modifications discussed with patient. Diet , exercise and hydration discussed during this office visit, as well as avoid alcohol, smoking and excessive caffeine use. * Prescriptions were refilled during this office visit * I have personally review with patient during this office visit, laboratory data, echocardiogram results, stress test results, Holter event monitor results prior and after the last electrophysiology visit. All questions has been answered. * Please excuse any errors in grammar or translation related to this dictation. Voice recognition software was utilized to prepare this document. [facility] Work Phone: Chief complaint Narrative - ReportedLAQUITA DAILEY is being seen for a cardiovascular evaluation.[facility] [address] DO Work Phone: Chief complaint Narrative - ReportedLAQUITA DAILEY is being seen for a cardiovascular evaluation.[facility] Work Phone: Consult note* Clinical Note Date No Information [facility] Work Phone: Discharge summary* Clinical Note Date No Information [facility] Work Phone: Evaluation note* Diagnosis Palpitations- Primary Paroxysmal atrial fibrillation (CMS/HCC) Atrial fibrillation Essential hypertension Unspecified essential hypertension Left bundle branch block Other left bundle branch block documented in this encounter [facility] Work Phone: Evaluation note* Diagnosis Onset Date Resolution Status Chest pain acuteHyperglycemia due to type 1 diabetes mellitusacuteParoxysmal atrial fibrillationacuteHypertensionchronic [facility] Work Phone: Evaluation note* Diagnosis Onset Date Resolution Status Back pain acuteCAD (coronary artery disease)acuteChest painacuteDiabetesacuteHyperglycemia due to type 1 diabetes mellitusacuteParoxysmal atrial fibrillationacuteProlonged QT syndromeacuteHistory of four vessel coronary artery bypass graftchronic HyperlipidemiachronicHypertensionchronic [facility] Work Phone: Evaluation note* Diagnosis 3-vessel coronary artery disease Paroxysmal atrial fibrillation (CMS/HCC) Atrial fibrillation High risk medication use 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 History of PTCA Postsurgical percutaneous transluminal coronary angioplasty status Mixed hyperlipidemia Essential hypertension Unspecified essential hypertension Angina, class II (CMS/HCC) Other and unspecified angina pectoris Type 2 diabetes mellitus without complication, with long-term current use of insulin ([facility]/HCC) documented in this encounter [facility] Work Phone: Evaluation note* Diagnosis Palpitations- Primary Paroxysmal atrial fibrillation (CMS/HCC) Atrial fibrillation High risk medication use Left bundle branch block Other left bundle branch block BMI 30.0-30.9,adult Never smoked any substance documented in this encounter [facility] Work Phone: Evaluation note* Diagnosis 3-vessel coronary artery disease Paroxysmal atrial fibrillation (Multi) Atrial fibrillation ASHD (arteriosclerotic heart disease) Coronary atherosclerosis of unspecified type of vessel, [place] or graft 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 Type 2 diabetes mellitus without complication, with long-term current use of insulin (Multi) High risk medication use History of PTCA Postsurgical percutaneous transluminal coronary angioplasty status Class 1 obesity due to excess calories with body mass index (BMI) of 30.0 to 30.9 in adult, unspecified whether serious comorbidity present Never smoked any substance Mixed hyperlipidemia Essential hypertension Unspecified essential hypertension documented in this encounter [facility] Work Phone: Evaluation note* Diagnosis BMI 29.0-29.9,adult- Primary Palpitations Paroxysmal atrial fibrillation (Multi) Atrial fibrillation Essential hypertension Unspecified essential hypertension Left bundle branch block Other left bundle branch block High risk medication use Never smoked any substance documented in this encounter [facility] Work Phone: Evaluation noteNo assessment information available [facility] Work Phone: Evaluation note* Diagnosis 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/HCC)- Primary 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/HCC) 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/HCC) 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/HCC) Diabetes mellitus due to underlying condition with diabetic polyneuropathy, 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 (CMS/HCC)- Primary Ulcer of lower limb, right, with fat layer exposed (CMS/HCC) documented in this encounter [facility]* Diagnosis 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/HCC)- Primary 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/HCC) 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/HCC) 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/HCC) Inflamed seborrheic keratosis Diabetes mellitus due to underlying condition with diabetic polyneuropathy, unspecified whether half-way insulin use (CMS/HCC)- Primary Ulcer of lower limb, right, with fat layer exposed (CMS/HCC) documented in this encounter [facility]* Diagnosis 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/HCC)- Primary 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/HCC) 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/HCC) 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/HCC) Verruca plantaris- Primary Plantar wart Foot pain, left Pain in soft tissues of limb Diabetes mellitus due to underlying condition with diabetic polyneuropathy, 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 (CMS/HCC) Pain due to onychomycosis of toenails of both feet Ulcer of lower limb, right, with fat layer exposed (CMS/HCC) documented in this encounter [facility] note* Diagnosis ASHD (arteriosclerotic heart disease) Coronary atherosclerosis of unspecified type of vessel, [place] or graft Paroxysmal atrial fibrillation (Multi) Atrial fibrillation 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 Type 2 diabetes mellitus without complication, with long-term current use of insulin (Multi) Never smoked any substance Body mass index (BMI) 28.0-28.9, adult High risk medication use documented in this encounter [facility] Work Phone: Evaluation note* Diagnosis 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/HCC)- Primary 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/HCC) 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/HCC) 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/HCC) Paroxysmal atrial fibrillation (CMS/HCC)- Primary Atrial fibrillation Coronary artery disease involving [place] coronary artery of [place] heart without angina pectoris (CMS/HCC) Hx of CABG Postsurgical aortocoronary bypass status Essential hypertension (CMS/HCC) Unspecified essential hypertension Mixed hyperlipidemia (CMS/HCC) Mixed hyperlipidemia documented in this encounter [facility] note* Diagnosis BMI 28.0-28.9,adult- Primary Palpitations Paroxysmal atrial fibrillation (Multi) Atrial fibrillation Essential hypertension Unspecified essential hypertension Left bundle branch block Other left bundle branch block High risk medication use Never smoked any substance documented in this encounter [facility] Work Phone: Evaluation note* Diagnosis Verruca plantaris- Primary Plantar wart Foot pain, left Pain in soft tissues of limb Diabetes mellitus due to underlying condition with diabetic polyneuropathy, unspecified whether half-way insulin use (CMS/HCC) Onychomycosis Dermatophytosis of nail Toe pain, bilateral documented in this encounter [facility]* Diagnosis 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/HCC)- Primary 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/HCC) 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/HCC) 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/HCC) Nausea- Primary Nausea alone documented in this encounter [facility] note* Diagnosis 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- Primary 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/HCC)- Primary 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- Primary 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/HCC) 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/HCC) 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/HCC) Intertrigo- Primary Other specified erythematous condition Seborrheic keratosis Lentigo simplex Other dyschromia Inflamed seborrheic keratosis History of basal cell carcinoma (BCC) Verruca plantaris- Primary Plantar wart Foot pain, left Pain in soft tissues of limb Diabetes mellitus due to underlying condition with diabetic polyneuropathy, unspecified whether half-way insulin use (CMS/HCC) Pain due to onychomycosis of toenails of both feet documented in this encounter [facility]* Diagnosis 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- Primary 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/HCC)- Primary 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- Primary 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/HCC) 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/HCC) 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/HCC) Contusion of right hand, initial encounter Hematoma of right hand Localized swelling on right hand documented in this encounter [facility]* Diagnosis 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- Primary 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/HCC)- Primary 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- Primary 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/HCC) 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/HCC) 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/HCC) Routine general medical examination at health care facility- Primary Routine general medical examination at a health care facility Essential hypertension (CMS/HCC) Unspecified essential hypertension 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 Coronary artery disease involving [place] coronary artery of [place] heart without angina pectoris (CMS/HCC) Longstanding persistent atrial fibrillation (CMS/HCC) 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 Gastroesophageal reflux disease without esophagitis Esophageal reflux Age-related osteoporosis without current pathological fracture (CMS/HCC) Mixed hyperlipidemia (CMS/HCC) Mixed hyperlipidemia Estrogen deficiency Other ovarian failure documented in this encounter [facility] HealthcareEvaluation note* Diagnosis 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 (HCC)- Primary 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)- Primary 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 (HCC) 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 (HCC)- Primary 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) 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 (HCC) 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) 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 (HCC) 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) 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 (HCC) 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) documented in this encounter [facility] HealthcareEvaluation note* Diagnosis Paroxysmal atrial fibrillation (Multi)- Primary Atrial fibrillation Palpitations Never smoked any substance High risk medication use Left bundle branch block Other left bundle branch block BMI 29.0-29.9,adult documented in this encounter [facility] Work Phone: Evaluation note* Diagnosis 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 (HCC)- Primary 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)- Primary 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 (HCC) 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 (HCC)- Primary 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) 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 (HCC) 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) 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 (HCC) 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) 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 (HCC) 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) Verruca plantaris- Primary Plantar wart Foot pain, left Pain in soft tissues of limb Diabetes mellitus due to underlying condition with diabetic polyneuropathy, 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 (HCC) Pain due to onychomycosis of toenails of both feet documented in this encounter [facility] HealthcareEvaluation note* Diagnosis ASHD (arteriosclerotic heart disease) Coronary atherosclerosis of unspecified type of vessel, [place] or graft High risk medication use 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 History of PTCA Postsurgical percutaneous transluminal coronary angioplasty status Type 2 diabetes mellitus without complication, with long-term current use of insulin Paroxysmal atrial fibrillation (Multi) Atrial fibrillation Mixed hyperlipidemia BMI 28.0-28.9,adult Never smoked any substance documented in this encounter [facility] Work Phone: Evaluation note* Diagnosis Paroxysmal atrial fibrillation (Multi) Atrial fibrillation documented in this encounter [facility] Work Phone: Evaluation note* Diagnosis 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 (HCC)- Primary 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)- Primary 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 (HCC) 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 (HCC)- Primary 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) 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 (HCC) 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) 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 (HCC) 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) 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 (HCC) 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) Verruca plantaris- Primary Plantar wart Foot pain, left Pain in soft tissues of limb Diabetes mellitus due to underlying condition with diabetic polyneuropathy, unspecified whether half-way insulin use (HCC) documented in this encounter [facility] HealthcareEvaluation note* Diagnosis 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 (HCC)- Primary 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)- Primary 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 (HCC) 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 (HCC)- Primary 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) 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 (HCC) 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) 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 (HCC) 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) 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 (HCC) 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) Hypoglycemia due to type 1 diabetes mellitus (HCC)- Primary 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 (HCC) 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) documented in this encounter [facility] HealthcareEvaluation note* Diagnosis 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 (HCC)- Primary 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)- Primary 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 (HCC) 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 (HCC)- Primary 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) 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 (HCC) 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) 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 (HCC) 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) 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 (HCC) 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) Hypoglycemia due to type 1 diabetes mellitus (HCC)- Primary 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 (HCC) 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) Verruca plantaris- Primary Plantar wart Foot pain, left Pain in soft tissues of limb Diabetes mellitus due to underlying condition with diabetic polyneuropathy, 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 (HCC) documented in this encounter [facility] HealthcareEvaluation note* Diagnosis 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 (HCC)- Primary 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)- Primary 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 (HCC) 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 (HCC)- Primary 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) 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 (HCC) 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) 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 (HCC) 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) 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 (HCC) 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) Hypoglycemia due to type 1 diabetes mellitus (HCC)- Primary 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 (HCC) 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) Verruca plantaris- Primary Plantar wart Foot pain, left Pain in soft tissues of limb Diabetes mellitus due to underlying condition with diabetic polyneuropathy, 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 (HCC) Pain due to onychomycosis of toenails of both feet documented in this encounter [facility] HealthcareEvaluation note* Diagnosis Paroxysmal atrial fibrillation (Multi)- Primary Atrial fibrillation Palpitations High risk medication use 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 Type 2 diabetes mellitus without complication, with long-term current use of insulin (Multi) Never smoked any substance BMI 28.0-28.9,adult documented in this encounter [facility] Work Phone: Evaluation note* Diagnosis 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 (HCC)- Primary 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)- Primary 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 (HCC) 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 (HCC)- Primary 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) 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 (HCC) 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) 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 (HCC) 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) 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 (HCC) 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) Hypoglycemia due to type 1 diabetes mellitus (HCC)- Primary 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 (HCC) 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) Verruca plantaris- Primary Plantar wart Foot pain, left Pain in soft tissues of limb Diabetes mellitus due to underlying condition with diabetic polyneuropathy, 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 (HCC) documented in this encounter [facility] and [facility]* Clinical Note Date No Information [facility] Work Phone: History general Narrative - Reported* Type Description Date Medical History hyperkalemia Medical HistoryhypertensionMedical Historydiabetes mallitusMedical History Barretts esophagusSurgical HistoryOpen [id number] Historycataract removal [id number] Historybreast biopsySurgical HistoryFoot SurgerySurgical Historyblood removed from eyeSurgical Historycardiac cath06/08/19Surgical Historyheart stent 2020Hospitalization Historysee above surgical hx [email or web address] Other Hospital Discharge instructions Additional Instructions Continue to monitor glucose levels as before. Continue use of insulin pump as before.[facility] Work Phone: Progress note* Clinical Note Date No Information [facility] Work Phone: Reason for referral (narrative)* Consultation (Routine) - AuthorizedSpecialtyDiagnoses / ProceduresReferred By Contact Referred To ContactCardiology Diagnoses 3-vessel coronary artery disease Procedures Follow Up In Cardiology Eder Everett, [address] [facility] [address] [place] [address] Eder Everett DO [address] [facility] [address], [facility] [address] [place] [address] Referral IDStatusReasonStart DateExpiration DateVisits RequestedVisits [id number]/28/202311/ [facility] Work Phone: reason for referral (narrative)* Consultation (Routine) - AuthorizedSpecialtyDiagnoses / ProceduresReferred By Contact Referred To ContactCardiology Diagnoses Palpitations Paroxysmal atrial fibrillation (CMS/HCC) High risk medication use Left bundle branch block BMI 30.0-30.9,adult Never smoked any substance Procedures Follow Up In Cardiology Juan José Juarez MD [address] [facility], [place] [address] Referral IDStatusReasonStart DateExpiration DateVisits RequestedVisits [id number]/18/202312/ [facility] Work Phone: reason for referral (narrative)* Consultation (Routine) - AuthorizedSpecialtyDiagnoses / ProceduresReferred By Contact Referred To ContactCardiology Diagnoses ASHD (arteriosclerotic heart disease) Procedures Follow Up In Cardiology Eder Everett DO [address] [facility] [address], [address] [address] Eder Everett DO [address] [facility] [address], [place] [id number] Referral IDStatusReasonStart DateExpiration DateVisits RequestedVisits [id number]/14 [facility] Work Phone: Rebjwz for referral (narrative)* Consultation (Routine) - AuthorizedSpecialtyDiagnoses / ProceduresReferred By Contact Referred To ContactCardiology Diagnoses Palpitations Paroxysmal atrial fibrillation (Multi) Essential hypertension Left bundle branch block High risk medication use Never smoked any substance BMI 29.0-29.9,adult Procedures Follow Up In Cardiology Juan José Juarez MD [address] [place] [phone] Referral IDStatusReasonStart DateExpiration DateVisits RequestedVisits [id number]/3/20246/3/202511 * Cardiovascular (Routine) - Pending ReviewSpecialtyDiagnoses / Procedures Referred By ContactReferred To ContactCardiology Diagnoses Palpitations Paroxysmal atrial fibrillation (Multi) Essential hypertension Left bundle branch block High risk medication use Never smoked any substance BMI 29.0-29.9,adult Procedures 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 Juan José Juarez MD [address] [place] [address] Referral IDStatusReasonStart DateExpiration DateVisits RequestedVisits [id number] Review [facility] Work Phone: Reetbx for referral (narrative)* Reason For Referral No Information [facility] Work Phone: Reizvj for visit Narrative* Consultation (Routine) - AuthorizedSpecialtyDiagnoses / ProceduresReferred By ContactReferred To ContactCardiology Diagnoses Palpitations Paroxysmal atrial fibrillation (Multi) Essential hypertension Left bundle branch block High risk medication use Never smoked any substance BMI 29.0-29.9,adult Procedures Follow Up In Cardiology Juan José Juarez MD [address] [address] Phone: tel: fax: Referral IDStatusReasonStart DateExpiration DateVisits RequestedVisits [id number]/3/20246/3/202511 [facility] Work Phone: Reason for visit Narrative* Cardiovascular (Routine) - AuthorizedSpecialtyDiagnoses / ProceduresReferred By ContactReferred To ContactCardiology Diagnoses Paroxysmal atrial fibrillation (Multi) Procedures Cardioversion External Juan José Juarez MD [address] [address] Phone: tel: fax: Referral IDStatusReasonStart DateExpiration DateVisits RequestedVisits [id number]/23/20257/23/202611 [facility] Work Phone: Summary Purpose Family History Relationship Condition Age at Onset Recorded Date/T lucy brother Myocardial infarction Unknown Diabetes mellitusUnknownsisterMyocardial infarctionUnknownNot SpecifiedHepatic cirrhosisUnknownfatherMalignant neoplasm of lungUnknownUnknown Family Member Name Dates Details Family history of acute myoc ardial infarction: Sister, Brother(V17.3, Z82.49) Status:Active Unknown Family Member Name Dates Details Family history of acute myoc ardial infarction: Sister, Brother(V17.3, Z82.49) Status:Active Unknown Family Member Name Dates Details Family history of acute myoc ardial infarction: Sister, Brother(V17.3, Z82.49) Status:Active Unknown Family Member Name Dates Details Family history of acute myoc ardial infarction: Sister, Brother(V17.3, Z82.49) Status:Active Unknown Family Member Name Dates Details Family history of acute myoc ardial infarction: Sister, Brother(V17.3, Z82.49) Status:Active Unknown Family Member Name Dates Details Family history of acute myoc ardial infarction: Sister, Brother(V17.3, Z82.49) Status:Active Unknown Family Member Name Dates Details Family history of acute myoc ardial infarction: Sister, Brother(V17.3, Z82.49) Status:Active Unknown Family Member Name Dates Details Family history of acute myoc ardial infarction: Sister, Brother(V17.3, Z82.49) Status:Active Unknown Family Member Name Dates Details Family history of acute myoc ardial infarction: Sister, Brother(V17.3, Z82.49) Status:Active Unknown Family Member Name Dates Details Family history of acute myoc ardial infarction: Sister, Brother(V17.3, Z82.49) Status:Active Unknown Family Member Name Dates Details Family history of acute myoc ardial infarction: Sister, Brother(V17.3, Z82.49) Status:Active Unknown Family Member Name Dates Details Family history of acute myoc ardial infarction: Sister, Brother(V17.3, Z82.49) Status:Active Unknown Family Member Name Dates Details Family history of acute myoc ardial infarction: Sister, Brother(V17.3, Z82.49) Status:Active Unknown Family Member Name Dates Details Family history of acute myoc ardial infarction: Sister, Brother(V17.3, Z82.49) Status:Active Unknown Family Member Name Dates Details Family history of acute myoc ardial infarction: Sister, Brother(V17.3, Z82.49) Status:Active Family Member Type Diagnosis Age At Onset Mother Problem (finding) cirrhosis of l iver FatherProblem (finding)CancerFatherProblem (finding)cataractBrotherProblem (finding)Heart Disease Relationship Condition Age at Onset Recorded Date/T lucy brother Myocardial infarction Unknown Diabetes mellitusUnknownsisterMyocardial infarctionUnknownmotherHepatic cirrhosisUnknownfatherMalignant neoplasm of lungUnknownbrotherDeceasedUnknown fatherMalignant neoplasmUnknownDeceasedUnknownmotherDeceasedUnknownHepatic cirrhosisUnknown Advance Directives Advance Directive Response Recorded Date/ Time Advance Directives No April 16, 2019 5:11pm Advance Directive Response Recorded Date/ Time Advance Directives No April 16, 2019 6:11pm Directive Yes / No Effective Date File Name No Information Date ActivatedDate InactivatedComments02/11/2025 8:28 AMQuestionAnswerCommentsPlan of Care:* Code Status Discussion Not Completed Decision Maker:* Provider Rationale:* Patient condition does not warrant discussion Date ActivatedDate InactivatedComments02/11/2025 8:28 AMQuestionAnswerCommentsPlan of Care:* Code Status Discussion Not Completed Decision Maker:* Provider Rationale:* Patient condition does not warrant discussion Chief Complaint and Reason for Visit Chief Complaint 3 Vessal Coronary Ar mildred Disease Chief Complaint Chest pain pressure Reason for Visit Chest pain Hyperglycemia due to type 1 diabetes mellitus Paroxysmal atrial fibrillation Hypertension Chief Complaint Chest pain pressure Reason for Visit Back pain CAD (coronary artery disease) Chest pain Diabetes Hyperglycemia due to type 1 diabetes mellitus Paroxysmal atrial fibrillation Prolonged QT syndrome History of four vessel coronary artery bypass graft Hyperlipidemia Hypertension Assessments No Assessments Information Available Chief Complaint FU* LAQUITA DAILEY is being seen for a 6 month follow-up of. * 76-year-old diabetic female returns for follow-up and is overall doing well she still has complaints of exertional intrascapular back discomfort that resolves with rest. She has no classic anginal discomfort or shortness of breath. She remains ambulatory, she and her continue to go to [place] for 6 months at a time with active lifestyle, bicycling etc. * They are about to disembark for [place] after and will be back in November. * She does have history of significant three-vessel ASHD, remote CABG, most recently in September 2020 underwent two-vessel PCI of the [place] PLV branch and the radial graft to the obtuse marginal branch with drug-eluting stents. She has underlying paroxysmal A. fib, history of prior ablation, remains onXarelto with no bleeding or thromboembolic events. She has underlying controlled hypertension (126/60 on my eval). * She remains on appropriate guideline directed medical therapies. * Recommendations: Continue current therapies we will follow-up in November 2022 after her return from [place] Reason for Referral SpecialtyDiagnoses / ProceduresReferred By ContactReferred To Contact Diagnoses Palpitations Paroxysmal atrial fibrillation (CMS/HCC) Procedures ECG 12 lead (Clinic Performed) Juan José Juarez MD [address] [facility] [address], [address] [place] [address] Referral IDStatusReasonStart DateExpiration DateVisits RequestedVisits [id number] [id number] / Procedures Referred By ContactReferred To ContactCardiology Diagnoses Palpitations Paroxysmal atrial fibrillation (CMS/HCC) Essential hypertension Left bundle branch block Procedures Follow Up In Cardiology Juan José Juarez MD [address] [facility], [address] [place] [address] Referral IDStatusReasonStart DateExpiration DateVisits RequestedVisits [id number]/5/20234/2/202411 Additional Source Comments INFORMATION SOURCE (unrecogn ized section and content) DATE CREATED AUTHOR 12/30/2017 [facility] DATE CREATED AUTHOR AUTHOR'S ORGANIZ ATION 12/08/2019 [facility] DATE CREATED AUTHOR AUTHOR'S ORGANIZ ATION 12/17/2021 [facility] DATE CREATED AUTHOR AUTHOR'S ORGANIZ ATION 03/06/2022 [employer] DATE CREATED AUTHOR AUTHOR'S ORGANIZ ATION 05/13/2022 [facility] DATE CREATED AUTHOR AUTHOR'S ORGANIZ ATION 04/17/2023 [facility] DATE CREATED AUTHOR AUTHOR'S ORGANIZ ATION 04/13/2024 [facility] DATE CREATED AUTHOR AUTHOR'S ORGANIZ ATION 02/02/2025 [facility] DATE CREATED AUTHOR AUTHOR'S ORGANIZ ATION 02/13/2025 [facility] DATE CREATED AUTHOR AUTHOR'S ORGANIZ ATION 04/23/[address] [facility] DATE CREATED AUTHOR AUTHOR'S ORGANIZ ATION 04/24/2025 [facility] DATE CREATED AUTHOR AUTHOR'S ORGANIZ ATION 05/14/2025 [facility] EPIC DATE CREATED AUTHOR AUTHOR'S ORGANIZ ATION 05/17/2025 [facility] REASON FOR VISIT (unrecogniz ed section and content) ReasonCommentsPalpitationsFatigueSpecialtyDiagnoses / ProceduresReferred By ContactReferred To Contact Diagnoses Palpitations Paroxysmal atrial fibrillation (CMS/HCC) Procedures ECG 12 lead (Clinic Performed) Juan José Juarez MD [address] [facility], [address] [place] [address] Referral IDStatusReasonStart DateExpiration DateVisits RequestedVisits [id number] [id number] / Procedures Referred By ContactReferred To ContactRadiology Diagnoses 3-vessel coronary artery disease Atrial premature complexes Paroxysmal atrial fibrillation (CMS/HCC) Procedures Nuclear Stress Test CHG MYOCARDIAL SPECT MULTIPLE STUDIES CHG MYOCARDIAL SPECT SINGLE STUDY AT REST OR STRESS Eder Everett, [address] [place] [address] 2, [address] [place] [address] Referral IDStatusReasonStart DateExpiration DateVisits RequestedVisits [id number]/18/202310/[id number]-dx2 months stress and event monitor resultsReasonCommentsFollow-up6 MONTHReasonComments Follow-hh5aEzklrkseaNsyzxzzqx / ProceduresReferred By ContactReferred To Contact Cardiology Diagnoses 3-vessel coronary artery disease Procedures Follow Up In Cardiology Eder Everett, [address] 2, [facility] 250 [place] [address] Eder Everett, [address] [place] [address] 2, [address] [address] Referral IDStatusReasonStart DateExpiration DateVisits RequestedVisits [id number]/28/202311/271732LxordgQfrhisboGgxntf-rh SpecialtyDiagnoses / ProceduresReferred By ContactReferred To ContactCardiology Diagnoses Palpitations Paroxysmal atrial fibrillation (Multi) Essential hypertension Left bundle branch block Procedures Follow Up In Cardiology Juan José Juarez MD [address] [place] [address] [address] [place] [address] Referral IDStatusReasonStart DateExpiration DateVisits RequestedVisits [id number]/5/20234/[id number]JpddfhFxpkkkdu Follow-upReasonCommentsDM Foot CareDm NailsSpecialtyDiagnoses / Procedures Referred By ContactReferred To ContactCardiology Diagnoses ASHD (arteriosclerotic heart disease) Procedures Follow Up In Cardiology Eder Everett, DO [address] [place] [address] 2, [place] [address] Phone: tel: fax: Eder Everett, [address] 2, [place] [id number] Phone: tel: fax: Referral IDStatusReasonStart DateExpiration DateVisits RequestedVisits [id number] [id number]dg ReasonOnset DateCommentsBlood Sugar Jhpoggu4012/06/2024ReasonCommentsFollow-upPt. Present today for 6 month follow up for PalpitationsReasonCommentsDM Foot Care ReasonCommentsFollow-up8 month, coronary artery diseaseSpecialtyDiagnoses / ProceduresReferred By ContactReferred To ContactCardiology Diagnoses ASHD (arteriosclerotic heart disease) Procedures Follow Up In Cardiology Eder Everett, [place] [address], [place] [address] Phone: tel: fax: Eder Everett, [address] 2, [place] [id number] Phone: tel: fax: Referral IDStatusReasonStart DateExpiration DateVisits RequestedVisits [id number]/26/202411/26/891988RnuqyeIgeidoowNmdwap-lhCb lesion checkReasonCommentsHospital Follow-up02/11/25 discharge post cardioversion SpecialtyDiagnoses / ProceduresReferred By ContactReferred To ContactCardiology Diagnoses Palpitations Paroxysmal atrial fibrillation (Multi) Procedures Follow Up In Cardiology Juan José Juarez MD [address] [facility] [address] [place] [address] Phone: tel: fax: Juan José Juarez MD [address] [facility] [address] [place] [address] Phone: tel: fax: Referral IDStatusReasonStart DateExpiration DateVisits RequestedVisits [id number]/23/20257/23/875937CyfzfxCuqmeekfVlqgcg-ffmmwtkii Care Teams (unrecognized sec tion and content) Team Status: Active Member Role Status Dates Prasanth Craig II MD Primary Care Provider Active Team Status: Inactive Member Role Status Dates Prasanth Craig II MD Primary Care Provider Active MELANIE Tovar-Hudson ProviderActiveSantiago Camarillo MDAdmbenjamín Provider, Attending ProviderActiveTeam MemberRelationshipSpecialtyStart DateEnd Date Prasanth Craig MD [address] [address] PCP - General01/03/22 Team Status: Active Member Role Status Dates Prasanth Craig II MD Primary Care Provider Active Drea Tovar ProviderActiveSantiago Camarillo MDAdmit Provider, Attending ProviderActiveMercy Martin MDOther ProviderActiveTeam Member RelationshipSpecialtyStart DateEnd Date Prasanth Craig MD 112 [facility] 110 [place] [address] PCP - General01/03/22Team MemberRelationshipSpecialtyStart DateEnd Date Prasanth Craig MD 112 [facility] 110 [place] [address] PCP - General01/03/22Team MemberRelationshipSpecialtyStart DateEnd Date Prasanth Craig MD [address] [place] [place] [address] PCP - General01/03/22Te MemberRelationshipSpecialtyStart DateEnd Date Prasanth Craig MD [address] [place] [address] PCP - General01/03/22Te MemberRelationshipSpecialtyStart DateEnd Date Prasanth Craig MD [address] [place] [address] PCP - General01/03/22 Juan José Juarez MD [address] [place] [address] Consulting PhysicianCardiology08/19/23 Eder Everett DO 703 [facility] 2, [address] [place] [address] Consulting PhysicianCardiology08/19/23Team MemberRelationshipSpecialtyStart Date End Date Prasanth Craig MD [address] [place] [address] PCP - General01/03/22 Juan José Juarez MD [address] [place] [address] Consulting PhysicianCardiology08/19/23 Eder Everett DO 703 [facility] 2, [address] [place], [place] [address] Consulting PhysicianCardiology08/19/23 Name Effective Dates (start - stop) Status Members No Information Team Status: Inactive Member Role Status Dates Mitch Elder MD Attending Provider Active Start: March 31, 2024 End: March 31, 2024Team MemberRelationshipSpecialtyStart DateEnd Date Prasanth Craig MD [address] [place] [address] [facility]11/28/22 Prasanth Craig MD [address] [place] [address] PCP - [facility]12/09/22Team MemberRelationshipSpecialtyStart Date End Date Prasanth Craig MD [address] [place] [address] [facility] - [facility]11/28/22 Prasanth Craig MD [address] [place] [address] PCP - [facility]12/09/22Team MemberRelationshipSpecialtyStart Date End Date Prasanth Craig MD [address] [place] [address] [facility] - [facility]11/28/22 Prasanth Craig MD [address] [place] [address] PCP - [facility]12/09/22Te MemberRelationshipSpecialtyStart Date End Date Prasanth Carig MD [address] [place] [place] [address] PCP - [facility]11/28/22 Prasanth Craig MD [address] [place] [place] [address] PCP - GeneralInternal Medicine12/09/22Team MemberRelationshipSpecialtyStart Date End Date Prasanth Craig MD [address] [facility] 110 [place] [address] PCP - [facility]11/28/22 Prasanth Craig MD [address] [facility] [address] [place] [address] PCP - [facility]12/09/22Team MemberRelationshipSpecialtyStart Date End Date Prasanth Craig MD [address] [facility] 110 [place] [address] PCP - General01/03/22 Juan José Juarez MD [address] [place] [address] Consulting PhysicianCardiology08/19/23 Eder Everett DO [address] [place] [address] 2, [address] [address] Consulting PhysicianCardiology08/19/23Team MemberRelationshipSpecialtyStart Date End Date Prasanth Craig MD [address] [facility] 110 [place] [address] PCP - General01/03/22 Juan José Juarez MD [address] [place] [address] Consulting PhysicianCardiology08/19/23 Eder Everett DO 3 [facility] 2, [facility] 250 [place] [address] Consulting PhysicianCardiology08/19/23Team MemberRelationshipSpecialtyStart Date End Date Prasanth Craig MD [address] [place] [address] [place] [address] PCP - [facility]11/28/22 Prasanth Craig MD [address] [place] [address] [place] [address] PCP - GeneralInternal Medicine12/09/22Team MemberRelationshipSpecialtyStart Date End Date Prasanth Craig MD [address] [place] [address] [place] [address] PCP - O [facility]11/28/22 Prasanth Craig MD [address] [place] [address] PCP - GeneralInternal Medicine12/09/22Team MemberRelationshipSpecialtyStart Date End Date Prasanth Craig MD [address] [place] [address] PCP - GeneralInternal Medicine12/09/22 Lizzette Monk DO [address] [facility] 230 [place] [address] PCP - [facility]CO [facility]08/13/24Team MemberRelationshipSpecialtyStart DateEnd Date Prasanth Craig MD [address] [place] [address] [place] [address] PCP - GeneralInternal Medicine12/09/22 Lizzette Monk DO [address] [place] [address] [place] [address] PCP - [facility]08/13/24Team MemberRelationshipSpecialtyStart DateEnd Prasanth Craig MD [address] [place] [address] PCP - GeneralSan [facility] Corporationnal [facility]12/09/22 Lizzette Monk, DO [address] [place] [address] [place] [address] PCP - [facility]08/13/24Team MemberRelationshipSpecialtyStart DateEnd Prasanth Craig MD [address] [place] [address] [place] [address] PCP - GeneralSan [facility] Corporationnal [facility]12/09/22 Lizzette Monk DO [address] [place] [address] [place] [address] PCP - [facility]08/13/24Team MemberRelationshipSpecialtyStart DateEnd Date Prasanth Craig MD [address] [place] [place] [address] PCP - GeneralSan [facility] Corporationnal Medicine12/09/22 Lizzette Monk, DO [address] [place] [address] PCP - [facility]08/13/24Team MemberRelationshipSpecialtyStart DateEnd Date Prasanth Craig MD [address] [place] [address] [place] [address] PCP - GeneralSan [facility] Corporationnal Medicine12/09/22 Lizzette Monk DO [address] [place] [address] [place] [address] PCP - [facility]08/13/24Team MemberRelationshipSpecialtyStart DateEnd Date Prasanth Craig MD [address] [place] [address] [place] [address] PCP - GeneralInternal Medicine12/09/22 Lizzette Monk DO [address] [place] [address] [place] [address] PCP - [facility]08/13/24Team MemberRelationshipSpecialtyStart DateEnd Date Prasanth Craig MD [address] [place] [address] [place] [address] PCP - GeneralInternal Medicine12/09/22 Lizzette Monk, DO [address] [place] [address] [place] [address] PCP - [facility]CO [facility]08/13/24Te MemberRelationshipSpecialtyStart DateEnd Prasanth Craig MD [address] [place] [address] [place] [address] PCP - General01/03/22 Juan José Juarez MD [address] [place] [address] [address] [place] [address] CardiologistElectrophysiology08/19/23 Eder Everett DO [address] [place] [address] 2, [address] [place] [address] Consulting PhysicianCardiology08/19/23Team MemberRelationshipSpecialtyStart Date End Date Prasanth Craig MD 112 [facility] 110 [place] [address] PCP - General01/03/22 Juan José Juarez MD [address] [place] [address] CardiologistElectrophysiology08/19/23 Eder Everett DO 3 [facility] 2, [facility] 250 [place] [address] Consulting PhysicianCardiology08/19/23Team MemberRelationshipSpecialtyStart Date End Date Prasanth Craig MD [address] [address] PCP - General01/03/22 Juan José Juarez MD [address] [place] [address] CardiologistElectrophysiology08/19/23 Eder Everett DO [address] [place] [address], [facility] 250 [place] [address] Consulting PhysicianCardiology08/19/23Team MemberRelationshipSpecialtyStart Date End Date Prasanth Craig MD [address] [address] PCP - General01/03/22 Juan José Juarez MD [address] [place] [address] CardiologistElectrophysiology08/19/23 Eder Everett DO [address] [place] [address] 2, [address] [place] [address] Consulting PhysicianCardiology08/19/23Team MemberRelationshipSpecialtyStart Date End Date Prasanth Craig MD [address] [place] [address] [place] [address] PCP - GeneralInternal Medicine12/09/22 Lizzette Monk, DO [address] [place] [address] [place] [address] PCP - [facility]08/13/24Team MemberRelationshipSpecialtyStart DateEnd Date Prasanth Craig MD [address] [place] [address] [place] [address] PCP - GeneralInternal Medicine12/09/22 Lizzette Monk, DO [address] [place] [address] [place] [address] PCP - [facility]08/13/24Team MemberRelationshipSpecialtyStart DateEnd Date Prasanth Craig MD [address] [place] [address] [place] [address] PCP - GeneralInternal Medicine12/09/22 Lizzette Monk, DO [address] [place] [place] [address] PCP - [facility]08/13/24Team MemberRelationshipSpecialtyStart DateEnd Date Prasanth Craig MD [address] [place] [place] [address] PCP - GeneralInternal Medicine12/09/22 Lizzette Monk, DO [address] [place] [address] [place] [address] PCP - [facility]08/13/24Te MemberRelationshipSpecialtyStart DateEnd Date Prasanth Craig MD [address] [place] [address] [place] [address] PCP - General01/03/22 Juan José Juarez MD [address] [facility] [address] [place] [address] CardiologistCardiology-Clinical Cardiac Electrophysiology08/19/23 Eder Everett DO 703 [facility] 2, [address] [place] [address] Consulting PhysicianCardiology08/19/23Te MemberRelationshipSpecialtyStart Date End Date Prasanth Craig MD [address] [facility] 110 [place] [address] PCP - [facility] Prasanth Craig MD [address] [facility] [address] [place] [address] PCP - GeneralInternal Medicine12/09/22 Lizzette Monk, DO [address] [place] [address] [place] [address] PCP - [facility]08/13/24 Shanna Umanzor LPN [address] [facility] 110 [place] [address] Team MemberRelationshipSpecialtyStart DateEnd Date Prasanth Craig MD [address] [place] [address] [place] [address] PCP - GeneralInternal Medicine12/09/22 Lzizette Monk DO [address] [place] [address] [place] [address] PCP - [facility]08/13/24 Goals (unrecognized section and content) Goals may be documented in a n alternate section FOR RECORDS PERTAINING TO PATIENTS WHO ARE OR HAVE BEEN ENROLLED IN A CHEMICAL DEPENDENCY/SUBSTANCEABUSE PROGRAM, SOME INFORMATION MAY BE OMITTED. This clinical summary was aggregated from multiple sources. Caution should be exercised in using it in the provision of clinical care. This summary normalizes information from multiple sources, and as a consequence, information in this document may materially change the coding, format and clinical context of patient data. In addition, data may be omitted in some cases. CLINICAL DECISIONS SHOULD BE BASED ON THE PRIMARY CLINICAL RECORDS. [facility] [employer] [facility] provides no warranty or guarantee of the accuracy or completeness of information in this document.
--- OUTSIDE RECORDS SUMMARY | 2025-05-17 13:37 | XMS_ITS | Encounter Summary ---
Author Organization [facility] Address [address] [place] [address] Care Team Providers Care Principal Librarian Name Role Phone Prasanth Craig MD Unavailable [phone] Prasanth Craig MD Primary Care Provider [phone] Lizzette Middleton DO Unavailable [phone] Shanna Umanzor LPN Unavailable Encounter Details DateTypeDepartmentCare Team (Latest Contact Info)Mdgptfoasbo01/13/2023Clinisync Result Encounter [facility] Department Unsolicited Prasanth Craig MD [address] [address] Social History Tobacco UseTypesPacks/DayYears UsedDateSmoking Tobacco: NeverSmokeless Tobacco: NeverAlcohol UseStandard Drinks/WeekCommentsNever0 (1 standard drink = 0.6 oz pure alcohol)caffeine: coffee/teaAUDIT-CAnswerDate RecordedQ1: How often do you have a drink containing alcohol?Never04/15/2023Q2: How many drinks containing alcohol do you have on a typical day when you are drinking?Patient does not drink04/15/2023Q3: How often do you have six or more drinks on one occasion? Never04/15/2023HQ-2AnswerDate RecordedPatient Health Questionnaire-2 Score0 03/11/2025CommentsUnknownSex and Gender InformationValueDate RecordedSex Assigned at BirthNot on fileLegal NkwZdnhuz06/15/2023 6:45 PM EDTGender Identity Not on fileSexual OrientationNot on filedocumented as of this encounter Functional Status * Over the past 2 weeks, how often have you been bothered by any of the following problems?QuestionAnswerDate of AssessmentAuthorLittle interest or pleasure in doing thingsNot at all03/11/2025 1:12 PM Sammie Elizondo LPN Feeling down, depressed, or hopelessNot at all03/11/2025 1:12 PM Sammie Elizondo LPNPatient Health Questionnaire-2 Evcdi193 1:12 PM EDT Sammie Eaton LPN documented as of this encounter Plan of Treatment DateTypeDepartmentCare Team (Latest Contact Info)Unwgtxtquxr48/20/2025 3:20 PM ESTOffice Visit [facility] [address] [place] [phone] Justino Dooley DPM [address] [facility] 5 [place] [address] 05/30/2025 1:30 PM ESTOffice Visit [facility] [place] [facility] [address] [place] [phone] Prasanth Craig MD [address] [place] [address] 06/10/2025 1:30 PM ESTOffice Visit [facility] [address] [place] [address] Lizzette Middleton DO [address] [place] [address] [place] [address] 06/23/2025 3:50 PM ESTOffice Visit [facility] [address] [place] [address] Justino Dooley DPM [address] [facility] 5 [place] [address] 11/23/2025 1:00 PM EDTOffice Visit [facility] [address] [place] [address] Patito Serrano PA [address] [place] [address] documented as of this encounter Procedures Procedure NamePriorityDate/TimeAssociated DiagnosisCommentsMM TOMOSYNTHESIS SCREENING 06/18/2023 2:42 PM EST documented in this encounter Results * MM TOMOSYNTHESIS SCREENING (06/18/2023 2:42 PM EST)Anatomical Region LateralityModalityOtherSpecimen (Source)Anatomical Location / Laterality Collection Method / VolumeCollection TimeReceived Time06/18/2023 2:[address] [facility] 06/18/2023 2:43 PM EST [facility] ?[address] ? [place] [address] ? Mammography Report ? Signed ? Patient: DORYS DAILEY ?MR#: [id number] ?? : 1945 ?Acct:[id number] ?? Age/Sex: 77 / F ?ADM Date: 12/13/23 ?? Loc: MAMMO ? Attending Dr: PRASANTH CRAIG ? Ordering Physician: PRASANTH CRAIG ? Results: ? Date of Service: 12/13/23 ?Follow Up: ? Procedure(s): MM tomosynthesis screening BI ?? Accession Number(s): [id number] ? cc: PRASANTH CRAIG ? Patient Name: ? DORYS DAILEY ? MR#: [id number] ? : 1945 ? Exam Date: 06/18/2023 ?? Ordering Doctor: DR PRASANTH CRAIG M.D. ? RADIOLOGY REPORT ? PROCEDURE: ? MM TOMOSYNTHESIS SCREENING BI ? COMPARISON: ? MG MAMM SCREEN 3D MIRNA CAD, 04/10/2022. ??MG MAMM SCREEN MIRNA W ?? CAD, 05/05/2019. ??MG MAMM SCREEN MIRNA W CAD, 02/26/2018. ??MG MAMM MIRNA SCRN W CAD ?? DIG, 06/15/2013. ? INDICATIONS: ? Screening ? Calculator Name ? NCI Breast Cancer Risk Assessment Tool ?? 5 Year Breast Cancer Risk ? 1.90% ?? Lifetime Breast Cancer Risk ? 3.90% ?? Personal Breast Cancer ?No ?? Personal Ovarian Cancer ? No ?? Treatments ? None ?? Family Cancers ? Father with lung cancer at age 71. ? LOCATION: ? [facility] ? BREAST COMPOSITION: ? Heterogeneously dense,which may obscure small masses. ? FINDINGS: ? DIAGNOSTIC CATEGORY 2--BENIGN FINDING: ? RIGHT BREAST: ??No significant suspicious finding. ??Scattered benign-appearing ?? calcifications are present. ??No significant change has occurred. ? LEFT BREAST: ??No significant suspicious finding. ??Scattered benign-appearing ?? calcifications are present. ??No significant change has occurred. ? RECOMMENDATIONS: ? ROUTINE MAMMOGRAM AND CLINICAL EVALUATION IN 12 MONTHS. ? PLEASE NOTE: ??A NORMAL MAMMOGRAM DOES NOT EXCLUDE THE POSSIBILITY OF BREAST ?? CANCER. ??A CLINICALLY SUSPICIOUS PALPABLE LUMP SHOULD BE BIOPSIED. ? Dictated by: David Reynolds M.D. on 06/18/2023 at 14:39 ? Approved by: David Reynolds M.D. on 06/18/2023 at 14:42 ? Dictated By: ?David Reynolds M.D. ? Signed By: ?06/18/ 1443 ? DD/DT: 06/18/ 1442 ? TD/TT: ? [place] [employer] Member: Procedure Note Radiology, Radiologist, MD - 06/18/2023 [place] [address] Mammography Report Signed Patient: DORYS DAILEY MMR#: [id number] : 7Acct:[id number] Age/Sex: 77 / FADM Date: 06/18/23 Loc: MAMMO Attending Dr: PRASANTH CRAIG Ordering Physician: PRASANTH CRAIGResults: Date of Service: 06/18/23Follow Up: Procedure(s): MM tomosynthesis screening BI Accession Number(s): [id number] cc: RAFATPRASANTH Patient Name: DORYS DAILEY MR#: [id number] : 1945 Exam Date: 06/18/2023 Ordering Doctor: DR PRASANTH CRAIG M.D. RADIOLOGY REPORT PROCEDURE: MM TOMOSYNTHESIS SCREENING BI COMPARISON: MG MAMM SCREEN 3D MIRNA CAD, 04/10/2022. MG MAMM SCREEN BILW CAD, 05/05/2019. MG MAMM SCREEN MIRNA W CAD, 02/26/2018. MG MAMM MIRNA SCRN WCAD DIG, 06/15/2013. INDICATIONS: Screening Calculator Name NCI Breast Cancer Risk Assessment Tool 5 Year Breast Cancer Risk 1.90% Lifetime Breast Cancer Risk 3.90% Personal Breast Cancer No Personal Ovarian Cancer No Treatments None Family Cancers Father with lung cancer at age 71. LOCATION: [facility] BREAST COMPOSITION: Heterogeneously dense,which may obscure smallmasses. FINDINGS: DIAGNOSTIC CATEGORY 2--BENIGN FINDING: RIGHT BREAST: No significant suspicious finding. Scatteredbenign-appearing calcifications are present. No significant change has occurred. LEFT BREAST: No significant suspicious finding. Scatteredbenign-appearing calcifications are present. No significant change has occurred. RECOMMENDATIONS: ROUTINE MAMMOGRAM AND CLINICAL EVALUATION IN 12 MONTHS. PLEASE NOTE: A NORMAL MAMMOGRAM DOES NOT EXCLUDE THE POSSIBILITY OFBREAST CANCER. A CLINICALLY SUSPICIOUS PALPABLE LUMP SHOULD BE BIOPSIED. Dictated by: David Reynolds M.D. on 06/18/2023 at 14:39 Approved by: David Reynolds M.D. on 06/18/2023 at 14:42 Dictated By: David Reynolds M.D. Signed By:06/18/23 144 DD/ 41 TD/TT: [place] [employer] Member: Authorizing ProviderResult TypeResult StatusDanialexandr Craig MDCLINISYNC IMAGING Final Result documented in this encounter Visit Diagnoses Not on filedocumented in this encounter Care Teams Team MemberRelationshipSpecialtyStart DateEnd Date Prasanth Craig MD [address] [address] PCP - [facility]11/28/ Prasanth Craig MD [address] [address] PCP - GeneralInternal Medicine12/09/22 Lizzette Middleton DO [address] [facility] [address] [place] [address] PCP - [facility]08/13/24 Shanna Umanzor LPN [address] [facility] 110 [place] [address] documented as of this encounter
--- OUTSIDE RECORDS SUMMARY | 2025-05-17 13:37 | XMS_ITS | Encounter Summary ---
Author Organization [facility] Address [address] [place] [address] Care Team Providers Care Tram Driver Name Role Phone Prasanth Craig MD Primary Care Provider [phone] Sjkiara Lizzette M DO Unavailable [phone] Encounter Details DateTypeDepartmentCare Team (Latest Contact Info)Qzuzzaapnxx32/06/2025Telephone [facility] [place] [facility] [address] [place] [phone] Prasanth Craig MD [address] [facility] [address] [place] [address] Social History Tobacco UseTypesPacks/DayYears UsedDateSmoking Tobacco: NeverSmokeless [...] InformationValueDate RecordedSex Assigned at BirthNot on fileLegal YgvUsaewa45/15/2023 6:45 PM EDTGender Identity Not on fileSexual OrientationNot on filedocumented as of this encounter Miscellaneous Notes * Telephone Encounter - Gemma Ivy LPN - 05/17/2025 8:32 AM EST ORDERS FAXED TO [facility] PT NOTIFIED * Telephone Encounter - Prasanth Craig MD - 05/16/2025 4:40 PM EST Order placed. Please inform patient and make sure it was routed correctly. * Telephone Encounter - Justine Bonilla - 05/16/2025 11:41 AM EST Laquita called, she is still having pain and stated it was her left side hip / Butt area * Telephone Encounter - Megha Cronin MA - 05/13/2025 11:30 AM EST Lm to cb * Telephone Encounter - Prasanth Craig MD - 05/13/2025 11:27 AM EST Which side hurts? * Telephone Encounter - Argelia Carroll - 05/12/2025 2:58 PM EST Patient said that she took a fall a few weeks ago and fell right on her buttocks. She said that sometimes if she sits a certain way that it feels like she's sitting on a rock. She wondered if we could get an xray order sent to [facility] for that. documented in this encounter Plan of Treatment DateTypeDepartmentCare Team (Latest Contact Info)Rjwxgnrtfye65/ 3:20 PM ESTOffice Visit [facility] [address] [place] [address] Justino Dooley DPM [address] [facility] [address] [place] [address] 05/30/2025 1:30 PM ESTOffice Visit [facility] [place] [facility] [address] [place] [phone] Prasanth Craig MD [address] [place] [address] 06/10/2025 1:30 PM ESTOffice Visit [facility] [address] [place] [phone] Lizzette Middleton DO [address] [place] [address] 06/23/2025 3:50 PM ESTOffice Visit [facility] [address] [place] [address] Justino Dooley DPM [address] [address] [place] [address] 11/23/2025 1:00 PM EDTOffice Visit [facility] [address] [place] [address] Patito Serrano PA [address] [place] [address] NameTypePriorityAssociated DiagnosesOrder ScheduleXR hip left 2 or 3 views ImagingRoutine Acute hip pain, left Expected: 05/16/2025, Expires: 05/16/2026documented as of this encounter Visit Diagnoses Diagnosis Acute hip pain, left- Primary documented in this encounter Care Teams Team MemberRelationshipSpecialtyStart DateEnd Prasanth Craig MD [address] [facility] [address] [place] [address] PCP - GeneralInternal Medicine12/09/22 Lizzette Middleton DO [address] [facility] 230 [place] [address] PCP - ACO Reach08/13/24documented as of this encounter
--- OUTSIDE RECORDS SUMMARY | 2025-05-17 13:37 | XMS_ITS | Encounter Summary ---
Author Organization [facility] Address [address] [place] [address] Care Team Providers Care Lead Mason Tender Name Role Phone Prasanth Craig MD Primary Care Provider [phone] Lizzette Middleton DO Unavailable [phone] Encounter Details DateTypeDepartmentCare Team (Latest Contact Info)Ubhpejnrjml36/06/2025amboo flowsheet [facility] [address] [facility] 120 [place] [address] Justino Dooley, DPM [address] [facility] 5 [place] [address] Social History Tobacco UseTypesPacks/DayYears UsedDateSmoking Tobacco: NeverSmokeless [...] InformationValueDate RecordedSex Assigned at BirthNot on fileLegal AzvSqlpaq84/15/2023 6:45 PM EDTGender Identity Not on fileSexual OrientationNot on filedocumented as of this encounter Plan of Treatment DateTypeDepartmentCare Team (Latest Contact Info)Dlpfrdfdkyi19/20/2025 3:20 PM ESTOffice Visit [facility] [address] [place] [address] Justino Dooley DPM [address] [facility] 5 [place] [address] 05/30/2025 1:30 PM ESTOffice Visit [facility] [place] [facility] [address] [place] [phone] Prasanth Craig MD [address] [place] [address] 06/10/2025 1:30 PM ESTOffice Visit [facility] [place] [facility] [address] [place] [phone] Lizzette Middleton DO [address] [place] [address] 06/23/2025 3:50 PM ESTOffice Visit [facility] [address] [place] [address] Justino Dooley DPM [address] [facility] 5 [place] [address] 11/23/2025 1:00 PM EDTOffice Visit [facility] [place] [facility] [address] [place] [address] Patito Serrano PA [address] [place] [phone] documented as of this encounter Visit Diagnoses Not on filedocumented in this encounter Care Teams Team MemberRelationshipSpecialtyStart DateEnd Date Prasanth Craig MD [address] [facility] 110 [place] [address] PCP - GeneralInternal Medicine12/09/22 Lizzette Middleton DO [address] [facility] 230 [place] [address] PCP - ACO Reach08/13/24documented as of this encounter
--- OUTSIDE RECORDS SUMMARY | 2025-05-17 13:37 | XMS_ITS | Clinical Summary ---
Author Organization [facility] Address [address] [place] [address] Phone Care Team Providers Care Accounting Systems Analyst Name Role Phone Prasanth Craig MD Primary Care Provider [phone] Juan José Cintron MD Unavailable [phone] Eder Everett DO Unavailable [phone] Allergies Active AllergyReactionsCriticalityNoted DateCommentsAce InhibitorsUnknown 04/08/20231718HpqujnrloxxEshdXkc50/03/8074QpfleezpsybpbjZioqyobu56/03/2023Shellfish Containing HyreopaeJltpgan61/03/9991BxegdxvohlyaYpqhxzvotryMoxp12/12/2022 Medications MedicationSigDispense QuantityRefillsLast FilledStart DateEnd DateStatus biotin 5 mg capsule Take 1 capsule (5 mg) by mouth once daily.Active pantoprazole (ProtoNix) 40 mg EC tablet Take 1 tablet (40 mg) by mouth once daily.Active insulin lispro (HumaLOG) 100 UNIT/ML patient supplied pump Inject under the skin once daily.Active calcium citrate/vitamin D3 (CALCIUM CITRATE + D ORAL) Take 1 tablet by mouth once daily.Active nitroglycerin (Nitrodur) 0.2 mg/hr patch Place 1 patch on the skin every other day.Active doxylamine succinate (NITETIME SLEEP-AID ORAL) Take 1 capsule by mouth once daily at bedtime.Active nitroglycerin (Nitrostat) 0.4 mg SL tablet Indications:3-vessel coronary artery disease,Angina, class IIPlace 1 tablet (0.4 mg) under the tongue every 5 minutes if needed for chest pain. 90 tablet ctive ferrous sulfate 325 (65 Fe) MG EC tablet Take 65 mg by mouth once daily with a meal. Do not crush, chew, or split.Active rivaroxaban (Xarelto) 20 mg tablet Indications:Paroxysmal atrial fibrillation (Multi)Take 1 tablet (20 mg) by mouth once daily. 90 tablet 312/16/699043/5Active potassium chloride CR 10 mEq ER tablet Indications:3-vessel coronary artery disease,Essential hypertensionTake 1 tablet (10 mEq) by mouth once daily. 90 tablet 302/1158936Active atorvastatin (Lipitor) 10 mg tablet Indications:Mixed hyperlipidemiaTake 1 tablet (10 mg) by mouth once daily at bedtime. 90 tablet //ctive furosemide (Lasix) 20 mg tablet Indications:Essential hypertensionTake 1 tablet (20 mg) by mouth once daily. 90 tablet /ctive magnesium oxide (Mag-Ox) 400 mg (241.3 mg elemental) tablet Indications:Paroxysmal atrial fibrillation (Multi)TAKE 1 TABLET BY MOUTH TWICE A DAY 180 tablet 5Active metoprolol succinate XL (Toprol-XL) 50 mg 24 hr tablet Indications:Paroxysmal atrial fibrillation (Multi),Essential hypertensionTake 1 tablet (50 mg) by mouth once daily. 90 tablet 306//ctive Active Problems ProblemNoted DateDiagnosed DateACE inhibitor ounwnpswhhf22/06/2025MI 28.0-28.9,adult06/01/2024ngina, class II06/03/2023SHD (arteriosclerotic heart disease)04/08/2023trial premature apyavadqg71/03/2023VNRT (AV graciela re-entry tachycardia)04/08/2023iabetes /03/2023Essential hypertension 04/08/2023Essential qdrtru9504/08/2023astric ulcer04/08/2023Highly echogenic liver on sjzgugxdqr23/03/2023History of coronary artery bypass graft04/08/2023 History of PTCA19238Vjyballnfgdwai72/03/2023Left bundle branch block 04/08/20234452Jtroinrgjvrn28/03/2023Paroxysmal atrial jhjhkdijsaxl46/03/2023Raynaud pzrmumpwfd61/03/2023Ventricular tachycardia (paroxysmal)04/08/2023lass 1 obesity due to excess calories with body mass index (BMI) of 30.0 to 30.9 in adult04/08/2023High risk medication use04/08/2023Never smoked any substance 04/08/2023 Resolved Problems ProblemNoted DateDiagnosed DateResolved DateLongstanding persistent atrial azcatjsonyaf38nticoagulated Encounters DateTypeDepartmentCare LjrrEwoxftkqwnw69/16/2025 1:30 PM EDTOffice Visit [facility] [address] [address] Juan José Cintron MD Paroxysmal atrial fibrillation (Multi) (Primary Dx); Palpitations; High risk medication use; History of coronary artery bypass graft; Type 2 diabetes mellitus without complication, with long-term current use of insulin (Multi); Never smoked any substance; BMI 28.0-28.9,adult Discharge Disposition: Home04/21/2025Travelfrom Last 3 Months Immunizations ImmunizationAdministration DatesNext DueFlu vaccine, trivalent, preservative free, HIGH-DOSE, age 65y+ (Fluzone)05/07/2022,04/04/2021,05/21/2017Influenza, Fqbiyyhqoey71/01/2019,04/06/2018,04/06/2016,04/06/2015,04/06/2014,04/28/2013 Influenza, live, intranasal, bxkatjgjlwlv79/01/2021Influenza, seasonal, jvufxfsfjl76/01/2020,04/06/2012,04/06/2009Novel xzbhgkbtt-G3Z2-86, preservative-free05/30/2009Pfizer Purple Cap YEBP-AxV-853/22/2021Pneumococcal conjugate vaccine, 13-valent (PREVNAR 13)04/29/2016,02/12/2016Pneumococcal polysaccharide vaccine, 23-valent, age 2 years and older (PNEUMOVAX 23) 04/06/2014,07/07/2000RSV-MAb07/22/2024Td vaccine, age 7 years and older (TENIVAC)01/11/2021Tetanus toxoid, duunkixp60/01/2014Zoster vaccine, recombinant, adult (SHINGRIX)02/20/2024Zoster, live08/18/2016 Family History Medical HistoryRelationNameCommentsacute myocardial infarctionBrotheracute myocardial infarctionSisterRelationNameStatusCommentsBrotherSister Social History Tobacco UseTypesPacks/DayYears UsedDateSmoking Tobacco: NeverSmokeless Tobacco: NeverAlcohol UseStandard Drinks/WeekCommentsNever0 (1 standard drink = 0.6 oz pure alcohol)CommentsNoSex and Gender InformationValueDate RecordedSex Assigned at BirthNot on fileLegal WtiWnigbr37/26/2022 5:01 AM ESTGender Identity Not on fileSexual OrientationNot on file Last Filed Vital Signs Vital SignReadingTime TakenCommentsBlood Layomyhs906/6204/21/2025 1:53 PM EDT Kkliu379704/21/2025 1:53 PM KJMRwmldjnbleq26.3 ??C (97.3 ??F)02/11/2025 9:10 AM EDTRespiratory Hama903302/11/2025 9:10 AM EDTOxygen Wczshxxjoi10%02/11/2025 9:10 AM EDTInhaled Oxygen Concentration--Onjgoq78.6 kg (173 lb 3.2 oz)04/21/2025 1:53 PM SCIRvuubz176.4 cm (5' 5.5 )04/21/2025 1:53 PM EDTBody Mass Index28.38 04/21/2025 1:53 PM EDT Plan of Treatment DateTypeDepartmentCare Team (Latest Contact Info)Oqktrjzkbta01/06/2026 11:30 AM EDTOffice Visit [facility] [address] [facility] [address] [place] [address] Eder Everett DO [address] [facility] [address] [place] [address] 11/16/2025 2:45 PM EDTOffice Visit [facility] [address] [facility] [address] [place] [address] Juan José Cintron MD [address] [address] Health MaintenanceDue DateLast DoneCommentsDiabetes: Celiac Disease Screening 1946Diabetes: Hemoglobin A1C1946Vitamin B-120 1946Hepatitis C Luyplvsem81/15/1965DTaP/Tdap/Td Vaccines (1 - Tdap)/1Diabetes: Retinopathy Lwytbftqe08/01/2022, 12/21/2021, 03/09/2021, Additional history existsMedicare Annual Wellness Visit (AWV)406/02/2023, 12/07/2021, 08/02/2020TSH Level0/11/2022, 11/25/2019, 07/06/2019Lipid Panel505/04/2024, 11/25/2019Influenza Vaccine (#1)/07/2021, 04/06/2021, 04/04/2021, Additional history existsCOVID-19 Vaccine ( season)/, 05/05/2023, 05/08/2022, Additional history exists Diabetes: Urine Protein Evtnyjcze89/22/989712/, 4Bone Density Scan6/, 12/27/2024, 04/10/2022, Additional history exists Pneumococcal YyxqnqfMeruwezmy12/24/2016, 02/12/2016, 04/06/2014, Additional history existsZoster SfdjschkYjhnuztpz85/16/2024, 08/26/2022, 08/18/2016RSV High Risk: (Elderly (60+) or Population)Gwzmfwcws52/16/2025HIB VaccinesAged OutNo longer eligible based on patient's age to complete this topicHPV Vaccines Aged OutNo longer eligible based on patient's age to complete this topic Hepatitis A VaccinesAged OutNo longer eligible based on patient's age to complete this topicHepatitis B VaccinesAged OutNo longer eligible based on patient's age to complete this topicIPV VaccinesAged OutNo longer eligible based on patient's age to complete this topicMeningococcal VaccineAged OutNo longer eligible based on patient's age to complete this topicRotavirus VaccinesAged Out No longer eligible based on patient's age to complete this topic Procedures Procedure NamePriorityDate/TimeAssociated DiagnosisCommentsECG 12-LEADRoutine 04/21/2025 5:57 PM EDT Paroxysmal atrial fibrillation (Multi) IEWIarezqu04/05/2023 1:38 PM EDT Palpitations Paroxysmal atrial fibrillation (Multi) Essential hypertension Left bundle branch block LIPID JUPTHQwdvtiw20/21/2020 12:20 PM EDT from Last 3 Months or Most Recently Relevant to Health Maintenance Results * ECG 12 lead (Clinic Performed) (04/21/2025 5:57 PM EDT)Specimen (Source) Anatomical Location / LateralityCollection Method / VolumeCollection Time Received Time Juan José Augustin MD - 04/21/2025 5:57 PM EDT EKG performed today shows sinus bradycardia left on the branch block at a rate of 47 bpm QRS ration 140 ms QT corrected 420 ms. ??Rhythm strip shows the same pattern. Authorizing ProviderResult TypeResult StatusAlyong Cintron MDECG ORDERABLESFinal Result * TSH (04/10/2023 1:38 PM EDT)ComponentValueRef RangeTest MethodAnalysis Time Performed AtPathologist SignatureThyroid Stimulating Hormone1.640.44 - 3.98 mIU/L LAB IMMUNOASSAY METHOD 04/10/2023 8:55 PM [facility] LABSpecimen (Source)Anatomical Location / LateralityCollection Method / VolumeCollection TimeReceived TimeBlood Venous blood specimen / UnknownVenipuncture / Xvfwhwh1004/10/2023 1:38 PM EDT 04/10/2023 1:38 PM EDT [place] [facility] - 04/10/2023 8:55 PM EDT TSH testing is performed using different testing methodology at [facility] than at other system hospitals. Direct result comparisons should only be made within the same method. Authorizing ProviderResult TypeResult StatusAlyong FERRIS BLOOD ORDERABLESFinal ResultPerforming OrganizationAddressCity/State/ZIP CodePhone Number [facility] [address] [place] [address] * Lipid Panel (11/25/2019 12:20 PM EDT)ComponentValueRef RangeTest Method Analysis TimePerformed AtPathologist UmbtahiqbPqkfaimcxoh3214 - 199 mg/dL [facility] LABComment: . ?AGE ?DESIRABLE ?? BORDERLINE HIGH ?? HIGH 0-19 Y 0 - 169 170 - 199 >/= 200 20-24 Y 0 - 189 190 - 224 >/= 225 >24 Y 0 - 199 200 - 239 >/= 240 All ranges are based on fasting samples. Specific therapeutic targets will vary based on patient-specific cardiac risk. . Pediatric guidelines reference:Pediatrics 2011, 128(S5). Adult guidelines reference: NCEP ATPIII Guidelines, ??JOHNATHAN 2001, 258:2486-97 . Venipuncture immediately after or during the administration of Metamizole may lead to falsely low results. Testing should be performed immediately prior to Metamizole dosing. HDL66.0mg/dLUF [facility]ALTH [facility]ILLAGES[facility] LABComment: . ?AGE ?VERY LOW ?? LOW ? NORMAL ?HIGH ?? 0-19 Y < 35 < 40 40-45 ---- 20-24 Y ---- < 40 >45 ---- >24 Y ---- < 40 40-60 >60 . Cholesterol/HDL Ratio2.4EBANNER LASSEN MEDICAL [facility]ENTER LABComment: REF VALUES DESIRABLE < 3.4 HIGH RISK > 5.0 TNL509 - 99 mg/dLU[facility] LABComment: . ? NEAR ?BORD ?AGE ?DESIRABLE ??OPTIMAL ?HIGH ? HIGH ? VERY HIGH 0-19 Y 0 - 109 --- 110-129 >/= 130 ---- 20-24 Y 0 - 119 --- 120-159 >/= 160 ---- >24 Y 0 - 99 100-129 130-159 160-189 >/=190 . LIMM052 - 40 mg/dLU[facility] HLTAqthpplqhmfny951 - 149 mg/dLU[facility] LABComment: . ?AGE ?DESIRABLE ?? BORDERLINE HIGH ?? HIGH ? VERY HIGH 0 D-90 D ?19 - 174 ? ---- ? ---- ?---- 91 D- 9 Y 0 - 74 [...] should be performed immediately prior to Metamizole dosing. Specimen (Source)Anatomical Location / LateralityCollection Method / Volume Collection TimeReceived Time11/25/2019 12:20 PM EDT11/25/2019 7:07 PM EDT Narrative Authorizing ProviderResult TypeResult StatusAlyong Cintron MDLAB BLOOD ORDERABLESFinal ResultPerforming OrganizationAddressCity/State/ZIP CodePhone Number [facility] from Last 3 Months or Most Recently Relevant to Health Maintenance Insurance * Guarantor: Laquita Dailey TypeRelation to PatientDate of BirthPhone Billing AddressPersonal/HmoeyzHigu94/15/1946 [facility] [place] [address] Advance Directives For more information, please contact: [phone] (Available ) * Full Code (Latest Code Status on File) Date ActivatedDate InactivatedComments02/11/2025 8:28 AMQuestionAnswerCommentsPlan of Care:* Code Status Discussion Not Completed Decision Maker:* Provider Rationale:* Patient condition does not warrant discussion Care Teams Team MemberRelationshipSpecialtyStart DateEnd Date Prasanth Craig MD [address] [facility] 110 [place] [address] PCP - General01/03/22 Juan José Cintron MD [address] [place] [address] [address] [place] [address] CardiologistCardiology-Clinical Cardiac Electrophysiology08/19/23 Eder Everett DO [address] [place] [address] [address] [place] [address] Consulting PhysicianCardiology08/19/23
--- OUTSIDE RECORDS SUMMARY | 2025-05-17 13:37 | XMS_ITS | Clinical Summary ---
Author Organization [facility] Address [address] [place] [address] Care Team Providers Care Chief Operator Hydroformer Name Role Phone Prasanth Craig MD Primary Care Provider [phone] Lizzette Middleton DO Unavailable [phone] Allergies Active AllergyReactionsCriticalityNoted DateCommentsAce Ytaqscipvl87/03/2023 Other Reaction(s): Unknown LquzrwtshnqNiqcHbe80/10/2021 Other Reaction(s): Hives / Skin Rash, Other (See Comments), Unknown MnpujkyiluzticZzgmaarr15/14/2022 Other Reaction(s): Unknown, Unknown Shellfish Euvrcms9804/23/2022 Other Reaction(s): Unknown EdzvskbrwqtwgtcqPovudnx33/06/5037YelaxephtqpvXzsvych18/06/2023 Medications MedicationSigDispense QuantityRefillsLast FilledStart DateEnd DateStatus Chxphsl-Gawusqlsww-Sngvumq D (CITRACAL +D3 PO) Daily.Active atorvastatin (Lipitor) 10 MG tablet Take 10 mg by mouth in the morning.Active biotin 5 MG capsule Take 10,000 mg by mouth DailyActive doxylamine (Sleep Aid) 25 MG tablet Take 25 mg by mouth as needed at bedtime.Active magnesium oxide (Mag-Ox) 400 MG tablet Take 400 mg by mouth in the morning and 400 mg before bedtime.Active metoprolol succinate XL (Toprol-XL) 50 MG 24 hr tablet Take 50 mg by mouth in the morning.09/24/2022ctive nitroglycerin (Nitrostat) 0.[address] 0.4 mg under the tongue every 5 (five) minutes if needed for chest pain. Active ferrous sulfate 325 (65 Fe) MG tablet Take 325 mg by mouth in the morning. Take with meals.Active Clobetasol Propionate E 0.05 % emollient cream APPLY A THIN LAYER TO AFFECTED AREA TWICE DAILY FOR 2 LWVCII5101/15/2022ctive insulin pen needle (Novofine Pen Needle) 32G x 6 mm misc 1 (one) time each day at the same time.Active cholecalciferol (Vitamin D-3) 50 MCG (1999) tablet Take by mouth.Active nitroglycerin (Nitrodur) 0.2 MG/HR patch 1 PATCH TRANSDERMALLY DAILY NEEDED FOR CHEST PAIN FOR 30 DAYS04/23/2023ctive furosemide (Lasix) 20 MG tablet Indications:Edema, unspecified typeTake 1 tablet (20 mg) by mouth in the morning. 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 Take with meals 100 tablet 5Active Insulin Infusion Pump (T:slim X2 Ins Pump/Control-IQ) device Basal: 12A 0.0, 5A 0.5, 11A 0.3, 5P 0.15, 10P 0.0, ICR: 12A 4, 5A 3, 11A 5., 5P 4.5, ISF: 12A 100, 5A 50, 10P 100, Target: 100-150 1 each 5Active Active Problems ProblemNoted DateDiagnosed DateAtrial premature feujwfzsq64/03/2023VNRT (AV graciela re-entry tachycardia)04/08/2023lass 1 obesity due to excess calories with body mass index (BMI) of 30.0 to 30.9 in adult04/08/2023astric ulcer04/08/2023 High risk medication use04/08/2023Highly echogenic liver on biregcglnd45/03/2023 Never smoked any /03/4591Lmwabebcphxk89/03/2023Raynaud phenomenon 04/08/2023Ventricular tachycardia (paroxysmal)04/08/2023Type 1 diabetes mellitus with circulatory ayfbxghjkwcp27/07/2023 Assessment & Plan (03/14/2025 9:19 AM EDT): During the appointment today all pertinent labs, [...] this helps to prevent the low bg Assessment & Plan (01/21/2025 3:01 PM EDT): During the appointment today all pertinent labs, [...] include: Pump instructions. Will adjust insulin accordingly. Assessment & Plan (05/17/2024 3:21 PM EST): During the appointment today all pertinent labs, [...] 10 pm. Tighten carb ratio for breakfast. Assessment & Plan (02/22/2024 6:44 PM EDT): During the appointment today all pertinent labs, [...] today include: Hypoglycemia management and Pump instructions. Decrease basal rates tohelp prevent low bg. Assessment & Plan (11/17/2023 9:15 PM EDT): During the appointment today all pertinent labs, [...] have any problems or questions. Laquita Dailey blood sugars are worsening. , The patient is wearing their cgm on a daily basis and making decisions in regards to adjusting insulin daily as well for at least the last 60 days , Instructed on the importance of taking insulin before eating. If it has been more than 30-45 min since eating they should not give the meal dose but should just give a correction insulin dose. , Instructions given today include: Pump instructions. Increase basal rate at 4A and 12P, decrease at 6P and 10P. She is to work on getting more protein at breakfast. Assessment & Plan (04/15/2023 12:54 PM EDT): During the appointment today all pertinent labs, [...] have any problems or questions. Laquita Dailey is doing very well and encouraged on this. , The patient is wearing their cgm on adaily basis and making decisions in regards to adjusting insulin daily as well for at least the last 60 days , Instructions given today include: Hypoglycemia management and Pump instructions. Gave a sample of shania to try. If she likes this she is to let me know and I will send it in. Increase basal rate at 4A and decrease at 12P. Tighten carb ratio for lunch but decrease at breakfast. Assessment & Plan (01/12/2023 6:07 PM EDT): During the appointment today all pertinent labs, [...] have any problems or questions. Laquita Dailey is doing okay. Will adjust medications to help improve control and smooth out blood glucose readings. , The patient is wearing their cgm on a daily basis and making decisions in regards to adjusting insulin daily as well for at least the last 60 days , Instructions given today include: Hypoglycemia management, Pump instructions, and Dietary education. She is to make sure she getsprotein in with all meals and snacks. Decrease basal rate at 3A but increase at 4A. Decrease at 6P and 10P. Loosen carb ratio for lunch. Gave her a sample G7 with reader to try. She doesn't want an rx for this at this time. Type 1 diabetes mellitus with stage 3a chronic kidney wclsbhp7201/10/2023Mixed qlqhyuspqdhbpg06/07/2023Essential pzopzxawmzpj68/07/7848Ulzdbbaagzbbvm92/07/2023 Acquired atresia of fzjgsj4812/10/2022cute gastric ulcer with hemorrhage 12/10/2022ge-related osteoporosis without current pathological fracture 12/10/2022llergic uukbrode26/06/2023nxiety state12/10/2022rrest of bone development or ickblf1112/10/2022arrett's axylilkkk78/06/2023enign essential qnsrfgulilry90/06/2023oronary artery disease involving tatitlek coronary artery of tatitlek heart without angina ochuvysh58/06/2023epressive trlbybso68/06/2023 Edema12/10/2022Esophageal skjykd7712/10/2022Essential bpehur6712/10/2022Estrogen hhhtankyod58/06/2023astrointestinal hemorrhage associated with gastric ulcer 12/10/2022Hearing loss12/10/2022Hx of CABG12/10/20223573Vkkllpqoxtujevv72/06/2023 Acquired iron deficiency anemia due to decreased fiymskirbr41/06/2023Iron deficiency anemia due to chronic blood loss12/10/2022Left bundle branch block 12/10/2022Longstanding persistent atrial sybovdccrcil34/06/2023Migraine with aura12/10/2022Hypoglycemia due to type 1 diabetes svevqfij11/06/2023aroxysmal atrial nmjmtnnbeogu49/06/3207Xxrshkruo06/13/2022 Overview (01/10/2023): 03/19/22: Persistent micro hematuria. Plan for CT urogram and cysto further workup. At the time of cysto will evaluate the mass she is feeling with wiping 04/23/22: CT urogram with hiatal hernia and gallbladder sludge, normal upper tract.Cysto with small rectocele. 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 [address] [place] [address] Justino Dooley DPM Verruca plantaris (Primary Dx); Foot pain, left; Diabetes mellitus due to underlying condition with diabetic polyneuropathy, unspecified whether termination clerk insulin use (HCC)05/12/2025Telephone [facility] [address] [facility] [address] [place] [address] Prasanth Craig MD 05/12/2025amboo flowsheet [facility] [address] [facility] [address] [place] [address] Justino Dooley DPM 05/12/20257383Dygcyu31/30/2025bstract [facility] [address] [facility] [address] [place] [address] Prasanth Craig MD 04/19/2025Telephone [facility] [address] [facility] [address] [place] [address] Yara House MA Medication Kadpgmx5504/14/2025 3:50 PM EDTOffice Visit [facility] [address] [facility] [address] [place] [address] Justino Dooley DPM Verruca plantaris (Primary Dx); Foot pain, left; Diabetes mellitus due to underlying condition with diabetic polyneuropathy, unspecified whether termination clerk insulin use (HCC); Pain due to onychomycosis of toenails of both feet04/14/2025amboo flowsheet [facility] [address] [facility] [address] [place] [address] Justino Dooley DPM 04/14/20255431Aodibx01/25/2025 11:50 AM EDTOffice Visit [facility] [address] [place] [address] [place] [address] Justino Dooley DPM Verruca plantaris (Primary Dx); Foot pain, left; Diabetes mellitus due to underlying condition with diabetic polyneuropathy, unspecified whether longterm insulin use (HCC)03/31/2025amboo flowsheet [facility] [address] [place] [address] [place] [address] Justino Dooley DPM 03/31/20256743Ubsrne73/23/2025Telephone [facility] [address] [place] [address] [place] [address] Yara House MA Insulin Pump03/11/2025 1:15 PM EDTOffice Visit [facility] [address] [place] [address] [place] [address] Lizzette Middleton DO Hypoglycemia due to type 1 diabetes mellitus (HCC) (Primary Dx); 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 (HCC); 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 [address] [place] [address] Justino Dooley DPM Verruca plantaris (Primary Dx); Foot pain, left; Diabetes mellitus due to underlying condition with diabetic polyneuropathy, unspecified whether termination clerk insulin use (HCC)03/10/2025amboo flowsheet [facility] [address] [place] [address] [place] [address] Justino Dooley DPM 03/10/20258188Jutihj45/13/2025Telephone [facility] [address] [place] [address] [place] [address] Prasanth Craig MD Med Refillfrom Last 3 Months Immunizations ImmunizationAdministration DatesNext DueInfluenza, High Dose Seasonal, Preservative Free05/07/2022,04/04/2021,05/21/2017Influenza, High-dose Seasonal, Quadrivalent, Preservative Free05/21/2017Influenza, Dbvbmppijnq41/01/2019, 04/06/2018,04/06/2016,04/06/2015,04/06/2014,04/28/2013Influenza, injectable, quadrivalent, preservative free03/07/2017,04/18/2015Influenza, live, intranasal, gipwfyttucnj42/01/2021Influenza, seasonal, pxugyuadku43/01/2020,04/06/2014, 04/06/2012,04/06/2009Influenza, seasonal, intradermal, preservative free 04/06/2019,05/04/2008Novel nivuyaiiq-Y9N3-94, preservative-free05/30/2009 Pneumococcal Conjugate PCV 131,02/12/2016Pneumococcal Polysaccharide VJYG6148,04/06/2014,03/03/2014,07/07/2000Td (adult), 5 Lf tetanus toxoid, preservative free, cbchcmyx55/08/4079Kwim48/08/2021,03/03/2014Tetanus toxoid, pdnquire91/01/2014Zoster, Cryvoqjwyts32/16/2024Zoster, live08/18/2016, 06/19/2012 Family History Medical HistoryRelationNameCommentsLung cancerFatherCirrhosisMotherHypertension OthersiblingsRelationNameStatusCommentsFatherDeceasedMotherDeceasedOthersiblings Social History Tobacco UseTypesPacks/DayYears UsedDateSmoking Tobacco: NeverSmokeless [...] six or more drinks on one occasion?Never 04/15/2023HQ-2AnswerDate RecordedPatient Health Questionnaire-2 Score0 03/11/2025CommentsUnknownSex and Gender InformationValueDate RecordedSex Assigned at BirthNot on fileLegal LrwRzhobg72/15/2023 6:45 PM EDTGender Identity Not on fileSexual OrientationNot on file Last Filed Vital Signs Vital SignReadingTime TakenCommentsBlood Rwzdilbm756/6209 1:12 PM EDT Ylcat3248 1:12 PM JCIBzlabaplcye95.2 ??C (97.2 ??F)03/11/2025 1:12 PM EDTRespiratory Jcoy799407/12/2024 3:06 PM ESTOxygen Uvlimsowiz30%03/11/2025 1:12 PM EDTInhaled Oxygen Concentration--Ibnuzi30.9 kg (174 lb)05/12/2025 3:06 PM EST Jqtvse531.6 cm (5' 6 )05/12/2025 3:06 PM ESTBody Mass Index28.0805/12/2025 3:06 PM EST Plan of Treatment DateTypeDepartmentCare Team (Latest Contact Info)Inppqxbfphf47/20/2025 3:20 PM ESTOffice Visit [facility] [address] [facility] [address] [place] [address] Justino Dooley DPM [address] [facility] [address] [place] [address] 05/30/2025 1:30 PM ESTOffice Visit [facility] [address] [facility] [address] [place] [address] Prasanth Craig MD [address] [facility] [address] [place], [place] [address] 06/10/2025 1:30 PM ESTOffice Visit [facility] [address] [place] [address] [place] [address] Lizzette Middleton, DO [address] [place] [address] [place] [address] 06/23/2025 3:50 PM ESTOffice Visit [facility] [address] [place] [address] [place] [address] Justino Dooley DPFred [address] [facility] [place] [address] [place] [address] 11/23/2025 1:00 PM EDTOffice Visit [facility] [place] [facility] [address] [place] [address] [place] [address] Patito Serrano PA [address] [place] [address] [place] [address] Health MaintenanceDue DateLast DoneCommentsDiabetes: Retinopathy Screening /08/2023, 05/13/2022, 03/09/2021, Additional history existsCOVID-19 Vaccine ( season), 05/05/2023, 05/08/2022, Additional history existsInfluenza Vaccine (#1)511/07/2021, 04/06/2021, 04/04/2021, Additional history existsDiabetes: Hemoglobin A1C06/10/2025 03/11/2025, 05/17/2024, 02/19/2024, Additional history existsDiabetes: Urine Protein Qtwiaookj43/, 11/14/2023, 11/16/2021Medicare Annual Wellness (AWV)/03/2025, 12/12/2023, 12/12/2022, Additional history existsPneumococcal Vaccine: 65+ DvfmxYvasygnqa47/02/2017, 04/29/2016, 02/12/2016, Additional history exists Procedures Procedure NamePriorityDate/TimeAssociated DiagnosisCommentsPOCT GLYCOSYLATED HEMOGLOBIN (HGB A1C)Vukhkdd6203/11/2025 1:26 PM EDT 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 (HCC) MICROALBUMIN / CREATININE URINE YMDVLRdiovpb38/22/2025 COLOR FUNDUS PHOTOGRAPHY - OU - BOTH NXUQCtwjdsz39/07/2022 12:00 PM EST from Last 3 Months or Most Recently Relevant to Health Maintenance Results * POCT glycosylated hemoglobin (Hb A1C) docked device (03/11/2025 1:26 PM EDT) ComponentValueRef RangeTest MethodAnalysis TimePerformed AtPathologist SignatureHemoglobin A1C7.3Specimen (Source)Anatomical Location / Laterality Collection Method / VolumeCollection TimeReceived TimeBloodVenous blood specimen / Lxurdts8903/11/2025 1:26 PM EDT Narrative Authorizing ProviderResult TypeResult Swati Middleton DOPOINT OF CARE TEST ENTER/EDIT ORDERABLESFinal Result * Microalbumin / creatinine urine ratio (10/26/2024)ComponentValueRef RangeTest MethodAnalysis TimePerformed AtPathologist SignatureMICROALBUMIN, URINE0.5 ALB/CREAT LWVDK8EODGM CACAL83Yvgoaqbn (Source)Anatomical Location / Laterality Collection Method / VolumeCollection TimeReceived TimeUrineUrine specimen obtained by clean catch procedure / Yytjwnn1410/26/2024 Narrative Authorizing ProviderResult TypeResult StatusPrasanth FERRIS URINE ORDERABLESEdited Result - Final * Color Fundus Photography - OU - Both Eyes (05/13/2022 12:00 PM EST)Anatomical RegionLateralityModalityHeadFundus PhotographySpecimen (Source)Anatomical Location / LateralityCollection Method / VolumeCollection TimeReceived Time 05/13/2022 12:00 PM EST Narrative 05/13/2022 12:00 PM EST PERFORMED AT [facility] LOCATION:[id number] retinopathy Procedure Note CONVERSION, GENERIC - 11/20/2022 PERFORMED AT [facility] LOCATION:[id number] retinopathy Authorizing ProviderResult TypeResult StatusPrasanth Craig MDPRISMA HEALTH BAPTIST HOSPITALTH PHOTOGRAPHY Final Result from Last 3 Months or Most Recently Relevant to [place] [address] Care Teams Team MemberRelationshipSpecialtyStart DateEnd Date Prasanth Craig MD [address] [facility] [address] [place] [address] PCP - GeneralInternal Medicine12/09/22 Lizzette Middleton DO [address] [facility] [address] [place] [address] PCP - ACO Reach08/13/24
--- OUTSIDE RECORDS SUMMARY | 2025-05-17 13:37 | XMS_ITS | Encounter Summary ---
Author Organization [facility] Address [address] [place] [address] Care Team Providers Care Smoking Pipe Repairer Name Role Phone Prasanth Craig MD Primary Care Provider [phone] Sjkiara Lizzette M DO Unavailable [phone] Encounter Details DateTypeDepartmentCare Team (Latest Contact Info)Gflquebfrdh20/30/2025bstract [facility] [address] [place] [address] [place] [address] Prasanth Craig MD [address] [facility] [address] [place] [address] Social History Tobacco UseTypesPacks/DayYears UsedDateSmoking Tobacco: NeverSmokeless [...] InformationValueDate RecordedSex Assigned at BirthNot on fileLegal HifPlwcpf65/15/2023 6:45 PM EDTGender Identity Not on fileSexual OrientationNot on filedocumented as of this encounter Plan of Treatment DateTypeDepartmentCare Team (Latest Contact Info)Cfigtgzfmmj72/20/2025 3:20 PM ESTOffice Visit [facility] [address] [place] [address] [place] [address] Justino Dooley DPM [address] [facility] 5 [place] [address] 05/30/2025 1:30 PM ESTOffice Visit [facility] [place] [facility] [address] [place] [address] [place] [address] Prasanth Craig MD [address] [place] [address] [place] [address] 06/10/2025 1:30 PM ESTOffice Visit [facility] [place] [facility] [address] [place] [address] [place] [address] Lizzette Middleton DO [address] [place] [address] [place] [address] 06/23/2025 3:50 PM ESTOffice Visit [facility] [address] [place] [address] [place] [address] Justino Dooley DPM [address] [facility] 5 [place] [address] 11/23/2025 1:00 PM EDTOffice Visit [facility] [address] [place] [address] [place] [address] Patito Serrano PA [address] [place] [address] [place] [address] documented as of this encounter Visit Diagnoses Not on filedocumented in this encounter Care Teams Team MemberRelationshipSpecialtyStart DateEnd Date Prasanth Craig MD [address] [facility] [address] [place] [address] PCP - GeneralInternal Medicine12/09/22 Lizzette Middleton DO [address] [facility] [address] [place] [address] PCP - ACO Reach08/13/24documented as of this encounter
--- OUTSIDE RECORDS SUMMARY | 2025-05-17 13:37 | XMS_ITS | Encounter Summary ---
Author Organization [facility] Address [address] [place] [address] Care Team Providers Care Assistant Public Defender Name Role Phone Prasanth Craig MD Primary Care Provider [phone] Lizzette Middleton DO Unavailable [phone] Encounter Details DateTypeDepartmentCare Team (Latest Contact Info)Lvldhnxorhj30/06/2025Travel Social History Tobacco UseTypesPacks/DayYears UsedDateSmoking Tobacco: NeverSmokeless [...] InformationValueDate RecordedSex Assigned at BirthNot on fileLegal HmmUvgtql35/15/2023 6:45 PM EDTGender Identity Not on fileSexual OrientationNot on filedocumented as of this encounter Plan of Treatment DateTypeDepartmentCare Team (Latest Contact Info)Rvmcgkmnnur61/20/2025 3:20 PM ESTOffice Visit [facility] [address] [place] [address] [place] [address] Justino Dooley DPM [address] [facility] 5 [place] [address] 05/30/2025 1:30 PM ESTOffice Visit [facility] [place] [facility] [address] [place] [address] [place] [address] Prasanth Craig MD [address] [place] [address] [place] [address] 06/10/2025 1:30 PM ESTOffice Visit [facility] [place] [facility] [address] [place] [address] [place] [phone] Lizzette Middleton DO [address] [place] [address] [place] [address] 06/23/2025 3:50 PM ESTOffice Visit [facility] [address] [place] [address] [place] [address] Justino Dooley DPM [address] [facility] 5 [place] [address] 11/23/2025 1:00 PM EDTOffice Visit [facility] [address] [place] [address] [place] [address] Patito Serrano PA [address] [place] [address] [place] [address] documented as of this encounter Visit Diagnoses Not on filedocumented in this encounter Care Teams Team MemberRelationshipSpecialtyStart DateEnd Date Prasanth Craig MD [address] [place] [address] [place] [address] PCP - GeneralInternal Medicine12/09/22 Lizzette Middleton DO [address] [place] [address] [place] [address] PCP - ACO 08/13/24documented as of this encounter
--- NOTE | 2025-05-17 13:38 | XR_ITS ---
The [address] [address] Patient Name: DORYS PAN MRN: [id number] date: 1945 Sex: F Assigned Patient Location: [facility] Current Patient Location: [facility] Accession/Order Number: [id number] Exam Date: 05/17/2025 13:50 Report Date: 05/17/2025 18:29 At the request of: MARIO DOUGLASS Procedure: XR hip LT min 2V XR hip LT min 2V 05/17/2025 1:59 PM SIGNS AND SYMPTOMS: ^Acute Left Hip Pain PROTOCOL: Frontal and frog-leg views of the left hip COMPARISON: None FINDINGS: There is mild narrowing of the left hip joint space. There is no fracture or dislocation. Vascular calcifications are present in the left thigh. XR/XR hip LT min 2V IMPRESSION: Mild degenerative changes are noted in the left hip. No acute bony injury. Impression dictated by: Barry Cabral M.D. 05/17/2025 6:29 PM Dictation Location: [place] [address] Electronically authenticated by: [id number] Date: 05/17/2025 18:29
== END 2025-05-17 13:31 | disposition home or self-care (01) ==
LOC: RAD 13:32
PROVIDERS: PCP Internal Medicine; Visit Provider Internal Medicine
DX: M25.552 Pain in left hip (principal)
CPT/HCPCS: 73502

== ENCOUNTER 2025-06-22 14:19 | Outpatient (OUT) | payer MEDICARE, SELFPAY ==
--- OUTSIDE RECORDS SUMMARY | 2025-06-09 16:00 | XMS_ITS | Encounter Summary ---
Author Organization [facility] Address [address] [place] [address] Care Team Providers Care Cloak Room Attendant Name Role Phone Prasanth Craig MD Primary Care Provider [phone] Lizzette Middleton DO Unavailable [phone] Reason for Visit * ReasonCommentsFoot CallousesLesion on LT foot Encounter Details DateTypeDepartmentCare Team (Latest Contact Info)Ekxpnzzgvsx73/04/2025 4:00 PM ESTOffice Visit [facility] [address] [facility] 120 [place] [address] Justino Dooley, DPFred 3[address] [facility] [address] [place] [address] Verruca plantaris (Primary Dx); Foot pain, left; Diabetes mellitus due to underlying condition with diabetic polyneuropathy, unspecified whether fdc insulin use (HCC) Social History Tobacco UseTypesPacks/DayYears UsedDateSmoking Tobacco: NeverSmokeless Tobacco: NeverAlcohol UseStandard Drinks/WeekCommentsNever0 (1 standard drink = 0.6 oz pure alcohol)caffeine: coffee/teaPHQ-2AnswerDate RecordedPatient Health Questionnaire-2 Jrukd95808/11/2024UDIT-CAnswerDate RecordedQ1: How often do you have a drink containing alcohol?Never06/10/2025Q2: How many drinks containing alcohol do you have on a typical day when you are drinking?Patient does not drink12/05/2025Q3: How often do you have six or more drinks on one occasion? Never06/10/2025CommentsUnknownSex and Gender InformationValueDate RecordedSex Assigned at BirthNot on fileLegal WbcEfwtuo64/15/2023 6:45 PM EDT Gender IdentityNot on fileSexual OrientationNot on filedocumented as of this encounter Last Filed Vital Signs Vital SignReadingTime TakenCommentsBlood Gkazrgmo175/7406/09/2025 3:30 PM EST Rgihl137906/09/2025 3:30 PM ESTTemperature--Respiratory Rate--Oxygen Saturation-- Inhaled Oxygen Concentration--Yjhfpc99.9 kg (174 lb)06/09/2025 3:30 PM ESTHeight 167.6 cm (5' 6 )06/09/2025 3:30 PM ESTBody Mass Index28.0806/09/2025 3:30 PM EST documented in this encounter Progress Notes * Justino Dooley, MEENAM - 06/09/2025 4:00 PM EST Patient: Laquita Dailey : 1945 PCP: Prasanth Craig MD SUBJECTIVE Patient presents today for follow up of skin lesion/neoplasm of unknown origin to the left foot Pt states that previous treatment of acid tx with some improvement Pt rates pain the pain on a 1-10 scale an intensity of 3 Pt presents today for followup. Pt is [...] mg by mouth Daily, Disp: , Rfl: Kfgxluf-Twcsluvvll-Sycsqnj D (CITRACAL +D3 PO), Daily., Disp: , [...] (Novofine Pen Needle) 32G x 6 mm [facility], 1 (one) time each day at the [...] chest pain., Disp: , Rfl: nystatin (Mycostatin) 178677 UNIT/GM powder, Apply to the affected area [...] at the left sub 4th metatarsal measuring 0.05cm x 0.05cm. Right ankle has healed lesion VASC: Negative DP and positive PT pedal pulses NEURO: 5.07 [place] Leandro monofilament test intact to digits and forefoot bilaterally 125Hz tuning fork diminished to 1st MPJ bilaterally ORTHO: Positive pain on palpation to toenails of the left 1,2,3,4,5 toes and right 1,2,3,4,5 toes Positive pain on palpation left foot lesion ASSESSMENT 1. Verruca plantaris 2. Foot pain, left 3. Diabetes mellitus due to underlying condition with diabetic polyneuropathy, unspecified whether terminal system operator insulin use (HCC) PLAN Application of salinocaine acid medication to lesion/lesions located at left foot Informed pt of risks and benefits of procedure including high reoccurence rate, infection, pain andconsent given. Application of DSD post procedure. Justino Dooley DPM documented in this encounter Plan of Treatment DateTypeDepartmentCare Team (Latest Contact Info)Dffuejltxkk92/15/2026 2:00 PM EDTOffice Visit [facility] [address] [place] [address] Lizzette Middleton DO [address] [place] [address] [place], [place] [address] 11/21/2025 1:00 PM EDTOffice Visit [facility] [address] [facility] [address] [place] [address] Prasanth Craig MD [address] [facility] 110 [place] [address] 11/23/2025 1:00 PM EDTOffice Visit [facility] [address] [place] [address] Patito Serrano PA [address] [place] [address] documented as of this encounter Visit Diagnoses Diagnosis Verruca plantaris- Primary Plantar wart Foot pain, left Pain in soft tissues of limb Diabetes mellitus due to underlying condition with diabetic polyneuropathy, unspecified whether terminal system operator insulin use (HCC) documented in this encounter Care Teams Team MemberRelationshipSpecialtyStart DateEnd Date Prasanth Craig MD [address] [facility] 110 [place] [address] PCP - GeneralInternal Medicine12/09/22 Lizzette Middleton DO [address] [facility] 230 [place] [address] PCP - ACO Reach08/13/24documented as of this encounter
--- OUTSIDE RECORDS SUMMARY | 2025-06-10 13:30 | XMS_ITS | Encounter Summary ---
Author Organization [facility] Address [address] [place] [address] Care Team Providers Care Medical Billing Coder Name Role Phone Prasanth Craig MD Primary Care Provider [phone] Lizzette Middleton DO Unavailable Reason for Visit * ReasonCommentsDiabetes Encounter Details DateTypeDepartmentCare Team (Latest Contact Info)Aylvnetfdzx80/05/2025 1:30 PM ESTOffice Visit [facility] [address] [facility] [address] [place] [address] Lizzette Middleton, [address] [facility] [address] [place] [address] 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 (HCC) (Primary Dx); 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 (HCC); 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); Hypoglycemia due to type 1 diabetes mellitus (HCC) Social History Tobacco UseTypesPacks/DayYears UsedDateSmoking Tobacco: NeverSmokeless Tobacco: NeverAlcohol UseStandard Drinks/WeekCommentsNever0 (1 standard drink = 0.6 oz pure alcohol)caffeine: coffee/teaPHQ-2AnswerDate RecordedPatient Health Questionnaire-2 Aborv58708/11/2024UDIT-CAnswerDate RecordedQ1: How often do you have a drink containing alcohol?Never06/10/2025Q2: How many drinks containing alcohol do you have on a typical day when you are drinking?Patient does not drink06/10/2025Q3: How often do you have six or more drinks on one occasion? Never06/10/2025CommentsUnknownSex and Gender InformationValueDate RecordedSex Assigned at BirthNot on fileLegal PraLaccga67/15/2023 6:45 PM EDT Gender IdentityNot on fileSexual OrientationNot on filedocumented as of this encounter Last Filed Vital Signs Vital SignReadingTime TakenCommentsBlood Rbqxowli423/6406/10/2025 1:28 PM EST Iflxu554006/10/2025 1:28 PM GEHKexxwysarzu47.8 ??C (98.3 ??F)06/10/2025 1:28 PM ESTRespiratory Rate--Oxygen Zusxxpeldn25%06/10/2025 1:28 PM ESTInhaled Oxygen Concentration--Mqwpqg14.5 kg (173 lb)06/10/2025 1:28 PM WGOFazwvz222.6 cm (5' 6 )06/10/2025 1:28 PM ESTBody Mass Index27.9206/10/2025 1:28 PM ESTdocumented in this encounter Functional Status * AUDIT-C ScoreAnswerDate of BnevcfwgwhOtqmkq070/05/2025 1:31 PM Sammie Irving LPN * QuestionAnswerDate of AssessmentAuthorQ1: How often do you have a drink containing alcohol?Never06/10/2025 1:31 PM Sammie Irving LPNQ2: How many drinks containing alcohol do you have on a typical day when you are drinking?Patient does not drink06/10/2025 1:31 PM Sammie Irving LPNQ3: How often do you have six or more drinks on one occasion?Never06/10/2025 1:31 PM Sammie Irving LPN * Over the past 2 weeks, how often have you been bothered by any of the following problems?QuestionAnswerDate of AssessmentAuthorLittle interest or pleasure in doing thingsNot at all06/10/2025 1:28 PM Sammie Irving LPN Feeling down, depressed, or hopelessNot at all06/10/2025 1:28 PM Sammie Irving LPNPatient Health Questionnaire-2 Frwmz37508/11/2024 1:28 PM EST Sammie Eaton LPN documented as of this encounter Progress Notes * Lizzette Middleton DO - 06/12/2025 6:14 PM ESTAssociated Problem(s): Type 1 diabetes mellitus [...] dose. , Instructions given today include: Pump instructions and Dietary education. Will decrease basal rate at 11A, loosen carb ratio at 5A and decrease correction dose. * Lizzette Middleton DO - 06/10/2025 1:30 PM EST Images from the original [...] G7- READER- on a daily basis. Bg dropping after correction doses and after breakfast frequently. Last A1c: 7.3 (03/11/25) Last eye exam: 05/04/2025 Current concerns include: Injection in her right eye due to swelling in April and May New tandem pump since beginning of May Feels her bg levels are higher at times and once she starts to have low bg levels she continues to drop even when she is eating. Sometimes she give a extra bouls of insulin when her bg level keeps rising and sometime that causesa low due to not letting the pump do its job She will be going to [place] after Susanne and like to carry pens for a back up- she would like samples if possible BG levels: higher at times Diet: count carbs ( 50 grams per meal) Drinks: water, black coffee and diet pop Exercise: walking daily Hypoglycemia: couple times a week before lunch or overnight around 1 - 4 am SUBJECTIVE: PROBLEM LIST SOCIAL ALLERGIES: Problem List[1] Social History[2] Allergies[3] 06/10/2025 13:51 Antidiabetic medications Insulin Lispro 1 Dose See admin instructions INJECT UP TO 100 UNITS VIA PUMP DIRECTED ONCE DAILYSC (100 UNIT/ML SOLN) Labs [facility] HEMOGLOBIN A1C/HEMOGLOBIN.TOTAL:MFR:PT:BLD:QN: 7.0 Outpatient prescription Medication marked as long-term The ASCVD Risk score (Rupali DK, et al., 2019) failed to calculate for the following reasons: The valid total cholesterol range is 130 to 320 mg/dL REVIEW OF SYMPTOMS: Review of Systems Constitutional: Positive for fatigue. Negative for appetite change and unexpected weight change. Eyes: Negative for visual disturbance. Respiratory: Negative for cough, shortness of breath and wheezing. Cardiovascular: Negative for chest pain, palpitations and leg swelling. Neurological: Negative for numbness. Endocrine: Negative for polydipsia, polyphagia and polyuria. OBJECTIVE: 06/10/2025 1:28 PM 06/09/2025 3:30 PM 05/30/2025 1:24 PM Vitals BMI 27.92 kg/m2 28.08 kg/m2 28.08 kg/m2 Systolic 116 132 134 Diastolic 64 74 70 Heart Rate 54 62 56 Temp 98.3 ??F Height (in) 5' 6 5' 6 5' 6 Weight (lb) 173 174 174 Visit Report Report Report Report Physical Exam [...] due to type 1 diabetes mellitus (HCC) 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) - Primary During the appointment today all pertinent labs, [...] dose. , Instructions given today include: Pump instructions and Dietary education. Will decrease basal rate at 11A, loosen carb ratio at 5A and decrease correction dose. 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 Lizzette Middleton in about 4 months (around 10/08/2025). Patient's Medications New Prescriptions No medications on file Previous Medications ATORVASTATIN (LIPITOR) 10 MG TABLET Take 10 mg by mouth in the morning. BIOTIN 5 MG CAPSULE Take 10,000 mg by mouth Daily KGKZNQM-WOIOBDYITK-PXUILFS D (CITRACAL +D3 PO) Daily. CHOLECALCIFEROL (VITAMIN [...] if needed for chest pain. NYSTATIN (MYCOSTATIN) 601226 UNIT/GM POWDER Apply to the affected area [...] device Basal: 12A 0.0, 5A 0.5, 11A 0.2, 5P 0.15, 10P 0.0, ICR: 12A 4, 5A 3.5, 11A 5., 5P 4.5, ISF: 12A 100, 5A 75, 10P 100, Target: 100-150 Basal: 12A 0.0, 5A 0.5, 11A 0.3, 5P 0.15, 10P 0.0, ICR: 12A 4, 5A 3, 11A 5., 5P 4.5, ISF: 12A 100, 5A 50, 10P 100, Target: 100-150 Discontinued Medications No medications on file I have reviewed and reconciled the history and medication list with the patient today. 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 current use of anticoagulant therapy Mixed hyperlipidemia [...] Palpitations Raynaud phenomenon Ventricular tachycardia (paroxysmal) (HCC) [2] Social History Tobacco Use Smoking status: Never Smokeless tobacco: Never Vaping Use Vaping status: Never Used Substance Use Topics Alcohol use: Never Comment: caffeine: coffee/tea Drug use: Never [3] Allergies Allergen Reactions Donald Inhibitors Other Reaction(s): Unknown Phenothiazines Swelling Other Reaction(s): Unknown, Unknown Shellfish Allergy Other Reaction(s): Unknown Sulfamethoxazole Unknown Trimethoprim Unknown Penicillins Rash Other Reaction(s): Hives / Skin Rash, Other (See Comments), Unknown documented in this encounter Plan of Treatment DateTypeDepartmentCare Team (Latest Contact Info)Ipdhrqhdplp01/15/2026 2:00 PM EDTOffice Visit [facility] [address] [place] [address] Lizzette Middleton DO [address] [place] [address] 11/21/2025 1:00 PM EDTOffice Visit [facility] [address] [place] [address] Prasanth Craig MD [address] [place] [address] 11/23/2025 1:00 PM EDTOffice Visit [facility] [address] [place] [address] Patito Serrano PA [address] [place] [address] documented as of this encounter Procedures Procedure NamePriorityDate/TimeAssociated DiagnosisCommentsPOCT GLYCOSYLATED HEMOGLOBIN (HGB A1C)Qbhcccl2306/10/2025 1:51 PM EST 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 (HCC) documented in this encounter Results * POCT glycosylated hemoglobin (Hb A1C) docked device (06/10/2025 1:51 PM EST) ComponentValueRef RangeTest MethodAnalysis TimePerformed AtPathologist SignatureHemoglobin A1C7.0Specimen (Source)Anatomical Location / Laterality Collection Method / VolumeCollection TimeReceived TimeBloodVenous blood specimen / Tjbjqxd4306/10/2025 1:51 PM EST Narrative Authorizing ProviderResult TypeResult StatusLizzette Middleton DOPOINT OF CARE TEST ENTER/EDIT ORDERABLESFinal Result documented in this encounter Visit Diagnoses Diagnosis 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 (HCC)- Primary 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
--- NOTE | 2025-06-22 14:23 | MM_ITS ---
Patient Name: DORYS PAN MR#: [id number] : 1945 Exam Date: 06/22/2025 Ordering Doctor: DR MARIO DOUGLASS M.D. RADIOLOGY REPORT PROCEDURE: MM TOMOSYNTHESIS SCREENING BI COMPARISON: MM TOMOSYNTHESIS SCREENING BI, 06/18/2023. MG MAMM SCREEN 3D MIRNA CAD, 04/10/2022. MG MAMM SCREEN MIRNA W CAD, 05/05/2019. MG MAMM MIRNA SCRN W CAD DIG, 06/15/2013. INDICATIONS: Screening Calculator Name NCI Breast Cancer Risk Assessment Tool 5 Year Breast Cancer Risk 1.90% Lifetime Breast Cancer Risk 3.30% Personal Breast Cancer No Personal Ovarian Cancer No Treatments None Family Cancers Father with lung cancer at age 71. LOCATION: [facility] BREAST COMPOSITION: The breasts are heterogeneously dense, which may obscure small masses. FINDINGS: RIGHT BREAST: No significant suspicious finding. LEFT BREAST: No significant suspicious finding. DIAGNOSTIC CATEGORY 1--NEGATIVE. RECOMMENDATIONS: ROUTINE MAMMOGRAM AND CLINICAL EVALUATION IN 12 MONTHS. Dictated by: Jay Jay Lombardi DO on 06/22/2025 at 15:05 Approved by: Jay Jay Lombardi DO on 06/22/2025 at 15:08
--- OUTSIDE RECORDS SUMMARY | 2025-06-22 14:24 | XMS_ITS | Encounter Summary ---
Author Organization [facility] Address [address] [place] [address] Care Team Providers Care Dub Room Engineer Name Role Phone Prasanth Craig MD Primary Care Provider [phone] Lizzette Middleton DO Unavailable [phone] Reason for Visit * ReasonOnset DateCommentsAppointment Heybdgbdpmrj13/04/2025 Encounter Details DateTypeDepartmentCare Team (Latest Contact Info)Qrksuzidumu44/04/2025Telephone [facility] [address] [facility] 230 [place] [address] Lizzette Middleton, DO [address] [facility] 230 [place] [address] Appointment Confirmation Social History Tobacco UseTypesPacks/DayYears UsedDateSmoking Tobacco: NeverSmokeless Tobacco: NeverAlcohol UseStandard Drinks/WeekCommentsNever0 (1 standard drink = 0.6 oz pure alcohol)caffeine: coffee/teaPHQ-2AnswerDate RecordedPatient Health Questionnaire-2 Lixnf32708/11/2024UDIT-CAnswerDate RecordedQ1: How often do you have a drink containing alcohol?Never06/10/2025Q2: How many drinks containing alcohol do you have on a typical day when you are drinking?Patient does not drink06/10/2025Q3: How often do you have six or more drinks on one occasion? Never06/10/2025CommentsUnknownSex and Gender InformationValueDate RecordedSex Assigned at BirthNot on fileLegal FntPlsxnp61/15/2023 6:45 PM EDT Gender IdentityNot on fileSexual OrientationNot on filedocumented as of this encounter Miscellaneous Notes * Telephone Encounter - Alba Vasquez - 06/09/2025 9:00 AM EST Spoke with the Pt, she confirmed her appt for 06/10 @ 1:30. documented in this encounter Plan of Treatment DateTypeDepartmentCare Team (Latest Contact Info)Oaftbutrqrj01/15/2026 2:00 PM EDTOffice Visit [facility] [address] [place] [address] Lizzette Middleton DO [address] [place] [address] 11/21/2025 1:00 PM EDTOffice Visit [facility] [place] [facility] [address] [place] [address] Prasanth Craig MD [address] [place] [address] 11/23/2025 1:00 PM EDTOffice Visit [facility] [place] [facility] [address] [place] [address] Patito Serrano PA [address] [place] [address] documented as of this encounter Visit Diagnoses Not on filedocumented in this encounter Care Teams Team MemberRelationshipSpecialtyStart DateEnd Date Prasanth Craig MD [address] [place] [address] PCP - GeneralInternal Medicine12/09/22 Lizzette Middleton DO [address] [place] [address] [facility] 08/13/24documented as of this encounter
--- OUTSIDE RECORDS SUMMARY | 2025-06-22 14:24 | XMS_ITS | Encounter Summary ---
Author Organization [facility] Address [address] [place] [address] Care Team Providers Care Associate Medical Director Name Role Phone Prasanth Craig MD Primary Care Provider [phone] Lizzette Middleton DO Unavailable [phone] Encounter Details DateTypeDepartmentCare Team (Latest Contact Info)Pbgqnudytju58/05/2025Orders Only [facility] [place] [facility] [address] [facility] [address] [place] [address] Prasanth Craig MD [address] [facility] 110 [place] [address] Social History Tobacco UseTypesPacks/DayYears UsedDateSmoking Tobacco: NeverSmokeless Tobacco: NeverAlcohol UseStandard Drinks/WeekCommentsNever0 (1 standard drink = 0.6 oz pure alcohol)caffeine: coffee/teaPHQ-2AnswerDate RecordedPatient Health Questionnaire-2 Kdfta91608/11/2024UDIT-CAnswerDate RecordedQ1: How often do you have a drink containing alcohol?Never06/10/2025Q2: How many drinks containing alcohol do you have on a typical day when you are drinking?Patient does not drink06/10/2025Q3: How often do you have six or more drinks on one occasion? Never06/10/2025CommentsUnknownSex and Gender InformationValueDate RecordedSex Assigned at BirthNot on fileLegal BrcNbvmnz94/ 6:45 PM EDT Gender IdentityNot on fileSexual OrientationNot on filedocumented as of this encounter Functional Status * AUDIT-C ScoreAnswerDate of BmwnttjhlxBkxvyq606/05/2025 1:31 PM Sammie Irving LPN * QuestionAnswerDate [...] 1:28 PM Sammie Irving LPNPatient Health Questionnaire-2 Xesil01908/11/2024 1:28 PM Sammie Matias LPN documented as of this encounter Plan of Treatment DateTypeDepartmentCare Team (Latest Contact Info)Ynaofarpjwm14/15/2026 2:00 PM EDTOffice Visit [facility] [address] [place] [address] Lizzette Middleton DO [address] [place] [address] 11/21/2025 1:00 PM EDTOffice Visit [facility] [place] [facility] [address] [place] [address] Prasanth Craig MD [address] [place] [address] 11/23/2025 1:00 PM EDTOffice Visit [facility] [place] [facility] [address] [place] [address] Patito Serrano PA [address] [place] [address] documented as of this encounter Procedures Procedure NamePriorityDate/TimeAssociated DiagnosisCommentsDIABETIC RETINOPATHY SCREENING - OU - BOTH MBFYRvhpfyr34/29/2025 12:42 PM EDTdocumented in this encounter Results * (ABNORMAL) Diabetic Retinopathy Screening - OU - Both Eyes (05/04/2025 12:42 PM EDT)Anatomical RegionLateralityModalityHeadOther Narrative Authorizing ProviderResult TypeResult StatusDanialexandr Craig MDOPH PHOTOGRAPHY Final Result documented in this encounter Visit Diagnoses Not on filedocumented in this encounter Care Teams Team MemberRelationshipSpecialtyStart DateEnd Date Prasanth Craig MD 112 [facility] 110 [place] [address] PCP - GeneralInternal Medicine12/09/22 Lizzette Middleton DO [address] [place] [place] [address] PCP - ACO Reach08/13/24documented as of this encounter
--- OUTSIDE RECORDS SUMMARY | 2025-06-22 14:24 | XMS_ITS | Encounter Summary ---
Author Organization [facility] Address [address] [place] [address] Care Team Providers Care Home Help Aide Name Role Phone Prasanth Craig MD Primary Care Provider [phone] Lizzette Middleton DO Unavailable [phone] Encounter Details DateTypeDepartmentCare Team (Latest Contact Info)Ocsazeywynh74/04/2025Travel Social History Tobacco UseTypesPacks/DayYears UsedDateSmoking Tobacco: NeverSmokeless Tobacco: NeverAlcohol UseStandard Drinks/WeekCommentsNever0 (1 standard drink = 0.6 oz pure alcohol)caffeine: coffee/teaPHQ-2AnswerDate RecordedPatient Health Questionnaire-2 Suhsg43908/11/2024UDIT-CAnswerDate RecordedQ1: How often do you have a drink containing alcohol?Never06/10/2025Q2: How many drinks containing alcohol do you have on a typical day when you are drinking?Patient does not drink06/10/2025Q3: How often do you have six or more drinks on one occasion? Never06/10/2025CommentsUnknownSex and Gender InformationValueDate RecordedSex Assigned at BirthNot on fileLegal VqfTkvypw10/15/2023 6:45 PM EDT Gender IdentityNot on fileSexual OrientationNot on filedocumented as of this encounter Plan of Treatment DateTypeDepartmentCare Team (Latest Contact Info)Scusbugutcu31/15/2026 2:00 PM EDTOffice Visit [facility] [address] [place] [phone] Lizzette Middleton, DO [address] [place] [address] 11/21/2025 1:00 PM EDTOffice Visit [facility] [place] [facility] [address] [place] [address] Prasanth Craig MD [address] [place] [address] 11/23/2025 1:00 PM EDTOffice Visit [facility] [place] [facility] [address] [place] [address] Patito Serrano PA [address] [place] [phone] documented as of this encounter Visit Diagnoses Not on filedocumented in this encounter Care Teams Team MemberRelationshipSpecialtyStart DateEnd Date Prasanth Craig MD [address] [place] [address] PCP - GeneralInternal Medicine12/09/22 Lizzette Middleton, DO [address] [place] [address] PCP - ACO Reach08/13/24documented as of this encounter
--- OUTSIDE RECORDS SUMMARY | 2025-06-22 14:24 | XMS_ITS | Encounter Summary ---
Author Organization [facility] Address [address] [place] [address] Care Team Providers Care Staff Weapons Officer Name Role Phone Prasanth Craig MD Primary Care Provider [phone] Lizzette Middleton DO Unavailable [phone] Encounter Details DateTypeDepartmentCare Team (Latest Contact Info)Mtatkxyfmho02/05/2025Travel Social History Tobacco UseTypesPacks/DayYears UsedDateSmoking Tobacco: NeverSmokeless Tobacco: NeverAlcohol UseStandard Drinks/WeekCommentsNever0 (1 standard drink = 0.6 oz pure alcohol)caffeine: coffee/teaPHQ-2AnswerDate RecordedPatient Health Questionnaire-2 Ypybx92608/11/2024UDIT-CAnswerDate RecordedQ1: How often do you have a drink containing alcohol?Never06/10/2025Q2: How many drinks containing alcohol do you have on a typical day when you are drinking?Patient does not drink06/10/2025Q3: How often do you have six or more drinks on one occasion? Never06/10/2025CommentsUnknownSex and Gender InformationValueDate RecordedSex Assigned at BirthNot on fileLegal NkcBmliqh48/15/2023 6:45 PM EDT Gender IdentityNot on fileSexual OrientationNot on filedocumented as of this encounter Functional Status * AUDIT-C ScoreAnswerDate of WqfbognrqpQphyws614/05/2025 1:31 PM Sammie Irving LPN * QuestionAnswerDate [...] 1:28 PM Sammie Irving LPNPatient Health Questionnaire-2 Ihnzb03608/11/2024 1:28 PM Sammie Matias LPN documented as of this encounter Plan of Treatment DateTypeDepartmentCare Team (Latest Contact Info)Nsdcywoasjx14/15/2026 2:00 PM EDTOffice Visit [facility] [address] [place] [address] Lizzette Middleton DO [address] [place], [place] [id number] 11/21/2025 1:00 PM EDTOffice Visit [facility] [address] [facility] [address] [place] [phone] Prasanth Craig MD [address] [facility] [address] [place] [address] 11/23/2025 1:00 PM EDTOffice Visit [facility] [address] [place] [address] Patito Serrano PA [address] [place] [address] documented as of this encounter Visit Diagnoses Not on filedocumented in this encounter Care Teams Team MemberRelationshipSpecialtyStart DateEnd Date Prasanth Craig MD [address] [facility] [address] [place] [address] PCP - GeneralInternal Medicine12/09/22 Lizzette Middleton DO [address] [facility] [address] [place] [address] PCP - ACO Reach08/13/24documented as of this encounter
--- OUTSIDE RECORDS SUMMARY | 2025-06-22 14:25 | XMS_ITS | Clinical Summary ---
Author Organization [facility] Address [address] [place] [address] Care Team Providers Care Director [place] Name Role Phone Prasanth Craig MD Primary Care Provider Lizzette Middleton DO Unavailable [phone] Allergies Active AllergyReactionsCriticalityNoted DateCommentsAce Uyoaocdijc51/03/2023 Other Reaction(s): Unknown KlsdpyztbgtEoeeQhz83/10/2021 Other Reaction(s): Hives / Skin Rash, Other (See Comments), Unknown EliibhqclpbrlwPyhvupzl83/14/2022 Other Reaction(s): Unknown, Unknown Shellfish Tytoemr4404/23/2022 Other Reaction(s): Unknown PoypdpoukpjuuvwdCzcoiwv03/06/8640KitdzuhcodxqPyrfqur96/06/2023 Medications MedicationSigDispense QuantityRefillsLast FilledStart DateEnd DateStatus Cecdvgq-Ihxnxubcrb-Xwaysws D (CITRACAL +D3 PO) Daily.Active atorvastatin (Lipitor) [...] TO AFFECTED AREA TWICE DAILY FOR 2 GWTLFE8501/15/2022ctive insulin pen needle (Novofine Pen Needle) 32G [...] THE MORNING 100 tablet 5Active nystatin (Mycostatin) 204970 UNIT/GM powder Indications:IntertrigoApply to the affected area [...] 100, 5A 75, 10P 100, Target: 100-150 1 each 06/12/2025tive Insulin Infusion Pump (T:slim X2 Ins Pump/Control-IQ) device Basal: 12A 0.0, 5A 0.5, 11A 0.3, 5P 0.15, 10P 0.0, ICR: 12A 4, 5A 3, 11A 5., 5P 4.5, ISF: 12A 100, 5A 50, 10P 100, Target: 100-150 1 each Discontinued(Dose adjustment) Active Problems ProblemNoted DateDiagnosed DateAtrial premature ndllbyybp87/03/2023VNRT (AV graciela re-entry tachycardia)04/08/2023lass 1 obesity due to excess calories with body mass index (BMI) of 30.0 to 30.9 in adult04/08/2023astric ulcer04/08/2023 High risk medication use04/08/2023Highly echogenic liver on vxvtpoaqtv68/03/2023 Never smoked any jnzsefisp60/03/2827Bimwfqwthqqq33/03/2023Raynaud phenomenon 04/08/2023Ventricular tachycardia (paroxysmal)04/08/2023Type 1 diabetes mellitus with circulatory wfxqkgqukycl94/07/2023 Assessment & Plan (06/12/2025 6:14 PM EST): During the appointment today all [...] if they have any problems or questions. Dorys Dailey control is stable overall. , The [...] ratio at 5A and decrease correction dose. Assessment & Plan (03/14/2025 9:19 AM EDT): [...] if they have any problems or questions. Dorys Fred Ashlie control is stable overall. , The patient [...] if they have any problems or questions. Dorys Fred Ash[place] control is stable overall. , The patient [...] if they have any problems or questions. Dorys Dailey control is stable overall. , The [...] if they have any problems or questions. Dorys Dailey control is stable overall. , The [...] if they have any problems or questions. Dorys Dailey blood sugars are worsening. , The [...] if they have any problems or questions. Dorys Dailey is doing very well and encouraged on this. , The patient is wearing their cgm on adaily basis and making decisions in regards to adjusting insulin daily as well for at least the last 60 days , Instructions given today include: Hypoglycemia management and Pump instructions. Gave a sample of lykimberlyjev to try. If she likes this she [...] if they have any problems or questions. Dorys Dailey is doing okay. Will adjust medications [...] diabetes mellitus with stage 3a chronic kidney vrfefyk0601/10/2023Mixed ufcparxljhumec19/07/2023Essential dffgkhbcevtv62/07/0218Oqndngtyruholp43/07/2023 Acquired atresia of sgdacp2412/10/2022cute gastric ulcer with hemorrhage 12/10/2022ge-related osteoporosis without current pathological fracture 12/10/2022llergic tesphyem20/06/2023nxiety state12/10/2022rrest of bone development or uqbvxx8312/10/2022arrett's mhkdzflxu04/06/2023enign essential aqdlnlcjymsx70/06/2023oronary artery disease involving chefornak coronary artery of chefornak heart without angina jgcqijas95/06/2023epressive fzpimiza79/06/2023 Edema12/10/2022Esophageal jnkmuw6112/10/2022Essential coequl8712/10/2022Estrogen anngdahifs01/06/2023astrointestinal hemorrhage associated with gastric ulcer 12/10/2022Hearing loss12/10/2022Hx of CABG12/10/20229906Licwygrzpncijpv36/06/2023 Acquired iron deficiency anemia due to decreased moajbjojai43/06/2023Iron deficiency anemia due to chronic blood loss12/10/2022Left bundle branch block 12/10/2022Longstanding persistent atrial iuroealmpmla49/06/2023Migraine with aura12/10/2022Hypoglycemia due to type 1 diabetes ffedpshi27/06/2023aroxysmal atrial tzeipgrhkden31/06/0903Oznxehsom24/13/2022 Overview (01/10/2023): 03/19/22: Persistent micro hematuria. Plan for CT urogram and cysto further workup. At the time of cysto will evaluate the mass she is feeling with wiping 04/23/22: CT urogram with hiatal hernia and gallbladder sludge, normal upper tract.Cysto with small rectocele. 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 associated with type 1 diabetes awaxawau87/10/2013 Resolved Problems ProblemNoted DateDiagnosed DateResolved DateMultiple complications of type 1 diabetes ogclzmrg01/01/2023Type 1 diabetes mellitus without srahttpxnvftn16/06/202307/01/2023Type 2 diabetes mellitus with other specified tvbxnuidkxsj87/06/202307/01/2023Type 1 diabetes mellitus with other specified zonqgxhalmyj123Diabetes mellitus, type Encounters DateTypeDepartmentCare VsrpSuzuzkjdfca64/16/2025[facility] [address] [place] [address] Prasanth Craig MD Encounter for screening mammogram for malignant neoplasm of bdfqwh1006/21/2025 Telephone [facility] [place] [facility] [address] [place] [address] Prasanth Craig MD 06/10/2025 1:30 PM ESTOffice Visit [facility] [address] [place] [address] Lizzette Middleton, 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 (HCC) (Primary Dx); 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 (HCC); 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); Hypoglycemia due to type 1 diabetes mellitus (HCC)06/10/20259041Icigzv56/05/2025 Orders Only [facility] [address] [place] [address] Prasanth Craig MD 06/09/2025 4:00 PM ESTOffice Visit [facility] [address] [place] [address] Justino Dooley, DPM Verruca plantaris (Primary Dx); Foot pain, left; Diabetes mellitus due to underlying condition with diabetic polyneuropathy, 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 (HCC)06/09/20251574Ljqeqs72/04/2025 Telephone [facility] [address] [place] [address] Lizzette Middleton, Appointment Bgduxknihtdz13/24/2025 1:30 PM ESTOffice Visit [facility] [place] [facility] [address] [place] [address] Prasanth Craig MD Essential hypertension (Primary Dx); Major depressive disorder, single episode, in full remission; Coronary artery disease involving chefornak coronary artery of chefornak heart without angina pectoris; 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; Age-related osteoporosis without current pathological aokqsvfb59/24/2025amboo flowsheet [facility] [place] [facility] [address] [place] [address] Prasanth Craig MD 05/30/20256846Qvrkqu49/20/2025 3:20 PM ESTOffice Visit [facility] [address] [place] [address] Justino Dooley, MEENAM Verruca plantaris (Primary Dx); Foot pain, left; Diabetes mellitus due to underlying condition with diabetic polyneuropathy, 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)05/26/2025amboo flowsheet [facility] [address] [place] [address] Justino Dooley DPM 05/26/20253992Elkdod61/17/2025Telephone [facility] [address] [place] [address] Lizzette Middleton DO 5Clinisync Result Encounter [facility] External Department Unsolicited Prasanth Craig MD 05/12/2025 3:10 PM ESTOffice Visit [facility] [address] [place] [address] Justino Dooley, DPM Verruca plantaris (Primary Dx); Foot pain, left; Diabetes mellitus due to underlying condition with diabetic polyneuropathy, unspecified whether mcc insulin use ([facility])05/12/2025[facility] [place] [facility] [address] [place] [address] Prasanth Craig MD 05/12/2025amb flowsheet [facility] [address] [place] [address] Justino Dooley DPM 05/12/20252543Peryjh79/30/2025Abstract [facility] [place] [facility] [address] [place] [address] Prasnath Craig MD 04/19/2025Telephone [facility] [address] [place] [address] Yara House MA Medication Rkqoosf6104/14/2025 3:50 PM EDTOffice Visit [facility] [address] [place] [address] Justino Dooley DPM Verruca plantaris (Primary Dx); Foot pain, left; Diabetes mellitus due to underlying condition with diabetic polyneuropathy, unspecified whether mcc insulin use (HCC); Pain due to onychomycosis of toenails of both feet04/14/2025amboo flowsheet [facility] [address] [place] [address] Justino Dooley DPM 04/14/20259955Cszugz79/25/2025 11:50 AM EDTOffice Visit [facility] [address] [place] [address] Justino Dooley DPM Verruca plantaris (Primary Dx); Foot pain, left; Diabetes mellitus due to underlying condition with diabetic polyneuropathy, unspecified whether mcc insulin use (HCC)03/31/2025amboo flowsheet [facility] [address] [facility] [address] [place] [address] Justino Dooley DPM 03/31/20250699Aoygwd41/23/2025Telephone [facility] [address] [place] [address] Yara House MA Insulin Pumpfrom Last 3 Months Immunizations ImmunizationAdministration DatesNext DueInfluenza, High Dose Seasonal, Preservative Free05/07/2022,04/04/2021,05/21/2017Influenza, High-dose Seasonal, Quadrivalent, Preservative Free05/21/2017Influenza, Rlvxxtnnyxl13/01/2019, 04/06/2018,04/06/2016,04/06/2015,04/06/2014,04/28/2013Influenza, injectable, quadrivalent, preservative free03/07/2017,04/18/2015Influenza, live, intranasal, bgfatzgkaaio18/01/2021Influenza, seasonal, hpiufwhkcv60/03/2025,04/06/2020, 04/06/2014,04/06/2012,04/06/2009Influenza, seasonal, intradermal, preservative free04/06/2019,05/04/2008Novel urjemmoul-P0K3-00, preservative-free05/30/2009 Pneumococcal Conjugate PCV 131,02/12/2016Pneumococcal Polysaccharide AJRS5819,04/06/2014,03/03/2014,07/07/2000RSV, recombinant, protein subunit RSVpreF, adjuvant reconstitu, 120mcg/0.5mL, PF (Arexvy)07/22/2024Td (adult), 5 Lf tetanus toxoid, preservative free, hbebstlk37/08/2021Tdap 01/11/2021,03/03/2014Tetanus toxoid, pxohoble83/01/2014Zoster, Recombinant 02/20/2024,08/26/2022Zoster, live08/18/2016,06/19/2012 Family History Medical HistoryRelationNameCommentsLung cancerFatherCirrhosisMotherHypertension OthersiblingsRelationNameStatusCommentsFatherDeceasedMotherDeceasedOthersiblings Social History Tobacco UseTypesPacks/DayYears UsedDateSmoking Tobacco: NeverSmokeless Tobacco: Never Tobacco Cessation:Counseling Given: Yes Alcohol UseStandard Drinks/WeekCommentsNever0 (1 standard drink = 0.6 oz pure alcohol)caffeine: coffee/teaPHQ-2AnswerDate RecordedPatient Health Questionnaire-2 Ifodz27908/11/2024UDIT-CAnswerDate RecordedQ1: How often do you have a drink containing alcohol?Never06/10/2025Q2: How many drinks containing alcohol do you have on a typical day when you are drinking?Patient does not drink06/10/2025Q3: How often do you have six or more drinks on one occasion? Never06/10/2025CommentsUnknownSex and Gender InformationValueDate RecordedSex Assigned at BirthNot on fileLegal FwqAaojlk26/15/2023 6:45 PM EDT Gender IdentityNot on fileSexual OrientationNot on file Last Filed Vital Signs Vital SignReadingTime TakenCommentsBlood Nyxwxnqg613/6406/10/2025 1:28 PM EST Tqdki444206/10/2025 1:28 PM ZINKbextxlxqvs81.8 ??C (98.3 ??F)06/10/2025 1:28 PM ESTRespiratory Kxer444407/26/2024 3:26 PM ESTOxygen Eokyscteyo56%06/10/2025 1:28 PM ESTInhaled Oxygen Concentration--Wujdsx34.5 kg (173 lb)06/10/2025 1:28 PM EST Qzrsto316.6 cm (5' 6 )06/10/2025 1:28 PM ESTBody Mass Index27.9206/10/2025 1:28 PM EST Plan of Treatment DateTypeDepartmentCare Team (Latest Contact Info)Wxkhmxlpukt50/15/2026 2:00 PM EDTOffice Visit [facility] [address] [place] [address] Lizzette Middleton DO [address] [place], [place] [address] 11/21/2025 1:[address] [facility] [address] [facility] [address] [place] [address] Prasanth Craig MD [address] [facility] [address] [place] [address] 11/23/2025 1:00 PM EDTOffice Visit [facility] [address] [place] [address] Patito Serrano PA [address] [place] [address] Health MaintenanceDue DateLast DoneCommentsCOVID-19 Vaccine (2024- season) , 05/05/2023, 05/08/2022, Additional history existsDiabetes: Hemoglobin A1C6108/11/2024, 03/11/2025, 05/17/2024, Additional history existsDiabetes: Urine Protein Fntwcquwj02/22/53153010/26/2024, 11/14/2023, 11/16/2021Medicare Annual Wellness (AWV)606/03/2025, 12/12/2023, 12/12/2022, Additional history existsDiabetes: Retinopathy Ahldnvpnr55/29/2026 05/04/2025, 05/13/2022, 03/09/2021, Additional history existsPneumococcal Vaccine: 65+ ZvsduQxumbvxox50/02/2017, 04/29/2016, 02/12/2016, Additional history existsInfluenza ZmlidzwJxxohkmoe64/14/2025, 05/09/2025, 05/07/2022, Additional history exists Procedures Procedure NamePriorityDate/TimeAssociated DiagnosisCommentsPOCT GLYCOSYLATED HEMOGLOBIN (HGB A1C)Dsuifqt5306/10/2025 1:51 PM EST 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 (HCC) XR HIP LT MIN 2V107/17/2024 6:29 PM EST DIABETIC RETINOPATHY SCREENING - OU - BOTH GQHQUbcevog09/29/2025 12:42 PM EDT MICROALBUMIN / CREATININE URINE RVFJEFdgdkxx24/22/2025 from Last 3 Months or Most Recently Relevant to Health Maintenance Results * POCT glycosylated hemoglobin (Hb A1C) docked device (06/10/2025 1:51 PM EST) ComponentValueRef RangeTest MethodAnalysis TimePerformed AtPathologist SignatureHemoglobin A1C7.0Specimen (Source)Anatomical Location / Laterality Collection Method / VolumeCollection TimeReceived TimeBloodVenous blood specimen / Cfwjwic3206/10/2025 1:51 PM EST Narrative Authorizing ProviderResult TypeResult StatusLizzette Middleton DOPOINT OF CARE TEST ENTER/EDIT ORDERABLESFinal Result * XR HIP LT MIN 2V (05/17/2025 6:29 PM EST)Anatomical RegionLateralityModality OtherSpecimen (Source)Anatomical Location / LateralityCollection Method / VolumeCollection TimeReceived Time05/17/2025 6:29 PM EST Narrative 05/17/2025 6:32 PM EST [facility] ?[address] ? [place] [address] ?XRay Report ? Signed ? Patient: WARDER,DORYS M ?MR#: [id number] ?? : 1945 ?Acct:[id number] ?? Age/Sex: 79 / F ?ADM Date: 05/17/25 ?? Loc: RAD ? Attending Dr: PRASANTH CRAIG ? Ordering Physician: PRASANTH CRAIG ?? Date of Service: 05/17/25 ?? Procedure(s): XR hip LT min 2V ?? Accession Number(s): [id number] ? cc: PRASANTH CRAIG ? [facility] ? [address] ? [place] [address] ? Patient Name: ?? DORYS DAILEY ? MRN: [facility]:[id number] ? date: 1945 ?Sex: F ?? Assigned Patient Location: RAD ?? Current Patient Location: RAD ?? Accession/Order Number: [id number] ?? Exam Date: 05/17/2025 ??13:50 ?Report Date: 05/17/2025 ??18:29 ? At the request of: ?? PRASANTH ??RAFAT ? Procedure: ??XR hip LT min 2V ? XR hip LT min 2V ??05/17/2025 1:59 PM ? SIGNS AND SYMPTOMS: ?? Acute Left Hip Pain ? PROTOCOL: Frontal and frog-leg views of the left hip ? COMPARISON: None ? FINDINGS: ? There is mild narrowing of the left hip joint space. ??There is no fracture or ?? dislocation. ??Vascular calcifications are present in the left thigh. ? XR/XR hip LT min 2V ?? IMPRESSION: ? Mild degenerative changes are noted in the left hip. ? No acute bony injury. ? Impression dictated by: Barry Cabral M.D. ??05/17/2025 6:29 PM ? Dictation Location: RADIO-PC-27 ? Electronically authenticated by: [id number] ??Y ?? Date: 05/17/2025 ??18:29 ? Dictated By: ?Barry Cabral M.D. ? Signed By: ?05/17/25 1832 ? DD/ ? TD/TT: ? Wood Router Hand: Procedure Note Radiology, Radiologist, MD - 05/17/[address] [address] XRay Report Signed Patient: DORYS DAILEY MMR#: [id number] : 1945cct:[id number] Age/Sex: 79 / FADM Date: 05/17/25 Loc: RAD Attending Dr: PRASANTH CRAIG Ordering Physician: PRASANTH CRAIG Date of Service: 05/17/25 Procedure(s): XR hip LT min 2V Accession Number(s): [id number] cc: PRASANTH CRAIG [address] [address] Patient Name: DORYS DAILEY MRN: [facility]:[id number] date: 1945 Sex: F Assigned Patient Location: [facility] Current Patient Location: [facility] Accession/Order Number: [id number] Exam Date: 05/17/2025 13:50 Report Date: 05/17/2025 18:29 At the request of: PRASANTH CRAIG Procedure: XR hip LT min 2V XR hip LT min 2V 05/17/2025 1:59 PM SIGNS AND SYMPTOMS: Acute Left Hip Pain PROTOCOL: Frontal and frog-leg views of the left hip COMPARISON: None FINDINGS: There is mild narrowing of the left hip joint space. There is no fractureor dislocation. Vascular calcifications are present in the left thigh. XR/XR hip LT min 2V IMPRESSION: Mild degenerative changes are noted in the left hip. No acute bony injury. Impression dictated by: Barry Cabral M.D. 05/17/2025 6:29 PM Dictation Location: [place] [address] Electronically authenticated by: [id number] Y Date: 8:29 Dictated By: Barry Cabral M.D. Signed By:05/17/251831 DD/ 28 TD/TT: Wood Router Hand: Authorizing ProviderResult TypeResult StatusDanialexandr Craig MDCLINISYNC IMAGING Final Result * (ABNORMAL) Diabetic Retinopathy Screening - OU - Both Eyes (05/04/2025 12:42 PM EDT)Anatomical RegionLateralityModalityHeadOther Narrative Authorizing ProviderResult TypeResult StatusDadanny Craig MDOPHREED PHOTOGRAPHY Final Result * Microalbumin / creatinine urine ratio (10/26/2024)ComponentValueRef RangeTest MethodAnalysis TimePerformed AtPathologist SignatureMICROALBUMIN, URINE0.5 ALB/CREAT NCDEE4TWWSA DQUGO85Xgohwspi (Source)Anatomical Location / Laterality Collection Method / VolumeCollection TimeReceived TimeUrineUrine specimen obtained by clean catch procedure / Kjnjltc4810/26/2024 Narrative Authorizing ProviderResult TypeResult StatusDadanny FERRIS URINE ORDERABLESEdited Result - Final from Last 3 Months or Most Recently Relevant to [place] [phone] Care Teams Team MemberRelationshipSpecialtyStart DateEnd Prasanth Craig MD [address] [address] PCP - GeneralInternal Medicine12/09/22 Lizzette Middleton DO [address] [place] [address] [facility] 08/13/24
--- OUTSIDE RECORDS SUMMARY | 2025-06-22 14:25 | XMS_ITS | Encounter Summary ---
Author Organization [facility] Address [address] [place] [address] Care Team Providers Care Dividend Deposit Entry Clerk Name Role Phone Prasanth Craig MD Primary Care Provider [phone] Sjkiara Lizzette Fred DO Unavailable [phone] Encounter Details DateTypeDepartmentCare Team (Latest Contact Info)Jzvestlyzti65/16/2025Orders Only [facility] [place] [facility] [address] [place] [address] Prasanth Craig MD [address] [facility] [address] [place] [address] Encounter for screening mammogram for malignant neoplasm of breast Social History Tobacco UseTypesPacks/DayYears UsedDateSmoking Tobacco: NeverSmokeless Tobacco: NeverAlcohol UseStandard Drinks/WeekCommentsNever0 (1 standard drink = 0.6 oz pure alcohol)caffeine: coffee/teaPHQ-2AnswerDate RecordedPatient Health Questionnaire-2 Hncqu50208/11/2024UDIT-CAnswerDate RecordedQ1: How often do you have a drink containing alcohol?Never06/10/2025Q2: How many drinks containing alcohol do you have on a typical day when you are drinking?Patient does not drink06/10/2025Q3: How often do you have six or more drinks on one occasion? Never06/10/2025CommentsUnknownSex and Gender InformationValueDate RecordedSex Assigned at BirthNot on fileLegal EeePibzsr51/15/2023 6:45 PM EDT Gender IdentityNot on fileSexual OrientationNot on filedocumented as of this encounter Plan of Treatment DateTypeDepartmentCare Team (Latest Contact Info)Bidqwlrgyvj87/15/2026 2:00 PM EDTOffice Visit [facility] [place] [facility] [address] [place] [address] Lizzette Middleton DO [address] [place] [address] 11/21/2025 1:00 PM EDTOffice Visit [facility] [address] [place] [address] Prasanth Craig MD [address] [place] [address] 11/23/2025 1:00 PM EDTOffice Visit [facility] [place] [facility] [address] [place] [address] Patito Serrano PA [address] [place] [address] NameTypePriorityAssociated DiagnosesOrder ScheduleBilateral screening mammogram with tomosynthesisImagingRoutine Encounter for screening mammogram for malignant neoplasm of breast Expected: 06/21/2025 (Approximate), Expires: 08/22/2026documented as of this encounter Visit Diagnoses Diagnosis Encounter for screening mammogram for malignant neoplasm of breast documented in this encounter Care Teams Team MemberRelationshipSpecialtyStart DateEnd Date Prasanth Craig MD [address] [place] [address] PCP - GeneralInternal Medicine12/09/22 Lizzette Middleton DO [address] [place] [address] PCP - ACO Reach08/13/24documented as of this encounter
--- OUTSIDE RECORDS SUMMARY | 2025-06-22 14:25 | XMS_ITS | Clinical Summary ---
Author Organization [facility] Address [address] [place] [address] Care Team Providers Care Or Rn Name Role Phone Unavailable Primary Care Provider Unavailabl e Social History Tobacco UseTypesPacks/DayYears UsedDateSmoking Tobacco: Never Assessed CommentsUnknownSex and Gender InformationValueDate RecordedSex Assigned at Not on fileLegal MasJjzncq97/02/2012 8:49 AM ESTGender IdentityNot on fileSexual OrientationNot on file Plan of Treatment Not on file Insurance
--- OUTSIDE RECORDS SUMMARY | 2025-06-22 14:25 | XMS_ITS | Clinical Summary ---
Author Organization [employer] Address [id number] [address] 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 Name Role Phone Prasanth Craig MD Primary Care Provider [phone] Allergies Active AllergyReactionsCriticalityNoted DateCommentsPenicillinOther (See Comments)12/14/2020hellfish Ecxokff9604/23/2022ulfamethoxazoleOther (See Comments)12/14/2020TrimethoprimOther (See Comments)12/14/2020 Medications MedicationSigDispense QuantityRefillsLast [...] 1 diabetes mellitus with other specified complication ([facility]) INJECT UP TO 100 UNITS VIA PUMP DIRECTED ONCE DAILY 90 mL ctive Active Problems ProblemNoted DateDiagnosed OkbuUcqaswwcf25/13/2022 Overview (04/23/2022): 03/19/22: Persistent micro hematuria. Plan for CT urogram and cysto further workup. At the time of cysto will evaluate the mass she is feeling with wiping 04/23/22: CT urogram with hiatal hernia and gallbladder sludge, normal upper tract. Cysto with small rectocele. Findings all reviewed with patient Encounters DateTypeDepartmentCare PltlIeplxbdxkba26/30/2025Orders Only [facility] Department of [facility] [address] [address] External, Scanning Provider from Last 3 Months Family History Medical HistoryRelationNameCommentsCancerFatherlung cancerCirrhosisMother RelationNameStatusCommentsFatherDeceasedMotherDeceased Social History Tobacco UseTypesPacks/DayYears UsedDateSmoking Tobacco: NeverSmokeless Tobacco: Never Tobacco Cessation:Counseling Given: Not Answered Alcohol UseStandard Drinks/WeekCommentsNot Currently0 (1 standard drink = 0.6 oz pure alcohol)ChildcareAnswerDate XcrgrvomCkxlwzlzeOfhzpjg84/12/2019Employment AnswerDate OfokujkxKiftftkfjyPidrxks37/12/2019Purpose - LifeAnswerDate Recorded Purpose and direction in ivvoDtvclta47/11/2021CommentsUnknownSex and Gender InformationValueDate RecordedSex Assigned at BirthNot on fileLegal Sex Bngcil0402/09/2015 12:01 PM EDTGender IdentityNot on fileSexual OrientationNot on file Last Filed Vital Signs Vital SignReadingTime TakenCommentsBlood Qgemamml318/6009/ 2:40 PM EDT Pulse--Temperature--Respiratory Rate--Oxygen Saturation--Inhaled Oxygen Concentration--Fyygzz13.9 kg (185 lb)03/19/2022 2:40 PM HLEAlxlll382.1 cm (5' 5 )03/19/2022 2:40 PM EDTBody Mass Index30.7903/19/2022 2:40 PM EDT Plan of Treatment Health MaintenanceDue DateLast DoneCommentsDepression Fqiwxyzuv07/15/1959Tobacco Pbtfjrfzt18/15/1959Fall Risk Yzmvcctzl59/15/2012Zoster (Shingles) Vaccine (2 of 3), 06/19/2012RSV ( or age 60+ yrs) (1 - 1-dose 75+ series)2COVID-19 Vaccine ( - 2024- season)/, 08/29/2020, 08/08/2020Influenza Wmpbuak68/07/2021, 04/06/2021, 04/06/2020, Additional history existsDTaP,Tdap and Td Vaccines (3 - Td or Tdap) , 03/03/2014 Medical Devices Not on file Procedures Procedure NamePriorityDate/TimeAssociated DiagnosisCommentsEYE EXAMRoutine 05/04/2025 9:54 AM EDTfrom Last 3 Months Results * Eye exam (05/04/2025 9:54 AM EDT) Narrative Authorizing ProviderResult TypeResult StatusScanning Provider ExternalNURSING ASSESSMENTSFinal Result from Last 3 Months Insurance Care Teams Team MemberRelationshipSpecialtyStart DateEnd Prasanth Craig MD [address] [facility], [facility] [address] [place] [address] PCP - GeneralInternal Medicine03/26/22
--- OUTSIDE RECORDS SUMMARY | 2025-06-22 14:25 | XMS_ITS | Clinical Summary ---
Author Organization [facility] Address [address] [place] [address] Phone Care Team Providers Care Catering Director Name Role Phone Prasanth Craig MD Primary Care Provider [phone] Juan José Cintron MD Unavailable [phone] Eder Everett DO Unavailable [phone] Allergies Active AllergyReactionsCriticalityNoted DateCommentsAce InhibitorsUnknown 04/08/20238423OxpyqlorinuBvtyMvh72/03/8997OhtqjuokqkqnfdQauwjgug71/03/2023Shellfish Containing MwhfqmntGcwjtub24/03/0610OyztstnoxvxvBmshvvkdpzlQnzp22/12/2022 Medications MedicationSigDispense QuantityRefillsLast FilledStart DateEnd DateStatus biotin [...] mg) by mouth once daily. 90 tablet 3124Active potassium chloride CR 10 mEq ER tablet Indications:3-vessel coronary artery disease,Essential hypertensionTake 1 tablet (10 mEq) by mouth once daily. 90 tablet 302//972101/ctive atorvastatin (Lipitor) 10 mg tablet Indications:Mixed hyperlipidemiaTake 1 tablet (10 mg) by mouth once daily at bedtime. 90 tablet //ctive furosemide (Lasix) 20 mg tablet Indications:Essential hypertensionTake 1 tablet (20 mg) by mouth once daily. 90 tablet //ctive magnesium oxide (Mag-Ox) 400 mg (241.3 mg elemental) tablet Indications:Paroxysmal atrial fibrillation (Multi)TAKE 1 TABLET BY MOUTH TWICE A DAY 180 tablet 5Active metoprolol succinate XL (Toprol-XL) 50 mg 24 hr tablet Indications:Paroxysmal atrial fibrillation (Multi),Essential hypertensionTake 1 tablet (50 mg) by mouth once daily. 90 tablet 306//ctive Active Problems ProblemNoted DateDiagnosed DateACE inhibitor szczmipyply27/06/2025MI 28.0-28.9,adult06/01/2024ngina, class II06/03/2023SHD (arteriosclerotic heart disease)04/08/2023trial premature cnnnicjgr11/03/2023VNRT (AV graciela re-entry tachycardia)04/08/2023iabetes bzmdylmh50/03/2023Essential hypertension 04/08/2023Essential pmbqwp2804/08/2023astric ulcer04/08/2023Highly echogenic liver on okourrprzc51/03/2023History of coronary artery bypass graft04/08/2023 History of PTCA14947Iknyzozodsqlfw38/03/2023Left bundle branch block 04/08/20239424Ojglnluajftg89/03/2023Paroxysmal atrial jzgxxumyhbao93/03/2023Raynaud pgvvvmwump90/03/2023Ventricular tachycardia (paroxysmal)10/03/2023Class 1 obesity due to excess calories with body mass index (BMI) of 30.0 to 30.9 in adult04/08/2023High risk medication use04/08/2023Never smoked any substance 04/08/2023 Resolved Problems ProblemNoted DateDiagnosed DateResolved DateLongstanding persistent atrial jkxpannczloh01nticoagulated Encounters DateTypeDepartmentCare WenmFdmtnvvzpiw28/16/2025 1:30 PM EDTOffice Visit at [facility] [address] [address] Juan José Cintron MD Paroxysmal atrial fibrillation (Multi) (Primary Dx); Palpitations; High risk medication use; History of coronary artery bypass graft; Type 2 diabetes mellitus without complication, with long-term current use of insulin (Multi); Never smoked any substance; BMI 28.0-28.9,adult Discharge Disposition: Home04/21/2025Travelfrom Last 3 Months Immunizations ImmunizationAdministration DatesNext DueFlu vaccine, trivalent, preservative free, HIGH-DOSE, age 65y+ (Fluzone)05/07/2022,04/04/2021,05/21/2017Influenza, Xgivilalqwv44/01/2019,04/06/2018,04/06/2016,04/06/2015,04/06/2014,04/28/2013 Influenza, live, intranasal, ycnrtsthphsx25/01/2021Influenza, seasonal, rplsfecmmq50/01/2020,04/06/2012,04/06/2009Novel alihitqbk-B9Y6-27, preservative-free05/30/2009Pfizer Purple Cap UAXD-QeS-406/22/2021Pneumococcal conjugate vaccine, 13-valent (PREVNAR 13)04/29/2016,02/12/2016Pneumococcal polysaccharide vaccine, 23-valent, age 2 years and older (PNEUMOVAX 23) 04/06/2014,07/07/2000RSV-MAb07/22/2024Td vaccine, age 7 years and older (TENIVAC)01/11/2021Tetanus toxoid, kgyxrzvx07/01/2014Zoster vaccine, recombinant, adult (SHINGRIX)02/20/2024Zoster, live08/18/2016 Family History Medical HistoryRelationNameCommentsacute myocardial infarctionBrotheracute myocardial infarctionSisterRelationNameStatusCommentsBrotherSister Social History Tobacco UseTypesPacks/DayYears UsedDateSmoking Tobacco: NeverSmokeless Tobacco: NeverAlcohol UseStandard Drinks/WeekCommentsNever0 (1 standard drink = 0.6 oz pure alcohol)CommentsNoSex and Gender InformationValueDate RecordedSex Assigned at BirthNot on fileLegal AohEnroul04/26/2022 5:01 AM ESTGender Identity Not on fileSexual OrientationNot on file Last Filed Vital Signs Vital SignReadingTime TakenCommentsBlood Tnresddk546/6204/21/2025 1:53 PM EDT Ioaei772904/21/2025 1:53 PM JGGKqzhafxjyzu77.3 ??C (97.3 ??F)02/11/2025 9:10 AM EDTRespiratory Pyny541502/11/2025 9:10 AM EDTOxygen Osfdysucqj56%02/11/2025 9:10 AM EDTInhaled Oxygen Concentration--Xsbcei53.6 kg (173 lb 3.2 oz)04/21/2025 1:53 PM UZOAjnrqj412.4 cm (5' 5.5 )04/21/2025 1:53 PM EDTBody Mass Index28.38 04/21/2025 1:53 PM EDT Plan of Treatment DateTypeDepartmentCare Team (Latest Contact Info)Behmbnobsqm11/06/2026 11:30 AM EDTOffice Visit at [facility] [address] [facility] [address] [place] [address] Eder Everett DO [address] [facility] [address] [place] [address] [place] [address] 11/16/2025 2:45 PM EDTOffice Visit at [facility] [address] [facility] [address] [place] [address] Juan José Cintron MD [address] [address] Health MaintenanceDue DateLast DoneCommentsDiabetes: Celiac Disease Screening 1946Diabetes: Hemoglobin A1C1946Vitamin B-120 1946Hepatitis C Ymcrfuuit59/15/1965DTaP/Tdap/Td Vaccines (1 - Tdap)/iabetes: Retinopathy Ralepuuep83/01/2022, 12/21/2021, 03/09/2021, Additional history existsMedicare Annual Wellness Visit (AWV)406/02/2023, 12/07/2021, 08/02/2020TSH Level0/11/2022, 11/25/2019, 07/06/2019Lipid Panel/04/2024, 11/25/2019Influenza Vaccine (#1)/07/2021, 04/06/2021, 04/04/2021, Additional history existsCOVID-19 Vaccine ( season)/, 05/05/2023, 05/08/2022, Additional history exists Diabetes: Urine Protein Qqmhwrvfb81/22/731789/, 4Bone Density Scan6/, 12/27/2024, 04/10/2022, Additional history exists Pneumococcal ZruxzgnFqkkbtsqr19/24/2016, 02/12/2016, 04/06/2014, Additional history existsZoster JfurwfhnEcfqpmewo27/16/2024, 08/26/2022, 08/18/2016RSV High Risk: (Elderly (60+) or Population)Jrngdwmeb04/16/2025HIB VaccinesAged OutNo longer eligible based on patient's [...] 5:57 PM EDT Paroxysmal atrial fibrillation (Multi) QGTHqymxgj35/05/2023 1:38 PM EDT Palpitations Paroxysmal atrial fibrillation (Multi) Essential hypertension Left bundle branch block LIPID CZCKIKftrcuf16/21/2020 12:20 PM EDT from Last 3 Months or Most Recently Relevant to Health Maintenance Results * ECG 12 lead (Clinic Performed) (04/21/2025 5:57 PM EDT)Specimen (Source) Anatomical Location / LateralityCollection Method / VolumeCollection Time Received Time Narrative Juan José Cintron MD - 04/21/2025 5:57 PM EDT EKG [...] mIU/L LAB IMMUNOASSAY METHOD 04/10/2023 8:55 PM [facility]OR[facility] LABSpecimen (Source)Anatomical Location / LateralityCollection Method / VolumeCollection TimeReceived TimeBlood Venous blood specimen / UnknownVenipuncture / Mhuyagk1604/10/2023 1:38 PM EDT 04/10/2023 1:38 PM EDT Narrative [facility] - 04/10/2023 8:55 PM EDT TSH testing is performed using different testing methodology at [facility] than at other [facility]. Direct result comparisons should only be made within the same method. Authorizing ProviderResult TypeResult StatusAlyong Cintron MDLAB BLOOD ORDERABLESFinal ResultPerforming OrganizationAddressCity/State/ZIP CodePhone Number [facility] [address] [place] [address] * Lipid Panel (11/25/2019 12:20 PM EDT)ComponentValueRef RangeTest Method Analysis TimePerformed AtPathologist TcsbscjoyBsctpraeywi6457 - 199 mg/dL [facility] LABComment: . ?AGE ?DESIRABLE ?? BORDERLINE HIGH [...] be performed immediately prior to Metamizole dosing. HDL66.0mg/dLRIVER POINT BEHAVIORAL HEALTH LABComment: . ?AGE ?VERY LOW ?? LOW ? NORMAL ?HIGH ?? 0-19 Y < 35 < 40 40-45 ---- 20-24 Y ---- < 40 >45 ---- >24 Y ---- < 40 40-60 >60 . Cholesterol/HDL Ratio2.4EADVENTIST HEALTH SIMI VALLEY LABComment: REF VALUES DESIRABLE < 3.4 HIGH RISK > 5.0 NCU981 - 99 mg/dLRIVER POINT BEHAVIORAL HEALTH LABComment: . ? NEAR ?BORD ?AGE ?DESIRABLE ??OPTIMAL ?HIGH ? HIGH ? VERY HIGH 0-19 Y 0 - 109 --- 110-129 >/= 130 ---- 20-24 Y 0 - 119 --- 120-159 >/= 160 ---- >24 Y 0 - 99 100-129 130-159 160-189 >/=190 . BAKV498 - 40 mg/dLRIVER POINT [facility] PMSSbyadpxjsismq500 - 149 mg/dLRIVER POINT BEHAVIORAL HEALTH LABComment: . ?AGE ?DESIRABLE ?? BORDERLINE HIGH [...] EDT Narrative Authorizing ProviderResult TypeResult StatusAlyong Cintron MDSAINT [facility] BLOOD ORDERABLESFinal ResultPerforming OrganizationAddressCity/State/ZIP CodePhone Number [facility] from Last 3 Months or Most Recently Relevant to Health Maintenance Insurance * Guarantor: Laquita Dailey TypeRelation to PatientDate of BirthPhone Billing AddressPersonal/ZqmwriWxwj13/15/1946 [facility] [place] [address] Advance Directives For more information, please contact: [phone] (Available ) * Full Code (Latest Code Status on File) Date ActivatedDate InactivatedComments02/11/2025 8:28 AMQuestionAnswerCommentsPlan of Care:* Code Status Discussion Not Completed Decision Maker:* Provider Rationale:* Patient condition does not warrant discussion Care Teams Team MemberRelationshipSpecialtyStart DateEnd Date Prasanth Craig MD [address] [facility] [address] [place] [address] PCP - General01/03/22 Juan José Cintron MD [address] [facility] [address] [place] [address] CardiologistCardiology-Clinical Cardiac Electrophysiology08/19/23 Eder Everett DO [address] [facility] [address] [place] [address] Consulting PhysicianCardiology08/19/23
--- OUTSIDE RECORDS SUMMARY | 2025-06-22 14:25 | XMS_ITS | Encounter Summary ---
Author Organization [facility] Address [address] [place] [address] Care Team Providers Care Diesel Crane Operator Name Role Phone Prasanth Craig MD Primary Care Provider [phone] Sjkiara Lizzette M DO Unavailable [phone] Encounter Details DateTypeDepartmentCare Team (Latest Contact Info)Jhhzeijxnfw33/16/2025Telephone [facility] [address] [address] [place] [phone] Prasanth Craig MD [address] [facility] [address] [place] [address] Social History Tobacco UseTypesPacks/DayYears UsedDateSmoking Tobacco: NeverSmokeless Tobacco: NeverAlcohol UseStandard Drinks/WeekCommentsNever0 (1 standard drink = 0.6 oz pure alcohol)caffeine: coffee/teaPHQ-2AnswerDate RecordedPatient Health Questionnaire-2 Jwdsr90508/11/2024UDIT-CAnswerDate RecordedQ1: How often do you have a drink containing alcohol?Never06/10/2025Q2: How many drinks containing alcohol do you have on a typical day when you are drinking?Patient does not drink06/10/2025Q3: How often do you have six or more drinks on one occasion? Never06/10/2025CommentsUnknownSex and Gender InformationValueDate RecordedSex Assigned at BirthNot on fileLegal RjmIkdsvc85/15/2023 6:45 PM EDT Gender IdentityNot on fileSexual OrientationNot on filedocumented as of this encounter Miscellaneous Notes * Telephone Encounter - NIRMALA CARY - 06/21/2025 2:15 PM EST Order was faxed to [facility] * Telephone Encounter - Justine Bonilla - 06/21/2025 1:45 PM EST Laquita left a message requesting an order for a mammogram to the [facility]. She stated shehad been having a red area and itching on her breast and felt it may me good to do a mammogram thisyear. She asked that you call with any questions and also if the order was sent. documented in this encounter Plan of Treatment DateTypeDepartmentCare Team (Latest Contact Info)Lzixteagbys93/15/2026 2:00 PM EDTOffice Visit [facility] [address] [place] [address] Lizzette Middleton DO [address] [place] [address] [place] [address] 11/21/2025 1:00 PM EDTOffice Visit [facility] [address] [place] [address] [place] [address] Prasanth Craig MD [address] [place] [address] [place] [address] 11/23/2025 1:00 PM EDTOffice Visit [facility] [address] [place] [address] Patito Serrano PA [address] [place] [address] documented as of this encounter Visit Diagnoses Not on filedocumented in this encounter Care Teams Team MemberRelationshipSpecialtyStart DateEnd Date Prasanth Craig MD [address] [place] [place] [address] PCP - GeneralInternal Medicine12/09/22 Lizzette Middleton DO [address] [facility] [place] [place] [address] PCP - ACO Reach08/13/24documented as of this encounter
== END 2025-06-22 14:20 | disposition home or self-care (01) ==
LOC: MAMMO 14:20
PROVIDERS: PCP Internal Medicine; Visit Provider Internal Medicine
DX: Z12.31 Encounter for screening mammogram for malignant neoplasm of breast (principal); Z80.1 Family history of malignant neoplasm of trachea, bronchus and lung
CPT/HCPCS: 77063; 77067